=== PATIENT | female | born 1965 | race Caucasian/White ===

== ENCOUNTER 2017-07-22 23:43 | Emergency (ER) | payer SELFPAY ==
[~2017-07-22] VITALS: Ht 167.6 cm; Wt 122.7 kg
[~2017-07-22 23:43] MED LIST: ADVIN25/60 INH; APIX1TAB3 PO; EPP3/2 IM; FURO20TA PO; GLC/500 PO; GLIP5TAB3 PO; LISI-729 PO; LORA-741 PO; MISC8TAB PO; POTA10CA28 PO; TRAM-10 PO
[2017-07-22 23:49] VITALS: TEMP 36.7; Ht 167.6 cm; Wt 122.7 kg
[2017-07-23] MEDS ORDERED: LIDOCAINE 1% BUFFERED INJ 20 ML VIAL INFIL ONE
[2017-07-23] MEDS ORDERED: CEPHALEXIN 500MG HOME PACK 1 EA BTL PO ONE
[2017-07-23] MEDS ORDERED: CEPH500C2 PO (00:57)
[2017-07-23] MEDS ORDERED: OXYCODONE IR HOME PACK PO ONE (01:00)
[2017-07-23 01:03] VITALS: BP 144/90; PULSE 90; O2SAT 96
--- NOTE | 2017-07-23 06:47 | EMERGENCY ROOM VISIT NOTE ---
ED Visit Note First contact with patient: 23:52 CHIEF COMPLAINT: Infection of the left bicep HISTORY OF PRESENT ILLNESS: This 51-year-old patient presents to the emergency department after they noticed a hard, red, tender area left bicep. It is slowly getting larger, more painful and tender. No fever, chills, or loss of appetite. There has been no drainage from the area. There was no injury to the area preceding the infection. They rate the pain as throbbing and 4/10. Tetanus shot is up to date. They have tried to cut it open themselves. The patient is pretty diabetic. The patient has history of subcutaneous abscesses. REVIEW OF SYSTEMS: A review of systems was performed with positives and pertinent negatives listed in the history of present illness. All other systems were reviewed and are negative. ALLERGIES: Iodine, reviewed MEDICATIONS: Reviewed PMH: Medical Problems: (1) Anxiety Status: Chronic (2) Obesity Status: Chronic Surgical Problems: (1) History of dental surgery Status: Chronic (2) Hx of appendectomy Status: Chronic SOCIAL HISTORY: No drug use PHYSICAL EXAM: Vital Signs: Reviewed Nurse's notes, vital signs mildly hypertensive. GENERAL: Pleasant female, no acute distress, non toxic in appearance, well-developed well-nourished. SKIN: There is an erythematous indurated area left bicep which measures about 3 cm cm in diameter. It is fluctuant but there is no pointing or drainage. There is a zone of inflammation around it but no lymphangitis. Capillary refill less than 2 seconds. MUSCULOSKELETAL: There is no limitation of the range of motion of the arm. EMERGENCY DEPARTMENT COURSE: I examined the patient. After saline and Betadine cleansing and 4 mL of 1% buffered lidocaine anesthesia, the abscess was incised with a number 11 scalpel blade. A large amount of purulent material was released with more expressed by pressure. A swab was obtained for culture. The abscess cavity was further probed with a needle six horse hitch driver and the deep pocket expressed. The abscess cavity was then copiously irrigated with sterile saline under pressure. The area was then packed with iodine soaked packing. The area was cleaned with sterile saline and dressed with bacitracin and a bulky bandage. The patient tolerated the procedure well. The patient was discharged home in stable condition. DIAGNOSIS: Abscess of the left bicep DISCHARGE INSTRUCTIONS & TREATMENT: As below Problem List Medical Problems: (1) Anxiety Status: Chronic (2) Obesity Status: Chronic Surgical Problems: (1) History of dental surgery Status: Chronic (2) Hx of appendectomy Status: Chronic Current/Historical Medications Scheduled Apixaban (Eliquis), 5 MG PO DAILY Cephalexin Monohydrate (Keflex), 500 MG PO QID Glipizide (Glucotrol), 5 MG PO BID Lisinopril (Zestril), 5 MG PO QAM Metformin Hcl (Glucophage), 500 MG PO BIDM Misc Natural Products (Christian), 10 TABS PO DAILY Scheduled PRN Epinephrine (Epipen), 0.3 MG IM UD PRN for ALLERGIC REACTION Fluticasone Prop/Salmeterol (Advair Diskus 250/50 60 Dose), 1 PUFF INH BID PRN for SOB/Wheezing Furosemide (Lasix), 20 MG PO DAILY PRN for Edema Lorazepam (Ativan), 0.5 MG PO TID PRN for Anxiety Potassium Chloride (Micro-K Ext Rel), 10 MEQ PO DAILY PRN for WHEN TAKING FUROSEMIDE Tramadol (Ultram), 50 MG PO Q8H PRN for Pain Allergies Coded Allergies: Shellfish (Verified Allergy, Severe, ANAPHYLACTIC, 07/17/16) CARRIES EPI PEN Bee Venom (Verified Allergy, Unknown, ANAPHYLAXIS, 07/17/16) CARRIES EPI PEN Iodine (Verified Allergy, Unknown, ., 07/17/16) Vital Signs Date Time Temp Pulse Resp B/P (MAP) Pulse Ox O2 Delivery O2 Flow Rate FiO2 07/23/17 01:03 90 18 144/90 96 07/22/17 23:49 36.7 98 18 158/95 95 Room Air Departure Information Impression Primary Impression: Abscess of left upper extremity Dispostion Home / Self-Care Condition GOOD Prescriptions Cephalexin Monohydrate (KEFLEX) 500 Mg Cap 500 MG PO QID for 9 Days, #36 CAP Prov: Davian Coelho ., LEX 07/23/17 Forms WORK / SCHOOL INSTRUCTIONS, HOME CARE DOCUMENTATION FORM, IMPORTANT VISIT INFORMATION Patient Instructions [facility], ED Abscess IandD Additional Instructions Frequently change outer dressing. Leave inber dressing in place. Cephalexin(Keflex) 500mg: Take one pill four times daily for 10 days for your skin infection. All antibiotics can cause diarrhea. If this occurs and you feel worse or it does not resolve in 1-2 days follow up with your doctor or return to the Emergency Department as this could be signs of serious underlying problems. Any medication can cause an allergic reaction, stop the pills immediately and return to the ER for rash, hives, breathing difficulties, or swelling. Ibuprofen(Motrin, Advil) may be used for fever or pain. Use 600mg every six hours as needed. Take with food. Avoid using more than 2400mg in a 24 hour period. Do not use 2400mg per day for more than three consecutive days without physician direction. Prolonged inappropriate use can lead to stomach upset or ulcers. (AND/OR) Acetaminophen(Tylenol) may be used for fever or pain. Use 1000mg every six hours as needed. Avoid using more than 3000mg in a 24 hour period. Warm compresses to the affected area 4 times daily for 15-20 minutes. Rest and drink plenty of fluids. Continue current medications. Return to the ER for severe pain, persistent fevers, spreading redness, or any worsening of your condition. Follow up with your primary physician within 2-3 days for a recheck of the current condition and for wound repacking.
--- NOTE | 2017-07-25 18:45 | Pharmacy Progress Note ---
ED Pharmacist Culture FollowUp Date of Service: Jul 25, 2017. Called patient regarding MSSA wound culture. She was originally discharged on keflex, but patient reported the wound was not improving and the keflex was making her sick. Prescription for bactrim 1 DS tab BID X 10 days called to [facility] at the patient's request. Case discussed with Dr. Bradshaw, who is the prescribing provider.
== END 2017-07-23 01:03 | disposition home or self-care (01) ==
LOC: C.EDB 23:44 → C.EDC 07-23 01:03
DX: L02.414 Cutaneous abscess of left upper limb (principal); E66.9 Obesity, unspecified; Z98.818 Other dental procedure status; Z90.89 Acquired absence of other organs

== ENCOUNTER 2018-09-10 11:46 | Inpatient (IN) ==
[2018-09-10] MEDS ORDERED: ALBUT/IPRATROP 3MG/0.5MG NEB 3 ML VIAL NEB STA (12:14)
--- NOTE | 2018-09-10 12:19 | Emergency Department Note ---
Entered by Silvia Pichardo acting as a scribe for Jay Bradshaw DO History of Present Illness General Chief complaint: Shortness of Breath/Dyspnea Stated complaint: SOB,CONGESTION Time Seen by Provider: 09/10/18 12:07 Source: patient History of Present Illness Provider complaint: chest congestion Onset (ago): week(s) 1 Location: chest Maximum Pain Intensity: 8 Quality: + other (congestion) Associated symptoms: + cough, + fever/chills (fever) and + other (swelling in legs) The patient is a 52 year old female who presents to the Emergency Room with complaints of chest congestion beginning 1 week ago. She rates her pain at an 8/ 10. The patient states that 1 week ago she developed flu-like symptoms as well. She states that she was febrile at 101.9 over the weekend and also noticed swelling in her legs. The patient states that she has had a dry cough. She reports a history of pneumonia, a PE, and pulmonary edema. She states that she takes Lasix as needed but otherwise does not take any medications daily including blood thinners. She states that she does not smoke. Home Medications Home Medications Medication Instructions Recorded Confirmed Type No Known Home Medications 09/10/18 09/10/18 History Allergies Allergy/AdvReac Type Severity Reaction Status Date / Time shellfish derived Allergy Severe ANAPHYLACTI Verified 09/10/18 12:10 C bee venom protein (honey bee) Allergy Unknown ANAPHYLAXIS Verified 09/10/18 12: 10 iodine Allergy Unknown . Verified 09/10/18 12:10 Past Med/Surg History Medical History Diabetes mellitus, type II (Chronic) HTN (hypertension) (Chronic) Chronic back pain (Chronic) Obesity (Chronic) Anxiety (Chronic) Diabetes Surgical History Hx of appendectomy (Resolved) History of dental surgery (Resolved) Family History Other Breast cancer CAD (coronary artery disease) COPD (chronic obstructive pulmonary disease) Diabetes HTN (hypertension) Sudden cardiac arrest Social History Current Living Situation: Family Other Information That Helps Us Care for You: No Feels Safe at Home: Yes Smoking Status: Never smoker Second Hand Exposure: No Hx Alcohol Use: Yes Alcohol Intake Frequency: holidays/special occasions only Hx Substance Use: No Beliefs That Will Affect Care: None Preferred Language: Danish Communication Ability: Effective Review of Systems See HPI for pertinent positives & negatives. and A total of 10 systems reviewed and were otherwise negative Physical Exam Vital Signs Vital Signs - 24 hr 09/10/18 11:49 09/10/18 12:56 09/10/18 13:02 Temperature 36.7 C Temperature Source Oral Sepsis Recent Fever Within 48 Hours Yes Sepsis Action Taken by Nursing No Action Required Pulse Rate 95 H 93 H Pulse Rate [Finger] Pulse Rate from SpO2 Sensor 95 H Respiratory Rate 20 14 Respiratory Effort / Characteristics Non-Labored Spontaneous Respiratory Depth Normal Respiratory Pattern Regular Blood Pressure 178/83 H 135/86 Blood Pressure [Right Arm] Blood Pressure Mean 114 102 Blood Pressure Mean [Right Arm] Blood Pressure Position Sitting Blood Pressure Position [Right Arm] Pulse Oximetry 88 L 92 Oxygen Delivery Method Room Air Room Air Oxygen Flow Rate 09/10/18 13:04 09/10/18 13:10 09/10/18 13:20 Temperature Temperature Source Sepsis Recent Fever Within 48 Hours Sepsis Action Taken by Nursing Pulse Rate 91 H 89 90 Pulse Rate [Finger] 92 H Pulse Rate from SpO2 Sensor 92 H 91 H 92 H Respiratory Rate 17 17 15 Respiratory Effort / Characteristics Respiratory Depth Respiratory Pattern Blood Pressure Blood Pressure [Right Arm] 135/86 Blood Pressure Mean Blood Pressure Mean [Right Arm] 102 Blood Pressure Position Blood Pressure Position [Right Arm] Pulse Oximetry 91 91 93 Oxygen Delivery Method Nasal Cannula Oxygen Flow Rate 2 09/10/18 13:30 09/10/18 13:31 09/10/18 13:40 Temperature Temperature Source Sepsis Recent Fever Within 48 Hours Sepsis Action Taken by Nursing Pulse Rate 95 H 99 H 96 H Pulse Rate [Finger] Pulse Rate from SpO2 Sensor 94 H 100 H 93 H Respiratory Rate 22 20 21 Respiratory Effort / Characteristics Respiratory Depth Respiratory Pattern Blood Pressure 107/87 Blood Pressure [Right Arm] Blood Pressure Mean 93 Blood Pressure Mean [Right Arm] Blood Pressure Position Blood Pressure Position [Right Arm] Pulse Oximetry 91 94 90 Oxygen Delivery Method Oxygen Flow Rate 09/10/18 13:50 09/10/18 13:58 09/10/18 14:00 Temperature Temperature Source Sepsis Recent Fever Within 48 Hours Sepsis Action Taken by Nursing Pulse Rate 92 H 87 Pulse Rate [Finger] 92 H Pulse Rate from SpO2 Sensor 92 H 87 Respiratory Rate 24 19 24 Respiratory Effort / Characteristics Respiratory Depth Respiratory Pattern Blood Pressure Blood Pressure [Right Arm] 107/87 Blood Pressure Mean Blood Pressure Mean [Right Arm] 93 Blood Pressure Position Blood Pressure Position [Right Arm] Pulse Oximetry 89 L 93 92 Oxygen Delivery Method Nasal Cannula Oxygen Flow Rate 3 09/10/18 14:01 09/10/18 14:10 09/10/18 14:20 Temperature Temperature Source Sepsis Recent Fever Within 48 Hours Sepsis Action Taken by Nursing Pulse Rate 88 86 87 Pulse Rate [Finger] Pulse Rate from SpO2 Sensor 87 87 87 Respiratory Rate 18 23 18 Respiratory Effort / Characteristics Respiratory Depth Respiratory Pattern Blood Pressure 159/78 H Blood Pressure [Right Arm] Blood Pressure Mean 105 Blood Pressure Mean [Right Arm] Blood Pressure Position Blood Pressure Position [Right Arm] Pulse Oximetry 93 95 94 Oxygen Delivery Method Oxygen Flow Rate 09/10/18 14:30 09/10/18 14:31 09/10/18 14:40 Temperature Temperature Source Sepsis Recent Fever Within 48 Hours Sepsis Action Taken by Nursing Pulse Rate 86 88 101 H Pulse Rate [Finger] Pulse Rate from SpO2 Sensor 86 88 99 H Respiratory Rate 21 19 16 Respiratory Effort / Characteristics Respiratory Depth Respiratory Pattern Blood Pressure 153/88 H Blood Pressure [Right Arm] Blood Pressure Mean 109 Blood Pressure Mean [Right Arm] Blood Pressure Position Blood Pressure Position [Right Arm] Pulse Oximetry 96 94 94 Oxygen Delivery Method Oxygen Flow Rate 09/10/18 14:50 09/10/18 14:56 09/10/18 15:01 Temperature Temperature Source Sepsis Recent Fever Within 48 Hours Sepsis Action Taken by Nursing Pulse Rate 84 Pulse Rate [Finger] 88 Pulse Rate from SpO2 Sensor 84 91 H Respiratory Rate 19 23 Respiratory Effort / Characteristics Respiratory Depth Respiratory Pattern Blood Pressure Blood Pressure [Right Arm] 153/88 H Blood Pressure Mean Blood Pressure Mean [Right Arm] 109 Blood Pressure Position Blood Pressure Position [Right Arm] Pulse Oximetry 94 95 93 Oxygen Delivery Method Nasal Cannula Oxygen Flow Rate 3 09/10/18 15:10 09/10/18 15:20 09/10/18 15:30 Temperature Temperature Source Sepsis Recent Fever Within 48 Hours Sepsis Action Taken by Nursing Pulse Rate 92 H Pulse Rate [Finger] Pulse Rate from SpO2 Sensor 94 H 90 92 H Respiratory Rate Respiratory Effort / Characteristics Respiratory Depth Respiratory Pattern Blood Pressure Blood Pressure [Right Arm] Blood Pressure Mean Blood Pressure Mean [Right Arm] Blood Pressure Position Blood Pressure Position [Right Arm] Pulse Oximetry 91 94 94 Oxygen Delivery Method Oxygen Flow Rate 09/10/18 15:46 09/10/18 15:50 09/10/18 16:00 Temperature Temperature Source Sepsis Recent Fever Within 48 Hours Sepsis Action Taken by Nursing Pulse Rate Pulse Rate [Finger] Pulse Rate from SpO2 Sensor 95 H 92 H 102 H Respiratory Rate Respiratory Effort / Characteristics Respiratory Depth Respiratory Pattern Blood Pressure Blood Pressure [Right Arm] Blood Pressure Mean Blood Pressure Mean [Right Arm] Blood Pressure Position Blood Pressure Position [Right Arm] Pulse Oximetry 95 95 90 Oxygen Delivery Method Oxygen Flow Rate 09/10/18 16:10 09/10/18 16:23 09/10/18 16:30 Temperature Temperature Source Sepsis Recent Fever Within 48 Hours Sepsis Action Taken by Nursing Pulse Rate Pulse Rate [Finger] Pulse Rate from SpO2 Sensor 90 90 92 H Respiratory Rate Respiratory Effort / Characteristics Respiratory Depth Respiratory Pattern Blood Pressure Blood Pressure [Right Arm] Blood Pressure Mean Blood Pressure Mean [Right Arm] Blood Pressure Position Blood Pressure Position [Right Arm] Pulse Oximetry 95 92 95 Oxygen Delivery Method Oxygen Flow Rate 09/10/18 16:40 09/10/18 18:00 09/10/18 18:18 Temperature Temperature Source Sepsis Recent Fever Within 48 Hours Sepsis Action Taken by Nursing Pulse Rate Pulse Rate [Finger] 97 H Pulse Rate from SpO2 Sensor 90 Respiratory Rate 20 20 Respiratory Effort / Characteristics Respiratory Depth Respiratory Pattern Blood Pressure Blood Pressure [Right Arm] 122/82 Blood Pressure Mean Blood Pressure Mean [Right Arm] 95 Blood Pressure Position Blood Pressure Position [Right Arm] Pulse Oximetry 97 95 95 Oxygen Delivery Method Nasal Cannula Nasal Cannula Oxygen Flow Rate 3 3 09/10/18 19:16 09/10/18 19:27 09/10/18 19:57 Temperature 36.4 C L Temperature Source Oral Sepsis Recent Fever Within 48 Hours Sepsis Action Taken by Nursing Pulse Rate 90 Pulse Rate [Finger] 85 Pulse Rate from SpO2 Sensor Respiratory Rate 18 Respiratory Effort / Characteristics Non-Labored Spontaneous SOB on Exertion SOB on Exertion Respiratory Depth Normal Respiratory Pattern Blood Pressure Blood Pressure [Right Arm] 115/59 L Blood Pressure Mean Blood Pressure Mean [Right Arm] 77 Blood Pressure Position Blood Pressure Position [Right Arm] Sitting Pulse Oximetry 89 L 92 Oxygen Delivery Method Room Air Nasal Cannula Nasal Cannula Nasal Cannula Oxygen Flow Rate 0 1 1 09/10/18 21:35 Temperature Temperature Source Sepsis Recent Fever Within 48 Hours Sepsis Action Taken by Nursing Pulse Rate Pulse Rate [Finger] 87 Pulse Rate from SpO2 Sensor Respiratory Rate 18 Respiratory Effort / Characteristics Non-Labored Spontaneous Respiratory Depth Respiratory Pattern Blood Pressure Blood Pressure [Right Arm] Blood Pressure Mean Blood Pressure Mean [Right Arm] Blood Pressure Position Blood Pressure Position [Right Arm] Pulse Oximetry 97 Oxygen Delivery Method Room Air Oxygen Flow Rate GENERAL: Patient is awake alert in no acute distress patient is resting comfortably and showing no signs of anxiety EYES: The conjunctivae are clear. The pupils are round and reactive. EARS, NOSE, MOUTH AND THROAT: The nose is without any evidence of any deformity. Mucous membranes are moist tongue is midline NECK: The neck is nontender and supple. RESPIRATORY: Shallow respirations were noted throughout. There were diminished breath sounds in all lung cee. Fine expiratory wheezing was noted in both upper lung cee. There is no tachypnea or conversational dyspnea. CARDIOVASCULAR: Regular rate and rhythm noted there no murmurs rubs or gallops normal S1 normal S2 GASTROINTESTINAL: The abdomen is soft. Bowel sounds are present in all quadrants. Abdomen is nontender MUSCULOSKELETAL/EXTREMITIES: There is no evidence of gross deformity full range of motion is noted in the hips and shoulders SKIN: There is no obvious evidence of any rash. There are no petechiae, pallor or cyanosis noted. NEUROLOGIC: Patient is awake alert and oriented x3. Course 1210: Past medical records reviewed. The patient was evaluated in room C2B, and a complete history and physical examination were performed. 1543: I discussed the patient's case with Shakira Chua who will evaluate the patient for further management. 1550: I updated the patient who verbalized agreement and understanding of the treatment plan. Consultations Consultation #1: Shakira Chua Time: 15:43 Administered Medications Acetaminophen (Tylenol) 650 mg PO Q4H PRN PRN Reason: Pain or Fever Stop: 10/10/18 18:37 Last Admin: 09/10/18 21:01 Dose: 650 mg Enoxaparin Sodium (Lovenox) 40 mg SQ Q24H BHAVIN Stop: 10/10/18 20:59 Last Admin: 09/10/18 21:26 Dose: 40 mg Insulin Aspart (Novolog Flexpen) 0 units SC ACHS BHAVIN Stop: 10/10/18 20:59 Last Admin: 09/10/18 21:27 Dose: 10 units Insulin Glargine (Lantus Solostar Pen) 0 units SC Q12H BHAVIN; Protocol Stop: 10/10/18 20:59 Last Admin: 09/10/18 21:26 Dose: 14 units Ipratropium Keyes (Atrovent 0.02% 0.5mg/2.5ml) 0.5 mg INH Q6R PRN PRN Reason: Shortness Of Breath Stop: 10/10/18 18:37 Last Admin: 09/10/18 21:34 Dose: 0.5 mg Levalbuterol HCl (Xopenex 1.25mg/0.5ml Neb) 1.25 mg INH Q6R PRN PRN Reason: Shortness Of Breath Or Wheezing Stop: 10/10/18 18:37 Last Admin: 09/10/18 21:34 Dose: 1.25 mg Discontinued Medications Albuterol (Duoneb) 3 ml NEB NOW STA Stop: 09/10/18 12:15 Last Admin: 09/10/18 12:49 Dose: 3 ml Furosemide (Lasix) 40 mg IV NOW STA Stop: 09/10/18 15:04 Last Admin: 09/10/18 15:24 Dose: 40 mg Medical Decision Making Differential Diagnosis Differential diagnosis: Etiologies such as infections, reactive airway disease, COPD, pneumonia, pleural effusion, pulmonary edema, ARDS, pneumothorax, CHF, cardiac ischemia, cardiac tamponade, dysrhythmia, anemia, pulmonary embolism, musculoskeletal, gastrointestinal process, as well as others were entertained. Medical Records Attestation: I reviewed the patient's medical records. Home Medications Current Medication List: was personally reviewed by me Laboratory Data Attestation: I reviewed the patient's lab results. Result diagrams: 09/10/18 12:39 09/10/18 12:39 Lab Results 09/10/18 09/10/18 09/10/18 Range/Units 12:39 12:39 12:39 WBC 12.08 H (4.8-10.8) K/uL RBC 5.04 (4.2-5.4) M/uL Hgb 14.3 (12.0-16.0) g/dL Hct 43.3 (37-47) % MCV 85.9 (80-100) fL MCH 28.4 (25-34) pg MCHC 33.0 (32-36) g/dL RDW Std Deviation 45.0 (36.4-46.3) fL RDW Coeff of Damian 14.4 (11.5-14.5) % Plt Count 222 (130-400) K/uL MPV 9.5 (7.4-10.4) fL Immature Gran % (Auto) 0.3 % Neut % (Auto) 67.9 % Lymph % (Auto) 23.3 % Buchanan % (Auto) 6.3 % Eos % (Auto) 2.0 % Baso % (Auto) 0.2 % Immature Gran # (Auto) 0.04 H (0.00-0.02) K/uL Neut # (Auto) 8.20 H (1.4-6.5) K/uL Lymph # (Auto) 2.81 (1.2-3.4) K/uL Buchanan # (Auto) 0.76 H (0.11-0.59) K/uL Eos # (Auto) 0.24 (0-0.5) K/uL Baso # (Auto) 0.03 (0-0.2) K/uL PT 10.5 (9.0-12.0) Seconds INR 1.0 (0.9-1.1) APTT 23.9 (21.0-31.0) Seconds PTT Ratio 0.9 D-Dimer (0-500) ug/L FEU Sodium 135 L (136-145) mmol/L Potassium 3.9 (3.5-5.1) mmol/L Chloride 98 (98-107) mmol/L Carbon Dioxide 32 (21-32) mmol/L Anion Gap 4.0 (3-11) BUN 7 (7-18) mg/dl Creatinine 0.64 (0.6-1.2) mg/dl Est Cr Clr Drug Dosing 156.5 ml/min Est GFR ( Amer) 119.7 Est GFR (Non-Af Amer) 103.3 BUN/Creatinine Ratio 10.2 (10-20) Glucose 203 H (70-99) mg/dl POC Glucose (70-99) Calcium 8.6 (8.5-10.1) mg/dl Magnesium 2.0 (1.8-2.4) mg/dl Total Bilirubin 0.5 (0.2-1) mg/dl AST 8 L (15-37) U/L ALT 15 (12-78) U/L Alkaline Phosphatase 125 H (45-117) U/L Troponin I 0.020 (0-0.045) ng/ml NT-Pro-B Natriuret Pep 82 (0-900) pg/ml Total Protein 8.3 H (6.4-8.2) gm/dl Albumin 3.3 L (3.4-5.0) gm/dl Globulin 5.0 H (2.5-4.0) gm/dl Albumin/Globulin Ratio 0.7 L (0.9-2) Digoxin (0.8-2.0) ng/ml Influenza Type A (PCR) (Neg) Influenza Type B (PCR) (Neg) 09/10/18 09/10/18 09/10/18 Range/Units 12:39 12:39 13:00 WBC (4.8-10.8) K/uL RBC (4.2-5.4) M/uL Hgb (12.0-16.0) g/dL Hct (37-47) % MCV (80-100) fL MCH (25-34) pg MCHC (32-36) g/dL RDW Std Deviation (36.4-46.3) fL RDW Coeff of Damian (11.5-14.5) % Plt Count (130-400) K/uL MPV (7.4-10.4) fL Immature Gran % (Auto) % Neut % (Auto) % Lymph % (Auto) % Buchanan % (Auto) % Eos % (Auto) % Baso % (Auto) % Immature Gran # (Auto) (0.00-0.02) K/uL Neut # (Auto) (1.4-6.5) K/uL Lymph # (Auto) (1.2-3.4) K/uL Buchanan # (Auto) (0.11-0.59) K/uL Eos # (Auto) (0-0.5) K/uL Baso # (Auto) (0-0.2) K/uL PT (9.0-12.0) Seconds INR (0.9-1.1) APTT (21.0-31.0) Seconds PTT Ratio D-Dimer 260 (0-500) ug/L FEU Sodium (136-145) mmol/L Potassium (3.5-5.1) mmol/L Chloride (98-107) mmol/L Carbon Dioxide (21-32) mmol/L Anion Gap (3-11) BUN (7-18) mg/dl Creatinine (0.6-1.2) mg/dl Est Cr Clr Drug Dosing ml/min Est GFR ( Amer) Est GFR (Non-Af Amer) BUN/Creatinine Ratio (10-20) Glucose (70-99) mg/dl POC Glucose (70-99) Calcium (8.5-10.1) mg/dl Magnesium (1.8-2.4) mg/dl Total Bilirubin (0.2-1) mg/dl AST (15-37) U/L ALT (12-78) U/L Alkaline Phosphatase (45-117) U/L Troponin I (0-0.045) ng/ml NT-Pro-B Natriuret Pep (0-900) pg/ml Total Protein (6.4-8.2) gm/dl Albumin (3.4-5.0) gm/dl Globulin (2.5-4.0) gm/dl Albumin/Globulin Ratio (0.9-2) Digoxin 0.1 L (0.8-2.0) ng/ml Influenza Type A (PCR) Neg for Influ A (Neg) Influenza Type B (PCR) Neg for Influ B (Neg) 09/10/18 09/10/18 Range/Units 19:17 20:59 WBC (4.8-10.8) K/uL RBC (4.2-5.4) M/uL Hgb (12.0-16.0) g/dL Hct (37-47) % MCV (80-100) fL MCH (25-34) pg MCHC (32-36) g/dL RDW Std Deviation (36.4-46.3) fL RDW Coeff of Damian (11.5-14.5) % Plt Count (130-400) K/uL MPV (7.4-10.4) fL Immature Gran % (Auto) % Neut % (Auto) % Lymph % (Auto) % Buchanan % (Auto) % Eos % (Auto) % Baso % (Auto) % Immature Gran # (Auto) (0.00-0.02) K/uL Neut # (Auto) (1.4-6.5) K/uL Lymph # (Auto) (1.2-3.4) K/uL Buchanan # (Auto) (0.11-0.59) K/uL Eos # (Auto) (0-0.5) K/uL Baso # (Auto) (0-0.2) K/uL PT (9.0-12.0) Seconds INR (0.9-1.1) APTT (21.0-31.0) Seconds PTT Ratio D-Dimer (0-500) ug/L FEU Sodium (136-145) mmol/L Potassium (3.5-5.1) mmol/L Chloride (98-107) mmol/L Carbon Dioxide (21-32) mmol/L Anion Gap (3-11) BUN (7-18) mg/dl Creatinine (0.6-1.2) mg/dl Est Cr Clr Drug Dosing ml/min Est GFR ( Amer) Est GFR (Non-Af Amer) BUN/Creatinine Ratio (10-20) Glucose (70-99) mg/dl POC Glucose 300 H (70-99) Calcium (8.5-10.1) mg/dl Magnesium (1.8-2.4) mg/dl Total Bilirubin (0.2-1) mg/dl AST (15-37) U/L ALT (12-78) U/L Alkaline Phosphatase (45-117) U/L Troponin I 0.019 (0-0.045) ng/ml NT-Pro-B Natriuret Pep (0-900) pg/ml Total Protein (6.4-8.2) gm/dl Albumin (3.4-5.0) gm/dl Globulin (2.5-4.0) gm/dl Albumin/Globulin Ratio (0.9-2) Digoxin (0.8-2.0) ng/ml Influenza Type A (PCR) (Neg) Influenza Type B (PCR) (Neg) Imaging Data Radiologist's Impression: Radiology results as stated below per my review and the radiologist's interpretation: XR chest 1V portable HISTORY: 52 years-old Female Dyspnea acute shortness of breath COMPARISON: Chest radiograph 07/17/2016, CTA chest 05/08/2016 TECHNIQUE: Portable AP view of the chest FINDINGS: Cardiac silhouette is enlarged, unchanged. Mild pulmonary vascular congestion without pneumothorax, pleural effusion or overt pulmonary edema. Unchanged left basilar opacities are suggestive of atelectasis/scarring. Degenerative changes of the shoulders and spine. IMPRESSION: Cardiomegaly with pulmonary vascular congestion. The above report was generated using voice recognition software. It may contain grammatical, syntax or spelling errors. Electronically signed by: Duane Santiago M.D. 09/10/2018 12:37 PM ECG Data Attestation: I personally reviewed and interpreted this ECG as follows: Indication: SOB/dyspnea Rate (beats per minute): 90 Rhythm: normal sinus Findings: no PAC, no PVC, no ST depression, no ST elevation, no acute ischemic change and no ectopy Comparison ECG Date: from (05/28/16) Change: no significant change Blood Pressure Blood Pressure Findings: Elevated blood pressure Blood Pressure Disposition: further management by hospitalist MAURO Narrative The patient is a 52-year-old female who presented to the emergency department for an evaluation of difficulty breathing. The patient had wheezing. She also has a history of pulmonary edema. The patient's history and physical exam ultimately appear to be more consistent with pulmonary edema. She was treated with Lasix. Her symptoms somewhat improved. She was placed on supplemental oxygen. I discussed the patient's laboratory and radiographic studies with her. Because of her ongoing symptoms I also discussed her case with the on- call [facility] hospitalist group. They have agreed to evaluate the patient in the emergency department for further management and disposition. Impression & Plan Pulmonary edema, Hypoxia Discharge Plan Visit Data *Final* Discharge Date/Time: 09/10/18 18:18 Chief Complaint: Shortness of Breath/Dyspnea Stated Complaint: SOB,CONGESTION ED Provider: Jay Bradshaw Discharge Problem: Pulmonary edema, Hypoxia Patient Disposition: Admitted As Inpatient Discharge Instructions Interventions: ED Discharge Assessment Last Done: 09/10/18 18:18 The scribe's documentation has been prepared under my direction and personally reviewed by me in its entirety. I confirm that the note above accurately reflects all work, treatment, procedures, and medical decision making performed by me.
--- NOTE | 2018-09-10 12:38 | XRay Report ---
XR chest 1V portable HISTORY: 52 years-old Female Dyspnea acute shortness of breath COMPARISON: Chest radiograph 07/17/2016, CTA chest 05/08/2016 TECHNIQUE: Portable AP view of the chest FINDINGS: Cardiac silhouette is enlarged, unchanged. Mild pulmonary vascular congestion without pneumothorax, p leural effusion or overt pulmonary edema. Unchanged left basilar opacities are suggestive of atelecta sis/scarring. Degenerative changes of the shoulders and spine. IMPRESSION: Cardiomegaly with pulmonary vascular congestion. The above report was generated using voice recognition software. It may contain grammatical, syntax o r spelling errors. Electronically signed by: Duane Santiago M.D. 09/10/2018 12:37 PM
[2018-09-10 12:47] LABS: Basophils # (auto) 0.03 K/uL (0-0.2); Basophils % (auto) 0.2 %; Eosinophils # (auto) 0.24 K/uL (0-0.5); Hematocrit (blood only) 43.3 % (37-47); Hemoglobin 14.3 g/dL (12.0-16.0); Immature Granulocytes # (auto) 0.04 K/uL (0.00-0.02); Immature Granulocytes % (auto) 0.3 %; Lymphocytes # (auto) 2.81 K/uL (1.2-3.4); Lymphocytes % (auto) 23.3 %; Mean Corpuscular Volume 85.9 fL (80-100); Mean Platelet Volume 9.5 fL (7.4-10.4); Monocytes # (auto) 0.76 K/uL (0.11-0.59); Monocytes % (auto) 6.3 %; Neutrophils % (auto) 67.9 %; Platelet Count 222 K/uL (130-400); RDW Coefficient of Variation 14.4 % (11.5-14.5); Red Blood Count 5.04 M/uL (4.2-5.4); White Blood Count 12.08 K/uL (4.8-10.8)
[2018-09-10 12:58] LABS: Partial Thromboplastin Ratio 0.9; Partial Thromboplastin Time 23.9 Seconds (21.0-31.0); Prothrombin Time 10.5 Seconds (9.0-12.0)
[2018-09-10 13:07] LABS: Albumin Level 3.3 gm/dl (3.4-5.0); BUN Creatinine Ratio 10.2 (10-20); Calcium 8.6 mg/dl (8.5-10.1); Creatinine Clr Calc Pharmacy 156.5 ml/min; Est GFR (African American) 119.7; Est GFR (Non-African American) 103.3; Potassium 3.9 mmol/L (3.5-5.1)
[2018-09-10 13:11] LABS: Albumin Globulin Ratio 0.7 (0.9-2); Bilirubin,Total 0.5 mg/dl (0.2-1); Total Protein 8.3 gm/dl (6.4-8.2); Troponin I 0.02 ng/ml (0-0.045)
[2018-09-10 13:42] LABS: Influenza A virus by PCR Neg for Influ A (Neg); Influenza B virus by PCR Neg for Influ B (Neg)
[2018-09-10 14:40] LABS: D Dimer 260 ug/L FEU (0-500)
[2018-09-10] MEDS ORDERED: FUROSEMIDE 40 MG/4 ML VIAL IV STA (15:03)
--- NOTE | 2018-09-10 16:46 | History & Physical Report ---
Date of Service September 10, 2018 Assessment & Plan (1) Hypoxia: (2) Pulmonary edema: Report URI symptoms one week ago with non-productive cough. Reported fever 101.9F 2 days ago. Increased SOB over past 4 days and orthopnea. Reports chronic LE edema after sitting all day that improves by morning after elevating legs. Was on lasix 20mg prn in past, hasn't used for years. In ER pt afebrile, P: 95, R: 20, BP: 178/83, 88% on RA up to 95% on 3L oxygen NC. WBC: 12. Negative D-dimer. Troponin: 0.02, BNP: 82. Negative influenza swab CXR: Cardiomegaly with pulmonary vascular congestion. Hx echo 2013: EF: 60-65%, grade II diastolic dysfunction, no significant valvular pathology. -In ER was given albuterol neb, lasix 40mg IV -supplemental oxygen -xopenex/atrovent nebs -monitor I&O's, low sodium diet -resting echo -reassess fluid status in AM -CBC, BMP in am (3) Diabetes mellitus, type II: Hx DM II. Previously on metformin 500mg BID, [id number] daily, (4) HTN (hypertension): Previously on lisinopril. Hasn't taken for couple of years In ER BP: 178/83 down to 135/86 -monitor BP (5) Chronic back pain: -Tylenol prn pain (6) Obesity: BMI: 53. -discussed lifestyle modifications (7) Anxiety: Not currently on medications DVT Prophylaxis -Lovenox SQ Full code Follows with Dr Muñoz for routine care, however has not been seen for years Pt was seen with Dr Garcia. See addendum History of Present Illness Chief Complaint: SOB Primary Care Provider: Theo Muñoz Pt is 52 y/o F with PMH chronic back pain, obesity, anxiety, DM II, HTN, h/o PE in 2016 presented to ER with c/o SOB. Pt states one week ago started with nasal congestion and non-productive cough. Had fever 101.9F 2 days ago. Feels increased SOB over past 4 days and c/o orthopnea. Taking Mucinex, Robitussin without much relief. Reports chronic LE edema after sitting all day that improves by morning after elevating legs. Doesn't feel has had increased LE edema. Pt has not followed with PCP for couple of years and has not been on medications for several years. Previously was on lisinopril 5mg, [id number] daily, metformin 500mg BID and lasix prn LE edema. Denies ill contacts, recent travel. Did not receive influenza vaccine. Denies N/V/D/C, BETHEA, dizziness, syncope, vision changes, neck pain, CP, palpitations, hemoptysis, abdominal pain , paresthesias, rashes, dysuria, hematuria, urinary frequency. Hx echo 2014: EF: 60-65%, grade II diastolic dysfunction, no significant valvular pathology. Allergies Allergy/AdvReac Type Severity Reaction Status Date / Time shellfish derived Allergy Severe ANAPHYLACTI Verified 09/10/18 12:10 C bee venom protein (honey bee) Allergy Unknown ANAPHYLAXIS Verified 09/10/18 12: 10 iodine Allergy Unknown . Verified 09/10/18 12:10 Home Medications Home Medications Medication Instructions Recorded Confirmed Type No Known Home Medications 09/10/18 09/10/18 History Past Med/Surg History Medical History Diabetes mellitus, type II (Chronic) HTN (hypertension) (Chronic) Chronic back pain (Chronic) Obesity (Chronic) Anxiety (Chronic) Diabetes Surgical History Hx of appendectomy (Resolved) History of dental surgery (Resolved) Family History Other Breast cancer CAD (coronary artery disease) COPD (chronic obstructive pulmonary disease) Diabetes HTN (hypertension) Sudden cardiac arrest Social History Current Living Situation: Family Other Information That Helps Us Care for You: No Feels Safe at Home: Yes Smoking Status: Never smoker Second Hand Exposure: No Hx Alcohol Use: Yes Alcohol Intake Frequency: holidays/special occasions only Hx Substance Use: No Beliefs That Will Affect Care: None Preferred Language: Norwegian Communication Ability: Effective Review of Systems All systems reviewed & are unremarkable except as noted in HPI & below Physical Exam 2 Vital Signs (Past 24 Hours): Last Vital Signs Temp 36.7 C 09/10/18 11:49 Pulse 88 09/10/18 14:56 Resp 23 09/10/18 14:56 BP 153/88 H 09/10/18 14:56 Pulse Ox 95 09/10/18 14:56 Physical Exam: General: non-toxic appearance, obese Head: normocephalic, atraumatic Eyes: PERRL, EOM's intact, conjunctiva non-injected, anicteric ENT: normal inspection external ears, nose, mucous membranes moist Neck: supple, trachea midline Lungs: diminished, faint wheeze, R:20 without retractions, on 3L O2 NC with sat: 95% CV: RRR, distant heart sounds, no murmur, mild pretibial edema Abd: normal BS, soft, non-tender Ext: no cyanosis, no calf tenderness Neuro: A&O x 3, no focal deficits noted, normal affect Skin: warm, dry Results & Data Laboratory Results Short CBC 09/10/18 Range/Units 12:39 WBC 12.08 H (4.8-10.8) K/uL Hgb 14.3 (12.0-16.0) g/dL Hct 43.3 (37-47) % Plt Count 222 (130-400) K/uL BMP 09/10/18 12:39 Sodium 135 L Potassium 3.9 Chloride 98 Carbon Dioxide 32 BUN 7 Creatinine 0.64 Glucose 203 H Calcium 8.6 Cardiac Enzymes 09/10/18 Range/Units 12:39 Troponin I 0.020 (0-0.045) ng/ml Liver Function 09/10/18 Range/Units 12:39 Total Bilirubin 0.5 (0.2-1) mg/dl AST 8 L (15-37) U/L ALT 15 (12-78) U/L Alkaline Phosphatase 125 H (45-117) U/L Albumin 3.3 L (3.4-5.0) gm/dl Diagnostic Findings CXR: IMPRESSION: Cardiomegaly with pulmonary vascular congestion. ECG Rate (beats per minute): 90 Rhythm: sinus rhythm Supervising Physician Co-Signing Physician Notes Pt was seen and examined. Agreed with Shakira exam, assessment and plan. Pt is 52 y/o F with PMH chronic back pain, obesity, anxiety, DM II, HTN, h/o PE in 2016 presented to ER with c/o SOB. Pt said that she has been having SOB associated with nasal congestion. She said that she developed SOB with mild to moderate exertion. She tried mucinex with no significant relief. CXR done in the ER showed cardiomegaly with pulmonary vascular congestion. Influenza PCR negative and proBNP normal. Received lasix in the ER. Will continue neb treatment and continue oxygen supplement. Add prednisone 20mg daily x5 days. Will continue monitor. Radha, MD _ (1) Pulmonary edema Chronicity: acute Qualified Code(s): J81.0 - Acute pulmonary edema
[2018-09-10] MEDS ORDERED: GLUCAGON FOR INJ 1 MG VIAL SQ PRN (18:38)
[2018-09-10] MEDS ORDERED: CARBOHYDRATES FOR HYPOGLYCEMIA PO PRN (18:38)
[2018-09-10] MEDS ORDERED: XOPENEX/ATROVENT 1.25mg/0.5MG NEB COMBO NEB PRN (18:38)
[2018-09-10] MEDS ORDERED: DEXTROSE 50% 50 ML SYRINGE IV PRN (18:38)
[2018-09-10] MEDS ORDERED: LEVALBUTEROL 1.25MG/0.5ML NEB INH PRN (18:38)
[2018-09-10] MEDS ORDERED: GLUCOSE 10 TABS/TUBE PO PRN (18:38)
[2018-09-10] MEDS ORDERED: IPRATROPIUM BROMIDE NEB SOLN 0.02% 2.5 ML VIAL INH PRN (18:38)
[2018-09-10] MEDS ORDERED: GLUCOSE 40% GEL 15 GM TUBE PO PRN (18:38)
[2018-09-10] MEDS: ACETAMINOPHEN 325 MG TAB PO PRN (21:01)
[2018-09-10] MEDS: ENOXAPARIN INJ 40 MG/0.4 ML SYR SQ SCH (21:26)
[2018-09-10] MEDS: INSULIN GLARGINE SOLOSTAR 100 UNITS/ML 3 ML PEN SC SCH (21:26)
[2018-09-10] MEDS: INSULIN ASPART 100 UNITS/ML 3 ML PEN SC SCH (21:27)
[2018-09-10] MEDS ORDERED: LORazepam 0.5 MG TAB PO STA (21:48)
[2018-09-10] MEDS: guaiFENesin 600 MG TABCR PO SCH (22:26)
[2018-09-10] MEDS: predniSONE 20 MG TAB PO SCH (23:16)
[2018-09-11] MEDS ORDERED: PERFLUTREN LIPID MICROSPHERE (DEFINITY) IV ONE (07:30)
[2018-09-11 07:51] LABS: Basophils # (auto) 0.02 K/uL (0-0.2); Basophils % (auto) 0.2 %; Eosinophils # (auto) 0.03 K/uL (0-0.5); Eosinophils % (auto) 0.3 %; Hemoglobin 14.1 g/dL (12.0-16.0); Immature Granulocytes # (auto) 0.03 K/uL (0.00-0.02); Immature Granulocytes % (auto) 0.3 %; Lymphocytes # (auto) 1.26 K/uL (1.2-3.4); Lymphocytes % (auto) 12.8 %; Mean Platelet Volume 9.6 fL (7.4-10.4); Monocytes # (auto) 0.25 K/uL (0.11-0.59); Monocytes % (auto) 2.5 %; Neutrophils # (auto) 8.28 K/uL (1.4-6.5); Neutrophils % (auto) 83.9 %; Platelet Count 229 K/uL (130-400); RDW Coefficient of Variation 14.4 % (11.5-14.5); RDW Standard Deviation 45.3 fL (36.4-46.3); Red Blood Count 5.06 M/uL (4.2-5.4); White Blood Count 9.87 K/uL (4.8-10.8)
[2018-09-11 08:28] LABS: Albumin Globulin Ratio 0.6 (0.9-2); Albumin Level 3.1 gm/dl (3.4-5.0); BUN Creatinine Ratio 18.2 (10-20); Bilirubin,Total 0.6 mg/dl (0.2-1); Calcium 8.7 mg/dl (8.5-10.1); Creatinine Clr Calc Pharmacy 127.7 ml/min; Globulin 5.2 gm/dl (2.5-4.0); Potassium 4.5 mmol/L (3.5-5.1); Total Protein 8.3 gm/dl (6.4-8.2)
[2018-09-11] MEDS: guaiFENesin 600 MG TABCR PO SCH ×2 (08:31→21:32)
[2018-09-11] MEDS: predniSONE 20 MG TAB PO SCH (08:31)
[2018-09-11 08:33] LABS: Estimated Average Glucose 214 mg/dl; Hemoglobin A1C 9.1 % (4.5-5.6)
[2018-09-11] MEDS: INSULIN ASPART 100 UNITS/ML 3 ML PEN SC SCH ×4 (08:34→21:31)
[2018-09-11] MEDS: INSULIN GLARGINE SOLOSTAR 100 UNITS/ML 3 ML PEN SC SCH ×2 (08:35→21:30)
[2018-09-11] MEDS: ACETAMINOPHEN 325 MG TAB PO PRN ×2 (10:15→21:48)
--- NOTE | 2018-09-11 16:03 | Hospitalist Progress Note ---
Date of Service September 11, 2018 Assessment & Plan (1) Congestive heart failure with left ventricular diastolic dysfunction, NYHA class 1: Presented with increased shortness of breath, orthopnea for the past few days Worsening of bilateral lower extremity edema Chest x-ray shows cardiomegaly with pulmonary vascular congestion Acute decompensation of CHF with diastolic heart failure -Echo: Left ventricle is grossly normal Ejection fraction 60-65% Right ventricular systolic function is normal Grossly normal heart -In ER was given albuterol neb, lasix 40mg IV We will continue patient on scheduled dose of Lasix 20 mg daily, add CLEMENTINA inhibitor lisinopril 5 mg daily Present on Admission?: Yes (2) Hypoxia: Secondary to decompensated CHF Respite status improved, Presented in room air Present on Admission?: Yes (3) Diabetes mellitus, type II: Hx DM II. Previously on metformin 500mg BID, [id number] daily, Has not been taking for almost a year Hemoglobin A1c more than 9 Appreciate input from tobacco prevention health educator Patient does not have medical insurance which has been limiting her physician follow-ups, medication compliance Patient will be discharged on oral metformin 500 twice daily, glipizide 10 mg daily both of them are on [facility] $4 prescription plan Patient is instructed to buy Splash Prime glucometer and strips : [email or web address] brand , it is the cheapest glucometer to buy over the counter, Repeat hemoglobin A1c in 3 months Nutrition consulted for diabetic diet Present on Admission?: Yes (4) HTN (hypertension): Previously was on lisinopril has not been taking for years-does not have medical insurance Ordered for lisinopril Present on Admission?: Yes (5) Chronic back pain: -Tylenol prn Present on Admission?: Yes (6) Obesity: BMI: 53. -discussed lifestyle modifications (7) Anxiety: Not currently on medications DVT Prophylaxis -Lovenox SQ Full code Disposition: Plan to discharge home tomorrow Medicine follow-up with Dr. Muñoz Subjective Patient remains afebrile, cough is markedly improved, Reports of orthopnea Lower extremity swelling has improved Patient reports after starting with prednisone heart shortness of breath, has improved Denies of any Physical Exam 2 Vital Signs (Past 24 Hours): Last Vital Signs Temp 36.7 C 09/11/18 15:34 Pulse 90 09/11/18 15:34 Resp 18 09/11/18 15:34 BP 119/56 L 09/11/18 15:34 Pulse Ox 90 09/11/18 15:34 Constitutional: WD/WN, vitals as above + obese; no acute distress Eyes: PERRL, conjunctivae normal, anicteric sclerae ENMT: external ear and nose normal, oropharynx normal Neck: trachea midline, no thyromegaly Respiratory: normal respiratory effort; no respiratory distress and no cough Auscultation: + diminished lung sounds; no crackles, no rales and no wheezes Cardiovascular: Rate/Rhythm: regular rate and regular rhythm Musculoskeletal: no cyanosis or clubbing, extremities motor strength 5/5 Skin: no rashes, warm and dry Neurologic: PERRL, EOMI, accommodation nl, no face palsy, no dysarthria Psychiatric: A+Ox3, euthymic affect _ (1) Diabetes mellitus, type II Diabetes mellitus fpc insulin use: without fpc use Diabetes mellitus complication status: without complication Qualified Code(s): E11.9 - Type 2 diabetes mellitus without complications (2) Chronic back pain Back pain location: back pain in unspecified location Back pain laterality: unspecified Qualified Code(s): M54.9 - Dorsalgia, unspecified; G89.29 - Other chronic pain (3) HTN (hypertension) Hypertension type: unspecified Qualified Code(s): I10 - Essential (primary) hypertension (4) Obesity Obesity type: unspecified obesity type Obesity classification: adult class 3 (BMI >= 40) Serious obesity comorbidity presence: unspecified whether serious comorbidity present Body mass index: BMI 50.0-59.9 Qualified Code(s): E66.01 - Morbid (severe) obesity due to excess calories; Z68.43 - Body mass index (BMI ) 50-59.9, adult
[2018-09-11] MEDS: FUROSEMIDE 20 MG TAB PO SCH (18:07)
[2018-09-11] MEDS: DOXYCYCLINE HYCLATE 100 MG CAP PO SCH ×2 (18:08→21:32)
[2018-09-11] MEDS ORDERED: PHARMACY GLYCEMIC MGMT CONSULT PRN (18:17)
[2018-09-11] MEDS ORDERED: INSULIN GLARGINE SOLOSTAR 100 UNITS/ML 3 ML PEN SC SCH (21:00)
[2018-09-11] MEDS: ENOXAPARIN INJ 40 MG/0.4 ML SYR SQ SCH (21:31)
[2018-09-12] MEDS ORDERED: BENZONATATE 100 MG CAPSULE PO PRN (00:52)
[2018-09-12] MEDS: INSULIN ASPART 100 UNITS/ML 3 ML PEN SC SCH ×2 (08:29→13:04)
[2018-09-12] MEDS: INSULIN GLARGINE SOLOSTAR 100 UNITS/ML 3 ML PEN SC SCH ×2 (08:30→11:45)
[2018-09-12] MEDS: FUROSEMIDE 20 MG TAB PO SCH (08:31)
[2018-09-12] MEDS: guaiFENesin 600 MG TABCR PO SCH (08:31)
[2018-09-12] MEDS: DOXYCYCLINE HYCLATE 100 MG CAP PO SCH (08:32)
[2018-09-12] MEDS: predniSONE 20 MG TAB PO SCH (08:32)
[2018-09-12] MEDS ORDERED: LISINOPRIL 5 MG TAB PO SCH (09:00)
--- NOTE | 2018-09-12 11:57 | Pharmacy Report ---
Glycemic Control Consultation - Date of Service September 12, 2018 - Scope Scope: Glycemic Pharmacist consulted by Dr Miller on 09/11/18 for glycemic control and to write orders per [facility] inpatient glycemic control protocol - Objective Weight: 148 kg Accuchecks BSG (last 24hrs): 09/11/18 09/11/18 09/11/18 11:36 17:15 20:48 POC Glucose 270 H 296 H 176 H 09/12/18 09/12/18 07:11 10:59 POC Glucose 164 H 205 H HbA1c: Hemoglobin A1c 9.1 % (4.5-5.6) H 09/11/18 07:31 - Recent Pertinent Medications Outpatient Anti-diabetic Regimen: * Pt has not been taking for over a year * A1c = 9.1 % 09/11/18 The patient is currently receiving: * Basal insulin: Lantus 14 units every 12 hours * Correctional Insulin: Novolog Correction per scale ACHS Goal Range: Low 110 mg/dL - High 140 mg/dL Correction Factor: 8 mg/dL/unit * Prandial insulin: Per carb ratio of 1 unit per 5 grams CHO consumed Risk Factors for Insulin Resistance: * Steroids: Prednisone 20mg PO Daily * Infection: Doxycycline PO * Diet: Type 2 DM - Assessment & Plan Assessment & Plan: ASSESSMENT: * 52 year old female, type 2 diabetic, has not been taking outpatient oral medications in over a year. * Patient agrees to restart medications on discharge, see recommendations below. * Will increase Lantus at this time and adjust CF and CR. * Patient's blood sugar elevated prior to lunch today, RN only gave 12 units of Lantus this morning instead of 25 units ordered, because she saw the "Q12" frequency and mis-read it and gave 12 units. I noticed this wrong dose, and she will give additional 13 units of Lantus now at lunch to = 25 units total. PLAN FOR INPATIENT GLYCEMIC CONTROL: * Basal insulin * Lantus 25 units SQ BID * Bolus insulin * NovoLog per scale ACHS or Q6hrs while NPO * Goal Range: Low 110 mg/dL - High 140 mg/dL * Correction Factor: 10 mg/dL/unit * Nutritional / Prandial insulin per carb ratio of 1 unit per 4 grams CHO consumed RECOMMENDATIONS FOR DISCHARGE: * Patient does not have medical insurance which has been limiting her physician follow-ups, medication compliance * metformin 500mg PO BID, glipizide 10 mg PO daily - both are [facility] $4 prescription plan * Patient is instructed to buy Relion glucometer and strips : [employer], it is the cheapest glucometer to buy over the counter * Please note that the plan above was derived based on current level of insulin resistance and hospital stress. These recommendations are appropriate for inpatient admission only. Plan of care upon discharge will need to be reassessed to avoid potential outpatient hypo/hyperglycemia. Thank you.
--- NOTE | 2018-09-12 13:45 | Discharge Summary ---
Date of Service September 12, 2018 Admission HPI Per Admitting Provider Pt is 52 y/o F with PMH chronic back pain, obesity, anxiety, DM II, HTN, h/o PE in 2016 presented to ER with c/o SOB. Pt states one week ago started with nasal congestion and non-productive cough. Had fever 101.9F 2 days ago. Feels increased SOB over past 4 days and c/o orthopnea. Taking Mucinex, Robitussin without much relief. Reports chronic LE edema after sitting all day that improves by morning after elevating legs. Doesn't feel has had increased LE edema. Pt has not followed with PCP for couple of years and has not been on medications for several years. Previously was on lisinopril 5mg, [id number] daily, metformin 500mg BID and lasix prn LE edema. Denies ill contacts, recent travel. Did not receive influenza vaccine. Denies N/V/D/C, BETHEA, dizziness, syncope, vision changes, neck pain, CP, palpitations, hemoptysis, abdominal pain , paresthesias, rashes, dysuria, hematuria, urinary frequency. Hx echo 2013: EF: 60-65%, grade II diastolic dysfunction, no significant valvular pathology. Principal Diagnosis CHF with diastolic dysfunction, type 2 diabetes poorly controlled Discharge Exam Constitutional WD/WN, vitals as above + obese; no acute distress Eyes PERRL, conjunctivae normal, anicteric sclerae ENMT external ear and nose normal, oropharynx normal Neck trachea midline, no thyromegaly Respiratory normal respiratory effort; no respiratory distress and no cough Auscultation: + diminished lung sounds; no crackles, no rales and no wheezes Cardiovascular Rate/Rhythm: regular rate and regular rhythm Musculoskeletal no cyanosis or clubbing, extremities motor strength 5/5 Skin no rashes, warm and dry Neurologic PERRL, EOMI, accommodation nl, no face palsy, no dysarthria Psychiatric A+Ox3, euthymic affect Discharge Data Allergies Allergy/AdvReac Type Severity Reaction Status Date / Time shellfish derived Allergy Severe ANAPHYLACTI Verified 09/10/18 12:10 C bee venom protein (honey bee) Allergy Unknown ANAPHYLAXIS Verified 09/10/18 12: 10 iodine Allergy Unknown . Verified 09/10/18 12:10 Consultations 09/10/18 15:43 ED Decision to Admit Stat Hospital Course (1) Congestive heart failure with left ventricular diastolic dysfunction, NYHA class 1: Presented with increased shortness of breath, orthopnea for the past few days Worsening of bilateral lower extremity edema Chest x-ray shows cardiomegaly with pulmonary vascular congestion Acute decompensation of CHF with diastolic heart failure -Echo: Left ventricle is grossly normal Ejection fraction 60-65% Right ventricular systolic function is normal Grossly normal heart -In ER was given albuterol neb, lasix 40mg IV pt is discharged on Lasix 20 mg daily, added CLEMENTINA inhibitor lisinopril 5 mg daily new script given (2) Hypoxia: Secondary to decompensated CHF Hypoxia resolved, in room air, no complaint of respiratory distress No cough (3) Diabetes mellitus, type II: Hx DM II. Previously on metformin 500mg BID, [id number] daily, Has not been taking for almost a year Hemoglobin A1c more than 9 Appreciate input from adaptive physical educator Patient does not have medical insurance which has been limiting her physician follow-ups, medication compliance Patient is discharged on oral metformin 500 twice daily, glipizide 10 mg daily both of them are on [facility] $4 prescription plan Patient is instructed to buy Clear Vascular glucometer and strips : [employer] , it is the cheapest glucometer to buy over the counter, Repeat hemoglobin A1c in 3 months Nutrition consulted for diabetic diet (4) HTN (hypertension): Previously was on lisinopril has not been taking for years-does not have medical insurance Ordered for lisinopril New prescription for lisinopril sent to [facility] (5) Chronic back pain: -Tylenol prn (6) Obesity: BMI: 53. -discussed lifestyle modifications (7) Anxiety: Not currently on medications DVT Prophylaxis -Lovenox SQ Full code Disposition: Stable to be discharged home today Medicine follow-up with Dr. Muñoz Total Time Total Time Spent Total Time Spent (In Minutes): Approximate 35 minutes Discharge Plan Discharge Items Patient Disposition: Home - Self-Care Reason For Visit: HYPOXIA Discharge Diagnosis: CHF WITH DIASTOLIC HEART FAILURE /TYPE 2 DM Discharge Goals: Decrease discomfort, Diagnostic testing and Therapeutic intervention Activity: Resume your previous activity Non-emergency contact: Primary Care Provider Call non-emergency contact if: you have any medication questions Follow-up/Referrals: Theo Muñoz [Primary Care Provider] - 09/16/18 10:45 am Diet: Carb Consistent or DM2, Heart Healthy and Low Sodium (2gm) Addtl Provider Instructions: PLEASE FOLLOW UP WITH FAMILY PHYSICIAN IN CLINIC WILL BENEFIT WITH DIABATIC CLINIC REFERAL FOR BLOOD SUGAR MANAGEMENT IT IS VERY IMPORTANT TO CHECK BLOOD SUGAR KEEP LOG AND HAVE GOOD CONTROL OF YOU DIABETES TO PREVENT FUTURE COMPLICATIONS: KIDNEY FAILURE /VISION LOSS/HEART ATTACK /STROKE Call your Primary Care doctor if any of the following symptoms or problems start or get worse: * Shortness of breath or difficulty breathing * Wake up at night short of breath * Chest pain * Cough * Swelling of your hands, feet, or legs * More fatigued or tired with your normal activity * Palpitations - sudden fast heart beats WEIGHT * Weigh yourself every morning after using the bathroom. * Use the same scale. * Wear the same amount of clothing. * Write your weight down on a chart. * Call your Primary Care doctor if you gain more than 2-3 pounds in 1-2 days. MEDICATIONS * Use this discharge instruction sheet for medication instructions. * Take your medications at the time your doctor ordered. * Do not skip a dose of your medicines. * If you miss a dose of medicine, take it as soon as possible, but DO NOT DOUBLE A DOSE. * Read your medicine information when you get home. * Know all of the side effects of your medicine. If in doubt, ask your pharmacist * Call your Primary Care doctor's office if you have any side effects. * Be sure all of your doctors know what medicine and herbs you take (including cold, flu, and herbal medicine). Take the following with you to your follow-up doctor appointments: * Weight Chart * Medication List * List of questions Do not drink excessive alcohol, beer or wine. PLEASE RECORD FASTING BLOOD SUGAR /BEFORE BREAKFAST -KEEP LOG AND BRING IT TO YOUR CLINIC VISIT PLEASE GET RELION GLUCOMETER ( [employer] ) AND TESTING STRIPS OVER THE COUNTER Prescriptions: New lisinopril [Zestril] 5 mg Tablet 5 mg PO QAM 30 Days Qty: 30 RF: 0 furosemide 20 mg Tablet 20 mg PO QAM 90 Days Qty: 90 RF: 3 metformin 500 mg tablet 500 mg PO BID 90 Days Qty: 180 RF: 3 glipizide 10 mg tablet 10 mg PO DAILY 90 Days Qty: 90 RF: 3 benzonatate 100 mg capsule 100 mg PO TID PRN (Reason: cough) Qty: 30 RF: 3 prednisone 10 mg tablet See Label Instructions .ROUTE .COMPLEX Qty: 10 RF: 0 albuterol sulfate 90 mcg/actuation HFA aerosol inhaler 1 inha INH Q6H PRN (Reason: shortness of breath or wheezing) Qty: 18 RF: 3 Stand-Alone Forms: My [facility] [employer]/Other Patient Handouts: Diabetes Carbs, Diabetes Exercise Get Started Discharge Orders: Discharge Order (Routine); Ordered 09/12/18 Ordered By: Zoë Miller Admission Data Admit Date/Time: 09/10/18 16:39 Attending Provider: Zoë Miller Admit Provider: Cedrick Garcia Primary Care Provider: Theo Muñoz Other Providers: Cedrick Garcia ; Shakira Jane Service: Telemetry Other Interventions: Discharge Summary Assessment (RN) Last Done: 09/12/18 14:00 DC Date/Time DO NOT enter until pt leaves facility: 09/12/18 14:30
== END 2018-09-12 14:30 | disposition home or self-care (01) | DRG 291 ==
LOC: ED 11:46 → 2N 16:39 → SUATTDRO 16:39 → 2N 18:18
DX: I50.31 Acute diastolic (congestive) heart failure; G89.29 Other chronic pain; I11.0 Hypertensive heart disease with heart failure; Z82.5 Family history of asthma and other chronic lower respiratory diseases; Z86.711 Personal history of pulmonary embolism; F41.9 Anxiety disorder, unspecified; E11.9 Type 2 diabetes mellitus without complications; Z83.3 Family history of diabetes mellitus; Z68.43 Body mass index [BMI] 50.0-59.9, adult; M54.9 Dorsalgia, unspecified; Z82.49 Family history of ischemic heart disease and other diseases of the circulatory system; E66.01 Morbid (severe) obesity due to excess calories; R09.02 Hypoxemia; Z91.120 Patient's intentional underdosing of medication regimen due to financial hardship

== ENCOUNTER 2019-11-28 15:32 | Inpatient (IN) ==
[2019-11-28] MEDS ORDERED: ALBUT/IPRATROP 3MG/0.5MG NEB 3 ML VIAL INH STA (16:11)
[2019-11-28] MEDS ORDERED: methylPREDNISolone 125 MG/2 ML VIAL IV STA (16:11)
[2019-11-28 16:20] LABS: Basophils # (auto) 0.03 K/uL (0-0.2); Basophils % (auto) 0.2 %; Eosinophils # (auto) 0.25 K/uL (0-0.5); Eosinophils % (auto) 1.7 %; Hematocrit (blood only) 45.1 % (37-47); Hemoglobin 14.5 g/dL (12.0-16.0); Immature Granulocytes # (auto) 0.04 K/uL (0.00-0.02); Immature Granulocytes % (auto) 0.3 %; Lymphocytes # (auto) 2.33 K/uL (1.2-3.4); Lymphocytes % (auto) 16.1 %; Mean Corpuscular Hemoglobin 27.2 pg (25-34); Mean Corpuscular Hgb Conc 32.2 g/dL (32-36); Mean Corpuscular Volume 84.5 fL (80-100); Mean Platelet Volume 9.3 fL (7.4-10.4); Monocytes # (auto) 0.66 K/uL (0.11-0.59); Monocytes % (auto) 4.6 %; Neutrophils # (auto) 11.17 K/uL (1.4-6.5); Neutrophils % (auto) 77.1 %; Platelet Count 236 K/uL (130-400); RDW Coefficient of Variation 15.8 % (11.5-14.5); Red Blood Count 5.34 M/uL (4.2-5.4); White Blood Count 14.48 K/uL (4.8-10.8)
--- NOTE | 2019-11-28 16:26 | Emergency Department Note ---
Impression & Plan Asthma with exacerbation, Hypoxia, Elevated troponin I level ED Provider Note NAME: WILFRID WASHINGTON AGE: 54 SEX: F : 1965 ARRIVES VIA: Walk-In INFORMANT: Patient, ED PROVIDER(S): Jay Bradshaw DO CHIEF COMPLAINT: Shortness of breath HPI: The patient is a 54-year-old female who has a history of asthma who presented to the emergency department for an evaluation of difficulty breathing. The patient states that she has had about 2 to 3 days of difficulty breathing. She is noticed some orthopnea as well as lower extremity swelling. She states that she felt this was related to her asthma. She thought it was because of pollen. She has been taking all of her usual asthma medications and last took a breathing treatment around noon. She states that she was at work when she became acutely more short of breath. She became very short of breath with any ambulation. She was able to check her pulse ox at work and states that it was 86%. The patient has not been on steroids recently. She denies having any fevers. She denies having any cough. She describes chest tightness. She denies having any recent traveling. She has had no exposures to COVID-19 as far she knows. ROS: See above HPI for pertinent positives & negatives. A total of 10 systems reviewed and were otherwise negative. PAST MEDICAL HISTORY: See Below PAST SURGICAL HISTORY: See Below FAMILY HISTORY: See Below SOCIAL HISTORY: See Below HOME MEDICATIONS: See Below ALLERGIES: See Below VITALS: See Below PHYSICAL EXAMINATION: GENERAL: Patient is awake alert in no acute distress patient is resting comfortably and showing no signs of anxiety EYES: The conjunctivae are clear. The pupils are round and reactive. EARS, NOSE, MOUTH AND THROAT: The nose is without any evidence of any deformity. Mucous membranes are moist. Tongue is midline. NECK: The neck is nontender and supple. RESPIRATORY: Shallow respirations were noted. There is no conversational dyspnea. Faint wheezing was noted in both upper lung cee. CARDIOVASCULAR: Regular rate and rhythm noted there no murmurs rubs or gallops normal S1 normal S2. GASTROINTESTINAL: The abdomen is soft. Abdomen is nontender. MUSCULOSKELETAL/EXTREMITIES: There is no evidence of gross deformity full range of motion is noted in the hips and shoulders. SKIN: Stasis dermatitis was noted in both lower extremities. Pedal edema was noted. Skin was warm and dry. NEUROLOGIC: Patient is awake alert and oriented x3. MEDICAL DECISION MAKING: The patient is a 54-year-old female who has a history of asthma who presented to the emergency department for an evaluation of chest pain and difficulty breathing. The patient has been treated with bronchodilators in the emergency department in the past with good relief. She was treated with IV steroids and bronchodilators in the emergency department. She was reevaluated multiple times. She received multiple bronchodilator treatments. Her oxygen saturation was found to be low with any exertion. I discussed the patient's laboratory and radiographic studies with her. She has no signs of pneumonia and no productive cough but her white blood cell count was elevated. Because of the degree of hypoxia I did order a CT of the chest to rule out venous thromboembolic disease. The chest CT did not show any signs of pulmonary embolism. I discussed the patient's condition with the on-call [facility] hospitalist. They have agreed to evaluate the patient in the emergency department for further management and disposition. Triage Nursing notes reviewed. Prior medical records reviewed Vital Signs: reviewed and remarkable for elevated blood pressure and hypoxia. Differential diagnosis: Reactive airway disease, pneumonia, pneumothorax, COPD, CHF, infections, cardiac ischemia, pulmonary embolism, musculoskeletal, gastrointestinal, as well as other pathologies. ER treatment provided: See below Diagnostics interpreted by me: ECG: EKG was obtained in the emergency department. My interpretation is normal sinus rhythm at 77 bpm. There is no ectopy. There were lateral T wave inversions noted. This was compared to a tracing from January 28, 2019. No significant change was noted. Cardiac Monitoring: An order was placed for continuous cardiac monitoring. The monitor shows a rate of 95 with sinus rhythm. Laboratory studies: As stated above and show below. Imaging studies: See below Consultation(s): 1945: I discussed this case with Dr. Ferrari [facility] She is agreed to evaluate the patient in the emergency department for further management and disposition. Past Med/Surg History Medical History Anxiety (Chronic) Chronic back pain (Chronic) Congestive heart failure with left ventricular diastolic dysfunction, NYHA class 1 (Acute) Diabetes Diabetes mellitus, type II (Chronic) History of pulmonary embolism (Chronic) HTN (hypertension) (Chronic) Obesity (Chronic) Surgical History History of dental surgery (Resolved) Hx of appendectomy (Resolved) Family History Other Breast cancer COPD (chronic obstructive pulmonary disease) Coronary heart disease Diabetes Hypertension Sudden cardiac arrest Social History Preferred Language: Azerbaijani Communication Ability: Effective Beliefs That Will Affect Care: None Current Living Situation: Family Feels Safe at Home: Yes Smoking Status: Never smoker Second Hand Exposure: No ; Hx Alcohol Use: Yes Hx Substance Use: No Allergies Allergies Allergy/AdvReac Type Severity Reaction Status Date / Time bee venom protein (honey bee) Allergy Severe ANAPHYLAXIS Verified 11/28/19 16:51 shellfish derived Allergy Severe ANAPHYLACTI Verified 11/28/19 16:51 C iodine Allergy Intermediate SWELLING Verified 11/28/19 16:51 AND IRRITATION AT SITE Home Meds Home Medications Medication Instructions Recorded Confirmed acetaminophen [Tylenol Extra 500 - 1,000 mg PO Q6H PRN 01/28/19 11/28/19 Strength] Lasix 10 mg PO Q OTHER DAY 11/28/19 11/28/19 lisinopril 10 mg PO DAILY 11/28/19 11/28/19 Results & Data (ED) Vital Signs Vital Signs - 24 hr 11/28/19 15:38 11/28/19 16:14 11/28/19 16:29 Temperature 36.8 C Temperature Source Oral Pulse Rate 84 Pulse Rate [Right Finger] 88 Pulse Rate from SpO2 Sensor Pulse Rhythm [Right Finger] Pulse Strength [Right Finger] Respiratory Rate 26 H 18 Respiratory Effort / Characteristics Non-Labored Spontaneous Respiratory Depth Respiratory Pattern Blood Pressure 161/93 H Blood Pressure [Right Arm] Blood Pressure Mean 115 Blood Pressure Mean [Right Arm] Blood Pressure Position [Right Arm] Pulse Oximetry 92 98 Oxygen Delivery Method Room Air Room Air Room Air Oxygen Flow Rate Sepsis Recent Fever Within 48 Hours No Sepsis New/Unexplained Change in Mental Status No Sepsis Action Taken by Nursing No Action Required 11/28/19 17:00 11/28/19 17:54 11/28/19 18:00 Temperature Temperature Source Pulse Rate 83 Pulse Rate [Right Finger] Pulse Rate from SpO2 Sensor 85 95 H 92 H Pulse Rhythm [Right Finger] Pulse Strength [Right Finger] Respiratory Rate 21 36 H 30 H Respiratory Effort / Characteristics Respiratory Depth Respiratory Pattern Blood Pressure 188/86 H Blood Pressure [Right Arm] Blood Pressure Mean 96 Blood Pressure Mean [Right Arm] Blood Pressure Position [Right Arm] Pulse Oximetry 92 93 92 Oxygen Delivery Method Room Air Room Air Room Air Oxygen Flow Rate Sepsis Recent Fever Within 48 Hours Sepsis New/Unexplained Change in Mental Status Sepsis Action Taken by Nursing 11/28/19 18:53 11/28/19 18:54 11/28/19 19:13 Temperature Temperature Source Pulse Rate Pulse Rate [Right Finger] 91 H 86 Pulse Rate from SpO2 Sensor Pulse Rhythm [Right Finger] Regular Pulse Strength [Right Finger] Normal Respiratory Rate 24 20 Respiratory Effort / Characteristics Non-Labored Spontaneous Non-Labored Respiratory Depth Normal Respiratory Pattern Regular Blood Pressure Blood Pressure [Right Arm] 180/86 H Blood Pressure Mean Blood Pressure Mean [Right Arm] 117 Blood Pressure Position [Right Arm] Sitting Pulse Oximetry 88 L 94 95 Oxygen Delivery Method Room Air Nasal Cannula Nasal Cannula Oxygen Flow Rate 2 2 Sepsis Recent Fever Within 48 Hours Sepsis New/Unexplained Change in Mental Status Sepsis Action Taken by Correction Medications Current Medication List: was personally reviewed by me Laboratory Data Attestation: I reviewed the patient's lab results. Result diagrams: 11/28/19 16:15 11/28/19 16:15 Lab Results 11/28/19 11/28/19 11/28/19 Range/Units 16:15 16:15 16:15 WBC 14.48 H (4.8-10.8) K/uL RBC 5.34 (4.2-5.4) M/uL Hgb 14.5 (12.0-16.0) g/dL Hct 45.1 (37-47) % MCV 84.5 (80-100) fL MCH 27.2 (25-34) pg MCHC 32.2 (32-36) g/dL RDW Std Deviation 48.0 H (36.4-46.3) fL RDW Coeff of Damian 15.8 H (11.5-14.5) % Plt Count 236 (130-400) K/uL MPV 9.3 (7.4-10.4) fL Immature Gran % (Auto) 0.3 % Neut % (Auto) 77.1 % Lymph % (Auto) 16.1 % [place] % (Auto) 4.6 % Eos % (Auto) 1.7 % Baso % (Auto) 0.2 % Immature Gran # (Auto) 0.04 H (0.00-0.02) K/uL Neut # (Auto) 11.17 H (1.4-6.5) K/uL Lymph # (Auto) 2.33 (1.2-3.4) K/uL [place] # (Auto) 0.66 H (0.11-0.59) K/uL Eos # (Auto) 0.25 (0-0.5) K/uL Baso # (Auto) 0.03 (0-0.2) K/uL PT 10.9 (9.0-12.0) Seconds INR 1.0 (0.9-1.1) APTT 26.3 (21.0-31.0) Seconds PTT Ratio 0.9 Sodium 137 (136-145) mmol/L Potassium 3.9 (3.5-5.1) mmol/L Chloride 101 (98-107) mmol/L Carbon Dioxide 32 (21-32) mmol/L Anion Gap 3.0 (3-11) BUN 15 (7-18) mg/dl Creatinine 0.81 (0.6-1.2) mg/dl Est Cr Clr Drug Dosing 122.6 ml/min Est GFR ( Amer) 96.1 Est GFR (Non-Af Amer) 82.9 BUN/Creatinine Ratio 18.6 (10-20) Glucose 186 H (70-99) mg/dl Calcium 8.9 (8.5-10.1) mg/dl Magnesium 2.2 (1.8-2.4) mg/dl Total Bilirubin 0.4 (0.2-1) mg/dl AST 8 L (15-37) U/L ALT 19 (12-78) U/L Alkaline Phosphatase 114 (45-117) U/L Troponin I 0.066 H* (0-0.045) ng/ml NT-Pro-B Natriuret Pep 150 (0-900) pg/ml Total Protein 8.6 H (6.4-8.2) gm/dl Albumin 3.6 (3.4-5.0) gm/dl Globulin 5.0 H (2.5-4.0) gm/dl Albumin/Globulin Ratio 0.7 L (0.9-2) Administered Medications Ioversol (Optiray 320 125ml) 119 ml IV ONCE PRN PRN Reason: Interaction Checking Stop: 12/02/19 17:51 Last Admin: 11/28/19 17:53 Dose: 119 ml Documented by: [id number] Discontinued Medications Albuterol (Duoneb) 3 ml INH NOW STA Stop: 11/28/19 16:12 Last Admin: 11/28/19 16:29 Dose: 3 ml Documented by: [id number] Albuterol (Duoneb) 3 ml NEB NOW STA Stop: 11/28/19 18:49 Last Admin: 11/28/19 19:11 Dose: 3 ml Documented by: [id number] Diphenhydramine HCl (Benadryl) 25 mg IV NOW STA Stop: 11/28/19 17:27 Last Admin: 11/28/19 17:36 Dose: 25 mg Documented by: [id number] Methylprednisolone (Solumedrol) 125 mg IV NOW STA Stop: 11/28/19 16:12 Last Admin: 11/28/19 16:37 Dose: 125 mg Documented by: [id number] Imaging Data Radiologist's Impression: CT angio chest PE protocol CT DOSE: 1131.00 mGy.cm HISTORY: Chest pain. Dyspnea. PE TECHNIQUE: Multiaxial CT images of the chest were performed following the intravenous administration of contrast to evaluate the pulmonary arteries. Maximal intensity projection images were also obtained. A dose lowering tech nique was utilized adhering to the principles of ALARA. COMPARISON STUDY: 05/08/2016 FINDINGS: Somewhat compromised exam due to patient body habitus. Unremarkable thoracic aorta. Pulmonary vasculature enhances appropriately. There are no significant filling defects. There are several small reactive nodes in the mediastinum and hilar or axillary regions. These are unchanged from the prior exam. Minimal scattered atelectasis of the chest. No focal infiltrate. IMPRESSION: 1. No evidence for pulmonary embolus. 2. Lungs are grossly clear. 3. Minimal scattered atelectatic change. ACT 112: Negative or not required by law. The above report was generated using voice recognition software. It may contain grammatical, syntax or spelling errors. Electronically signed by: Shine Alfaro M.D. 11/28/2019 5:57 PM Dictated: [id number] Transcribed: 05/08/20 1755 XR chest 1V portable CLINICAL HISTORY: Dyspnea dyspnea COMPARISON STUDY: 12/13/2018 FINDINGS: Stable mediastinal fullness. This is considered chronic. Moderate prominence of the pulmonary vasculature. Moderate stable cardiomegaly. IMPRESSION: 1. Mild congestive heart failure. 2. Stable to slightly improved mediastinal fullness. ACT 112: Negative or not required by law. The above report was generated using voice recognition software. It may contain grammatical, syntax or spelling errors. Electronically signed by: Shine Alfaro M.D. 11/28/2019 4:36 PM Dictated: 11/28/19 1635 Transcribed: 11/28/19 1635 Blood Pressure Blood Pressure Findings: Elevated blood pressure Blood Pressure Disposition: further management by hospitalist Discharge Plan Visit Data Chief Complaint: Shortness of Breath/Dyspnea Stated Complaint: sob ED Provider: Jay Bradshaw Discharge Problem: Asthma with exacerbation, Hypoxia, Elevated troponin I level Patient Disposition: Being Evaluated by Hospitalist Condition: Good Forms Stand Alone Forms: Home Leasing Prescriptions Prescriptions: No Action lisinopril 10 mg Tablet 10 mg PO DAILY RF: 0 Lasix 10 mg PO Q OTHER DAY RF: 0 acetaminophen [Tylenol Extra Strength] 500 mg Tablet 500 - 1,000 mg PO Q6H PRN (Reason: Pain) RF: 0 Referrals Referrals: Theo Muñoz MD [Primary Care Provider] -
[2019-11-28 16:33] LABS: Partial Thromboplastin Ratio 0.9; Partial Thromboplastin Time 26.3 Seconds (21.0-31.0); Prothrombin Time 10.9 Seconds (9.0-12.0)
[2019-11-28 16:36] LABS: Albumin Level 3.6 gm/dl (3.4-5.0); BUN Creatinine Ratio 18.6 (10-20); Calcium 8.9 mg/dl (8.5-10.1); Creatinine Clr Calc Pharmacy 122.6 ml/min; Est GFR (African American) 96.1; Est GFR (Non-African American) 82.9; Magnesium 2.2 mg/dl (1.8-2.4); Potassium 3.9 mmol/L (3.5-5.1)
--- NOTE | 2019-11-28 16:37 | XRay Report ---
XR chest 1V portable CLINICAL HISTORY: Dyspnea dyspnea COMPARISON STUDY: 12/13/2018 FINDINGS: Stable mediastinal fullness. This is considered chronic. Moderate prominence of the pulmonary vasculature. Moderate stable cardiomegaly. IMPRESSION: 1. Mild congestive heart failure. 2. Stable to slightly improved mediastinal fullness. ACT 112: Negative or not required by law. The above report was generated using voice recognition software. It may contain grammatical, syntax or spelling errors. Electronically signed by: Shine Alfaro M.D. 11/28/2019 4:36 PM
[2019-11-28 16:44] LABS: Albumin Globulin Ratio 0.7 (0.9-2); Bilirubin,Total 0.4 mg/dl (0.2-1); Total Protein 8.6 gm/dl (6.4-8.2); Troponin I 0.066 ng/ml (0-0.045)
[2019-11-28] MEDS ORDERED: DiphenhydrAMINE HCL 50 MG/ML VIAL IV STA (17:26)
[2019-11-28] MEDS ORDERED: OPTIRAY 320 125ml IV PRN (17:52)
--- NOTE | 2019-11-28 17:59 | CT Scan Report ---
CT angio chest PE protocol CT DOSE: 1131.00 mGy.cm HISTORY: Chest pain. Dyspnea. PE TECHNIQUE: Multiaxial CT images of the chest were performed following the intravenous administration of contrast to evaluate the pulmonary arteries. Maximal intensity projection images were also obtaine d. A dose lowering technique was utilized adhering to the principles of ALARA. COMPARISON STUDY: 05/08/2016 FINDINGS: Somewhat compromised exam due to patient body habitus. Unremarkable thoracic aorta. Pulmonary vasculature enhances appropriately. There are no significant filling defects. There are several small reactive nodes in the mediastinum and hilar or axillary regions. These are un changed from the prior exam. Minimal scattered atelectasis of the chest. No focal infiltrate. IMPRESSION: 1. No evidence for pulmonary embolus. 2. Lungs are grossly clear. 3. Minimal scattered atelectatic change. ACT 112: Negative or not required by law. The above report was generated using voice recognition software. It may contain grammatical, syntax or spelling errors. Electronically signed by: Shine Alfaro M.D. 11/28/2019 5:57 PM
[2019-11-28] MEDS ORDERED: ALBUT/IPRATROP 3MG/0.5MG NEB 3 ML VIAL NEB STA (18:48)
--- NOTE | 2019-11-28 19:58 | History & Physical Report ---
Date of Service November 28, 2019 Assessment & Plan (1) Shortness of breath: Suspect pulmonary edema contributing to SOB. Patient endorses weight gain, edema, orthopnea as well. Presently with no respiratory distress, adequate oxygenation on 2L NC -Lasix 20mg IV x 1 -Monitor UOP, daily weights, electrolytes and renal function -Supplemental O2 as needed Present on Admission?: Yes (2) HTN (hypertension): Elevated in ER, may be contributing to pulmonary edema and SOB -Continue Lisinopril 10mg po daily -Continue to monitor, if remains elevated will adjust medication regimen Present on Admission?: Yes (3) Diabetes mellitus, type II: Blood sugar = 186 -ISS Present on Admission?: Yes (4) Congestive heart failure with left ventricular diastolic dysfunction, NYHA class 1: Suspect pulmonary edema -Lasix as above -Continue to monitor Present on Admission?: Yes (5) Elevated troponin I level: Chest heaviness, patient with elevated troponin in the past. No EKG evidence of acute ischemia -Trend q 8 hours x 3 -ASA 81mg po daily -Cardiac monitoring Present on Admission?: Yes (6) Asthma: NO wheezing -Albuterol PRN Present on Admission?: Yes Admission and Anticipated Discharge Date Admission Date: 11/28/19 Anticipated date of discharge: 11/30/19 History of Present Illness Chief Complaint: SOB Primary Care Provider: Theo Muñoz MD Linda Alexander is a pleasant 54yo C female with history of mild, persistent asthma, prior episodes of pulmonary edema in the past presenting with 2-3 days of progressive SOB, SMALL, wheeze and chest tightness. Also endorses increased LE edema, orhtopnea and a 6-7 pound weight gain. She has a home pulse oximeter and reports saturations in the mid 80's with ambulation. She has been taking her albuterol q 4 hours PRN with minimal relief. She denies cough, fever, chills, sweats or body aches. No change in taste or smell. No nausea/vomiting/diarrhea or constipation Patient has no recent travel, no sick contacts, no close contact with Covid-19 positive individuals. She has been practicing social distancing in her home. No concern for Covid-19 infection at this time. Allergies Allergy/AdvReac Type Severity Reaction Status Date / Time bee venom protein (honey bee) Allergy Severe ANAPHYLAXIS Verified 11/28/19 16:51 shellfish derived Allergy Severe ANAPHYLACTI Verified 11/28/19 16:51 C iodine Allergy Intermediate SWELLING Verified 11/28/19 16:51 AND IRRITATION AT SITE Home Medications Home Medications Medication Instructions Recorded Confirmed Type acetaminophen [Tylenol Extra 500 - 1,000 mg PO Q6H PRN 01/28/19 11/28/19 History Strength] Lasix 10 mg PO Q OTHER DAY 11/28/19 11/28/19 History albuterol sulfate 11/28/19 History ipratropium-albuterol [Combivent 1 puff INHALATION QID 11/28/19 11/28/19 History Respimat] lisinopril 10 mg PO DAILY 11/28/19 11/28/19 History Past Med/Surg History Medical History Anxiety (Chronic) Chronic back pain (Chronic) Congestive heart failure with left ventricular diastolic dysfunction, NYHA class 1 (Acute) Diabetes Diabetes mellitus, type II (Chronic) History of pulmonary embolism (Chronic) HTN (hypertension) (Chronic) Obesity (Chronic) Surgical History History of dental surgery (Resolved) Hx of appendectomy (Resolved) Family History Other Breast cancer COPD (chronic obstructive pulmonary disease) Coronary heart disease Diabetes Hypertension Sudden cardiac arrest Social History Preferred Language: Divehi Communication Ability: Effective Beliefs That Will Affect Care: None Current Living Situation: Family Feels Safe at Home: Yes Smoking Status: Never smoker Second Hand Exposure: No ; Hx Alcohol Use: Yes Hx Substance Use: No Review of Systems Review of Systems: All systems reviewed & are unremarkable except as noted in HPI & below Physical Exam Physical Exam: General: patient resting comfortably, NAD, non-toxic in appearance, AA&O x 4, cloth face mask in place Skin: warm, dry, intact, redness of bilateral LE skin, no streaking or active appearing cellulitis HEENT: NC/AT, PERRL, EOMI, anicteric sclera, conjunctiva without injection, external ear normal to inspection and nontender, nares patent, moist mucus membranes, dentition intact, no oropharyngeal lesions, neck supple, trachea midline, no LAD, no thyromegaly, no JVD Heart: +S1/S2, regular, no m/r/g Lungs: diminished breath sounds bilaterally, bibasilar crackles with crackles left mid-lung, no rhonchi/wheezes Abd: +BS, soft, NT/ND, no masses/organomegaly/ascites Ext: warm, 2+ pulses in UE/LE bilaterally, no clubbing/cyanosis, 2+ pitting edema to knees bilaterally Neuro: nonfocal, patient AA&O x 4, speech intact, no facial droop, moving all extremities on command with equal strength 5/5 Results & Data Results & Data ([facility]) Vital Signs (Past 12 Hours) Vital Signs Temp Pulse Pulse Resp BP BP Pulse Ox 11/28/19 19:13 86 20 95 11/28/19 18:54 94 11/28/19 18:53 91 H 24 180/86 H 88 L 11/28/19 18:00 30 H 92 11/28/19 17:54 36 H 93 11/28/19 17:00 83 21 188/86 H 92 11/28/19 16:29 88 18 98 11/28/19 15:38 36.8 C 84 26 H 161/93 H 92 Laboratory Results Lab Results 11/28/19 11/28/19 11/28/19 Range/Units 16:15 16:15 16:15 WBC 14.48 H (4.8-10.8) K/uL RBC 5.34 (4.2-5.4) M/uL Hgb 14.5 (12.0-16.0) g/dL Hct 45.1 (37-47) % MCV 84.5 (80-100) fL MCH 27.2 (25-34) pg MCHC 32.2 (32-36) g/dL RDW Std Deviation 48.0 H (36.4-46.3) fL RDW Coeff of Damian 15.8 H (11.5-14.5) % Plt Count 236 (130-400) K/uL MPV 9.3 (7.4-10.4) fL Immature Gran % (Auto) 0.3 % Neut % (Auto) 77.1 % Lymph % (Auto) 16.1 % [place] % (Auto) 4.6 % Eos % (Auto) 1.7 % Baso % (Auto) 0.2 % Immature Gran # (Auto) 0.04 H (0.00-0.02) K/uL Neut # (Auto) 11.17 H (1.4-6.5) K/uL Lymph # (Auto) 2.33 (1.2-3.4) K/uL [place] # (Auto) 0.66 H (0.11-0.59) K/uL Eos # (Auto) 0.25 (0-0.5) K/uL Baso # (Auto) 0.03 (0-0.2) K/uL PT 10.9 (9.0-12.0) Seconds INR 1.0 (0.9-1.1) APTT 26.3 (21.0-31.0) Seconds PTT Ratio 0.9 Sodium 137 (136-145) mmol/L Potassium 3.9 (3.5-5.1) mmol/L Chloride 101 (98-107) mmol/L Carbon Dioxide 32 (21-32) mmol/L Anion Gap 3.0 (3-11) BUN 15 (7-18) mg/dl Creatinine 0.81 (0.6-1.2) mg/dl Est Cr Clr Drug Dosing 122.6 ml/min Est GFR ( Amer) 96.1 Est GFR (Non-Af Amer) 82.9 BUN/Creatinine Ratio 18.6 (10-20) Glucose 186 H (70-99) mg/dl Calcium 8.9 (8.5-10.1) mg/dl Magnesium 2.2 (1.8-2.4) mg/dl Total Bilirubin 0.4 (0.2-1) mg/dl AST 8 L (15-37) U/L ALT 19 (12-78) U/L Alkaline Phosphatase 114 (45-117) U/L Troponin I 0.066 H* (0-0.045) ng/ml NT-Pro-B Natriuret Pep 150 (0-900) pg/ml Total Protein 8.6 H (6.4-8.2) gm/dl Albumin 3.6 (3.4-5.0) gm/dl Globulin 5.0 H (2.5-4.0) gm/dl Albumin/Globulin Ratio 0.7 L (0.9-2) Diagnostic Findings XR chest 1V portable CLINICAL HISTORY: Dyspnea dyspnea COMPARISON STUDY: 12/13/2018 FINDINGS: Stable mediastinal fullness. This is considered chronic. Moderate prominence of the pulmonary vasculature. Moderate stable cardiomegaly. IMPRESSION: 1. Mild congestive heart failure. 2. Stable to slightly improved mediastinal fullness. ACT 112: Negative or not required by law. The above report was generated using voice recognition software. It may contain grammatical, syntax or spelling errors. Electronically signed by: Shine Alfaro M.D. 11/28/2019 4:36 PM Dictated: 11/28/19 1635 Transcribed: 11/28/[address] angio chest PE protocol CT DOSE: 1131.00 mGy.cm HISTORY: Chest pain. Dyspnea. PE TECHNIQUE: Multiaxial CT images of the chest were performed following the intravenous administration of contrast to evaluate the pulmonary arteries. Maximal intensity projection images were also obtained. A dose lowering technique was utilized adhering to the principles of ALARA. COMPARISON STUDY: 05/08/2016 FINDINGS: Somewhat compromised exam due to patient body habitus. Unremarkable thoracic aorta. Pulmonary vasculature enhances appropriately. There are no significant filling defects. There are several small reactive nodes in the mediastinum and hilar or axillary regions. These are unchanged from the prior exam. Minimal scattered atelectasis of the chest. No focal infiltrate. IMPRESSION: 1. No evidence for pulmonary embolus. 2. Lungs are grossly clear. 3. Minimal scattered atelectatic change. ACT 112: Negative or not required by law. The above report was generated using voice recognition software. It may contain grammatical, syntax or spelling errors. Electronically signed by: Shine Alfaro M.D. 11/28/2019 5:57 PM Dictated: 11/28/19 175 Transcribed: 11/28/191754 ECG Additional Comments: NSR at 77, no acute ischemic changes Code Status & VTE Plan Code Status Full VTE Prophylaxis Plan VTE Prophylaxis will be ordered: Yes PG Care Time/CCT Total # of Minutes Spent Total Time Spent with Patient: Total time spent is greater than 50% in coordination of care (as documented) at patient's floor/unit and/or counseling patient: Coding Level of Care Code 58207 Initial Inpt Care Lvl 3 Diagnoses Shortness of breath R06.02 HTN (hypertension) I10 Hypertension type: unspecified Diabetes mellitus, type II E11.9 Diabetes mellitus complication status: without complication Diabetes mellitus custodial insulin use: without custodial use Congestive heart failure with left ventricular diastolic dysfunction, NYHA class 1 I50.30 Elevated troponin I level R79.89 Asthma J45.909 (1) Diabetes mellitus, type II Diabetes mellitus complication status: without complication Diabetes mellitus terminal worker insulin use: without custodial use Qualified Code(s): E11.9 - Type 2 diabetes mellitus without complications (2) HTN (hypertension) Hypertension type: unspecified Qualified Code(s): I10 - Essential (primary) hypertension
[2019-11-28] MEDS ORDERED: ALBUTEROL 0.5% NEB SOLN 2.5 MG/0.5 ML VIAL NEB PRN (20:39)
[2019-11-28] MEDS ORDERED: CARBOHYDRATES FOR HYPOGLYCEMIA PO PRN ×2 (20:39→21:29)
[2019-11-28] MEDS ORDERED: GLUCOSE 10 TABS/TUBE PO PRN ×2 (20:39→21:29)
[2019-11-28] MEDS ORDERED: DEXTROSE 50% 50 ML SYRINGE IV PRN ×2 (20:39→21:29)
[2019-11-28] MEDS ORDERED: ACETAMINOPHEN 325 MG TAB PO PRN (20:39)
[2019-11-28] MEDS ORDERED: GLUCOSE 40% GEL 15 GM TUBE PO PRN ×2 (20:39→21:29)
[2019-11-28] MEDS ORDERED: GLUCAGON FOR INJ 1 MG VIAL SQ PRN ×2 (20:39→21:29)
--- NOTE | 2019-11-28 20:52 | Communication Note ---
Date of Service: November 28, 2019 [facility] H[facility]ITAL[facility] follow-up : Patient seen and examined. History obtained from patient and records. Signout obtained from Dr. Ferrari ([facility] hospitalist) who had admitted patient earlier not being aware of patient having [facility] PCP. FINAL ASSESSMENT AND PLAN as follows : Acute hypoxemic respiratory failure Multifactorial : Asthma exacerbation Acute CHF (?RSHF from possible CAROLYN given fluid retention in the setting of normal BNP) HTN, elevated Rule out CAROLYN Troponin elevation secondary to illness hx probable PE status post anticoagulation DM2, insulin requiring, suboptimal control as of recent hemoglobin A1c of 9.23 August 2018 PCU Supplemental O2 Baseline ABG Short course prednisone, nebs RTC Diuretic Rx, strict I/Os, daily weights, fluid restriction Initiate low-dose beta-guillermo for now Continue lisinopril, may need dose titration TTE, Cardiology consult RE CHF Follow troponin Outpatient sleep study Basal insulin, ISS BG goal [id number], update hemoglobin A1c DVT prophylaxis. Lovenox subcu Full code Text document was generated using [employer] voice recognition software. It may contain grammatical or spelling errors. Kindly contact undersigned for clarification of any documentation item in question.
[2019-11-28] MEDS ORDERED: IPRATROPIUM BROMIDE/ALBUTEROL respimat INH INH SCH (21:00)
[2019-11-28] MEDS ORDERED: INSULIN ASPART 100 UNITS/ML 3 ML PEN SC SCH (21:00)
[2019-11-28] MEDS ORDERED: FUROSEMIDE 20 MG in SYRINGE 0 ML IV ONE ×2 (21:00→21:45)
[2019-11-28] MEDS ORDERED: INSULIN GLARGINE SOLOSTAR 100 UNITS/ML 3 ML PEN SC SCH ×2 (21:00→21:29)
[2019-11-28 21:15] LABS: Base Excess ABG 2.8 mEq/L (-9-1.8); HCO3 ABG 28 mmol/L (19-24); Oxygen Saturation ABG 95.2 % (90-95); PCO2 ABG 47 mmHg (35-46); PO2 ABG 74 mmHg (80-95)
[2019-11-28 21:16] LABS: Allen Test POS (Pos)
[2019-11-28] MEDS ORDERED: METOPROLOL TARTRATE 25 MG TAB PO SCH (21:29)
[2019-11-28] MEDS ORDERED: NITROGLYCERIN SL 0.4 MG/TAB TAB SL PRN (21:29)
[2019-11-28] MEDS ORDERED: MoRPHine SULFATE 4 MG/ML 1 ML CARP\\VIAL IV PRN (21:29)
[2019-11-28] MEDS ORDERED: PROMETHAZINE HCL 12.5 MG in SODIUM CHLORIDE 0.9% 50 ML IV PRN (21:29)
[2019-11-28] MEDS ORDERED: TRAMADOL HCL 50 MG TABLET PO PRN (21:29)
[2019-11-28 21:40] LABS: Thyroid Stimulating Hormone 0.883 uIu/ml (0.300-4.500); Troponin I 0.06 ng/ml (0-0.045)
[2019-11-28] MEDS: ENOXAPARIN INJ 40 MG/0.4 ML SYR SQ SCH (22:07)
[2019-11-28] MEDS: POTASSIUM CHLORIDE 20 MEQ TABCR PO SCH (22:08)
[2019-11-28] MEDS: INSULIN ASPART 100 UNITS/ML 3 ML PEN SC SCH (22:10)
[2019-11-28] MEDS ORDERED: INSULIN GLARGINE SOLOSTAR 100 UNITS/ML 3 ML PEN SC STA (22:26)
[2019-11-29] MEDS: lisinopriL 20 MG TAB PO SCH (00:20)
[2019-11-29] MEDS: IPRATROPIUM BROMIDE NEB SOLN 0.02% 2.5 ML VIAL INH SCH ×4 (00:46→18:56)
[2019-11-29] MEDS: LEVALBUTEROL 1.25MG/0.5ML NEB INH SCH ×4 (00:46→18:56)
[2019-11-29] MEDS ORDERED: XOPENEX/ATROVENT 1.25mg/0.5MG NEB COMBO NEB SCH (01:00)
[2019-11-29] MEDS ORDERED: METOPROLOL TARTRATE 25 MG TAB PO SCH (04:00)
[2019-11-29 05:57] LABS: Basophils # (auto) 0.01 K/uL (0-0.2); Basophils % (auto) 0.1 %; Hematocrit (blood only) 42.7 % (37-47); Hemoglobin 13.6 g/dL (12.0-16.0); Immature Granulocytes # (auto) 0.03 K/uL (0.00-0.02); Immature Granulocytes % (auto) 0.2 %; Lymphocytes # (auto) 0.95 K/uL (1.2-3.4); Lymphocytes % (auto) 6.9 %; Mean Corpuscular Hemoglobin 26.7 pg (25-34); Mean Corpuscular Hgb Conc 31.9 g/dL (32-36); Mean Corpuscular Volume 83.9 fL (80-100); Mean Platelet Volume 9.7 fL (7.4-10.4); Monocytes % (auto) 1.5 %; Neutrophils # (auto) 12.48 K/uL (1.4-6.5); Neutrophils % (auto) 91.3 %; Platelet Count 243 K/uL (130-400); RDW Coefficient of Variation 15.6 % (11.5-14.5); RDW Standard Deviation 47.3 fL (36.4-46.3); Red Blood Count 5.09 M/uL (4.2-5.4); White Blood Count 13.67 K/uL (4.8-10.8)
[2019-11-29 05:59] LABS: Estimated Average Glucose 166 mg/dl; Hemoglobin A1C 7.4 % (4.5-5.6)
[2019-11-29 06:27] LABS: BUN Creatinine Ratio 20.9 (10-20); Calcium 8.9 mg/dl (8.5-10.1); Creatinine Clr Calc Pharmacy 129.4 ml/min; Est GFR (African American) 103.8; Est GFR (Non-African American) 89.6; Potassium 4.3 mmol/L (3.5-5.1)
[2019-11-29] MEDS: INSULIN ASPART 100 UNITS/ML 3 ML PEN SC SCH ×4 (07:51→21:58)
[2019-11-29] MEDS: POTASSIUM CHLORIDE 20 MEQ TABCR PO SCH ×2 (07:51→21:54)
[2019-11-29] MEDS: predniSONE 20 MG TAB PO SCH (07:51)
[2019-11-29] MEDS ORDERED: INSULIN GLARGINE SOLOSTAR 100 UNITS/ML 3 ML PEN SC SCH ×2 (09:00)
[2019-11-29] MEDS ORDERED: lisinopriL 10 MG TAB PO SCH (09:00)
--- NOTE | 2019-11-29 13:03 | Hospitalist Progress Note ---
Date of Service November 29, 2019 Assessment & Plan (1) Acute diastolic CHF (congestive heart failure), NYHA class 3: (2) Shortness of breath: Present on admission with worsening SOB, orthopnea associated with LE edema CXR showed mild congestive heart failure. CTA chest showed no evidence for pulmonary embolus. Received IV lasix in the ER Continue IV lasix 40mg BID Cardiology on board ECHO pending Only take Lasix 10mg prn PO outpatient Continue Diuresis Spironolactone added Continue oxygen supplement Monitor BMP while on diuresis (3) Elevated troponin I level: Demand ischemia due to CHF exacerbation EKG showed no ischemic changes Troponin peaked at 0.066, then 0.060 Continue aspirin and metoprolol Currently denies any chest pain (4) HTN (hypertension): BP elevated Lisinopril increased to 20mg and spironolactone and metoprolol added Continue monitor BP (5) Diabetes mellitus, type II: Most recent Hba1c 7.4 She has not been taking Metformin and glipizide for about 6 months Continue Lantus and Novolog sliding scale while inpatient Continue monitor BP (6) Asthma: NO wheezing currently Received IV steroid in the ER Will consider to discontinue prednisone Continue oxygen supplement DVT px on Lovenox CODE STATUS FULL CODE Admission and Anticipated Discharge Date Admission Date: November 28, 2019 Anticipated date of discharge: 11/30/19 Subjective Pt was seen and examined Sitting in chair with no distress Pt said that he feels much better compared to when she came She said that she was having orthopnea prior admission She does have some SOB while walking without the oxygen Denies any chest pain, palpitation, dizziness, cough and fever Physical Exam Physical Exam: General- No acute distress Head- atraumatic Eyes- PERRL, EOMI, ENT- oropharynx clear Neck- supple, no JVD Lungs- Diminished BS Heart- regular rhythm; no murmur Abdomen- normal bowel sounds, soft, nontender Extremities- no calf tenderness, trace edema Neuro- alert, oriented x 3; PERRL, EOMI; no facial palsy; no dysarthria Skin- warm & dry Results & Data Results & Data ([facility]) Vital Signs (Past 12 Hours) Vital Signs Temp Pulse Resp BP Pulse Ox 11/29/19 11:49 36.4 C L 77 17 161/72 H 91 11/29/19 07:34 36.3 C L 80 18 164/72 H 93 11/29/19 07:00 76 18 96 11/29/19 02:57 36.4 C L 95 H 16 171/74 H 93 (1) Diabetes mellitus, type II Diabetes mellitus complication status: without complication Diabetes mellitus remote computer terminal operator insulin use: without remote computer terminal operator use Qualified Code(s): E11.9 - Type 2 diabetes mellitus without complications (2) HTN (hypertension) Hypertension type: unspecified Qualified Code(s): I10 - Essential (primary) hypertension
--- NOTE | 2019-11-29 13:56 | Cardiology Consultation ---
Date of Consultation November 29, 2019 Assessment & Plan (1) Acute diastolic CHF (congestive heart failure), NYHA class 3: Patient does examine his volume overloaded. We will continue with IV diuresis at this time. The pathophysiology and treatment options for diastolic dysfunction were discussed with her at great length today. At this time we will perform a nocturnal pulse ox because I have no doubt that obstructive sleep apnea is played a significant component. We will also initiate her on guideline directed medical therapy for diastolic dysfunction. I will start her on spironolactone 25 mg daily today. She will be continued on lisinopril and dose may be adjusted as needed for further blood pressure control. I will change her metoprolol tartrate to succinate in the a.m. as well. CHF teaching was reviewed. Patient states that she is now very concerned about her health and will comply with medical recommendations going forward and follow-up. (2) Asthma: (3) Diabetes mellitus, type II: (4) HTN (hypertension): Elevated but not taking home medications. Spironolactone added today and will continue lisinopril. Should she remain hypertensive would increase lisinopril dose (5) Noncompliance: Need for medical compliance reviewed, patient states that she understands and will follow further recommendations (6) Obstructive sleep apnea: Very high likelihood. We will perform nocturnal pulse ox this evening and believe she will definitely benefit from CPAP therapy. We will need sleep medicine evaluation after discharge. (7) Obesity hypoventilation syndrome: Also likely component to her decompensation. Healthy lifestyle changes reviewed Would also consider nutrition consultation (8) Elevated troponin I level: I do not believe this represents an acute ischemic event. We will continue treatment as above and complete an ischemic evaluation as an outpatient with 2-day Lexiscan nuclear stress test. History of Present Illness Reason for Consultation: Acute diastolic heart failure Requesting Physician: Dr. Ferrari Attending Physician: Jessica Ferrari, DO History of Present Illness It was my pleasure to see Ms. Alexander in consultation today. She is a very pleasant 54-year-old woman who is been a refugee from medical care for some time now. She presented to [facility] emergency department on 11/28/2019 with complaints of worsening shortness of breath and chest tightness. She states that approximately 3 weeks prior to presentation she started noticing that her chest seemed tight when she tried to take a deep breath and she was getting winded a little more easily. At that time she wrote it off to allergies and possible asthma. Over the next 3 weeks her dyspnea then progressively worsened. She also developed lower extremity edema and orthopnea, she states that she is not been able to lay flat for 3 days now. She is gained approximately 6 to 7 pounds during this time as well. She did take some Lasix orally at home that she had on hand without any significant improvement. Upon presentation she was found to be volume overloaded clinically and started on IV diuretics. She states that she is feeling much better since admission but not yet back to baseline. She was dyspneic walking to the restroom this morning. But denies any further chest pain. She states that she is not taking any of her outpatient medications. She is been a refugee from medical care ever since her previous primary care physician Dr. Méndez left. Past medical history: 1. Diastolic dysfunction with normal LV systolic function 2. Hypertension 3. asthma 4. Elevated BMI 5. Medical noncompliance Allergies Allergy/AdvReac Type Severity Reaction Status Date / Time bee venom protein (honey bee) Allergy Severe ANAPHYLAXIS Verified 11/28/19 16:51 shellfish derived Allergy Severe ANAPHYLACTI Verified 11/28/19 16:51 C iodine Allergy Intermediate SWELLING Verified 11/28/19 16:51 AND IRRITATION AT SITE Home Medications Home Medications Medication Instructions Recorded Confirmed Type acetaminophen [Tylenol Extra 500 - 1,000 mg PO Q6H PRN 01/28/19 11/28/19 History Strength] Lasix 10 mg PO Q OTHER DAY 11/28/19 11/28/19 History albuterol sulfate 11/28/19 History ipratropium-albuterol [Combivent 1 puff INHALATION QID 11/28/19 11/28/19 History Respimat] lisinopril 10 mg PO DAILY 11/28/19 11/28/19 History Patient History Medical History Anxiety (Chronic) Chronic back pain (Chronic) Congestive heart failure with left ventricular diastolic dysfunction, NYHA class 1 (Acute) Diabetes Diabetes mellitus, type II (Chronic) History of pulmonary embolism (Chronic) HTN (hypertension) (Chronic) Obesity (Chronic) Surgical History History of dental surgery (Resolved) Hx of appendectomy (Resolved) Family History Other Breast cancer COPD (chronic obstructive pulmonary disease) Coronary heart disease Diabetes Hypertension Sudden cardiac arrest Social History Preferred Language: [place] Communication Ability: Effective Grain Picker Required: No Beliefs That Will Affect Care: None Current Living Situation: Significant Other Feels Safe at Home: Yes Smoking Status: Never smoker Second Hand Exposure: No ; Hx Alcohol Use: No Hx Substance Use: No Review of Systems Review of Systems: All systems reviewed & are unremarkable except as noted in HPI & below Physical Exam Physical Exam: General: Awake, alert and oriented x 3. No acute distress. HEENT: Normocephalic, atraumatic. Pupils equal, round and reactive to light and accommodation. Extraocular muscles are intact. Anicteric sclera. Moist mucous membranes. Neck: No JVD. No bruit. Cardiovascular: Regular. Positive S-4. Normal S-1 and S-2. No S-3. No murmurs or rubs. Pulmonary: Clear to auscultation B/L. No rales, rhonchi or wheezing Abdomen: Bowel sounds x 4, soft. No rebound, guarding or tenderness. No organomegaly. Extremities: No clubbing, cyanosis. +2 bilateral lower extremity pitting edema. +2 pedal pulses bilaterally. Skin: Warm and dry. Results & Data ([facility]) Vital Signs (Past 12 Hours) Vital Signs Temp Pulse Resp BP Pulse Ox 11/29/19 13:22 79 18 92 11/29/19 11:49 36.4 C L 77 17 161/72 H 91 11/29/19 07:34 36.3 C L 80 18 164/72 H 93 11/29/19 07:00 76 18 96 11/29/19 02:57 36.4 C L 95 H 16 171/74 H 93 Laboratory Results Laboratory Results - last 48 hr 11/28/19 11/28/19 11/28/19 03:22 16:15 16:15 WBC 14.48 H RBC 5.34 Hgb 14.5 Hct 45.1 MCV 84.5 MCH 27.2 MCHC 32.2 RDW Std Deviation 48.0 H RDW Coeff of Damian 15.8 H Plt Count 236 MPV 9.3 Immature Gran % (Auto) 0.3 Neut % (Auto) 77.1 Lymph % (Auto) 16.1 [place] % (Auto) 4.6 Eos % (Auto) 1.7 Baso % (Auto) 0.2 Immature Gran # (Auto) 0.04 H Neut # (Auto) 11.17 H Lymph # (Auto) 2.33 [place] # (Auto) 0.66 H Eos # (Auto) 0.25 Baso # (Auto) 0.03 PT 10.9 INR 1.0 APTT 26.3 PTT Ratio 0.9 ABG pH 7.40 ABG pCO2 47 H ABG pO2 74 L ABG HCO3 28 H ABG O2 Saturation 95.2 H ABG Base Excess 2.8 H Grupo Test POS Barometric Pressure 726.4 Oxygen Given O2 FLOW RATE 2 Sodium Potassium Chloride Carbon Dioxide Anion Gap BUN Creatinine Est Cr Clr Drug Dosing Est GFR ( Amer) Est GFR (Non-Af Amer) BUN/Creatinine Ratio Glucose POC Glucose Estimat Average Glucose Hemoglobin A1c Calcium Magnesium Total Bilirubin AST ALT Alkaline Phosphatase Troponin I NT-Pro-B Natriuret Pep Total Protein Albumin Globulin Albumin/Globulin Ratio TSH 11/28/19 11/28/19 11/28/19 16:15 16:15 21:00 WBC RBC Hgb Hct MCV MCH MCHC RDW Std Deviation RDW Coeff of Damian Plt Count MPV Immature Gran % (Auto) Neut % (Auto) Lymph % (Auto) [place] % (Auto) Eos % (Auto) Baso % (Auto) Immature Gran # (Auto) Neut # (Auto) Lymph # (Auto) [place] # (Auto) Eos # (Auto) Baso # (Auto) PT INR APTT PTT Ratio ABG pH ABG pCO2 ABG pO2 ABG HCO3 ABG O2 Saturation ABG Base Excess Grupo Test Barometric Pressure Oxygen Given Sodium 137 Potassium 3.9 Chloride 101 Carbon Dioxide 32 Anion Gap 3.0 BUN 15 Creatinine 0.81 Est Cr Clr Drug Dosing 122.6 Est GFR ( Amer) 96.1 Est GFR (Non-Af Amer) 82.9 BUN/Creatinine Ratio 18.6 Glucose 186 H POC Glucose Estimat Average Glucose 166 Hemoglobin A1c 7.4 H Calcium 8.9 Magnesium 2.2 Total Bilirubin 0.4 AST 8 L ALT 19 Alkaline Phosphatase 114 Troponin I 0.066 H* 0.060 H* NT-Pro-B Natriuret Pep 150 Total Protein 8.6 H Albumin 3.6 Globulin 5.0 H Albumin/Globulin Ratio 0.7 L TSH 0.883 11/28/19 11/29/19 11/29/19 22:05 05:24 05:24 WBC 13.67 H RBC 5.09 Hgb 13.6 Hct 42.7 MCV 83.9 MCH 26.7 MCHC 31.9 L RDW Std Deviation 47.3 H RDW Coeff of Damian 15.6 H Plt Count 243 MPV 9.7 Immature Gran % (Auto) 0.2 Neut % (Auto) 91.3 Lymph % (Auto) 6.9 [place] % (Auto) 1.5 Eos % (Auto) 0.0 Baso % (Auto) 0.1 Immature Gran # (Auto) 0.03 H Neut # (Auto) 12.48 H Lymph # (Auto) 0.95 L [place] # (Auto) 0.20 Eos # (Auto) 0.00 Baso # (Auto) 0.01 PT INR APTT PTT Ratio ABG pH ABG pCO2 ABG pO2 ABG HCO3 ABG O2 Saturation ABG Base Excess Grupo Test Barometric Pressure Oxygen Given Sodium 136 Potassium 4.3 Chloride 102 Carbon Dioxide 28 Anion Gap 7.0 BUN 16 Creatinine 0.76 Est Cr Clr Drug Dosing 129.4 Est GFR ( Amer) 103.8 Est GFR (Non-Af Amer) 89.6 BUN/Creatinine Ratio 20.9 H Glucose 232 H POC Glucose 310 H* Estimat Average Glucose Hemoglobin A1c Calcium 8.9 Magnesium Total Bilirubin AST ALT Alkaline Phosphatase Troponin I NT-Pro-B Natriuret Pep Total Protein Albumin Globulin Albumin/Globulin Ratio TSH 11/29/19 11/29/19 07:30 11:00 WBC RBC Hgb Hct MCV MCH MCHC RDW Std Deviation RDW Coeff of Damian Plt Count MPV Immature Gran % (Auto) Neut % (Auto) Lymph % (Auto) [place] % (Auto) Eos % (Auto) Baso % (Auto) Immature Gran # (Auto) Neut # (Auto) Lymph # (Auto) [place] # (Auto) Eos # (Auto) Baso # (Auto) PT INR APTT PTT Ratio ABG pH ABG pCO2 ABG pO2 ABG HCO3 ABG O2 Saturation ABG Base Excess Grupo Test Barometric Pressure Oxygen Given Sodium Potassium Chloride Carbon Dioxide Anion Gap BUN Creatinine Est Cr Clr Drug Dosing Est GFR ( Amer) Est GFR (Non-Af Amer) BUN/Creatinine Ratio Glucose POC Glucose 187 H 246 H Estimat Average Glucose Hemoglobin A1c Calcium Magnesium Total Bilirubin AST ALT Alkaline Phosphatase Troponin I NT-Pro-B Natriuret Pep Total Protein Albumin Globulin Albumin/Globulin Ratio TSH Medications Administered Current Inpatient Medications Acetaminophen (Tylenol) 650 mg PO Q4H PRN PRN Reason: pain/fever Stop: 12/28/19 20:38 Dextrose (Dextrose 50%) 25 - 50 ml IV UD PRN; Protocol PRN Reason: Hypoglycemia Protocol Stop: 12/28/19 21:28 Enoxaparin Sodium (Lovenox) 40 mg SQ Q24H [facility] Stop: 12/28/19 20:59 Last Admin: 11/28/19 22:07 Dose: 40 mg Documented by: Furosemide (Lasix) 40 mg IV BID [facility] Stop: 11/30/19 09:01 Glucagon (Glucagen) 1 mg SQ UD PRN; Protocol PRN Reason: Hypoglycemia Protocol Stop: 12/28/19 21:28 Glucose (Dex4 Glucose) 4 - 8 tabs PO UD PRN; Protocol PRN Reason: Hypoglycemia Protocol Stop: 12/28/19 21:28 Glucose (Glucose 40%) 15 - 30 gm PO UD PRN; Protocol PRN Reason: Hypoglycemia Protocol Stop: 12/28/19 21:28 Promethazine HCl 12.5 mg/ (Sodium Chloride) 50.5 mls @ 202 mls/hr IV Q6H PRN PRN Reason: Nausea And Vomiting Stop: 12/28/19 21:28 Insulin Aspart (Novolog Flexpen) 0 units SC ACHS [facility] Stop: 12/28/19 21:28 Last Admin: 11/29/19 12:03 Dose: 5 units Documented by: Insulin Glargine (Lantus Solostar Pen) 15 units SC BID [facility] Stop: 12/29/19 08:59 Last Admin: 11/29/19 07:55 Dose: 15 units Documented by: Ipratropium [place] (Atrovent 0.02% 0.5mg/2.5ml) 0.5 mg INH Q6R [facility] Stop: 12/29/19 00:59 Last Admin: 11/29/19 13:22 Dose: 0.5 mg Documented by: Levalbuterol HCl (Xopenex 1.25mg/0.5ml Neb) 1.25 mg INH Q6R [facility] Stop: 12/29/19 00:59 Last Admin: 11/29/19 13:22 Dose: 1.25 mg Documented by: Lisinopril (Zestril) 20 mg PO DAILY BHAVIN Stop: 12/28/19 23:54 Last Admin: 11/29/19 00:20 Dose: 20 mg Documented by: Metoprolol Tartrate (Lopressor) 12.5 mg PO BID BHAVIN Stop: 12/29/19 03:59 Last Admin: 11/29/19 04:45 Dose: 12.5 mg Documented by: Miscellaneous (Carbohydrates For Hypoglycemia) 15 - 30 gm PO UD PRN PRN Reason: Hypoglycemia Protocol Stop: 12/28/19 21:28 Morphine Sulfate (Morphine Sulfate) 4 mg IV Q4H PRN PRN Reason: Pain Stop: 12/12/19 21:28 Nitroglycerin (Nitrostat) 0.4 mg SL UD PRN PRN Reason: Chest Pain Stop: 12/28/19 21:28 Potassium Chloride (Klor-Con M20) 20 meq PO BID BHAVIN Stop: 12/28/19 21:28 Last Admin: 11/29/19 07:51 Dose: 20 meq Documented by: Prednisone (Prednisone) 20 mg PO DAILY BHAVIN Stop: 12/03/19 08:59 Last Admin: 11/29/19 07:51 Dose: 20 mg Documented by: Spironolactone (Aldactone) 25 mg PO QAM BHAVIN Stop: 12/29/19 11:44 Tramadol HCl (Ultram) 25 - 50 mg PO Q4H PRN PRN Reason: Pain Stop: 12/28/19 21:28 (1) Diabetes mellitus, type II Diabetes mellitus electromechanic insulin use: without fci use Diabetes mellitus complication status: without complication Qualified Code(s): E11.9 - Type 2 diabetes mellitus without complications (2) HTN (hypertension) Hypertension type: unspecified Qualified Code(s): I10 - Essential (primary) hypertension
[2019-11-29] MEDS: SPIRONOLACTONE 25 MG TAB PO SCH (14:11)
[2019-11-29] MEDS: METOPROLOL SUCC 25MG EXT REL TAB PO SCH (16:21)
[2019-11-29] MEDS ORDERED: FUROSEMIDE 40 MG/4 ML VIAL IV SCH (21:00)
--- NOTE | 2019-11-29 21:46 | Electrocardiogram Report ---
Test Reason : Blood Pressure : / mmHG Vent. Rate : 077 BPM Atrial Rate : 077 BPM P-R Int : 154 ms QRS Dur : 072 ms QT Int : 370 ms P-R-T Axes : 063 010 061 degrees QTc Int : 418 ms Normal sinus rhythm with sinus arrhythmia Cannot rule out Anterior infarct , age undetermined Abnormal ECG When compared with ECG of 28-JAN-2019 17:22, No significant change was found Confirmed by Doroteo Khoury ([id number]) on 11/29/2019 9:46:20 PM Referred By: REFERRED SELF Confirmed By:Doroteo Khoury
[2019-11-29] MEDS: AMITRIPTYLINE HCL 25 MG TAB PO SCH ×2 (21:54→22:10)
[2019-11-29] MEDS: INSULIN GLARGINE SOLOSTAR 100 UNITS/ML 3 ML PEN SC SCH (21:55)
[2019-11-29] MEDS: ENOXAPARIN INJ 40 MG/0.4 ML SYR SQ SCH (21:57)
[2019-11-29] MEDS: FUROSEMIDE 40 MG in SYRINGE 0 ML IV SCH (22:01)
--- NOTE | 2019-11-29 22:09 | Electrocardiogram Report ---
Test Reason : Blood Pressure : / mmHG Vent. Rate : 072 BPM Atrial Rate : 072 BPM P-R Int : 168 ms QRS Dur : 070 ms QT Int : 398 ms P-R-T Axes : 059 036 068 degrees QTc Int : 435 ms Normal sinus rhythm Low voltage QRS Borderline ECG When compared with ECG of 28-NOV-2019 16:37, No significant change was found Confirmed by Doroteo Khoury ([id number]) on 11/29/2019 10:08:51 PM Referred By: REFERRED SELF Confirmed By:Doroteo Khoury
[2019-11-30] MEDS: IPRATROPIUM BROMIDE NEB SOLN 0.02% 2.5 ML VIAL INH SCH ×4 (00:57→18:41)
[2019-11-30] MEDS: LEVALBUTEROL 1.25MG/0.5ML NEB INH SCH ×4 (00:57→18:41)
[2019-11-30 06:41] LABS: BUN Creatinine Ratio 36.8 (10-20); Calcium 8.5 mg/dl (8.5-10.1); Creatinine Clr Calc Pharmacy 120.9 ml/min; Est GFR (African American) 96.1; Est GFR (Non-African American) 82.9; Potassium 3.7 mmol/L (3.5-5.1)
[2019-11-30] MEDS: INSULIN ASPART 100 UNITS/ML 3 ML PEN SC SCH ×4 (08:02→21:23)
[2019-11-30] MEDS: METOPROLOL SUCC 25MG EXT REL TAB PO SCH (08:03)
[2019-11-30] MEDS: predniSONE 20 MG TAB PO SCH (08:03)
[2019-11-30] MEDS: POTASSIUM CHLORIDE 20 MEQ TABCR PO SCH ×2 (08:03→21:25)
[2019-11-30] MEDS: SPIRONOLACTONE 25 MG TAB PO SCH (08:03)
[2019-11-30] MEDS: lisinopriL 20 MG TAB PO SCH (08:03)
[2019-11-30] MEDS: INSULIN GLARGINE SOLOSTAR 100 UNITS/ML 3 ML PEN SC SCH ×2 (08:04→21:24)
[2019-11-30] MEDS: FUROSEMIDE 40 MG in SYRINGE 0 ML IV SCH (08:04)
[2019-11-30] MEDS ORDERED: DULOXETINE HCL 30 MG CAP PO SCH (09:00)
[2019-11-30] MEDS ORDERED: METOPROLOL SUCC 50MG EXT REL TAB PO STA (09:25)
--- NOTE | 2019-11-30 14:00 | Cardiology Progress Note ---
Date of Service November 30, 2019 Assessment & Plan (1) Acute diastolic CHF (congestive heart failure), NYHA class 3: Diuresing very well. We will continue with IV diuretics for today and then hold for the a.m. Her metoprolol succinate has been increased to 75 mg daily and her blood pressure is now well controlled. She will also be continued on lisinopril and spironolactone. I suspect she will be discharged on these medications along with as needed Lasix. We will reexamine volume status in the a.m. and likely discharge at that time. The pathophysiology and treatment options for diastolic dysfunction were discussed with her at great length today. At this time we will perform a nocturnal pulse ox because I have no doubt that obstructive sleep apnea is played a significant component. We will also initiate her on guideline directed medical therapy for diastolic dysfunction. CHF teaching was reviewed. Patient states that she is now very concerned about her health and will comply with medical recommendations going forward and follow-up. (2) Asthma: (3) Diabetes mellitus, type II: (4) HTN (hypertension): Now controlled (5) Noncompliance: Need for medical compliance reviewed, patient states that she understands and will follow further recommendations (6) Obstructive sleep apnea: Very high likelihood. We will perform nocturnal pulse ox this evening and believe she will definitely benefit from CPAP therapy. We will need sleep medicine evaluation after discharge. (7) Obesity hypoventilation syndrome: Also likely component to her decompensation. Healthy lifestyle changes reviewed Would also consider nutrition consultation (8) Elevated troponin I level: I do not believe this represents an acute ischemic event. We will continue treatment as above and complete an ischemic evaluation as an outpatient with 2-day Lexiscan nuclear stress test. Subjective Patient seen and examined, medical records and chart reviewed. Currently seated out of bed in chair off oxygen. States that she is feeling much better today. Shortness of breath is significantly improved as has her lower extremity edema. She denies any complaints of chest pain, palpitations, lightheadedness, dizziness or syncope. She is been tolerating her medication adjustments without issue. Unfortunately, she received her evening Lasix dose late which caused her to urinate frequently throughout the night and nocturnal pulse ox was not able to be completed. Telemetry reviewed: Normal sinus rhythm without arrhythmia or significant ectopy. Review of Systems Review of Systems: All systems reviewed & are unremarkable except as noted in HPI & below Physical Exam Physical Exam: General: Awake, alert and oriented x 3. No acute distress. HEENT: Normocephalic, atraumatic. Pupils equal, round and reactive to light and accommodation. Extraocular muscles are intact. Anicteric sclera. Moist mucous membranes. Neck: No JVD. No bruit. Cardiovascular: Regular. Positive S-4. Normal S-1 and S-2. No S-3. No murmurs or rubs. Pulmonary: Clear to auscultation B/L. No rales, rhonchi or wheezing Abdomen: Bowel sounds x 4, soft. No rebound, guarding or tenderness. No organomegaly. Extremities: No clubbing, cyanosis or edema. +2 pedal pulses bilaterally. Skin: Warm and dry. Results & Data Vital Signs (Past 12 Hours) Vital Signs Temp Pulse Pulse Resp BP Pulse Ox 11/30/19 13:33 78 16 91 11/30/19 11:15 82 11/30/19 11:04 36.7 C 73 20 117/67 92 11/30/19 10:04 79 141/65 H 11/30/19 08:00 81 11/30/19 07:19 36.5 C 79 20 154/62 H 96 11/30/19 07:03 84 18 97 11/30/19 04:00 37.0 C 93 H 18 152/65 H 91 (1) Diabetes mellitus, type II Diabetes mellitus lobsterman insulin use: without lobsterman use Diabetes mellitus complication status: without complication Qualified Code(s): E11.9 - Type 2 diabetes mellitus without complications (2) HTN (hypertension) Hypertension type: unspecified Qualified Code(s): I10 - Essential (primary) hypertension
[2019-11-30] MEDS ORDERED: POTASSIUM CHLORIDE 20 MEQ TABCR PO STA (14:01)
--- NOTE | 2019-11-30 14:40 | Hospitalist Progress Note ---
Date of Service November 30, 2019 Assessment & Plan (1) Acute diastolic CHF (congestive heart failure), NYHA class 3: (2) Shortness of breath: Present on admission with worsening SOB, orthopnea associated with LE edema CXR showed mild congestive heart failure. CTA chest showed no evidence for pulmonary embolus. Received IV lasix in the ER Continue IV lasix 40mg BID Cardiology on board ECHO showed no LV wall motion abnormalities, small and loculated anterior pericardial effusion. Hyperdynamic LV systolic function with EF>70 Only take Lasix 10mg prn PO outpatient Diuresis very well with Lasix IV BID and spironolactone 25mg daily Plan to transition to oral lasix in am Continue monitor BMP while on IV lasix Saturated well on RA Clinically improves (3) Elevated troponin I level: Demand ischemia due to CHF exacerbation EKG showed no ischemic changes Troponin peaked at 0.066, then 0.060 Continue aspirin and metoprolol Currently denies any chest pain (4) HTN (hypertension): BP improved Continue Lisinopril 20mg and spironolactone 25mg Metoprolol increased to 75mg Continue monitor BP (5) Diabetes mellitus, type II: Most recent Hba1c 7.4 on 11/28/19) She has not been taking Metformin and glipizide for about 6 months Continue Lantus and Novolog sliding scale while inpatient Agreed to resume Metformin on discharge Continue monitor BP (6) Asthma: NO wheezing currently Received IV steroid in the ER Will consider to discontinue prednisone Will try to do an Overnight pulse oximetry Saturated well on RA Morbid Obesity Counseling on diet and exercise DVT px on Lovenox CODE STATUS FULL CODE Admission and Anticipated Discharge Date Admission Date: November 28, 2019 Anticipated date of discharge: 11/30/19 Subjective Pt was seen and examined Sitting in bed with no distress Pt said that she feels much better She said that her breathing is much better She said that she walked around with no discomfort Pt said that she was up all night because of the lasix Denies any chest pain, palpitation, dizziness and SOB Physical Exam Physical Exam: General- No acute distress Head- atraumatic Eyes- PERRL, EOMI, ENT- oropharynx clear Neck- supple, no JVD Lungs- Diminished BS Heart- regular rhythm; no murmur Abdomen- normal bowel sounds, soft, nontender Extremities- no calf tenderness, No edema Neuro- alert, oriented x 3; PERRL, EOMI; no facial palsy; no dysarthria Skin- warm & dry Results & Data Results & Data ([facility]) Vital Signs (Past 12 Hours) Vital Signs Temp Pulse Pulse Resp BP Pulse Ox 11/30/19 13:33 78 16 91 11/30/19 11:15 82 11/30/19 11:04 36.7 C 73 20 117/67 92 11/30/19 10:04 79 141/65 H 11/30/19 08:00 81 11/30/19 07:19 36.5 C 79 20 154/62 H 96 11/30/19 07:03 84 18 97 11/30/19 04:00 37.0 C 93 H 18 152/65 H 91 (1) Diabetes mellitus, type II Diabetes mellitus complication status: without complication Diabetes mellitus intermediate accountant insulin use: without intermediate accountant use Qualified Code(s): E11.9 - Type 2 diabetes mellitus without complications (2) HTN (hypertension) Hypertension type: unspecified Qualified Code(s): I10 - Essential (primary) hypertension
[2019-11-30] MEDS ORDERED: FUROSEMIDE 40 MG in SYRINGE 0 ML IV ONE (17:00)
[2019-11-30] MEDS: ENOXAPARIN INJ 40 MG/0.4 ML SYR SQ SCH (21:26)
[2019-12-01] MEDS: IPRATROPIUM BROMIDE NEB SOLN 0.02% 2.5 ML VIAL INH SCH ×3 (00:06→12:56)
[2019-12-01] MEDS: LEVALBUTEROL 1.25MG/0.5ML NEB INH SCH ×3 (00:06→12:56)
[2019-12-01] MEDS: TRAMADOL HCL 50 MG TABLET PO PRN ×2 (00:08→08:47)
[2019-12-01] MEDS: SPIRONOLACTONE 25 MG TAB PO SCH (08:39)
[2019-12-01] MEDS: lisinopriL 20 MG TAB PO SCH (08:40)
[2019-12-01] MEDS: POTASSIUM CHLORIDE 20 MEQ TABCR PO SCH (08:40)
[2019-12-01] MEDS: predniSONE 20 MG TAB PO SCH (08:40)
[2019-12-01] MEDS: INSULIN GLARGINE SOLOSTAR 100 UNITS/ML 3 ML PEN SC SCH (08:41)
[2019-12-01] MEDS: INSULIN ASPART 100 UNITS/ML 3 ML PEN SC SCH ×2 (08:42→12:18)
[2019-12-01] MEDS ORDERED: METOPROLOL SUCC 25MG EXT REL TAB PO SCH (09:00)
[2019-12-01 09:56] LABS: BUN Creatinine Ratio 38.1 (10-20); Calcium 8.5 mg/dl (8.5-10.1); Est GFR (African American) 86.9; Potassium 4.2 mmol/L (3.5-5.1)
[2019-12-01] MEDS ORDERED: DULOXETINE HCL 30 MG CAP PO SCH (12:30)
--- NOTE | 2019-12-01 13:15 | Cardiology Progress Note ---
Date of Service December 01, 2019 Assessment & Plan (1) Acute diastolic CHF (congestive heart failure), NYHA class 3: Patient now back to baseline clinically. No need for further IV diuresis. Would DC home on metoprolol succinate 75 mg daily, lisinopril 20 mg daily, spironolactone 25 mg daily and Lasix 20 mg p.o. every morning with a as needed p.m. dose if necessary. My office will call to arrange follow-up with me in the next 1 to 2 weeks as well as a sleep medicine evaluation. The patient would like to establish with a new PCP preferably Dr. Asia Mendes. We will try to arrange. Okay to DC to home from a cardiac standpoint. The pathophysiology and treatment options for diastolic dysfunction were discussed with her at great length today. At this time we will perform a nocturnal pulse ox because I have no doubt that obstructive sleep apnea is played a significant component. We will also initiate her on guideline directed medical therapy for diastolic dysfunction. CHF teaching was reviewed. Patient states that she is now very concerned about her health and will comply with medical recommendations going forward and follow-up. (2) Asthma: (3) Diabetes mellitus, type II: (4) HTN (hypertension): Now controlled (5) Noncompliance: Need for medical compliance reviewed, patient states that she understands and will follow further recommendations (6) Obstructive sleep apnea: Nocturnal pulse ox remarkably abnormal suggestive of significant obstructive sleep apnea. (7) Obesity hypoventilation syndrome: Also likely component to her decompensation. Healthy lifestyle changes reviewed Would also consider nutrition consultation (8) Elevated troponin I level: I do not believe this represents an acute ischemic event. We will continue treatment as above and complete an ischemic evaluation as an outpatient with 2-day Lexiscan nuclear stress test. Subjective Patient seen and examined out of bed in chair, medical records and medications reviewed. She states that she feels great. She states that she actually has not felt this well in a long time. Her breathing is back to baseline and her lower extremity edema has significantly improved. No other complaints of chest pain, palpitations, lightheadedness, dizziness or syncope overnight. Nocturnal pulse ox performed last evening which came back remarkably abnormal. Telemetry reviewed: Normal sinus rhythm without arrhythmia or significant ectopy. Review of Systems Review of Systems: All systems reviewed & are unremarkable except as noted in HPI & below Physical Exam Physical Exam: General: Awake, alert and oriented x 3. No acute distress. HEENT: Normocephalic, atraumatic. Pupils equal, round and reactive to light and accommodation. Extraocular muscles are intact. Anicteric sclera. Moist mucous membranes. Neck: No JVD. No bruit. Cardiovascular: Regular. Positive S-4. Normal S-1 and S-2. No S-3. No murmurs or rubs. Pulmonary: Clear to auscultation B/L. No rales, rhonchi or wheezing Abdomen: Bowel sounds x 4, soft. No rebound, guarding or tenderness. No org anomegaly. Extremities: No clubbing, cyanosis or edema. +2 pedal pulses bilaterally. Skin: Warm and dry. Results & Data Vital Signs (Past 12 Hours) Vital Signs Temp Pulse Pulse Pulse Pulse Pulse Pulse 12/01/19 12:50 82 80 81 74 12/01/19 11:15 36.4 C L 61 12/01/19 08:00 74 12/01/19 07:51 36.5 C 77 12/01/19 07:21 71 12/01/19 03:42 36.4 C L 78 12/01/19 03:04 86 Resp Resp Resp Resp Resp BP BP 12/01/19 12:50 18 18 18 18 12/01/19 11:15 18 110/68 12/01/19 08:00 12/01/19 07:51 18 134/89 12/01/19 07:21 18 12/01/19 03:42 18 121/65 12/01/19 03:04 Pulse Ox Pulse Ox Pulse Ox Pulse Ox Pulse Ox 12/01/19 12:50 92 86 L 92 94 12/01/19 11:15 91 12/01/19 08:00 12/01/19 07:51 91 12/01/19 07:21 90 12/01/19 03:42 92 12/01/19 03:04 89 L (1) Diabetes mellitus, type II Diabetes mellitus complication status: without complication Diabetes mellitus long-term insulin use: without long-term use Qualified Code(s): E11.9 - Type 2 diabetes mellitus without complications (2) HTN (hypertension) Hypertension type: unspecified Qualified Code(s): I10 - Essential (primary) hypertension
--- NOTE | 2019-12-01 14:43 | Hospitalist Progress Note ---
Date of Service December 01, 2019 Assessment & Plan (1) Acute diastolic CHF (congestive heart failure), NYHA class 3: (2) Shortness of breath: Present on admission with worsening SOB, orthopnea associated with LE edema CXR showed mild congestive heart failure. CTA chest showed no evidence for pulmonary embolus. Received IV lasix in the ER Received IV lasix 40mg BID during the hospital course Cardiology on board ECHO showed no LV wall motion abnormalities, small and loculated anterior per icardial effusion. Hyperdynamic LV systolic function with EF>70 Only take Lasix 10mg prn PO outpatient Diuresis very well with Lasix IV BID and spironolactone 25mg daily Case discussed with cardiology Recommended to discharge on metoprolol succinate 75 mg daily, lisinopril 20 mg daily, Spironolactone 25 mg daily and Lasix 20 mg in am with as needed p.m. dose if necessary. OK from cardiology standpoint to discharge home today Will check BMP in 1 week Saturated well on RA Nocturnal pulse oximetry indicated pt required oxygen at night 2 step exercise done indicated 2L NC with ambulation Clinically stable Follow up with cardiology in 2 weeks (3) Elevated troponin I level: Demand ischemia due to CHF exacerbation EKG showed no ischemic changes Troponin peaked at 0.066, then 0.060 Continue aspirin and metoprolol Currently denies any chest pain (4) HTN (hypertension): BP stable Continue Lisinopril 20mg and spironolactone 25mg Metoprolol increased to 75mg Continue monitor BP (5) Diabetes mellitus, type II: Most recent Hba1c 7.4 on 11/28/19) She has not been taking Metformin and glipizide for about 6 months Continue Lantus and Novolog sliding scale while inpatient Agreed to resume Metformin on discharge Continue monitor BS (6) Obesity hypoventilation syndrome: (7) Asthma: NO wheezing currently Received IV steroid in the ER On PO prednisone 20mg, Will discontinue on discharge Nocturnal pulse oximetry indicated pt required oxygen at night 2 step exercise done indicated 2L NC with ambulation Pt will need to arrange for sleep study (mostly has underlying CAROLYN) Saturated well on RA Morbid Obesity Counseling on diet and exercise Peripheral neuropathy Continue Cymbalta DVT px on Lovenox CODE STATUS FULL CODE Disposition Discharge home today Follow up with cardiology in 2 weeks Admission and Anticipated Discharge Date Admission Date: November 28, 2019 Anticipated date of discharge: 11/30/19 Subjective Pt was seen and examined Siting in chair with no distress Pt said that she feels much better Pt said that the cymbalta helped with the pain in her lower extremities She had 2 step done today that required oxygen with ambulation as well She said that her legs looks much better since the swelling improves Denies any chest pain, palpitation and SOB Physical Exam Physical Exam: General- No acute distress Head- atraumatic Eyes- PERRL, EOMI, ENT- oropharynx clear Neck- supple, no JVD Lungs- Diminished BS Heart- regular rhythm; no murmur Abdomen- normal bowel sounds, soft, nontender Extremities- no calf tenderness, No edema Neuro- alert, oriented x 3; PERRL, EOMI; no facial palsy; no dysarthria Skin- warm & dry Results & Data Results & Data ([facility]) Vital Signs (Past 12 Hours) Vital Signs Temp Pulse Pulse Pulse Pulse Pulse Pulse 12/01/19 12:56 81 12/01/19 12:50 82 80 81 74 12/01/19 11:15 36.4 C L 61 12/01/19 08:00 74 12/01/19 07:51 36.5 C 77 12/01/19 07:21 71 12/01/19 03:42 36.4 C L 78 12/01/19 03:04 86 Resp Resp Resp Resp Resp BP BP 12/01/19 12:56 18 12/01/19 12:50 18 18 18 18 12/01/19 11:15 18 110/68 12/01/19 08:00 12/01/19 07:51 18 134/89 12/01/19 07:21 18 12/01/19 03:42 18 121/65 12/01/19 03:04 Pulse Ox Pulse Ox Pulse Ox Pulse Ox Pulse Ox 12/01/19 12:56 92 12/01/19 12:50 92 86 L 92 94 12/01/19 11:15 91 12/01/19 08:00 12/01/19 07:51 91 12/01/19 07:21 90 12/01/19 03:42 92 12/01/19 03:04 89 L (1) Diabetes mellitus, type II Diabetes mellitus complication status: without complication Diabetes mellitus terminal press operator insulin use: without terminal press operator use Qualified Code(s): E11.9 - Type 2 diabetes mellitus without complications (2) HTN (hypertension) Hypertension type: unspecified Qualified Code(s): I10 - Essential (primary) hypertension
--- NOTE | 2019-12-04 13:35 | Discharge Summary ---
Date of Service December 01, 2019 Admission HPI Per Admitting Provider Linda Alexander is a pleasant 54yo C female with history of mild, persistent asthma, prior episodes of pulmonary edema in the past presenting with 2-3 days of progressive SOB, SMALL, wheeze and chest tightness. Also endorses increased LE edema, orhtopnea and a 6-7 pound weight gain. She has a home pulse oximeter and reports saturations in the mid 80's with ambulation. She has been taking her albuterol q 4 hours PRN with minimal relief. She denies cough, fever, chills, sweats or body aches. No change in taste or smell. No nausea/vomiting/diarrhea or constipation Patient has no recent travel, no sick contacts, no close contact with Covid-19 positive individuals. She has been practicing social distancing in her home. No concern for Covid-19 infection at this time. Admission Exam Per Admitting Provider General: patient resting comfortably, NAD, non-toxic in appearance, AA&O x 4, cloth face mask in place Skin: warm, dry, intact, redness of bilateral LE skin, no streaking or active appearing cellulitis HEENT: NC/AT, PERRL, EOMI, anicteric sclera, conjunctiva without injection, external ear normal to inspection and nontender, nares patent, moist mucus membranes, dentition intact, no oropharyngeal lesions, neck supple, trachea midline, no LAD, no thyromegaly, no JVD Heart: +S1/S2, regular, no m/r/g Lungs: diminished breath sounds bilaterally, bibasilar crackles with crackles left mid-lung, no rhonchi/wheezes Abd: +BS, soft, NT/ND, no masses/organomegaly/ascites Ext: warm, 2+ pulses in UE/LE bilaterally, no clubbing/cyanosis, 2+ pitting edema to knees bilaterally Neuro: nonfocal, patient AA&O x 4, speech intact, no facial droop, moving all extremities on command with equal strength 5/5 Principal Diagnosis (1) Acute diastolic CHF (congestive heart failure), NYHA class 3: (2) Shortness of breath: (3) Elevated troponin I level: (4) HTN (hypertension): (5) Diabetes mellitus, type II: (6) Obesity hypoventilation syndrome: (7) Asthma: (8)Peripheral neuropathy Discharge Exam General- No acute distress Head- atraumatic Eyes- PERRL, EOMI, ENT- oropharynx clear Neck- supple, no JVD Lungs- Diminished BS Heart- regular rhythm; no murmur Abdomen- normal bowel sounds, soft, nontender Extremities- no calf tenderness, No edema Neuro- alert, oriented x 3; PERRL, EOMI; no facial palsy; no dysarthria Skin- warm & dry Discharge Data Allergies Allergy/AdvReac Type Severity Reaction Status Date / Time bee venom protein (honey bee) Allergy Severe ANAPHYLAXIS Verified 11/28/19 16:51 shellfish derived Allergy Severe ANAPHYLACTI Verified 11/28/19 16:51 C iodine Allergy Intermediate SWELLING Verified 11/28/19 16:51 AND IRRITATION AT SITE Consultations 11/28/19 20:01 ED Decision to Admit Stat 11/28/19 21:29 Consult Cardiology Routine Ordered Studies 11/28/19 17:13 CT angio chest PE protocol Stat XR chest 1V portable CLINICAL HISTORY: Dyspnea dyspnea COMPARISON STUDY: 12/13/2018 FINDINGS: Stable mediastinal fullness. This is considered chronic. Moderate prominence of the pulmonary vasculature. Moderate stable cardiomegaly. IMPRESSION: 1. Mild congestive heart failure. 2. Stable to slightly improved mediastinal fullness. ACT 112: Negative or not required by law. The above report was generated using voice recognition software. It may contain grammatical, syntax or spelling errors. Electronically signed by: Shine Alfaro M.D. 11/28/2019 4:36 PM Dictated: 11/28/19 1635 Transcribed: 11/28/[address] angio chest PE protocol CT DOSE: 1131.00 mGy.cm HISTORY: Chest pain. Dyspnea. PE TECHNIQUE: Multiaxial CT images of the chest were performed following the intravenous administration of contrast to evaluate the pulmonary arteries. Maximal intensity projection images were also obtained. A dose lowering technique was utilized adhering to the principles of ALARA. COMPARISON STUDY: 05/08/2016 FINDINGS: Somewhat compromised exam due to patient body habitus. Unremarkable thoracic aorta. Pulmonary vasculature enhances appropriately. There are no significant filling defects. There are several small reactive nodes in the mediastinum and hilar or axillary regions. These are unchanged from the prior exam. Minimal scattered atelectasis of the chest. No focal infiltrate. IMPRESSION: 1. No evidence for pulmonary embolus. 2. Lungs are grossly clear. 3. Minimal scattered atelectatic change. ACT 112: Negative or not required by law. The above report was generated using voice recognition software. It may contain grammatical, syntax or spelling errors. Electronically signed by: Shine Alfaro M.D. 11/28/2019 5:57 PM Dictated: 11/28/191754 Transcribed: 11/28/191754 Hospital Course (1) Acute diastolic CHF (congestive heart failure), NYHA class 3: (2) Shortness of breath: Present on admission with worsening SOB, orthopnea associated with LE edema CXR showed mild congestive heart failure. CTA chest showed no evidence for pulmonary embolus. Received IV lasix in the ER Received IV lasix 40mg BID during the hospital course Cardiology on board ECHO showed no LV wall motion abnormalities, small and loculated anterior pericardial effusion. Hyperdynamic LV systolic function with EF>70 Only take Lasix 10mg prn PO outpatient Diuresis very well with Lasix IV BID and spironolactone 25mg daily Case discussed with cardiology Recommended to discharge on metoprolol succinate 75 mg daily, lisinopril 20 mg daily, Spironolactone 25 mg daily and Lasix 20 mg in am with as needed p.m. dose if necessary. OK from cardiology standpoint to discharge home today Will check BMP in 1 week Saturated well on RA Nocturnal pulse oximetry indicated pt required oxygen at night 2 step exercise done indicated 2L NC with ambulation Clinically stable Follow up with cardiology in 2 weeks (3) Elevated troponin I level: Demand ischemia due to CHF exacerbation EKG showed no ischemic changes Troponin peaked at 0.066, then 0.060 Continue aspirin and metoprolol Currently denies any chest pain (4) HTN (hypertension): BP stable Continue Lisinopril 20mg and spironolactone 25mg Metoprolol increased to 75mg Continue monitor BP (5) Diabetes mellitus, type II: Most recent Hba1c 7.4 on 11/28/19) She has not been taking Metformin and glipizide for about 6 months Continue Lantus and Novolog sliding scale while inpatient Agreed to resume Metformin on discharge Continue monitor BS (6) Obesity hypoventilation syndrome: (7) Asthma: NO wheezing currently Received IV steroid in the ER On PO prednisone 20mg, Will discontinue on discharge Nocturnal pulse oximetry indicated pt required oxygen at night 2 step exercise done indicated 2L NC with ambulation Pt will need to arrange for sleep study (mostly has underlying CAROLYN) Saturated well on RA Morbid Obesity Counseling on diet and exercise Peripheral neuropathy Continue Cymbalta DVT px on Lovenox CODE STATUS FULL CODE Disposition Discharge home today Follow up with cardiology in 2 weeks Total Time Total Time Spent Total Time Spent (In Minutes): 35 minutes Total Time Includes: Examination of the Patient, Discharge Planning, Medication Reconciliation, Communication With Other Providers and Other Discharge Plan Discharge Items Patient Disposition: Home - Self-Care Reason For Visit: SOB,ELEVATED TROPONIN Discharge Diagnosis: (1) Acute diastolic CHF (congestive heart failure), NYHA class 3: (2) Shortness of breath: (3) Elevated troponin I level: (4) HTN (hypertension): (5) Diabetes mellitus, type II: (6) Obesity hypoventilation syndrome: (7) Asthma: (8)Peripheral neuropathy Condition on Discharge: Good Activity: Resume your previous activity Non-emergency contact: 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 Le (Dr. Marti's colleague) on 12/11 @ 11:20am Follow up with cardiology Dr. Silverman in 1 to 2 weeks Your physician will arrange for referral with sleep study to evaluate for sleep apnea Continue 2 Liter Nasal cannula oxygen supplement with ambulation and at night Follow a healthy diet diet and limited concentrated sweet intake Counseling on weight loss Check BMP in 1 week to monitor electrolytes and renal function Check Hba1c in 3 to 4 months Continue Lasix 20 mg daily every morning (Additional Lasix dose as needed at night if necessary for worsening shortness of breath or if weight increases by more than 2-3 pound daily) CHF Discharge Instructions Call your Primary Care doctor if any of the following symptoms or problems start or get worse: Shortness of breath or difficulty breathing Wake up at night short of breath Chest pain Cough Swelling of your hands, feet, or legs More fatigued or tired with your normal activity Palpitations - sudden fast heart beats WEIGHT Weigh yourself every morning after using the bathroom. Use the same scale. Wear the same amount of clothing. Write your weight down on a chart. Call your Primary Care doctor if you gain more than 2-3 pounds in 1-2 days. MEDICATIONS Use this discharge instruction sheet for medication instructions. Take your medications at the time your doctor ordered. Do not skip a dose of your medicines. If you miss a dose of medicine, take it as soon as possible, but DO NOT DOUBLE A DOSE. Read your medicine information when you get home. Know all of the side effects of your medicine. If in doubt, ask your pharmacist Call your Primary Care doctor's office if you have any side effects. Be sure all of your doctors know what medicine and herbs you take (including cold, flu, and herbal medicine). Take the following with you to your follow-up doctor appointments: Weight Chart Medication List List of questions Do not drink excessive alcohol, beer or wine. Pending Studies at Discharge: No Stand-Alone Forms: My [facility] Ogone, Smoking Cessation Medications and DC Order Prescriptions: New lisinopril 20 mg Tablet 20 mg PO DAILY 30 Days Qty: 30 RF: 0 spironolactone 25 mg Tablet 25 mg PO QAM 30 Days Qty: 30 RF: 0 metoprolol succinate 25 mg Tablet Extended Release 24 Hr 75 mg PO QAM 30 Days Qty: 90 RF: 0 duloxetine 30 mg Capsule,Delayed Release(Dr/Ec) 30 mg PO QAM 30 Days Qty: 30 RF: 0 metformin 500 mg tablet 500 mg PO BID 30 Days Qty: 60 RF: 0 furosemide [Lasix] 20 mg tablet 20 mg PO DAILY Qty: 30 RF: 0 tramadol 50 mg tablet 50 mg PO HS PRN (Reason: pain) Qty: 7 RF: 0 Continued Combivent Respimat 20-100 mcg/actuation Mist 1 puff INHALATION QID RF: 0 albuterol sulfate RF: 0 acetaminophen [Tylenol Extra Strength] 500 mg Tablet 500 - 1,000 mg PO Q6H PRN (Reason: Pain) RF: 0 Discontinued lisinopril 10 mg Tablet 10 mg PO DAILY RF: 0 Lasix 10 mg PO Q OTHER DAY RF: 0 Discharge Orders: Discharge Order (Routine); Ordered 12/01/19 Ordered By: Cedrick Srivastava/Other Patient Handouts: Diabetes [place] Complications, Hyperglycemia, Diabetes Healthy Meals, Diabetes Exercise Benefits, Diabetes Manage A1C Test Admission Data Admit Date/Time: 11/28/19 19:55 Attending Provider: Cedrick Garcia Admit Provider: Jessica Ferrari Primary Care Provider: Theo Muñoz Other Providers: Gonzalez Silverman Other Interventions: Discharge Summary Assessment (RN) Last Done: 12/01/19 14:54 DC Date/Time DO NOT enter until pt leaves facility: 12/01/19 17:45
== END 2019-12-01 17:45 | disposition home or self-care (01) | DRG 291 ==
LOC: ED 15:32 → SUATTDRO 19:55 → 2W 19:55 → 2S 20:52

== ENCOUNTER 2021-09-01 16:46 | Inpatient (IN) ==
--- NOTE | 2021-09-01 17:05 | Emergency Department Note ---
Impression & Plan Pulmonary edema, Hypoxia, Edema, peripheral, Hypokalemia ED Provider Note NAME: WILFRID WASHINGTON AGE: 55 SEX: F : 1965 ARRIVES VIA: Walk-In INFORMANT: Patient, ED PROVIDER(S): Jay Bradshaw DO CHIEF COMPLAINT: Shortness of breath HPI: The patient is a 55-year-old female who has a history of CHF who presented to the emergency department for an evaluation of shortness of breath. The patient states that she has had shortness of breath over the last 2 to 3 days. She had a telehealth conference with her primary care physician and was sent to the emergency department immediately for further evaluation. She is noticed l ower extremity swelling. She was seen in our facility recently for bilateral lower extremity cellulitis. She was started on antibiotics. The patient states that she has noticed some lower extremity swelling and weight gain. She is noticed orthopnea. She uses oxygen only at night. She is noticed that she is become very short of breath with any exertion. She denies having any nausea or vomiting. She denies having any chest pain. She does note some upper back pain. She denies having any dysuria or frequency. She notices no decreased urine output. The patient states that she has been compliant with her usual outpatient medications. ROS: See above HPI for pertinent positives & negatives. A total of 10 systems reviewed and were otherwise negative. PAST MEDICAL HISTORY: See Below PAST SURGICAL HISTORY: See Below FAMILY HISTORY: See Below SOCIAL HISTORY: See Below HOME MEDICATIONS: See Below ALLERGIES: See Below VITALS: See Below PHYSICAL EXAMINATION: GENERAL: Patient is awake alert in no acute distress patient is resting comfortably and showing no signs of anxiety EYES: The conjunctivae are clear. The pupils are round and reactive. EARS, NOSE, MOUTH AND THROAT: The nose is without any evidence of any deformity. NECK: The neck is nontender and supple. RESPIRATORY: Diminished breath sounds are noted throughout. Poor air movement was noted. Rales were noted at both bases. CARDIOVASCULAR: Tachycardic rate with regular rhythm was noted. No definite murmur was noted. GASTROINTESTINAL: The abdomen is soft. Abdomen is nontender. MUSCULOSKELETAL/EXTREMITIES: There is no evidence of gross deformity full range of motion is noted in the hips and shoulders. SKIN: Bilateral lower extremity edema was noted. Venous stasis changes were appreciated with significant erythema and warmth. NEUROLOGIC: Patient is awake alert and oriented x3. MEDICAL DECISION MAKING: The patient is a 55-year-old female who has a history of pulmonary edema who presented to emergency department for evaluation of difficulty breathing. The patient's history and physical exam appear to be consistent with pulmonary edema. She was treated with IV Lasix in the emergency department. She appears to have hypoxia as well as significant dyspnea with any exertion. I discussed the patient's laboratory and radiographic studies with her. I discussed her case with the on-call [facility] hospitalist. They have agreed to evaluate the patient in the emergency department for further management and disposition. Triage Nursing notes reviewed. Prior medical records reviewed Vital Signs: reviewed and remarkable for hypoxia. Differential diagnosis: Reactive airway disease, pneumonia, pneumothorax, COPD, CHF, infections, cardiac ischemia, pulmonary embolism, musculoskeletal, gastrointestinal, as well as other pathologies. ER treatment provided: See below Diagnostics interpreted by me: ECG: EKG was obtained in the emergency department. My interpretation is normal sinus rhythm at 81 bpm. There is no ectopy. There is no acute ST segment abnormalities noted. This was compared to a tracing from November 282019. No changes were noted. Cardiac Monitoring: An order was placed for continuous cardiac monitoring. The monitor shows a rate of 78 bpm with sinus rhythm. Laboratory studies: As stated above and show below. Imaging studies: See below Consultation(s): I discussed this case with Dr. Betts who is on-call for the [facility]. Past Med/Surg History Medical History (Updated 09/01/21 @ 23:23 by Jay Bradshaw DO) Anxiety Chronic back pain Congestive heart failure with left ventricular diastolic dysfunction, NYHA class 1 Diabetes Diabetes mellitus, type II History of pulmonary embolism HTN (hypertension) Obesity Surgical History History of dental surgery Hx of appendectomy Family History Other Breast cancer COPD (chronic obstructive pulmonary disease) Coronary heart disease Diabetes Hypertension Sudden cardiac arrest Social History Smoking Status: Never smoker Second Hand Exposure: No; Hx Alcohol Use: No Hx Substance Use: No Preferred Language: Kosovan Communication Ability: Effective Leader Tier Required: No Beliefs That Will Affect Care: None Current Living Situation: Significant Other Feels Safe at Home: Yes Assistive Devices: None Allergies Allergies Allergy/AdvReac Type Severity Reaction Status Date / Time bee venom protein (honey bee) Allergy Severe ANAPHYLAXIS Verified 09/01/21 18:10 shellfish derived Allergy Severe ANAPHYLACTI Verified 09/01/21 18:10 C iodine Allergy Intermediate SWELLING Verified 09/01/21 18:10 AND IRRITATION AT SITE Home Meds Home Medications Medication Instructions Recorded Confirmed acetaminophen 500 mg tablet 500 - 1,000 mg PO Q6H PRN 01/28/19 09/01/21 (Tylenol Extra Strength) ipratropium 20 mcg-albuterol 100 1 puff INHALATION QID PRN 11/28/19 09/01/21 mcg/actuation mist for inhalation (Combivent Respimat) albuterol sulfate 90 mcg/actuation 2 puff INHALATION QID PRN 08/22/21 09/01/21 aerosol inhaler duloxetine 60 mg capsule,delayed 60 mg PO DAILY 08/22/21 09/01/21 release apixaban 2.5 mg tablet (Eliquis) 2.5 mg PO BID 09/01/21 09/01/21 Previous Rx's Medication Instructions Recorded furosemide 20 mg tablet (Lasix) 20 mg PO DAILY #30 tab 12/01/19 tramadol 50 mg tablet (Ultram) 50 mg PO Q6H PRN #30 tab 08/22/21 Results & Data (ED) Vital Signs Vital Signs - 24 hr 09/01/21 16:51 09/01/21 16:55 09/01/21 17:05 Temperature 37.0 C Temperature Source Temporal Artery Scan Pulse Rate 86 Pulse Rate [Apical] Pulse Rate from SpO2 Sensor Pulse Rhythm [Apical] Pulse Strength [Apical] Respiratory Rate 26 H 20 Respiratory Effort / Characteristics Short of Breath Respiratory Depth Respiratory Pattern Regular Blood Pressure 225/78 H Blood Pressure [Left Arm] Blood Pressure Mean 127 Blood Pressure Mean [Left Arm] Blood Pressure Position [Left Arm] Pulse Oximetry 85 L 94 96 Oxygen Delivery Method Room Air Oxymask Oxymask Oxygen Flow Rate 4 5 Sepsis Recent Fever Within 48 Hours No Sepsis New/Unexplained Change in Mental Status No Sepsis Action Taken by Nursing No Action Required Oxygen Flow Rate - Titration 5 Pulse Oximetry Post Tiitration 96 09/01/21 17:48 09/01/21 17:52 09/01/21 18:00 Temperature Temperature Source Pulse Rate 75 65 Pulse Rate [Apical] 74 Pulse Rate from SpO2 Sensor 74 67 Pulse Rhythm [Apical] Regular Pulse Strength [Apical] Respiratory Rate 21 16 16 Respiratory Effort / Characteristics Non-Labored Respiratory Depth Normal Respiratory Pattern Regular Blood Pressure Blood Pressure [Left Arm] 160/79 H Blood Pressure Mean Blood Pressure Mean [Left Arm] 106 Blood Pressure Position [Left Arm] Lying Pulse Oximetry 99 99 98 Oxygen Delivery Method Oxymask Oxygen Flow Rate 5 Sepsis Recent Fever Within 48 Hours Sepsis New/Unexplained Change in Mental Status Sepsis Action Taken by Nursing Oxygen Flow Rate - Titration Pulse Oximetry Post Tiitration 09/01/21 18:01 09/01/21 19:00 09/01/21 19:18 Temperature Temperature Source Pulse Rate 69 71 74 Pulse Rate [Apical] 75 73 Pulse Rate from SpO2 Sensor 70 70 73 Pulse Rhythm [Apical] Regular Pulse Strength [Apical] Normal Respiratory Rate 17 16 17 Respiratory Effort / Characteristics Non-Labored Non-Labored Spontaneous Respiratory Depth Normal Normal Respiratory Pattern Regular Regular Blood Pressure 153/97 H Blood Pressure [Left Arm] 153/97 H Blood Pressure Mean 115 Blood Pressure Mean [Left Arm] 115 Blood Pressure Position [Left Arm] Pulse Oximetry 100 99 98 Oxygen Delivery Method Oxymask Oxymask Oxygen Flow Rate 5 5 Sepsis Recent Fever Within 48 Hours Sepsis New/Unexplained Change in Mental Status Sepsis Action Taken by Nursing Oxygen Flow Rate - Titration Pulse Oximetry Post Tiitration 09/01/21 21:12 Temperature Temperature Source Pulse Rate Pulse Rate [Apical] 78 Pulse Rate from SpO2 Sensor Pulse Rhythm [Apical] Pulse Strength [Apical] Respiratory Rate 18 Respiratory Effort / Characteristics Respiratory Depth Respiratory Pattern Blood Pressure Blood Pressure [Left Arm] 138/68 Blood Pressure Mean Blood Pressure Mean [Left Arm] 91 Blood Pressure Position [Left Arm] Pulse Oximetry 98 Oxygen Delivery Method Oxymask Oxygen Flow Rate Sepsis Recent Fever Within 48 Hours Sepsis New/Unexplained Change in Mental Status Sepsis Action Taken by Nursing Oxygen Flow Rate - Titration Pulse Oximetry Post Tiitration Home Medications Current Medication List: was personally reviewed by me Laboratory Data Attestation: I reviewed the patient's lab results. Result diagrams: 09/01/21 17:15 09/01/21 17:15 Lab Results 09/01/21 09/01/21 09/01/21 Range/Units 17:15 17:15 17:15 WBC 13.15 H (4.8-10.8) K/uL RBC 4.97 (4.2-5.4) M/uL Hgb 13.5 (12.0-16.0) g/dL Hct 43.3 (37-47) % MCV 87.1 (80-100) fL MCH 27.2 (25-34) pg MCHC 31.2 L (32-36) g/dL RDW Std Deviation 49.1 H (36.4-46.3) fL RDW Coeff of Damian 15.4 H (11.5-14.5) % Plt Count 240 (130-400) K/uL MPV 9.8 (7.4-10.4) fL Immature Gran % (Auto) 0.2 % Neut % (Auto) 77.4 % Lymph % (Auto) 14.7 % [place] % (Auto) 5.9 % Eos % (Auto) 1.6 % Baso % (Auto) 0.2 % Neut # (Auto) 10.18 H (1.4-6.5) K/uL Lymph # (Auto) 1.93 (1.2-3.4) K/uL [place] # (Auto) 0.77 H (0.11-0.59) K/uL Eos # (Auto) 0.21 (0-0.5) K/uL Baso # (Auto) 0.03 (0-0.2) K/uL Immature Gran # (Auto) 0.03 H (0.00-0.02) K/uL PT 10.8 (9.0-12.0) Seconds INR 1.1 (0.9-1.1) APTT 26.2 (21.0-31.0) Seconds PTT Ratio 1.0 D-Dimer 450 (0-500) ug/L FEU VBG pH (7.36-7.41) VBG pCO2 (38-50) mmHg VBG pO2 mmHg VBG HCO3 mmol/L VBG O2 Saturation % VBG Base Excess mEq/L Barometric Pressure mm/Hg Sodium 138 (136-145) mmol/L Potassium 3.3 L (3.5-5.1) mmol/L Chloride 100 (98-107) mmol/L Carbon Dioxide 33 H (21-32) mmol/L Anion Gap 5 (3-11) BUN 11 (6-23) mg/dl Creatinine 0.64 (0.6-1.2) mg/dl Est Cr Clr Drug Dosing 148.4 ml/min Est GFR ( Amer) 117.3 ml/min Est GFR (Non-Af Amer) 101.2 ml/min BUN/Creatinine Ratio 17.2 (10-20) Glucose 174 H (70-99(Fasting)) mg/dl Calcium 8.8 (8.5-10.1) mg/dl Magnesium 2.0 (1.7-2.4) mg/dl Total Bilirubin 0.8 (0.2-1.0) mg/dl AST 12 L (13-39) U/L ALT 9 (7-52) U/L Alkaline Phosphatase 96 (34-104) U/L Troponin I 0.03 (0-0.04) ng/ml B-Natriuretic Peptide (0-100) pg/ml Total Protein 7.8 (6.0-8.3) gm/dl Albumin 3.8 (3.4-5.0) gm/dl Globulin 4.0 (2.5-4.0) gm/dl Albumin/Globulin Ratio 1.0 (0.9-2) SARS-CoV-2, RNA, NAAT (NEGATIVE) 09/01/21 09/01/21 09/01/21 Range/Units 17:15 17:25 20:59 WBC (4.8-10.8) K/uL RBC (4.2-5.4) M/uL Hgb (12.0-16.0) g/dL Hct (37-47) % MCV (80-100) fL MCH (25-34) pg MCHC (32-36) g/dL RDW Std Deviation (36.4-46.3) fL RDW Coeff of Damian (11.5-14.5) % Plt Count (130-400) K/uL MPV (7.4-10.4) fL Immature Gran % (Auto) % Neut % (Auto) % Lymph % (Auto) % [place] % (Auto) % Eos % (Auto) % Baso % (Auto) % Neut # (Auto) (1.4-6.5) K/uL Lymph # (Auto) (1.2-3.4) K/uL [place] # (Auto) (0.11-0.59) K/uL Eos # (Auto) (0-0.5) K/uL Baso # (Auto) (0-0.2) K/uL Immature Gran # (Auto) (0.00-0.02) K/uL PT (9.0-12.0) Seconds INR (0.9-1.1) APTT (21.0-31.0) Seconds PTT Ratio D-Dimer (0-500) ug/L FEU VBG pH 7.36 (7.36-7.41) VBG pCO2 58 H (38-50) mmHg VBG pO2 42 mmHg VBG HCO3 32 mmol/L VBG O2 Saturation 71.6 % VBG Base Excess 5.1 mEq/L Barometric Pressure 728.7 mm/Hg Sodium (136-145) mmol/L Potassium (3.5-5.1) mmol/L Chloride (98-107) mmol/L Carbon Dioxide (21-32) mmol/L Anion Gap (3-11) BUN (6-23) mg/dl Creatinine (0.6-1.2) mg/dl Est Cr Clr Drug Dosing ml/min Est GFR ( Amer) ml/min Est GFR (Non-Af Amer) ml/min BUN/Creatinine Ratio (10-20) Glucose (70-99(Fasting)) mg/dl Calcium (8.5-10.1) mg/dl Magnesium (1.7-2.4) mg/dl Total Bilirubin (0.2-1.0) mg/dl AST (13-39) U/L ALT (7-52) U/L Alkaline Phosphatase (34-104) U/L Troponin I (0-0.04) ng/ml B-Natriuretic Peptide 117 H (0-100) pg/ml Total Protein (6.0-8.3) gm/dl Albumin (3.4-5.0) gm/dl Globulin (2.5-4.0) gm/dl Albumin/Globulin Ratio (0.9-2) SARS-CoV-2, RNA, NAAT NEGATIVE (NEGATIVE) Administered Medications Discontinued Medications Furosemide (Furosemide 40 Mg/4 Ml Vial) 80 mg IV ONE ONE Stop: 09/01/21 18:32 Last Admin: 09/01/21 19:12 Dose: 80 mg Documented by: [id number] Oxycodone HCl (Oxycodone Hcl Ir 5 Mg Tab (Immediate Release)) 5 mg PO NOW STA Stop: 09/01/21 21:40 Last Admin: 09/01/21 21:51 Dose: 5 mg Documented by: [id number] Potassium Chloride (Potassium Chloride Crtab 20 Meq Tabcr) 20 meq PO NOW STA Stop: 09/01/21 18:32 Last Admin: 09/01/21 19:13 Dose: 20 meq Documented by: [id number] Potassium Chloride (Potassium Chloride Crtab 20 Meq Tabcr) 40 meq PO NOW STA Stop: 09/01/21 20:27 Last Admin: 09/01/21 21:10 Dose: 40 meq Documented by: [id number] Tramadol HCl (Tramadol Hcl 50 Mg Tablet) 50 mg PO NOW STA Stop: 09/01/21 19:06 Last Admin: 09/01/21 19:13 Dose: 50 mg Documented by: [id number] Imaging Data Radiologist's Impression: Chest X-Ray 09/01/21 17:01 XR chest 1V portable CLINICAL HISTORY: Dyspnea. COMPARISON STUDY: 11/28/2019 TECHNIQUE: 1 view of the chest FINDINGS: Single frontal view of the chest demonstrates the heart size to be enlarged. There is a decreased inspiratory effort with elevation of the hemidiaphragms and crowding of the bronchovascular markings at the lung bases and centrally. The lungs are clear of alveolar opacities. There is no evidence for pleural effusion. There is no evidence for vascular congestion. There is no acute osseous pathology. IMPRESSION: There is a decreased inspiratory effort with crowding the bronchovascular markings bilaterally. No definite acute chest disease is identi fied. ACT 112: Negative or not required by law. Electronically signed by: Alexey Manley M.D. 09/01/2021 6:24 PM Discharge Plan Visit Data Chief Complaint: Shortness of Breath/Dyspnea Stated Complaint: SOB, PULSE OX 81 ED Provider: Jay Bradshaw Discharge Problem: Pulmonary edema, Hypoxia, Edema, peripheral, Hypokalemia Patient Disposition: Being Evaluated by Hospitalist Forms Stand Alone Forms: [facility] Prescriptions Prescriptions: No Action Combivent Respimat 20-100 mcg/actuation Mist 1 puff INHALATION QID PRN (Reason: Shortness Of Breath Or Wheezing) RF: 0 furosemide [Lasix] 20 mg tablet 20 mg PO DAILY Qty: 30 RF: 0 acetaminophen [Tylenol Extra Strength] 500 mg Tablet 500 - 1,000 mg PO Q6H PRN (Reason: Pain) RF: 0 tramadol [Ultram] 50 mg tablet 50 mg PO Q6H PRN (Reason: pain) Qty: 30 RF: 0 albuterol sulfate 90 mcg/actuation Hfa Aerosol Inhaler 2 puff INHALATION QID PRN (Reason: Shortness Of Breath) RF: 0 duloxetine 60 mg capsule,delayed release(DR/EC) 60 mg PO DAILY RF: 0 Eliquis 2.5 mg Tablet 2.5 mg PO BID RF: 0 Referrals Referrals: Latricia Le DO [Primary Care Provider] -
[2021-09-01 17:28] LABS: Basophils # (auto) 0.03 K/uL (0-0.2); Basophils % (auto) 0.2 %; Eosinophils # (auto) 0.21 K/uL (0-0.5); Eosinophils % (auto) 1.6 %; Hematocrit (blood only) 43.3 % (37-47); Hemoglobin 13.5 g/dL (12.0-16.0); Immature Granulocytes # (auto) 0.03 K/uL (0.00-0.02); Immature Granulocytes % (auto) 0.2 %; Lymphocytes # (auto) 1.93 K/uL (1.2-3.4); Lymphocytes % (auto) 14.7 %; Mean Corpuscular Hemoglobin 27.2 pg (25-34); Mean Corpuscular Hgb Conc 31.2 g/dL (32-36); Mean Corpuscular Volume 87.1 fL (80-100); Mean Platelet Volume 9.8 fL (7.4-10.4); Monocytes # (auto) 0.77 K/uL (0.11-0.59); Monocytes % (auto) 5.9 %; Neutrophils # (auto) 10.18 K/uL (1.4-6.5); Neutrophils % (auto) 77.4 %; Platelet Count 240 K/uL (130-400); RDW Coefficient of Variation 15.4 % (11.5-14.5); RDW Standard Deviation 49.1 fL (36.4-46.3); Red Blood Count 4.97 M/uL (4.2-5.4); White Blood Count 13.15 K/uL (4.8-10.8)
[2021-09-01 17:31] LABS: Base Excess VBG 5.1 mEq/L; Oxygen Saturation VBG 71.6 %; pH VBG 7.36 (7.36-7.41)
[2021-09-01 17:42] LABS: D Dimer 450 ug/L FEU (0-500); INR 1.1 (0.9-1.1); Partial Thromboplastin Time 26.2 Seconds (21.0-31.0); Prothrombin Time 10.8 Seconds (9.0-12.0)
[2021-09-01 17:50] LABS: Albumin Level 3.8 gm/dl (3.4-5.0); BUN Creatinine Ratio 17.2 (10-20); Bilirubin,Total 0.8 mg/dl (0.2-1.0); Calcium 8.8 mg/dl (8.5-10.1); Creatinine Clr Calc Pharmacy 148.4 ml/min; Est GFR (African American) 117.3 ml/min; Est GFR (Non-African American) 101.2 ml/min; Potassium 3.3 mmol/L (3.5-5.1); Total Protein 7.8 gm/dl (6.0-8.3)
[2021-09-01 17:51] LABS: Troponin I 0.03 ng/ml (0-0.04)
--- NOTE | 2021-09-01 18:25 | XRay Report ---
XR chest 1V portable CLINICAL HISTORY: Dyspnea. COMPARISON STUDY: 11/28/2019 TECHNIQUE: 1 view of the chest FINDINGS: Single frontal view of the chest demonstrates the heart size to be enlarged. There is a decreased ins piratory effort with elevation of the hemidiaphragms and crowding of the bronchovascular markings at the lung bases and centrally. The lungs are clear of alveolar opacities. There is no evidence for ple ural effusion. There is no evidence for vascular congestion. There is no acute osseous pathology. IMPRESSION: There is a decreased inspiratory effort with crowding the bronchovascular markings bilate rally. No definite acute chest disease is identified. ACT 112: Negative or not required by law. Electronically signed by: Alexey Manley M.D. 09/01/2021 6:24 PM
[2021-09-01] MEDS ORDERED: POTASSIUM CHLORIDE CRTAB 20 MEQ TABCR PO STA ×2 (18:31→20:26)
[2021-09-01] MEDS ORDERED: FUROSEMIDE 40 MG/4 ML VIAL IV ONE (18:31)
[2021-09-01] MEDS ORDERED: traMADol HCL 50 MG TABLET PO STA (19:05)
[2021-09-01] MEDS ORDERED: oxyCODONE HCL IR 5 MG TAB (IMMEDIATE RELEASE) PO STA (21:39)
[2021-09-01] MEDS ORDERED: DOXYCYCLINE HYCLATE 100 MG in DEXTROSE 5% 100 ML IV STA (22:39)
--- NOTE | 2021-09-01 22:39 | History & Physical Report ---
Date of Service September 01, 2021 Assessment & Plan (1) Acute hypoxemic respiratory failure: Plan: Acute hypoxemic respiratory failure Secondary to decompensated HF (EF 70%, TTE 2019) ? Medication compliance (patient giving conflicting information regarding home medications) ? Underlying pulmonary hypertension secondary untreated OHS HTN, slightly elevated Secondary LE cellulitis from CHF, failed outpatient treatment, no sepsis for now, rule out DVT (hx probable PE status post Eliquis Rx) DM2, on oral medications, reasonable control as of recent hemoglobin A1c of 7.24 Nov 2019 Hypokalemia secondary to glipizide and diuretic Rx PCU Supplemental O2 Diuretic Rx Strict I/Os, daily weights, CHF location, fluid restriction Update TTE, cardiology consult Re: Decompensated heart failure Outpatient sleep study Doxycycline for LE cellulitis LE Dopplers rule out DVT Basal insulin, ISS BG goal 1 10-1 40, carb count coverage, update hemoglobin A1c Replace potassium DVT prophylaxis. Lovenox Full code Text document was generated using VSporto voice recognition software. It may contain grammatical or spelling errors. Kindly contact undersigned for clarification of any documentation item in question. History of Present Illness Chief Complaint: Shortness of breath, worsening leg infection Primary Care Provider: Latricia Le, DO History obtained from patient and records. Medical history significant for chronic diastolic HF (EF 70%, TTE 2019), hypertension, history of probable PE status post Eliquis, DM2 on oral agents, OHS. Last confinement November 2019 for acute CHF. Patient discharged on metoprolol, lisinopril, spironolactone, and Lasix as per cardiology recommendations. Patient seen at the ER 2 weeks ago for worsening painful bilateral leg swelling with shortness of breath. Patient discharged on Keflex course. Patient claims to be compliant with home medications. At home, worsening swelling of both legs with fluid seepage. Worsening shortness of breath usually on exertion without unusual chest pain or cough symptoms. O2 sats noted to be 80s at home. At the ER, patient given Lasix. 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 Allergies Allergy/AdvReac Type Severity Reaction Status Date / Time bee venom protein (honey bee) Allergy Severe ANAPHYLAXIS Verified 09/01/21 18:10 shellfish derived Allergy Severe ANAPHYLACTI Verified 09/01/21 18:10 C iodine Allergy Intermediate SWELLING Verified 09/01/21 18:10 AND IRRITATION AT SITE Home Medications Medication Instructions Recorded Confirmed Type acetaminophen 500 mg tablet 500 - 1,000 mg PO Q6H PRN 01/28/19 09/01/21 History (Tylenol Extra Strength) ipratropium 20 mcg-albuterol 100 1 puff INHALATION QID PRN 11/28/19 09/01/21 History mcg/actuation mist for inhalation (Combivent Respimat) albuterol sulfate 90 mcg/actuation 2 puff INHALATION QID PRN 08/22/21 09/01/21 History aerosol inhaler duloxetine 60 mg capsule,delayed 60 mg PO DAILY 08/22/21 09/01/21 History release furosemide 20 mg tablet (Lasix) 20 - 40 mg PO DAILY PRN 09/02/21 09/02/21 History glipizide 5 mg tablet, extended 5 mg PO DAILY 09/02/21 09/02/21 History release 24 hr lisinopril 20 mg tablet 20 mg PO DAILY 09/02/21 09/02/21 History metoprolol succinate 25 mg 75 mg PO QAM 09/02/21 09/02/21 History tablet,extended release 24 hr tramadol 50 mg tablet (Ultram) 50 mg PO HS PRN 09/02/21 09/02/21 History Past Med/Surg History Medical History (Updated 09/02/21 @ 14:04 by Errol Mercado MD) Anxiety Chronic back pain Congestive heart failure with left ventricular diastolic dysfunction, NYHA class 1 Diabetes Diabetes mellitus, type II History of pulmonary embolism HTN (hypertension) Obesity Surgical History History of dental surgery Hx of appendectomy Family History Other Breast cancer COPD (chronic obstructive pulmonary disease) Coronary heart disease Diabetes Hypertension Sudden cardiac arrest Social History Smoking Status: Never smoker Second Hand Exposure: No; Hx Alcohol Use: No Hx Substance Use: No Preferred Language: Lithuanian Communication Ability: Effective Line Fixer Required: No Beliefs That Will Affect Care: None Current Living Situation: Significant Other Feels Safe at Home: Yes Safety Concerns: Feels Safe At This Time Assistive Devices: None Review of Systems Review of Systems: As per HPI, all 10 systems reviewed, all other ROS negative Physical Exam Physical Exam: GENERAL: Comfortable, pleasant, morbidly obese, no respiratory distress SKIN: Normal color, warm HEENT: Sadler palpebral conjunctivae, no ptosis, dry buccal mucosa, nasal cannula in place NECK : Supple, short neck, no tenderness CHEST : Decreased breath sounds, no tenderness HEART : RRR, no obvious murmurs ABDOMEN: distention, nontender EXTREMITIES : Bilateral LE erythematous swelling/tenderness, no other conspicuous deformities noted NEUROLOGIC : Coherent, no facial asymmetry, no other gross focality Results & Data Results & Data ([facility]) Vital Signs (Past 12 Hours) Vital Signs Temp Pulse Pulse Resp BP BP Pulse Ox 09/01/21 21:12 78 18 138/68 98 09/01/21 19:18 74 73 17 153/97 H 153/97 H 98 09/01/21 19:00 71 75 16 99 09/01/21 18:01 69 17 100 09/01/21 18:00 65 16 98 09/01/21 17:52 74 16 160/79 H 99 09/01/21 17:48 75 21 99 09/01/21 17:05 20 96 09/01/21 16:55 94 09/01/21 16:51 37.0 C 86 26 H 225/78 H 85 L Laboratory Results Laboratory Results WBC 13.15 K/uL (4.8-10.8) H 09/01/21 17:15 RBC 4.97 M/uL (4.2-5.4) 09/01/21 17:15 Hgb 13.5 g/dL (12.0-16.0) 09/01/21 17:15 Hct 43.3 % (37-47) 09/01/21 17:15 MCV 87.1 fL (80-100) 09/01/21 17:15 MCH 27.2 pg (25-34) 09/01/21 17:15 MCHC 31.2 g/dL (32-36) L 09/01/21 17:15 RDW Std Deviation 49.1 fL (36.4-46.3) H 09/01/21 17:15 RDW Coeff of Damian 15.4 % (11.5-14.5) H 09/01/21 17:15 Plt Count 240 K/uL (130-400) 09/01/21 17:15 MPV 9.8 fL (7.4-10.4) 09/01/21 17:15 Immature Gran % (Auto) 0.2 % 09/01/21 17:15 Neut % (Auto) 77.4 % 09/01/21 17:15 Lymph % (Auto) 14.7 % 09/01/21 17:15 [place] % (Auto) 5.9 % 09/01/21 17:15 Eos % (Auto) 1.6 % 09/01/21 17:15 Baso % (Auto) 0.2 % 09/01/21 17:15 Neut # (Auto) 10.18 K/uL (1.4-6.5) H 09/01/21 17:15 Lymph # (Auto) 1.93 K/uL (1.2-3.4) 09/01/21 17:15 [place] # (Auto) 0.77 K/uL (0.11-0.59) H 09/01/21 17:15 Eos # (Auto) 0.21 K/uL (0-0.5) 09/01/21 17:15 Baso # (Auto) 0.03 K/uL (0-0.2) 09/01/21 17:15 Immature Gran # (Auto) 0.03 K/uL (0.00-0.02) H 09/01/21 17:15 PT 10.8 Seconds (9.0-12.0) 09/01/21 17:15 INR 1.1 (0.9-1.1) 09/01/21 17:15 APTT 26.2 Seconds (21.0-31.0) 09/01/21 17:15 PTT Ratio 1.0 09/01/21 17:15 D-Dimer 450 ug/L FEU (0-500) 09/01/21 17:15 VBG pH 7.36 (7.36-7.41) 09/01/21 17:15 VBG pCO2 58 mmHg (38-50) H 09/01/21 17:15 VBG pO2 42 mmHg 09/01/21 17:15 VBG HCO3 32 mmol/L 09/01/21 17:15 VBG O2 Saturation 71.6 % 09/01/21 17:15 VBG Base Excess 5.1 mEq/L 09/01/21 17:15 Barometric Pressure 728.7 mm/Hg 09/01/21 17:15 Sodium 138 mmol/L (136-145) 09/01/21 17:15 Potassium 3.3 mmol/L (3.5-5.1) L 09/01/21 17:15 Chloride 100 mmol/L (98-107) 09/01/21 17:15 Carbon Dioxide 33 mmol/L (21-32) H 09/01/21 17:15 Anion Gap 5 (3-11) 09/01/21 17:15 BUN 11 mg/dl (6-23) 09/01/21 17:15 Creatinine 0.64 mg/dl (0.6-1.2) 09/01/21 17:15 Est Cr Clr Drug Dosing 148.4 ml/min 09/01/21 17:15 Est GFR ( Amer) 117.3 ml/min 09/01/21 17:15 Est GFR (Non-Af Amer) 101.2 ml/min 09/01/21 17:15 BUN/Creatinine Ratio 17.2 (10-20) 09/01/21 17:15 Glucose 174 mg/dl (70-99(Fasting)) H 09/01/21 17:15 Calcium 8.8 mg/dl (8.5-10.1) 09/01/21 17:15 Magnesium 2.0 mg/dl (1.7-2.4) 09/01/21 17:15 Total Bilirubin 0.8 mg/dl (0.2-1.0) 09/01/21 17:15 AST 12 U/L (13-39) L 09/01/21 17:15 ALT 9 U/L (7-52) 09/01/21 17:15 Alkaline Phosphatase 96 U/L (34-104) 09/01/21 17:15 Troponin I 0.03 ng/ml (0-0.04) 09/01/21 17:15 B-Natriuretic Peptide 117 pg/ml (0-100) H 09/01/21 20:59 Total Protein 7.8 gm/dl (6.0-8.3) 09/01/21 17:15 Albumin 3.8 gm/dl (3.4-5.0) 09/01/21 17:15 Globulin 4.0 gm/dl (2.5-4.0) 09/01/21 17:15 Albumin/Globulin Ratio 1.0 (0.9-2) 09/01/21 17:15 SARS-CoV-2, RNA, NAAT NEGATIVE (NEGATIVE) 09/01/21 17:25 Impressions Chest X-Ray 09/01/21 17:01 XR chest 1V portable CLINICAL HISTORY: Dyspnea. COMPARISON STUDY: 11/28/2019 TECHNIQUE: 1 view of the chest FINDINGS: Single frontal view of the chest demonstrates the heart size to be enlarged. There is a decreased inspiratory effort with elevation of the hemidiaphragms and crowding of the bronchovascular markings at the lung bases and centrally. The lungs are clear of alveolar opacities. There is no evidence for pleural eff usion. There is no evidence for vascular congestion. There is no acute osseous pathology. IMPRESSION: There is a decreased inspiratory effort with crowding the bronchovascular markings bilaterally. No definite acute chest disease is identified. ACT 112: Negative or not required by law. Electronically signed by: Alexey Manley M.D. 09/01/2021 6:24 PM Diagnostic Findings EKG as per my rotation rate 80, NSR, normal axis, T wave abnormalities lateral leads, low voltage
[2021-09-01] MEDS ORDERED: INSULIN GLARGINE SOLOSTAR 100 UNITS/ML 3 ML PEN SC STA (22:56)
[2021-09-02] MEDS ORDERED: GLUCOSE 40% GEL 15 GM TUBE PO PRN (00:13)
[2021-09-02] MEDS ORDERED: GLUCAGON FOR INJ 1 MG VIAL SQ PRN (00:13)
[2021-09-02] MEDS ORDERED: CARBOHYDRATES FOR HYPOGLYCEMIA PO PRN (00:13)
[2021-09-02] MEDS ORDERED: IPRATROPIUM BROMIDE/ALBUTEROL respimat INH INH PRN (00:13)
[2021-09-02] MEDS ORDERED: PROMETHAZINE HCL 12.5 MG in SODIUM CHLORIDE 0.9% 50 ML IV PRN (00:13)
[2021-09-02] MEDS ORDERED: DEXTROSE 50% 50 ML SYRINGE IV PRN (00:13)
[2021-09-02] MEDS ORDERED: GLUCOSE 10 TABS/TUBE PO PRN (00:13)
[2021-09-02] MEDS ORDERED: NITROGLYCERIN SL 0.4 MG/TAB TAB SL PRN (00:13)
[2021-09-02] MEDS ORDERED: ALBUTEROL HFA 8 GM INHALER INH PRN (00:39)
[2021-09-02] MEDS ORDERED: IPRATROPIUM BROMIDE HFA INHALER INH PRN (00:39)
[2021-09-02] MEDS: INSULIN ASPART PER UNIT SC SCH ×5 (00:51→21:44)
[2021-09-02] MEDS: oxyCODONE HCL IR 5 MG TAB (IMMEDIATE RELEASE) PO PRN ×2 (05:29→20:26)
[2021-09-02 05:39] LABS: Basophils # (auto) 0.03 K/uL (0-0.2); Basophils % (auto) 0.2 %; Eosinophils # (auto) 0.21 K/uL (0-0.5); Eosinophils % (auto) 1.4 %; Hematocrit (blood only) 42.1 % (37-47); Hemoglobin 12.7 g/dL (12.0-16.0); Immature Granulocytes # (auto) 0.05 K/uL (0.00-0.02); Immature Granulocytes % (auto) 0.3 %; Lymphocytes # (auto) 1.66 K/uL (1.2-3.4); Lymphocytes % (auto) 11.1 %; Mean Corpuscular Hemoglobin 26.8 pg (25-34); Mean Corpuscular Hgb Conc 30.2 g/dL (32-36); Mean Platelet Volume 9.4 fL (7.4-10.4); Monocytes # (auto) 1.05 K/uL (0.11-0.59); Neutrophils # (auto) 12.01 K/uL (1.4-6.5); Platelet Count 215 K/uL (130-400); RDW Coefficient of Variation 15.5 % (11.5-14.5); RDW Standard Deviation 49.6 fL (36.4-46.3); Red Blood Count 4.73 M/uL (4.2-5.4); White Blood Count 15.01 K/uL (4.8-10.8)
[2021-09-02 05:51] LABS: BUN Creatinine Ratio 15.6 (10-20); Calcium 8.4 mg/dl (8.5-10.1); Creatinine Clr Calc Pharmacy 148.4 ml/min; Est GFR (African American) 117.3 ml/min; Est GFR (Non-African American) 101.2 ml/min; Potassium 3.9 mmol/L (3.5-5.1)
[2021-09-02 07:52] LABS: Estimated Average Glucose 183 mg/dl
[2021-09-02] MEDS ORDERED: FUROSEMIDE 40 MG/4 ML VIAL IV ONE (08:00)
--- NOTE | 2021-09-02 08:27 | Cardiology Consultation ---
Date of Consultation September 02, 2021 Assessment & Plan (1) Acute on chronic diastolic HF (heart failure): (2) Hypertensive heart disease: Quick onset of worsening dyspnea and lower extremity edema. +Orthopnea. Symptoms now improved since receiving IV lasix. CXR unremarkable and BNP mildly elevated- Patient does not exam volume overloaded. operations technician limited. 1. 2 g sodium diet, 1500 cc fluid restriction 2. Daily standing weights. 3. Stop IV Lasix- Resume home dose of Lasix 40 mg daily (3) Hypoxia: (4) Obesity hypoventilation syndrome: (5) Asthma: Hx of asmtha, SOB likely multifactorial. Hypoxia noted on RA- O2 requirements are lessening per nursing. Patient refuses to switch from Mask to NC. Lungs sound diminished but clear. 1. Recommend OOB with meals 2. Defer to primary team regarding O2 requirements (6) Cellulitis of anterior lower leg: Worsening lower extremity cellulitis- not responding to inital abx- currently on doxy. WBCs elevated at 15 Will defer to hospitalist team regarding treatment. Agree with wound care consult Case discussed with Dr. Savage. Supervising Physician Co-Signing Physician Notes I have seen and examined the patient. I discussed the case with the GREEN CHAIN MARKER and reviewed the medical record. I agree with the plan as outlined above. The benjamin singer does have a history of sleep apnea but has not been very compliant. I believe she would benefit greatly from follow-up with sleep medicine. History of Present Illness Reason for Consultation: CHF SOB Requesting Physician: Toma Mari Attending Physician: Cedrick Garcia MD History of Present Illness 55 year old female with increased shortness of breath x2-3 days. Patient retaining fluid, noted swelling in her lower extremities. Upon presentation to the ED patient was found to be hypoxic in the 80s. Patient was never evaluated by our cardiology team as an outpatient, but she was admitted in October of 2019 for similar concerns and was seen by Dr. Silverman, patient failed to follow up as an outpatient. at that time of dc patietn was to remain on metoprolol succinate 75 mg daily, lisinopril 20 mg daily, Spironolactone 25 mg daily and Lasix 20 mg in am with as needed p.m. dose if necessary. Patient was to have a nuclear stress done, but was never completed. Patient was diuresed with lasix 40 mg IV x1 in the ED and electrolytes were repleted. WBCs elevated, renal function stable. Sodium mildly low. BNP only mildly elevated at 117. CXR: Single frontal view of the chest demonstrates the heart size to be enlarged. There is a decreased inspiratory effort with elevation of the hemidiaphragms and crowding of the bronchovascular markings at the lung bases and centrally. The lungs are clear of alveolar opacities. There is no evidence for pleural effusion. There is no evidence for vascular congestion. There is no acute osseous pathology. EKG: NSR 81 bpm, no acute ST changes. Upon entrance into the room patient was laying supine in bed. She did not offer up much information. Per nursing she has not been motivated to get up and move unless she has to use the bathroom. She noted that she developed worsening shortness of breath and lower extremity edema over the last 2 days. She was unable to lay flat and sleeping in a recliner/propped up. She does not weigh herself daily. Denies any missed doses of her medication. Eats a diet high in sodium, normally drinks a lot of diet soda, but recently switched to water 2 weeks ago. She is currently wearing 3L O2 via mask (spo2 93%)- does not normally use O2 during the day at home, does wear o2 at night. She has been dealing with cellulitis since 08/22, notes that the antibiotics were not working and her legs recently got worse- she is now on Doxy. Echo was completed this am, results pending. Overall, patient states she is feeling much better since receiving IV Lasix. TELE: SR 70s Weight: 144.9kg (318 lbs) I&O: +110mL PMH: Asthma Chronic diastolic CHF DM2 Obesity Hypertensive heart disease Allergies Allergy/AdvReac Type Severity Reaction Status Date / Time bee venom protein (honey bee) Allergy Severe ANAPHYLAXIS Verified 09/01/21 18:10 shellfish derived Allergy Severe ANAPHYLACTI Verified 09/01/21 18:10 C iodine Allergy Intermediate SWELLING Verified 09/01/21 18:10 AND IRRITATION AT SITE Home Medications Medication Instructions Recorded Confirmed Type acetaminophen 500 mg tablet 500 - 1,000 mg PO Q6H PRN 01/28/19 09/01/21 History (Tylenol Extra Strength) ipratropium 20 mcg-albuterol 100 1 puff INHALATION QID PRN 11/28/19 09/01/21 History mcg/actuation mist for inhalation (Combivent Respimat) albuterol sulfate 90 mcg/actuation 2 puff INHALATION QID PRN 08/22/21 09/01/21 History aerosol inhaler duloxetine 60 mg capsule,delayed 60 mg PO DAILY 08/22/21 09/01/21 History release furosemide 20 mg tablet (Lasix) 20 - 40 mg PO DAILY PRN 09/02/21 09/02/21 History glipizide 5 mg tablet, extended 5 mg PO DAILY 09/02/21 09/02/21 History release 24 hr lisinopril 20 mg tablet 20 mg PO DAILY 09/02/21 09/02/21 History metoprolol succinate 25 mg 75 mg PO QAM 09/02/21 09/02/21 History tablet,extended release 24 hr tramadol 50 mg tablet (Ultram) 50 mg PO HS PRN 09/02/21 09/02/21 History Patient History Medical History (Updated 09/02/21 @ 10:01 by DINA Ling) Anxiety Chronic back pain Congestive heart failure with left ventricular diastolic dysfunction, NYHA class 1 Diabetes Diabetes mellitus, type II History of pulmonary embolism HTN (hypertension) Obesity Surgical History History of dental surgery Hx of appendectomy Family History Other Breast cancer COPD (chronic obstructive pulmonary disease) Coronary heart disease Diabetes Hypertension Sudden cardiac arrest Social History Smoking Status: Never smoker Second Hand Exposure: No; Hx Alcohol Use: No Hx Substance Use: No Preferred Language: Mauritian Communication Ability: Effective Drywall Contractor Required: No Beliefs That Will Affect Care: None Current Living Situation: Significant Other Feels Safe at Home: Yes Safety Concerns: Feels Safe At This Time Assistive Devices: None Review of Systems Review of Systems: All systems reviewed & are unremarkable except as noted in HPI & below Physical Exam Physical Exam: General: No acute distress. A+Ox3. HEENT: Normocephalic. Atraumatic. Conjunctiva and sclera clear. NECK: unable to assess neck veins due to body habitus Heart: distant heart sounds Lungs: diminished Abdomen: obese Extremities: +1 BLLE nonpitting, ulcerations on BLLE with erythemia Pulses: radial=2/4, posterior tibial=2/4, dorsalis pedis = 2/4. NEURO: No focal deficits. PSYCH: Normal. Results & Data ([facility]) Vital Signs (Past 12 Hours) Vital Signs Pulse Resp BP Pulse Ox 09/02/21 02:15 81 16 136/66 93 09/02/21 00:18 78 18 118/60 94 09/01/21 21:12 78 18 138/68 98 Diagnostic Findings Echo 09/02/2021 Technically limited LV grossly normal No comment on valvular structure or function Echo 11/2019 at [facility] Tech limited study LVEF >70% ? Mild
[2021-09-02] MEDS ORDERED: ENOXAPARIN INJ 40 MG/0.4 ML SYR SQ SCH (09:00)
[2021-09-02] MEDS: DULoxetine HCL 60 MG CAP PO SCH (09:53)
[2021-09-02] MEDS: METOPROLOL SUCC 25MG EXT REL TAB PO SCH (09:53)
[2021-09-02] MEDS: DOXYCYCLINE HYCLATE 100 MG CAP PO SCH ×2 (09:53→21:06)
[2021-09-02] MEDS: POTASSIUM CHLORIDE CRTAB 20 MEQ TABCR PO SCH ×2 (09:53→17:47)
[2021-09-02] MEDS: lisinopril 20 MG TAB PO SCH (09:53)
[2021-09-02] MEDS: ACETAMINOPHEN 325 MG TAB PO PRN (17:07)
[2021-09-02] MEDS: INSULIN GLARGINE SOLOSTAR 100 UNITS/ML 3 ML PEN SC SCH (21:45)
--- NOTE | 2021-09-02 23:54 | Hospitalist Progress Note ---
Date of Service September 02, 2021 Assessment & Plan (1) Acute hypoxemic respiratory failure: Plan: Obesity hypoventilation syndrome: Asthma Present on admission with sob and b/l LE swelling and edema CXR showed decreased inspiratory effort with crowding the bronchovascular markings bilaterally. BNP was 117 on admission She was starting on Lasix 40mg IV cardiology on board ECHO was done but the study was technically limited due to poor acoustic windows Transition to Lasix 40mg PO Continue fluid restriction 1.5L Continue oxygen supplement Will monitor BMP while on lasix Will need outpatient sleep study B/L LE edema Failed outpatient antibiotic therapy with Keflex Elevated WBC at 15K Continue IV Cefepime and Doxycycline Wound cx pending Wound care nurse on board Continue monitor closely HTN (hypertension): Continue Lisinopril 20mg and Metoprolol increased to 75mg Continue monitor BP Diabetes mellitus, type II: Most recent Hba1c 8 on 09/02/21 On Glipizide 5mg daily Continue Lantus and Novolog sliding scale while inpatient Will consider to increase Glipizide to 5mg BID on discharge Morbid Obesity Counseling on diet and exercise Peripheral neuropathy Continue Cymbalta DVT px on Lovenox CODE STATUS FULL CODE Admission and Anticipated Discharge Date Admission Date: September 01, 2021 Subjective Pt was seen and examined for follow up of SOB and b/l LE edema Lying in bed with with no acute distress Pt said that she is having tenderness in her leg She said that when she stands on her legs, they are very tender She said that her breathing is stable Denies any chest pain, palpitation, dizziness and SOB Review of Systems Review of Systems: All systems reviewed & are unremarkable except as noted in Subjective Physical Exam Physical Exam: General- No acute distress Head- atraumatic Eyes- PERRL, EOMI, ENT- oropharynx clear Neck- supple, no JVD Lungs- Decrease BS Heart- regular rhythm; no murmur Abdomen- normal bowel sounds, soft, nontender Extremities- no calf tenderness, Bilateral LE erythematous swelling/tenderness Neuro- alert, oriented x 3; PERRL, EOMI; no facial palsy; no dysarthria Skin- warm & dry Results & Data Results & Data ([facility]) Vital Signs (Past 12 Hours) Vital Signs Temp Pulse Resp BP Pulse Ox 09/02/21 22:54 36.5 C 69 18 123/76 90 09/02/21 21:46 67 21 116/51 L 96 09/02/21 17:11 68 15 113/57 L 98
--- NOTE | 2021-09-03 01:27 | Communication Note ---
Date of Service: September 03, 2021 Patient with blood clot passage in urine. No abdominal pain/dysuria symptoms. UA WBC esterase AP Hematuria, complicated UTI Urine CS, Cefepime
[2021-09-03 02:00] LABS: Basophils # (auto) 0.02 K/uL (0-0.2); Basophils % (auto) 0.1 %; Eosinophils # (auto) 0.18 K/uL (0-0.5); Eosinophils % (auto) 1.3 %; Hematocrit (blood only) 41.6 % (37-47); Hemoglobin 12.5 g/dL (12.0-16.0); Immature Granulocytes # (auto) 0.04 K/uL (0.00-0.02); Immature Granulocytes % (auto) 0.3 %; Lymphocytes # (auto) 2.04 K/uL (1.2-3.4); Lymphocytes % (auto) 14.7 %; Mean Corpuscular Hemoglobin 27.2 pg (25-34); Mean Corpuscular Volume 90.4 fL (80-100); Mean Platelet Volume 9.9 fL (7.4-10.4); Monocytes # (auto) 1.18 K/uL (0.11-0.59); Monocytes % (auto) 8.5 %; Neutrophils # (auto) 10.39 K/uL (1.4-6.5); Neutrophils % (auto) 75.1 %; Platelet Count 215 K/uL (130-400); RDW Standard Deviation 52.5 fL (36.4-46.3); White Blood Count 13.85 K/uL (4.8-10.8)
[2021-09-03 02:06] LABS: Appearance Urine Cloudy (Clear); Bacteria Urine Automated Negative (Negative); Bilirubin Urine Negative (Negative); Blood Urine 3+ (Negative); Color Urine Dark Yellow; Epithelial Cell Urine Auto >30 /lpf (0-5); Glucose Urine UA Negative (Negative); Ketones Urine Trace (Negative); Leukocyte Esterase Urine 1+ (Negative); Nitrite Urine Negative (Negative); Protein Urine 2+ (Negative); RBC Urine Automated >30 /hpf (0-4); Specific Gravity Urine 1.021 (1.000-1.030); Urobilinogen Urine Negative (Negative); WBC Urine Automated >30 /hpf (0-5)
[2021-09-03 02:35] LABS: Albumin Globulin Ratio 0.9 (0.9-2); Albumin Level 3.5 gm/dl (3.4-5.0); Bilirubin,Total 0.9 mg/dl (0.2-1.0); Calcium 8.4 mg/dl (8.5-10.1); Creatinine Clr Calc Pharmacy 98.9 ml/min; Est GFR (Non-African American) 63.8 ml/min; Globulin 3.7 gm/dl (2.5-4.0); Potassium 4.3 mmol/L (3.5-5.1); Total Protein 7.2 gm/dl (6.0-8.3)
[2021-09-03] MEDS: CEFEPIME 2,000 MG in SYRINGE 0 ML IV SCH ×2 (03:22→16:21)
[2021-09-03] MEDS: ACETAMINOPHEN 325 MG TAB PO PRN (05:24)
--- NOTE | 2021-09-03 06:24 | Electrocardiogram Report ---
Test Reason : Blood Pressure : / mmHG Vent. Rate : 081 BPM Atrial Rate : 081 BPM P-R Int : 172 ms QRS Dur : 082 ms QT Int : 376 ms P-R-T Axes : 059 001 066 degrees QTc Int : 436 ms Normal sinus rhythm Normal ECG When compared with ECG of 29-NOV-2019 07:02, No significant change was found Confirmed by Doroteo Khoury ([id number]) on 09/03/2021 6:24:33 AM Referred By: REFERRED SELF Confirmed By:Doroteo Khoury
[2021-09-03] MEDS: oxyCODONE HCL IR 5 MG TAB (IMMEDIATE RELEASE) PO PRN ×2 (08:25→16:19)
[2021-09-03] MEDS: INSULIN ASPART PER UNIT SC SCH ×4 (08:26→20:01)
[2021-09-03] MEDS: METOPROLOL SUCC 25MG EXT REL TAB PO SCH (08:29)
[2021-09-03] MEDS: POTASSIUM CHLORIDE CRTAB 20 MEQ TABCR PO SCH ×2 (08:29→16:21)
[2021-09-03] MEDS: FUROSEMIDE 40 MG TAB PO SCH (08:30)
[2021-09-03] MEDS: lisinopril 20 MG TAB PO SCH (08:30)
[2021-09-03] MEDS: DULoxetine HCL 60 MG CAP PO SCH (08:31)
[2021-09-03] MEDS: DOXYCYCLINE HYCLATE 100 MG CAP PO SCH ×2 (08:31→20:00)
[2021-09-03] MEDS: INSULIN GLARGINE SOLOSTAR 100 UNITS/ML 3 ML PEN SC SCH (20:00)
--- NOTE | 2021-09-03 23:52 | Hospitalist Progress Note ---
Date of Service September 03, 2021 Assessment & Plan (1) Acute hypoxemic respiratory failure: Plan: Obesity hypoventilation syndrome: Asthma Present on admission with sob and b/l LE swelling and edema CXR showed decreased inspiratory effort with crowding the bronchovascular markings bilaterally. BNP was 117 on admission She was starting on Lasix 40mg IV cardiology on board ECHO was done but the study was technically limited due to poor acoustic windows Continue Lasix 40mg PO Continue fluid restriction 1.5L Continue oxygen supplement Continue monitor BMP while on lasix Will need outpatient sleep study B/L LE edema Failed outpatient antibiotic therapy with Keflex Elevated WBC at 15K Wound cx grew serratia Marcescens Continue IV Cefepime and Doxycycline Wound cx pending Wound care nurse on board Continue monitor closely UTI Urine culture showed gram negative bacilli Continue IV Cefepime Folow up urine sensitivity HTN (hypertension) Continue Lisinopril 20mg and Metoprolol increased to 75mg Continue monitor BP Diabetes mellitus, type II: Most recent Hba1c 8 on 09/02/21 On Glipizide 5mg daily Continue Lantus and Novolog sliding scale while inpatient Will consider to increase Glipizide to 5mg BID on discharge Morbid Obesity Counseling on diet and exercise Peripheral neuropathy Continue Cymbalta DVT px on Lovenox CODE STATUS FULL CODE Admission and Anticipated Discharge Date Admission Date: September 01, 2021 Subjective Pt was seen and examined for follow up of SOB and b/l LE edema Lying in bed with with no acute distress She said that she continues to have pain in her legs She said that her legs were sipping She said that her breathing is stable Denies any chest pain, palpitation, dizziness and SOB Review of Systems Review of Systems: All systems reviewed & are unremarkable except as noted in Subjective Physical Exam Physical Exam: General- No acute distress Head- atraumatic Eyes- PERRL, EOMI, ENT- oropharynx clear Neck- supple, no JVD Lungs- Decrease BS Heart- regular rhythm; no murmur Abdomen- normal bowel sounds, soft, nontender Extremities- no calf tenderness, Bilateral LE erythematous swelling/tenderness/sipping Neuro- alert, oriented x 3; PERRL, EOMI; no facial palsy; no dysarthria Skin- warm & dry Results & Data Results & Data ([facility]) Vital Signs (Past 12 Hours) Vital Signs Temp Pulse Pulse Resp BP Pulse Ox Pulse Ox 09/03/21 22:54 37.0 C 71 18 123/71 95 09/03/21 19:35 37.1 C 72 17 127/71 93 09/03/21 16:00 95 09/03/21 15:07 75
[2021-09-04] MEDS: ACETAMINOPHEN 325 MG TAB PO PRN ×2 (03:41→23:30)
[2021-09-04] MEDS: oxyCODONE HCL IR 5 MG TAB (IMMEDIATE RELEASE) PO PRN ×3 (04:31→22:15)
[2021-09-04] MEDS: CEFEPIME 2,000 MG in SYRINGE 0 ML IV SCH ×2 (05:47→16:54)
[2021-09-04] MEDS: DOXYCYCLINE HYCLATE 100 MG CAP PO SCH ×2 (07:19→19:49)
[2021-09-04] MEDS: DULoxetine HCL 60 MG CAP PO SCH (07:20)
[2021-09-04] MEDS: METOPROLOL SUCC 25MG EXT REL TAB PO SCH (07:20)
[2021-09-04] MEDS: FUROSEMIDE 40 MG TAB PO SCH (07:21)
[2021-09-04] MEDS: lisinopril 20 MG TAB PO SCH (07:22)
[2021-09-04] MEDS: INSULIN ASPART PER UNIT SC SCH ×4 (07:24→19:57)
[2021-09-04] MEDS: POTASSIUM CHLORIDE CRTAB 20 MEQ TABCR PO SCH ×2 (09:24→16:53)
[2021-09-04 10:10] LABS: Hematocrit (blood only) 42.7 % (37-47); Hemoglobin 12.7 g/dL (12.0-16.0); Mean Corpuscular Hemoglobin 26.9 pg (25-34); Mean Corpuscular Hgb Conc 29.7 g/dL (32-36); Mean Corpuscular Volume 90.5 fL (80-100); Mean Platelet Volume 9.7 fL (7.4-10.4); Platelet Count 245 K/uL (130-400); RDW Coefficient of Variation 15.8 % (11.5-14.5); RDW Standard Deviation 51.7 fL (36.4-46.3); Red Blood Count 4.72 M/uL (4.2-5.4); White Blood Count 15.48 K/uL (4.8-10.8)
[2021-09-04 10:27] LABS: BUN Creatinine Ratio 31.6 (10-20); Calcium 8.8 mg/dl (8.5-10.1); Creatinine Clr Calc Pharmacy 130.6 ml/min; Est GFR (African American) 103.1 ml/min; Est GFR (Non-African American) 88.9 ml/min; Potassium 4.5 mmol/L (3.5-5.1)
--- NOTE | 2021-09-04 15:05 | Cardiology Progress Note ---
Date of Service September 04, 2021 Assessment & Plan (1) Acute on chronic diastolic HF (heart failure): Plan: Respiratory status compensated. Continue oral furosemide. Gram-negative bacilli in urine, continue antibiotics. Admission and Anticipated Discharge Date Admission Date: September 01, 2021 Subjective Patient seen in cardiology follow-up. Denies shortness of breath. Notes she has difficulty sleeping at night especially in the hospital. Denies fevers or chills. Physical Exam Physical Exam: Temp Pulse Resp BP Pulse Ox 36.4 C L 66 18 138/76 96 09/04/21 14:52 09/04/21 14:52 09/04/21 14:52 09/04/21 14:52 09/04/21 14:52 Constitutional: + morbidly obese Respiratory: no labored breathing and no cough Auscultation limited due to body habitus, no gross rales rhonchi or wheezing Cardiovascular: No murmurs Skin: Several ulcerations in the anterior lower legs, dressings are in place Results & Data ([facility]) Vital Signs (Past 12 Hours) Vital Signs Temp Pulse Pulse Resp BP Pulse Ox Pulse Ox 09/04/21 14:52 36.4 C L 66 18 138/76 96 09/04/21 11:26 36.6 C 65 19 133/74 98 09/04/21 09:16 65 09/04/21 08:00 95 09/04/21 07:57 36.6 C 58 L 18 119/55 L 95 09/04/21 04:09 36.5 C 70 14 109/71 90 Diagnostic Findings Echocardiogram performed 09/02/2021: Technically limited, grossly normal LV function. No comment can be made with regards to valvular structure and function.
[2021-09-04] MEDS: INSULIN GLARGINE SOLOSTAR 100 UNITS/ML 3 ML PEN SC SCH (19:50)
[2021-09-04] MEDS ORDERED: FLUCONAZOLE 50 MG TAB PO ONE (21:30)
--- NOTE | 2021-09-04 21:30 | Communication Note ---
Date of Service: September 04, 2021 Notified by RN of patient complaints of possible vaginal yeast infection. Fluconazole 1 dose now.
--- NOTE | 2021-09-04 23:05 | Hospitalist Progress Note ---
Date of Service September 04, 2021 Assessment & Plan (1) Acute hypoxemic respiratory failure: Plan: Obesity hypoventilation syndrome: Asthma Present on admission with sob and b/l LE swelling and edema CXR showed decreased inspiratory effort with crowding the bronchovascular markings bilaterally. BNP was 117 on admission She was starting on Lasix 40mg IV cardiology on board ECHO was done but the study was technically limited due to poor acoustic windows Continue Lasix 40mg PO Continue fluid restriction 1.5L Continue oxygen supplement Continue monitor BMP while on lasix Will need outpatient sleep study B/L LE edema Failed outpatient antibiotic therapy with Keflex Elevated WBC at 15K Wound cx grew serratia Marcescens Continue IV Cefepime and Doxycycline Wound cx grew Serratia marcescens Wound care nurse on board Continue monitor closely UTI Urine culture showed gram negative bacilli Continue IV Cefepime Folow up urine sensitivity HTN (hypertension) Continue Lisinopril 20mg and Metoprolol increased to 75mg Continue monitor BP Diabetes mellitus, type II: Most recent Hba1c 8 on 09/02/21 On Glipizide 5mg daily Continue Lantus and Novolog sliding scale while inpatient Will consider to increase Glipizide to 5mg BID on discharge Morbid Obesity Counseling on diet and exercise Peripheral neuropathy Continue Cymbalta DVT px on Lovenox CODE STATUS FULL CODE Admission and Anticipated Discharge Date Admission Date: September 01, 2021 Subjective Pt was seen and examined for follow up of SOB and b/l LE edema Lying in bed with with no acute distress She said that she continues to have pain in her legs She said that her breathing is getting better Denies any chest pain, palpitation, dizziness and SOB Review of Systems Review of Systems: All systems reviewed & are unremarkable except as noted in Subjective Physical Exam Physical Exam: General- No acute distress Head- atraumatic Eyes- PERRL, EOMI, ENT- oropharynx clear Neck- supple, no JVD Lungs- Decrease BS Heart- regular rhythm; no murmur Abdomen- normal bowel sounds, soft, nontender Extremities- no calf tenderness, Bilateral LE erythematous swelling/tenderness/sipping Neuro- alert, oriented x 3; PERRL, EOMI; no facial palsy; no dysarthria Skin- warm & dry Results & Data Results & Data ([facility]) Vital Signs (Past 12 Hours) Vital Signs Temp Pulse Pulse Resp BP Pulse Ox Pulse Ox 09/04/21 22:52 78 09/04/21 19:51 36.8 C 67 16 121/68 97 09/04/21 16:00 96 09/04/21 14:52 36.4 C L 66 18 138/76 96 09/04/21 11:26 36.6 C 65 19 133/74 98
[2021-09-05] MEDS: CEFEPIME 2,000 MG in SYRINGE 0 ML IV SCH ×2 (05:57→17:11)
[2021-09-05] MEDS: ACETAMINOPHEN 325 MG TAB PO PRN ×2 (05:58→12:05)
[2021-09-05] MEDS: INSULIN ASPART PER UNIT SC SCH ×4 (08:40→20:19)
[2021-09-05] MEDS: oxyCODONE HCL IR 5 MG TAB (IMMEDIATE RELEASE) PO PRN ×2 (08:44→17:19)
[2021-09-05] MEDS: FUROSEMIDE 40 MG TAB PO SCH (08:45)
[2021-09-05] MEDS: DOXYCYCLINE HYCLATE 100 MG CAP PO SCH ×2 (08:45→20:19)
[2021-09-05] MEDS: DULoxetine HCL 60 MG CAP PO SCH (08:45)
[2021-09-05] MEDS: METOPROLOL SUCC 25MG EXT REL TAB PO SCH (08:46)
[2021-09-05] MEDS: lisinopril 20 MG TAB PO SCH (08:46)
[2021-09-05] MEDS: POTASSIUM CHLORIDE CRTAB 20 MEQ TABCR PO SCH ×2 (08:48→17:19)
[2021-09-05 10:25] LABS: Hematocrit (blood only) 44.4 % (37-47); Hemoglobin 13.3 g/dL (12.0-16.0); Mean Corpuscular Volume 90.2 fL (80-100); Mean Platelet Volume 9.6 fL (7.4-10.4); Platelet Count 232 K/uL (130-400); RDW Coefficient of Variation 15.9 % (11.5-14.5); RDW Standard Deviation 51.2 fL (36.4-46.3); Red Blood Count 4.92 M/uL (4.2-5.4); White Blood Count 13.71 K/uL (4.8-10.8)
[2021-09-05 10:55] LABS: BUN Creatinine Ratio 29.3 (10-20); Calcium 9.1 mg/dl (8.5-10.1); Creatinine Clr Calc Pharmacy 132.7 ml/min; Est GFR (African American) 104.7 ml/min; Est GFR (Non-African American) 90.4 ml/min
[2021-09-05] MEDS: INSULIN GLARGINE SOLOSTAR 100 UNITS/ML 3 ML PEN SC SCH (20:19)
--- NOTE | 2021-09-05 23:35 | Hospitalist Progress Note ---
Date of Service September 05, 2021 Assessment & Plan (1) Acute hypoxemic respiratory failure: Plan: Obesity hypoventilation syndrome: Asthma Present on admission with sob and b/l LE swelling and edema CXR showed decreased inspiratory effort with crowding the bronchovascular markings bilaterally. BNP was 117 on admission She was starting on Lasix 40mg IV cardiology on board ECHO was done but the study was technically limited due to poor acoustic windows Continue Lasix 40mg PO Continue fluid restriction 1.5L Continue oxygen supplement Continue monitor BMP while on lasix Will need outpatient sleep study B/L LE edema Failed outpatient antibiotic therapy with Keflex Elevated WBC at 15K Wound cx grew serratia Marcescens Continue IV Cefepime and Doxycycline Wound care nurse on board Continue monitor closely UTI Urine culture showed gram negative bacilli - Morganella morganii Continue IV Cefepime HTN (hypertension) Continue Lisinopril 20mg and Metoprolol increased to 75mg Continue monitor BP Diabetes mellitus, type II: Most recent Hba1c 8 on 09/02/21 On Glipizide 5mg daily Continue Lantus and Novolog sliding scale while inpatient Will consider to increase Glipizide to 5mg BID on discharge Morbid Obesity Counseling on diet and exercise Peripheral neuropathy Continue Cymbalta DVT px on Lovenox CODE STATUS FULL CODE Admission and Anticipated Discharge Date Admission Date: September 01, 2021 Subjective Pt was seen and examined for follow up of SOB and b/l LE edema Sitting in chair with no acute distress She said that she continues to have pain in her legs Denies any chest pain, palpitation, dizziness and SOB Review of Systems Review of Systems: All systems reviewed & are unremarkable except as noted in Subjective Physical Exam Physical Exam: General- No acute distress Head- atraumatic Eyes- PERRL, EOMI, ENT- oropharynx clear Neck- supple, no JVD Lungs- Decrease BS Heart- regular rhythm; no murmur Abdomen- normal bowel sounds, soft, nontender Extremities- no calf tenderness, Bilateral LE erythematous swelling/tenderness/sipping Neuro- alert, oriented x 3; PERRL, EOMI; no facial palsy; no dysarthria Skin- warm & dry Results & Data Results & Data ([facility]) Vital Signs (Past 12 Hours) Vital Signs Temp Pulse Pulse Resp BP Pulse Ox 09/05/21 23:13 81 09/05/21 20:00 36.6 C 71 20 99/61 L 79 L 09/05/21 16:30 68 09/05/21 15:40 36.4 C L 75 17 125/73 91
[2021-09-05] MEDS ORDERED: FUROSEMIDE INJ 20 MG/2 ML VIAL IV ONE (23:38)
[2021-09-06] MEDS: oxyCODONE HCL IR 5 MG TAB (IMMEDIATE RELEASE) PO PRN ×3 (00:33→21:51)
[2021-09-06] MEDS: CEFEPIME 2,000 MG in SYRINGE 0 ML IV SCH (05:31)
[2021-09-06 06:43] LABS: Hematocrit (blood only) 43.5 % (37-47); Hemoglobin 12.9 g/dL (12.0-16.0); Mean Corpuscular Hemoglobin 26.9 pg (25-34); Mean Corpuscular Hgb Conc 29.7 g/dL (32-36); Mean Corpuscular Volume 90.8 fL (80-100); Platelet Count 262 K/uL (130-400); RDW Coefficient of Variation 15.9 % (11.5-14.5); RDW Standard Deviation 52.1 fL (36.4-46.3); Red Blood Count 4.79 M/uL (4.2-5.4); White Blood Count 13.07 K/uL (4.8-10.8)
[2021-09-06 06:58] LABS: BUN Creatinine Ratio 32.8 (10-20); Calcium 9.1 mg/dl (8.5-10.1); Creatinine Clr Calc Pharmacy 148.6 ml/min; Est GFR (African American) 115.5 ml/min; Est GFR (Non-African American) 99.7 ml/min; Potassium 4.9 mmol/L (3.5-5.1)
[2021-09-06] MEDS: ACETAMINOPHEN 325 MG TAB PO PRN (07:50)
[2021-09-06] MEDS: INSULIN ASPART PER UNIT SC SCH ×4 (08:11→21:10)
[2021-09-06] MEDS: METOPROLOL SUCC 25MG EXT REL TAB PO SCH (09:59)
[2021-09-06] MEDS: DOXYCYCLINE HYCLATE 100 MG CAP PO SCH ×2 (09:59→21:09)
[2021-09-06] MEDS: lisinopril 20 MG TAB PO SCH (09:59)
[2021-09-06] MEDS: DULoxetine HCL 60 MG CAP PO SCH (09:59)
[2021-09-06] MEDS: FUROSEMIDE 40 MG TAB PO SCH (09:59)
[2021-09-06] MEDS: POTASSIUM CHLORIDE CRTAB 20 MEQ TABCR PO SCH ×3 (10:03→16:43)
[2021-09-06] MEDS ORDERED: BUTALBITAL/ACETAMIN/CAFFEINE TAB PO STA (16:18)
[2021-09-06] MEDS: CEFDINIR 300 MG CAP PO SCH (21:09)
[2021-09-06] MEDS: INSULIN GLARGINE SOLOSTAR 100 UNITS/ML 3 ML PEN SC SCH (21:09)
--- NOTE | 2021-09-07 02:33 | Hospitalist Progress Note ---
Date of Service September 06, 2021 Assessment & Plan (1) Acute hypoxemic respiratory failure: Plan: Obesity hypoventilation syndrome: Asthma Present on admission with sob and b/l LE swelling and edema CXR showed decreased inspiratory effort with crowding the bronchovascular markings bilaterally. BNP was 117 on admission She was starting on Lasix 40mg IV cardiology on board ECHO was done but the study was technically limited due to poor acoustic windows Case discussed with cardiology that suggested Lasix 40mg PO Continue Lasix 40mg PO Continue fluid restriction 1.5L Continue oxygen supplement Continue monitor BMP while on lasix Will need outpatient sleep study B/L LE edema Failed outpatient antibiotic therapy with Keflex Elevated WBC at 15K Wound cx grew serratia Marcescens Currently on IV Cefepime and Doxycycline Will transition to po abx with Cefdinir and Doxycycline Wound care nurse on board Continue monitor closely UTI Urine culture showed gram negative bacilli - Morganella morganii IV Cefepime changed to cefdinir HTN (hypertension) Continue Lisinopril 20mg and Metoprolol increased to 75mg Continue monitor BP Diabetes mellitus, type II: Most recent Hba1c 8 on 09/02/21 On Glipizide 5mg daily Continue Lantus and Novolog sliding scale while inpatient Will consider to increase Glipizide to 5mg BID on discharge Morbid Obesity Counseling on diet and exercise Peripheral neuropathy Continue Cymbalta DVT px on Lovenox CODE STATUS FULL CODE Admission and Anticipated Discharge Date Admission Date: September 01, 2021 Subjective Pt was seen and examined for follow up of SOB and b/l LE edema Sitting in chair with no acute distress Pt said that she has been having headache She said that her legs pain are improved Denies any chest pain, palpitation, dizziness and SOB Review of Systems Review of Systems: All systems reviewed & are unremarkable except as noted in Subjective Physical Exam Physical Exam: General- No acute distress Head- atraumatic Eyes- PERRL, EOMI, ENT- oropharynx clear Neck- supple, no JVD Lungs- Decrease BS Heart- regular rhythm; no murmur Abdomen- normal bowel sounds, soft, nontender Extremities- no calf tenderness, Bilateral LE erythematous swelling/tenderness/sipping Neuro- alert, oriented x 3; PERRL, EOMI; no facial palsy; no dysarthria Skin- warm & dry Results & Data Results & Data ([facility]) Vital Signs (Past 12 Hours) Vital Signs Temp Pulse Pulse Resp BP BP Pulse Ox 09/06/21 22:57 36.7 C 70 18 128/70 92 09/06/21 22:52 64 09/06/21 19:54 36.8 C 69 20 153/76 H 95 09/06/21 16:00 36.8 C 70 22 112/70 99 09/06/21 15:05 62
[2021-09-07] MEDS ORDERED: FUROSEMIDE INJ 20 MG/2 ML VIAL IV ONE (02:52)
[2021-09-07 07:16] LABS: Hematocrit (blood only) 41.8 % (37-47); Hemoglobin 12.6 g/dL (12.0-16.0); Mean Corpuscular Hemoglobin 26.7 pg (25-34); Mean Corpuscular Hgb Conc 30.1 g/dL (32-36); Mean Corpuscular Volume 88.6 fL (80-100); Mean Platelet Volume 10.2 fL (7.4-10.4); Platelet Count 230 K/uL (130-400); RDW Coefficient of Variation 15.6 % (11.5-14.5); RDW Standard Deviation 49.7 fL (36.4-46.3); Red Blood Count 4.72 M/uL (4.2-5.4); White Blood Count 12.62 K/uL (4.8-10.8)
[2021-09-07 07:40] LABS: BUN Creatinine Ratio 32.2 (10-20); Calcium 9.2 mg/dl (8.5-10.1); Creatinine Clr Calc Pharmacy 165.2 ml/min; Est GFR (African American) 120.4 ml/min; Est GFR (Non-African American) 103.9 ml/min; Potassium 4.3 mmol/L (3.5-5.1)
[2021-09-07] MEDS: DULoxetine HCL 60 MG CAP PO SCH (08:04)
[2021-09-07] MEDS: METOPROLOL SUCC 25MG EXT REL TAB PO SCH (08:05)
[2021-09-07] MEDS: CEFDINIR 300 MG CAP PO SCH (08:05)
[2021-09-07] MEDS: DOXYCYCLINE HYCLATE 100 MG CAP PO SCH (08:05)
[2021-09-07] MEDS: FUROSEMIDE 40 MG TAB PO SCH (08:05)
[2021-09-07] MEDS: lisinopril 20 MG TAB PO SCH (08:05)
[2021-09-07] MEDS: INSULIN ASPART PER UNIT SC SCH ×2 (08:11→11:56)
[2021-09-07] MEDS: POTASSIUM CHLORIDE CRTAB 20 MEQ TABCR PO SCH (08:12)
--- NOTE | 2021-09-07 10:32 | Discharge Summary ---
Date of Service September 07, 2021 Admission HPI Per Admitting Provider History obtained from patient and records. Medical history significant for chronic diastolic HF (EF 70%, TTE 2019), hypertension, history of probable PE status post Eliquis, DM2 on oral agents, OHS. Last confinement November 2019 for acute CHF. Patient discharged on metoprolol, lisinopril, spironolactone, and Lasix as per cardiology recommendations. Patient seen at the ER 2 weeks ago for worsening painful bilateral leg swelling with shortness of breath. Patient discharged on Keflex course. Patient claims to be compliant with home medications. At home, worsening swelling of both legs with fluid seepage. Worsening shortness of breath usually on exertion without unusual chest pain or cough symptoms. O2 sats noted to be 80s at home. At the ER, patient given Lasix. 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 Admission Exam Per Admitting Provider GENERAL: Comfortable, pleasant, morbidly obese, no respiratory distress SKIN: Normal color, warm HEENT: [place] palpebral conjunctivae, no ptosis, dry buccal mucosa, nasal cannula in place NECK : Supple, short neck, no tenderness CHEST : Decreased breath sounds, no tenderness HEART : RRR, no obvious murmurs ABDOMEN: distention, nontender EXTREMITIES : Bilateral LE erythematous swelling/tenderness, no other conspicuous deformities noted NEUROLOGIC : Coherent, no facial asymmetry, no other gross focality Principal Diagnosis Acute respiratory failure with hypoxia Acute on chronic diastolic heart failure Lower extremity wound and cellulits Diabetes mellitus Discharge Exam Constitutional + well hydrated and + obese; no acute distress Eyes PERRL, conjunctivae normal, anicteric sclerae ENMT external ear and nose normal, oropharynx normal Respiratory normal respiratory effort; no respiratory distress Diminished breath sounds Cardiovascular Rate/Rhythm: regular rate and regular rhythm S1 S2 Gastrointestinal (Abdomen) normal bowel sounds, soft, nontender, no hepatosplenomegaly Musculoskeletal Ulcers on both legs with surrounding erythema Neurologic PERRL, EOMI, accommodation nl, no face palsy, no dysarthria Psychiatric A+Ox3, euthymic affect Discharge Data Allergies Allergy/AdvReac Type Severity Reaction Status Date / Time bee venom protein (honey bee) Allergy Severe ANAPHYLAXIS Verified 09/01/21 18:10 shellfish derived Allergy Severe ANAPHYLACTI Verified 09/01/21 18:10 C iodine Allergy Intermediate SWELLING Verified 09/01/21 18:10 AND IRRITATION AT SITE Consultations 09/01/21 19:34 ED Decision to Admit Stat 09/02/21 00:13 Consult Cardiology Routine Hospital Course (1) Acute hypoxemic respiratory failure: Acute on chronic diastolic heart failure Present on admission with Shortness of breath and b/l LE swelling and edema CXR showed decreased inspiratory effort with crowding the bronchovascular markings bilaterally. BNP was 117 on admission (patietrose is obese) She was started on Lasix 40mg IV Was evaluated by Cardiology ECHO was done but the study was technically limited due to poor acoustic windows Educated on fluid restriction 1.5L, diet management Discharged on lasix 40mg daily. Called to pharmacy PCP to monitor BMP outpatient 2 step showed patient required 2l/min at rest Follow up Cardiology outpatient Will need outpatient sleep study Bilateral leg ulcers with cellulitis and edema Failed outpatient antibiotic therapy with Keflex Elevated WBC at 15K on admission Wound cx grew serratia Marcescens Was initially on IV Cefepime and Doxycycline Discharged on Cefdinir and Doxycycline which will cover cellulitis/leg wounds as well as UTI Patient to follow up with wound clinic UTI Urine culture showed gram negative bacilli - Morganella morganii IV Cefepime changed to cefdinir to complete treatment HTN (hypertension) Continue Lisinopril 20mg Diabetes mellitus, type II: Most recent Hba1c 8 on 09/02/21 Patient reported she has been taking glipizide only when she remembers and has not been compliant with diabetic diet Educated patient on need to be adherent to medication and diet Will continue home Glipizide 5mg daily without adjustment at this time. Eprescribed to patient's pharm Morbid Obesity Counseling on diet and exercise Peripheral neuropathy Continue Cymbalta Total Time Total Time Spent Total Time Spent (In Minutes): 50 Total Time Includes: Examination of the Patient, Discharge Planning and Medication Reconciliation Discharge Plan Discharge Items Patient Disposition: Home - Self-Care Reason For Visit: CHF Discharge Diagnosis: Acute respiratory failure with hypoxia Acute on chronic diastolic heart failure Lower extremity wound and cellulits Diabetes mellitus Activity: Resume your previous activity Non-emergency contact: Primary Care Provider Call non-emergency contact if: you have any medication questions and your symptoms worsen Follow-up/Referrals: [facility] for Wound Care [Other] - 09/20/21 9:00 am ([address], [address] [place] [address] ) [facility] Cardiology [Other] (The cardiology office will call you for an appointment. ) Latricia Le DO [Primary Care Provider] - (Date & Time 09/08/2021 11:00 AM Provider Latricia Le DO Department [facility] ) Diet: Carb Consistent or DM2 and Heart Healthy Fluids: 1500ml (6 cups) Addtl Attending Provider Instructions: Ms Kline You came to the hospital complaining of shortness of breath and leg swelling. You were evaluated and found to have congestive heart failure and leg wounds with cellulitis. You also had a urinary tract infection You are being discharged on antibiotics to complete treatment. Your lasix was changed from as needed to daily. Please adhere to fluid restriction as we discussed. Your diabetes is poorly controlled. Please ensure you take your glipizide daily. Please monitor blood glucose as we discussed and adhere to dietary management. Please continue wound dressing and follow up with wound care clinic You are requiring oxygen at 2l/min at rest and with activity. Please ensure you keep all appointments. It was a pleasure taking care of you. Pending Studies at Discharge: No Stand-Alone Forms: My [facility], Smoking Cessation Medications and DC Order Prescriptions: New doxycycline hyclate 100 mg Capsule 100 mg PO BID 2 Days Qty: 4 RF: 0 potassium chloride 20 mEq Tablet,Er Particles/Crystals 20 meq PO DAILY 30 Days Qty: 30 RF: 0 cefdinir 300 mg Capsule 300 mg PO BID 2 Days Qty: 4 RF: 0 furosemide [Lasix] 40 mg tablet 40 mg PO DAILY Qty: 30 RF: 0 Continued Combivent Respimat 20-100 mcg/actuation Mist 1 puff INHALATION QID PRN (Reason: Shortness Of Breath Or Wheezing) RF: 0 acetaminophen [Tylenol Extra Strength] 500 mg Tablet 500 - 1,000 mg PO Q6H PRN (Reason: Pain) RF: 0 albuterol sulfate 90 mcg/actuation Hfa Aerosol Inhaler 2 puff INHALATION QID PRN (Reason: Shortness Of Breath) RF: 0 duloxetine 60 mg capsule,delayed release(DR/EC) 60 mg PO DAILY RF: 0 lisinopril 20 mg Tablet 20 mg PO DAILY RF: 0 metoprolol succinate 25 mg Tablet Extended Release 24 Hr 75 mg PO QAM RF: 0 tramadol [Ultram] 50 mg tablet 50 mg PO HS PRN (Reason: pain) RF: 0 glipizide 5 mg Tablet Extended Release 24 Hr 5 mg PO DAILY Qty: 30 RF: 0 Discontinued furosemide [Lasix] 20 mg tablet 20 - 40 mg PO DAILY PRN (Reason: leg swelling) RF: 0 Discharge Orders: Discharge Order (Routine); Ordered 09/07/21 Ordered By: Jo Srivastava/Other Patient Handouts: Managing Type 2 Diabetes Admission Data Admit Date/Time: 09/01/21 22:51 Attending Provider: Jo Ingram I. Admit Provider: Errol Mercado Primary Care Provider: Latricia Le Other Providers: Errol Mercado ; Gonzalez Silverman ; Julio Nunez ; Yung Arias ; Rodrigo Ryder ; Kennedy Savage ; Shine Smith ; Sweta Hamilton ; Grace Jha ; Pratibha Moore ; Kt Wright ; Cedrick Garcia Other Interventions: Discharge Summary Assessment (RN) Last Done: 09/07/21 15:05
== END 2021-09-07 15:06 | disposition home or self-care (01) | DRG 291 ==
LOC: ED 16:46 → EDINP 22:51 → SUATTDRO 22:51 → 2S 09-02 00:12

== ENCOUNTER 2021-11-08 13:57 | Inpatient (IN) ==
--- NOTE | 2021-11-08 14:18 | Emergency Department Note ---
Impression & Plan Shortness of breath, Leukocytosis, Anemia, Abdominal pain, D-dimer, elevated, Elevated troponin ED Provider Note NAME: WILFRID WASHINGTON AGE: 56 SEX: F : 1965 ARRIVES VIA: Walk-In INFORMANT: Patient ED PROVIDER(S): Nishant Herzog DO CHIEF COMPLAINT: weak, N/V and SOB HPI: Patient is a morbidly obese 56-year-old female with a past medical history of respiratory failure chronically on 3 L NC, CHF, asthma, and PE that presents to the ER for shortness of breath which started yesterday. She notes she has had shortness of breath which waxes and wanes for the past several months since she was admitted for heart failure. He got worse again yesterday. This morning she has been having nausea and vomiting. She denies any diarrhea. No focal belly pain but does have an upset stomach. She notes since then she feels very weak and cannot walk get around. Denies any dysuria, urgency, or frequency. There is no chest pain. The shortness of breath is worse with moving around and worse with lying flat. ROS: See above HPI for pertinent positives & negatives. A total of 10 systems reviewed and were otherwise negative. PAST MEDICAL HISTORY:See Below PAST SURGICAL HISTORY:See Below FAMILY HISTORY:See Below SOCIAL HISTORY:See Below HOME MEDICATIONS:See Below ALLERGIES:See Below VITALS:See Below PHYSICAL EXAMINATION: GENERAL: Sitting up in bed, alert, morbidly obese, chronically ill-appearing EYE EXAM: normal conjunctiva. PERRL and EOM's grossly intact. OROPHARYNX: mucous membranes are moist NECK: supple, no nuchal rigidity, no adenopathy, non-tender LUNGS: Clear to auscultation. Normal chest wall mechanics HEART: no murmurs, S1 normal and S2 normal ABDOMEN: abdomen soft, non-tender, normo-active bowel sounds, no masses, no rebound or guarding. UPPER EXTREMITIES: upper extremities are grossly normal. LOWER EXTREMITIES: +3 pitting edema bilateral lower extremities NEURO EXAM: Normal sensorium, cranial nerves II-XII grossly intact, normal spe ech, no gross weakness of arms, no gross weakness of legs. MEDICAL DECISION MAKING: Patient is a 56-year-old female who presents the ER for above-stated complaint. IV was established blood work was obtained. Labs show leukocytosis 12,000. Mild anemia 11.3. BMP with LFTs was unremarkable. T bili slightly up at 1.1. Troponin was elevated at 33 on repeat. Lipase was normal. UA was clean. CT abdomen pelvis showed some stranding in the right upper quadrant with an unremarkable gallbladder. They did recommend ultrasound of the gallbladder. Duplex of the lower extremities was obtained as there is a positive dimer when she was allergic to IV contrast. Will likely need V/Q study in the morning. Ultrasound of the legs were negative. EKG was nondiagnostic. Patient was updated at bedside. Discussed with the hospitalist for further evaluation pending ultrasound the right upper quadrant due to the high volume this was delayed. Favor that this is noncardiac with unchanged troponins. Triage Nursing notes reviewed. Limited review of prior medical records performed Vital Signs: reviewed and remarkable for HTN Differential diagnosis: Differential diagnoses includes but is not limited to pneumonia, bronchitis, COPD/Asthma exacerbation, pneumothorax, pulmonary embolism, congestive heart failure, acute coronary syndrome ER treatment provided: See below Diagnostics interpreted by me: ECG: Sinus rhythm rate 75 Normal axis No PVCs Poor R wave progression No significant change from previous Cardiac Monitoring: An order was placed for continuous cardiac monitoring. The monitor shows a rate of 82 with sinus rhythm. Laboratory studies: As stated above and show below. Imaging studies: Duplex of the lower extremities were negative CT abdomen pelvis shows some stranding in the right upper quadrant but an unremarkable gallbladder Consultation(s): Discussed with Viviana Tillman for further evaluation Procedures: none Critical Care: None Past Med/Surg History Medical History (Updated 11/08/21 @ 19:58 by Nishant Herzog DO) Anxiety Chronic back pain Congestive heart failure with left ventricular diastolic dysfunction, NYHA class 1 Diabetes Diabetes mellitus, type II History of pulmonary embolism HTN (hypertension) Obesity Surgical History History of dental surgery Hx of appendectomy Family History Other Breast cancer COPD (chronic obstructive pulmonary disease) Coronary heart disease Diabetes Hypertension Sudden cardiac arrest Social History (Updated 10/03/21 @ 14:02 by Crystal Dao RN) Smoking Status: Never smoker Second Hand Exposure: Yes; Hx Alcohol Use: No Hx Substance Use: No Preferred Language: Argentine Communication Ability: Effective Account Director Required: No Beliefs That Will Affect Care: None Current Living Situation: Significant Other Current Living Situation Comment: Fiance current occupational status: employed Feels Safe at Home: Yes Diet Comment: 80oz a day Fluid Restriction caffeine: No during the past year weight has: decreased > 10 lbs Assistive Devices: Oxygen - Continuous Allergies Allergies Allergy/AdvReac Type Severity Reaction Status Date / Time bee venom protein (honey bee) Allergy Severe ANAPHYLAXIS Verified 11/08/21 14:55 shellfish derived Allergy Severe ANAPHYLACTI Verified 11/08/21 14:55 C iodine Allergy Intermediate SWELLING Verified 11/08/21 14:55 AND IRRITATION AT SITE Home Meds Home Medications Medication Instructions Recorded Confirmed acetaminophen 500 mg tablet 500 - 1,000 mg PO Q6H PRN 01/28/19 11/08/21 (Tylenol Extra Strength) ipratropium 20 mcg-albuterol 100 1 puff INHALATION QID PRN 11/28/19 11/08/21 mcg/actuation mist for inhalation (Combivent Respimat) albuterol sulfate 90 mcg/actuation 2 puff INHALATION QID PRN 08/22/21 11/08/21 aerosol inhaler lisinopril 20 mg tablet 20 mg PO QAM 09/02/21 11/08/21 metoprolol succinate 25 mg 75 mg PO QAM 09/02/21 11/08/21 tablet,extended release 24 hr glipizide 5 mg tablet, extended 10 mg PO QAM tab 10/03/21 11/08/21 release 24 hr furosemide 40 mg tablet (Lasix) 40 mg PO QAM 11/08/21 11/08/21 potassium chloride 20 mEq 20 meq PO DAILY 11/08/21 11/08/21 tablet,extended release(part/cryst) (Klor-Con M) Previous Rx's Medication Instructions Recorded sulfamethoxazole 800 1 tab PO BID 10 Days #20 tab 11/02/21 mg-trimethoprim 160 mg tablet (Bactrim DS) Results & Data (ED) Vital Signs Vital Signs - 24 hr 11/08/21 14:01 11/08/21 14:14 11/08/21 15:15 Temperature 36.4 C L Temperature Source Temporal Artery Scan Pulse Rate 81 86 Respiratory Rate 14 17 Respiratory Effort / Characteristics Non-Labored Spontaneous Respiratory Depth Normal Respiratory Pattern Regular Blood Pressure 154/68 H Blood Pressure Mean 96 Blood Pressure Position Sitting Pulse Oximetry 94 99 99 Oxygen Delivery Method Room Air Nasal Cannula Nasal Cannula Oxygen Flow Rate 3 3 Sepsis Recent Fever Within 48 Hours No Sepsis New/Unexplained Change in Mental Status No Sepsis Action Taken by Nursing No Action Required Oxygen Flow Rate - Titration 3 Pulse Oximetry Post Tiitration 99 11/08/21 15:30 11/08/21 15:45 11/08/21 15:59 Temperature Temperature Source Pulse Rate 84 84 86 Respiratory Rate 24 22 17 Respiratory Effort / Characteristics Respiratory Depth Respiratory Pattern Blood Pressure 174/56 H Blood Pressure Mean 95 Blood Pressure Position Pulse Oximetry 99 100 99 Oxygen Delivery Method Nasal Cannula Nasal Cannula Nasal Cannula Oxygen Flow Rate 3 3 3 Sepsis Recent Fever Within 48 Hours Sepsis New/Unexplained Change in Mental Status Sepsis Action Taken by Nursing Oxygen Flow Rate - Titration Pulse Oximetry Post Tiitration 11/08/21 16:00 11/08/21 16:16 11/08/21 16:30 Temperature Temperature Source Pulse Rate 83 88 87 Respiratory Rate 18 19 17 Respiratory Effort / Characteristics Respiratory Depth Respiratory Pattern Blood Pressure Blood Pressure Mean Blood Pressure Position Pulse Oximetry 100 95 98 Oxygen Delivery Method Nasal Cannula Nasal Cannula Nasal Cannula Oxygen Flow Rate 3 3 3 Sepsis Recent Fever Within 48 Hours Sepsis New/Unexplained Change in Mental Status Sepsis Action Taken by Nursing Oxygen Flow Rate - Titration Pulse Oximetry Post Tiitration 11/08/21 16:45 11/08/21 17:00 11/08/21 17:15 Temperature Temperature Source Pulse Rate 84 85 87 Respiratory Rate 16 17 17 Respiratory Effort / Characteristics Respiratory Depth Respiratory Pattern Blood Pressure Blood Pressure Mean Blood Pressure Position Pulse Oximetry 97 98 97 Oxygen Delivery Method Nasal Cannula Nasal Cannula Nasal Cannula Oxygen Flow Rate 3 3 3 Sepsis Recent Fever Within 48 Hours Sepsis New/Unexplained Change in Mental Status Sepsis Action Taken by Nursing Oxygen Flow Rate - Titration Pulse Oximetry Post Tiitration 11/08/21 17:30 Temperature Temperature Source Pulse Rate 85 Respiratory Rate 23 Respiratory Effort / Characteristics Respiratory Depth Respiratory Pattern Blood Pressure Blood Pressure Mean Blood Pressure Position Pulse Oximetry 100 Oxygen Delivery Method Nasal Cannula Oxygen Flow Rate 3 Sepsis Recent Fever Within 48 Hours Sepsis New/Unexplained Change in Mental Status Sepsis Action Taken by Nursing Oxygen Flow Rate - Titration Pulse Oximetry Post Tiitration Laboratory Data Result diagrams: 11/08/21 14:23 11/08/21 14:23 Lab Results 11/08/21 11/08/21 11/08/21 Range/Units 14:23 14:23 14:23 WBC 12.56 H (4.8-10.8) K/uL RBC 3.95 L (4.2-5.4) M/uL Hgb 11.3 L (12.0-16.0) g/dL Hct 35.3 L (37-47) % MCV 89.4 (80-100) fL MCH 28.6 (25-34) pg MCHC 32.0 (32-36) g/dL RDW Std Deviation 60.1 H (36.4-46.3) fL RDW Coeff of Damian 18.4 H (11.5-14.5) % Plt Count 247 (130-400) K/uL MPV 9.4 (7.4-10.4) fL Immature Gran % (Auto) 0.3 % Neut % (Auto) 82.3 % Lymph % (Auto) 9.9 % [place] % (Auto) 7.1 % Eos % (Auto) 0.2 % Baso % (Auto) 0.2 % Neut # (Auto) 10.35 H (1.4-6.5) K/uL Lymph # (Auto) 1.24 (1.2-3.4) K/uL [place] # (Auto) 0.89 H (0.11-0.59) K/uL Eos # (Auto) 0.02 (0-0.5) K/uL Baso # (Auto) 0.02 (0-0.2) K/uL Immature Gran # (Auto) 0.04 H (0.00-0.02) K/uL PT 11.7 (9.0-12.0) Seconds INR 1.1 (0.9-1.1) D-Dimer 2000 H* (0-500) ug/L FEU Sodium (136-145) mmol/L Potassium (3.5-5.1) mmol/L Chloride (98-107) mmol/L Carbon Dioxide (21-32) mmol/L Anion Gap (3-11) BUN (6-23) mg/dl Creatinine (0.6-1.2) mg/dl Est Cr Clr Drug Dosing Est GFR ( Amer) ml/min Est GFR (Non-Af Amer) ml/min BUN/Creatinine Ratio (10-20) Glucose (70-99(Fasting)) mg/dl Calcium (8.5-10.1) mg/dl Total Bilirubin (0.2-1.0) mg/dl AST (13-39) U/L ALT (7-52) U/L Alkaline Phosphatase (34-104) U/L Troponin I High Sens 31.9 H (0-14) pg/ml Total Protein (6.0-8.3) gm/dl Albumin (3.4-5.0) gm/dl Globulin (2.5-4.0) gm/dl Albumin/Globulin Ratio (0.9-2) Lipase (11-82) U/L Urine Color Urine Appearance (Clear) Urine pH (4.5-7.5) Ur Specific [place] (1.000-1.030) Urine Protein (Negative) Urine Glucose (UA) (Negative) Urine Ketones (Negative) Urine Blood (Negative) Urine Nitrite (Negative) Urine Bilirubin (Negative) Urine Urobilinogen (Negative) Ur Leukocyte Esterase (Negative) Urine WBC (Auto) (0-5) /hpf Urine RBC (Auto) (0-4) /hpf U Hyaline Cast (Auto) (0-5) /lpf U Epithel Cells (Auto) (0-5) /lpf Urine Bacteria (Auto) (Negative) SARS-CoV-2, RNA, NAAT (NEGATIVE) 11/08/21 11/08/21 11/08/21 Range/Units 14:23 14:27 14:45 WBC (4.8-10.8) K/uL RBC (4.2-5.4) M/uL Hgb (12.0-16.0) g/dL Hct (37-47) % MCV (80-100) fL MCH (25-34) pg MCHC (32-36) g/dL RDW Std Deviation (36.4-46.3) fL RDW Coeff of Damian (11.5-14.5) % Plt Count (130-400) K/uL MPV (7.4-10.4) fL Immature Gran % (Auto) % Neut % (Auto) % Lymph % (Auto) % [place] % (Auto) % Eos % (Auto) % Baso % (Auto) % Neut # (Auto) (1.4-6.5) K/uL Lymph # (Auto) (1.2-3.4) K/uL [place] # (Auto) (0.11-0.59) K/uL Eos # (Auto) (0-0.5) K/uL Baso # (Auto) (0-0.2) K/uL Immature Gran # (Auto) (0.00-0.02) K/uL PT (9.0-12.0) Seconds INR (0.9-1.1) D-Dimer (0-500) ug/L FEU Sodium 136 (136-145) mmol/L Potassium 4.7 (3.5-5.1) mmol/L Chloride 100 (98-107) mmol/L Carbon Dioxide 29 (21-32) mmol/L Anion Gap 7 (3-11) BUN 19 (6-23) mg/dl Creatinine 0.75 (0.6-1.2) mg/dl Est Cr Clr Drug Dosing Not Reportable Est GFR ( Amer) 104.0 ml/min Est GFR (Non-Af Amer) 89.7 ml/min BUN/Creatinine Ratio 25.3 H (10-20) Glucose 108 H (70-99(Fasting)) mg/dl Calcium 9.3 (8.5-10.1) mg/dl Total Bilirubin 1.1 H (0.2-1.0) mg/dl AST 16 (13-39) U/L ALT 13 (7-52) U/L Alkaline Phosphatase 103 (34-104) U/L Troponin I High Sens (0-14) pg/ml Total Protein 8.0 (6.0-8.3) gm/dl Albumin 3.9 (3.4-5.0) gm/dl Globulin 4.1 H (2.5-4.0) gm/dl Albumin/Globulin Ratio 1.0 (0.9-2) Lipase 9 L (11-82) U/L Urine Color Yellow Urine Appearance Clear (Clear) Urine pH 7.5 (4.5-7.5) Ur Specific [place] 1.019 (1.000-1.030) Urine Protein Negative (Negative) Urine Glucose (UA) Negative (Negative) Urine Ketones Negative (Negative) Urine Blood Negative (Negative) Urine Nitrite Negative (Negative) Urine Bilirubin Negative (Negative) Urine Urobilinogen Negative (Negative) Ur Leukocyte Esterase Trace H (Negative) Urine WBC (Auto) 1-5 (0-5) /hpf Urine RBC (Auto) 0-4 (0-4) /hpf U Hyaline Cast (Auto) 1-5 (0-5) /lpf U Epithel Cells (Auto) >30 H (0-5) /lpf Urine Bacteria (Auto) Negative (Negative) SARS-CoV-2, RNA, NAAT NEGATIVE (NEGATIVE) 11/08/21 Range/Units 15:59 WBC (4.8-10.8) K/uL RBC (4.2-5.4) M/uL Hgb (12.0-16.0) g/dL Hct (37-47) % MCV (80-100) fL MCH (25-34) pg MCHC (32-36) g/dL RDW Std Deviation (36.4-46.3) fL RDW Coeff of Damian (11.5-14.5) % Plt Count (130-400) K/uL MPV (7.4-10.4) fL Immature Gran % (Auto) % Neut % (Auto) % Lymph % (Auto) % [place] % (Auto) % Eos % (Auto) % Baso % (Auto) % Neut # (Auto) (1.4-6.5) K/uL Lymph # (Auto) (1.2-3.4) K/uL [place] # (Auto) (0.11-0.59) K/uL Eos # (Auto) (0-0.5) K/uL Baso # (Auto) (0-0.2) K/uL Immature Gran # (Auto) (0.00-0.02) K/uL PT (9.0-12.0) Seconds INR (0.9-1.1) D-Dimer (0-500) ug/L FEU Sodium (136-145) mmol/L Potassium (3.5-5.1) mmol/L Chloride (98-107) mmol/L Carbon Dioxide (21-32) mmol/L Anion Gap (3-11) BUN (6-23) mg/dl Creatinine (0.6-1.2) mg/dl Est Cr Clr Drug Dosing Est GFR ( Amer) ml/min Est GFR (Non-Af Amer) ml/min BUN/Creatinine Ratio (10-20) Glucose (70-99(Fasting)) mg/dl Calcium (8.5-10.1) mg/dl Total Bilirubin (0.2-1.0) mg/dl AST (13-39) U/L ALT (7-52) U/L Alkaline Phosphatase (34-104) U/L Troponin I High Sens 33.3 H (0-14) pg/ml Total Protein (6.0-8.3) gm/dl Albumin (3.4-5.0) gm/dl Globulin (2.5-4.0) gm/dl Albumin/Globulin Ratio (0.9-2) Lipase (11-82) U/L Urine Color Urine Appearance (Clear) Urine pH (4.5-7.5) Ur Specific [place] (1.000-1.030) Urine Protein (Negative) Urine Glucose (UA) (Negative) Urine Ketones (Negative) Urine Blood (Negative) Urine Nitrite (Negative) Urine Bilirubin (Negative) Urine Urobilinogen (Negative) Ur Leukocyte Esterase (Negative) Urine WBC (Auto) (0-5) /hpf Urine RBC (Auto) (0-4) /hpf U Hyaline Cast (Auto) (0-5) /lpf U Epithel Cells (Auto) (0-5) /lpf Urine Bacteria (Auto) (Negative) SARS-CoV-2, RNA, NAAT (NEGATIVE) Administered Medications Discontinued Medications Ondansetron HCl (Ondansetron Inj 2 Mg/Ml 2 Ml Vial) Confirm Administered Dose 4 mg .ROUTE .[employer] ONE Stop: 11/08/21 17:52 Last Admin: 11/08/21 17:54 Dose: Not Given Documented by: [id number] Ondansetron HCl (Ondansetron Inj 2 Mg/Ml 2 Ml Vial) 4 mg IV NOW STA Stop: 11/08/21 17:52 Last Admin: 11/08/21 17:54 Dose: 4 mg Documented by: [id number] Imaging Data Radiologist's Impression: Chest X-Ray 11/08/21 14:14 XR chest 1V portable CLINICAL HISTORY: Atypical chest pain TECHNIQUE: Single frontal radiograph of the chest was obtained. Comparison: Comparison is made to chest one view 09/01/2021 FINDINGS: Exam is limited by underpenetration. Cardiomegaly is noted. Prominence and cephalization of the vasculature is seen. No evidence of pleural effusion or pneumothorax. IMPRESSION: Cardiomegaly and mild pulmonary edema. ACT 112: Negative or not required by law. Electronically signed by: Fausto Jasso M.D. 11/08/2021 2:37 PM Venous Doppler Study 11/08/21 17:21 BILATERAL LOWER EXTREMITY VENOUS DOPPLER CLINICAL HISTORY: +dd sob COMPARISON STUDY: Bilateral lower extremity venous Doppler ultrasound October 11, 2015. TECHNIQUE: Sonography of the deep venous system of the bilateral lower extr emities was performed. Compression and augmentation were evaluated. FINDINGS: The bilateral common femoral, superficial femoral and popliteal veins were compressible. Augmentation was normal. Flow was shown within the deep calf vessels although evaluation of the calf vessels was suboptimal due to lower extremity edema. IMPRESSION: Technically difficult exam but no evidence of deep venous thrombus within the bilateral lower extremities. ACT 112: Negative or not required by law. Electronically signed by: Fredrick Sadler M.D. 11/08/2021 6:56 PM Abdomen/Pelvis CT 11/08/21 17:28 CT OF THE ABDOMEN AND PELVIS WITHOUT CONTRAST CLINICAL HISTORY: Right-sided abdominal pain. Nausea, vomiting and weakness. COMPARISON STUDY: CT of the abdomen and pelvis March 27, 2018. TECHNIQUE: Axial images of the abdomen and pelvis were obtained without IV contrast. Images were reviewed in the axial, sagittal, and coronal planes. Automated exposure control was utilized for the study. A dose lowering technique was utilized adhering to the principles of ALARA. FINDINGS: A trace right pleural effusion is noted within the visualized lower chest. Evaluation of the abdomen and pelvis is compromised given lack of contrast as well as artifact from body wall contacting the gantry. No pneumatosis, free air or portal venous gas is present. 1.9 cm right adrenal nodule is noted. This measures above water attenuation. This was present on prior CT. Although indeterminate, an adenoma is favored. The liver is enlarged. There is mild splenomegaly. No biliary or pancreatic ductal dilatation is present. Unenhanced images of the left adrenal gland and kidneys are unremarkable. There is no hydronephrosis. There are multiple mildly enlarged retroperitoneal lymph nodes. Index left para-aortic lymph node measures 1.6 x 1.1 cm. There are prominent bilateral iliac and inguinal nodes. No evidence for a bowel obstruction. The appendix is not visualized. Note is made of nonspecific right upper quadrant stranding, adjacent to the hepatic flexure of the colon, the inferior right hepatic lobe and extending to the xochilt hepatis. The gallbladder is mildly distended. There is no definite pericholecystic infiltration. No acute fracture or suspicious lesion within the visualized skeletal structures. There is colonic diverticulosis without evidence for acute diverticulitis. There is a small amount of ascites within the right paracolic gutter. IMPRESSION: 1. Right upper quadrant stranding. This is adjacent to the hepatic flexure of the colon, the inferior right hepatic lobe and extending to the xochilt hepatis. This is nonspecific but suggests an inflammatory or infectious process. Although not centered on the gallbladder, acute cholecystitis cannot be excluded on this exam. Right upper quadrant ultrasound is recommended. Additional differential considerations include an omental infarct or nonspecific colitis. Nonvisualization of the appendix. If persistent unexplained symptoms, a contrast-enhanced CT of the abdomen and pelvis is recommended. 2. Multiple mildly enlarged retroperitoneal lymph nodes which are nonspecific. Follow-up CT in 6 months to ensure stability/resolution is recommended. 3. Trace right pleural effusion. 4. Mild hepatosplenomegaly. 5. No bowel obstruction. ACT 112: Negative or not required by law. Electronically signed by: Fredrick Sadler M.D. 11/08/2021 6:48 PM Discharge Plan Visit Data Chief Complaint: Shortness of Breath/Dyspnea Stated Complaint: SHORTNESS OF BREATH ED Provider: Nishant Herzog Discharge Problem: Shortness of breath, Leukocytosis, Anemia, Abdominal pain, D-dimer, elevated, Elevated troponin Forms Stand Alone Forms: [facility] Prescriptions Prescriptions: No Action glipizide 5 mg tablet extended release 24 hr 10 mg PO QAM RF: 0 sulfamethoxazole-trimethoprim [Bactrim DS] 800-160 mg tablet 1 tab PO BID 10 Days Qty: 20 RF: 0 Combivent Respimat 20-100 mcg/actuation Mist 1 puff INHALATION QID PRN (Reason: Shortness Of Breath Or Wheezing) RF: 0 acetaminophen [Tylenol Extra Strength] 500 mg Tablet 500 - 1,000 mg PO Q6H PRN (Reason: Pain) RF: 0 albuterol sulfate 90 mcg/actuation Hfa Aerosol Inhaler 2 puff INHALATION QID PRN (Reason: Shortness Of Breath) RF: 0 furosemide [Lasix] 40 mg tablet 40 mg PO QAM RF: 0 potassium chloride [Klor-Con M20] 20 mEq tablet,ER particles/crystals 20 meq PO DAILY RF: 0 lisinopril 20 mg Tablet 20 mg PO QAM RF: 0 metoprolol succinate 25 mg Tablet Extended Release 24 Hr 75 mg PO QAM RF: 0 Referrals Referrals: Latricia Le, [Primary Care Provider] -
--- NOTE | 2021-11-08 14:26 | Electrocardiogram Report ---
Test Reason : Blood Pressure : / mmHG Vent. Rate : 075 BPM Atrial Rate : 075 BPM P-R Int : 172 ms QRS Dur : 072 ms QT Int : 370 ms P-R-T Axes : 059 011 055 degrees QTc Int : 413 ms Normal sinus rhythm Poor R wave progression, consider anterior MO vs. lead placement vs. LVH Abnormal ECG When compared with ECG of 01-SEP-2021 17:08, No significant change was found Confirmed by Kiel Wiley ([id number]) on 11/08/2021 2:25:41 PM Referred By: Confirmed By:Zafar Wiley
--- NOTE | 2021-11-08 14:38 | XRay Report ---
XR chest 1V portable CLINICAL HISTORY: Atypical chest pain TECHNIQUE: Single frontal radiograph of the chest was obtained. Comparison: Comparison is made to chest one view 09/01/2021 FINDINGS: Exam is limited by underpenetration. Cardiomegaly is noted. Prominence and cephalization of the vascu lature is seen. No evidence of pleural effusion or pneumothorax. IMPRESSION: Cardiomegaly and mild pulmonary edema. ACT 112: Negative or not required by law. Electronically signed by: Fausto Jasso M.D. 11/08/2021 2:37 PM
[2021-11-08 14:42] LABS: Basophils # (auto) 0.02 K/uL (0-0.2); Basophils % (auto) 0.2 %; Eosinophils # (auto) 0.02 K/uL (0-0.5); Eosinophils % (auto) 0.2 %; Hematocrit (blood only) 35.3 % (37-47); Hemoglobin 11.3 g/dL (12.0-16.0); Immature Granulocytes # (auto) 0.04 K/uL (0.00-0.02); Immature Granulocytes % (auto) 0.3 %; Lymphocytes # (auto) 1.24 K/uL (1.2-3.4); Lymphocytes % (auto) 9.9 %; Mean Corpuscular Hemoglobin 28.6 pg (25-34); Mean Corpuscular Volume 89.4 fL (80-100); Mean Platelet Volume 9.4 fL (7.4-10.4); Monocytes # (auto) 0.89 K/uL (0.11-0.59); Monocytes % (auto) 7.1 %; Neutrophils # (auto) 10.35 K/uL (1.4-6.5); Neutrophils % (auto) 82.3 %; Platelet Count 247 K/uL (130-400); RDW Coefficient of Variation 18.4 % (11.5-14.5); RDW Standard Deviation 60.1 fL (36.4-46.3); Red Blood Count 3.95 M/uL (4.2-5.4); White Blood Count 12.56 K/uL (4.8-10.8)
[2021-11-08 15:03] LABS: Appearance Urine Clear (Clear); Bacteria Urine Automated Negative (Negative); Bilirubin Urine Negative (Negative); Blood Urine Negative (Negative); Color Urine Yellow; Epithelial Cell Urine Auto >30 /lpf (0-5); Glucose Urine UA Negative (Negative); Ketones Urine Negative (Negative); Leukocyte Esterase Urine Trace (Negative); Nitrite Urine Negative (Negative); Protein Urine Negative (Negative); RBC Urine Automated 0-4 /hpf (0-4); Specific Gravity Urine 1.019 (1.000-1.030); Urobilinogen Urine Negative (Negative); pH Urine 7.5 (4.5-7.5)
[2021-11-08 16:14] LABS: Alanine Aminotransferase 13 U/L (7-52); Albumin Level 3.9 gm/dl (3.4-5.0); Alkaline Phosphatase 103 U/L (34-104); Anion Gap 7 (3-11); Aspartate Aminotransferase 16 U/L (13-39); BUN Creatinine Ratio 25.3 (10-20); Bilirubin,Total 1.1 mg/dl (0.2-1.0); Blood Urea Nitrogen 19 mg/dl (6-23); Calcium 9.3 mg/dl (8.5-10.1); Carbon Dioxide 29 mmol/L (21-32); Chloride 100 mmol/L (98-107); Est GFR (Non-African American) 89.7 ml/min; Globulin 4.1 gm/dl (2.5-4.0); Glucose 108 mg/dl (70-99(Fasting)); Lipase 9 U/L (11-82); Potassium 4.7 mmol/L (3.5-5.1); Sodium 136 mmol/L (136-145)
[2021-11-08 16:51] LABS: INR 1.1 (0.9-1.1); Prothrombin Time 11.7 Seconds (9.0-12.0)
[2021-11-08 17:12] LABS: D Dimer 2000 ug/L FEU (0-500)
[2021-11-08] MEDS ORDERED: ONDANSETRON INJ 2 MG/ML 2 ML VIAL IV STA (17:51)
[2021-11-08] MEDS ORDERED: ONDANSETRON INJ 2 MG/ML 2 ML VIAL ONE (17:51)
--- NOTE | 2021-11-08 18:50 | CT Scan Report ---
CT OF THE ABDOMEN AND PELVIS WITHOUT CONTRAST CLINICAL HISTORY: Right-sided abdominal pain. Nausea, vomiting and weakness. COMPARISON STUDY: CT of the abdomen and pelvis March 27, 2018. TECHNIQUE: Axial images of the abdomen and pelvis were obtained without IV contrast. Images were revi ewed in the axial, sagittal, and coronal planes. Automated exposure control was utilized for the bridget dy. A dose lowering technique was utilized adhering to the principles of ALARA. FINDINGS: A trace right pleural effusion is noted within the visualized lower chest. Evaluation of th e abdomen and pelvis is compromised given lack of contrast as well as artifact from body wall contact ing the gantry. No pneumatosis, free air or portal venous gas is present. 1.9 cm right adrenal nodule is noted. This measures above water attenuation. This was present on prior CT. Although indeterminat e, an adenoma is favored. The liver is enlarged. There is mild splenomegaly. No biliary or pancreatic ductal dilatation is present. Unenhanced images of the left adrenal gland and kidneys are unremarkab le. There is no hydronephrosis. There are multiple mildly enlarged retroperitoneal lymph nodes. Index left para-aortic lymph node measures 1.6 x 1.1 cm. There are prominent bilateral iliac and inguinal nodes. No evidence for a bowel obstruction. The appendix is not visualized. Note is made of nonspecif ic right upper quadrant stranding, adjacent to the hepatic flexure of the colon, the inferior right h epatic lobe and extending to the xochilt hepatis. The gallbladder is mildly distended. There is no defi nite pericholecystic infiltration. No acute fracture or suspicious lesion within the visualized skele madelyn structures. There is colonic diverticulosis without evidence for acute diverticulitis. There is a small amount of ascites within the right paracolic gutter. IMPRESSION: 1. Right upper quadrant stranding. This is adjacent to the hepatic flexure of the colon, the inferior right hepatic lobe and extending to the xochilt hepatis. This is nonspecific but suggests an inflammat ory or infectious process. Although not centered on the gallbladder, acute cholecystitis cannot be ex cluded on this exam. Right upper quadrant ultrasound is recommended. Additional differential consider ations include an omental infarct or nonspecific colitis. Nonvisualization of the appendix. If persis tent unexplained symptoms, a contrast-enhanced CT of the abdomen and pelvis is recommended. 2. Multiple mildly enlarged retroperitoneal lymph nodes which are nonspecific. Follow-up CT in 6 trice hs to ensure stability/resolution is recommended. 3. Trace right pleural effusion. 4. Mild hepatosplenomegaly. 5. No bowel obstruction. ACT 112: Negative or not required by law. Electronically signed by: Fredrick Sadler M.D. 11/08/2021 6:48 PM
--- NOTE | 2021-11-08 18:57 | Ultrasound Report ---
BILATERAL LOWER EXTREMITY VENOUS DOPPLER CLINICAL HISTORY: +dd sob COMPARISON STUDY: Bilateral lower extremity venous Doppler ultrasound October 11, 2015. TECHNIQUE: Sonography of the deep venous system of the bilateral lower extremities was performed. Co mpression and augmentation were evaluated. FINDINGS: The bilateral common femoral, superficial femoral and popliteal veins were compressible. A ugmentation was normal. Flow was shown within the deep calf vessels although evaluation of the calf v essels was suboptimal due to lower extremity edema. IMPRESSION: Technically difficult exam but no evidence of deep venous thrombus within the bilateral l ower extremities. ACT 112: Negative or not required by law. Electronically signed by: Fredrick Sadler M.D. 11/08/2021 6:56 PM
[2021-11-08] MEDS ORDERED: PROMETHAZINE HCL 12.5 MG in SODIUM CHLORIDE 0.9% 50 ML IV STA (19:42)
[2021-11-08] MEDS ORDERED: ASPIRIN CHEW 324 MG PO STA (19:58)
--- NOTE | 2021-11-08 20:23 | History & Physical Report ---
Date of Service November 08, 2021 Assessment & Plan (1) Venous stasis ulcers of both lower extremities: Plan: chronic since Aug 2021, follows with wound care clinic after recent hospitalization in Sep 13 for bilateral LE cellulitis. She completed a course of cefdinir and doxycycline which she finished but reported pain didn't improve after this. She underwent bilateral wound cultures in September at wound clinic and was placed on another course of abx for MRSA and strep. She returned on 10/31 to the wound clinic and was placed on Bactrim which she is still taking for serratia in wound. Pain appears to be controlled with vicodin which we will start now. Will also hold Bactrim and start Vancomycin with whitish plaques on wound area and h/o MRSA. Cellulitic appearance surrounds wounds. Consult WOCN while inpatient. (2) Acute on chronic diastolic HF (heart failure): Plan: Pulmonary edema on CXR with CHF syndrome including progressive SOB with exertion and peripheral edema. She has a h/o CHF and is on Lasix. Will start with some IV Lasix now and continue with Lasix IV 40mg daily. Recent echo so will avoid this unless we need further evaluation for possible PE. Otherwise cont metopro lol, potassium and lisinopril per home regimen. Low salt diet and daily weights recommended. (3) Bilateral lower leg cellulitis: Plan: Vancomycin as above. Hold Bactrim (4) Abnormal CT of the abdomen: Plan: Some vomiting this morning and nausea that has persisted today--just started today. Concerned there may be a reaction to Bactrim recently started vs intra- abdominal infection. Mild leukocytosis and findings on CT that are nonspecific including RUQ stranding consistent with inflammation vs infection. There is no hyperbilirubinemia, jaundice or elevated liver transaminases. Obtain procalcitonin, blood cultures given generalized malaise, RUQ US pending, lactate to rule out ischemic gut. She has no abdominal pain or distension but isn't comfortable and has persistent nausea not improved with Zofran. Cover broadly with Zosyn. Trend CMP in am. Cont supportive care with antiemetics including phenergan as an alternative. Repeat abdominal CT in 6 months to monitor reactive LAD. (5) Diabetes mellitus, type II: Plan: Hold oral glipizide and cont with basal bolus insulin during hospital stay. Recent A1C in Sep 13 was 8 reflecting poor control. Uses duloxetine for neuropathic pain in her feet which we will continue. (6) History of pulmonary embolism: Plan: Currently not reporting pleurisy, active chest pain, tachycardia or increased respiratory distress is not present. She also has fluid on her lung and elevated BP, both of which may cause reported atypical chest pain. She declines CT contrast at this time. Initially there was concern for PE given the report of CP, progressive SOB with exertion and elevated D dimer. However, her lower extremity dopplers do not reveal VTE and she has other reasons for her symptoms including leg infection, nonspecific abdominal infection/inflammation and pulmonary edema with a CHF picture. Although hypoxic she is at her baseline oxygen needs. Will attempt treatment for these issues initially and continue to consider PE in the differential if she is not improved. (7) Obesity: Plan: Lifestyle changes recommended to increase lean muscle mass and improve percent body fat. (8) Chronic respiratory failure: Plan: h/o CAROLYN on chronic 3L NC. She is currently at her baseline with progressive subjective dyspnea with exertion along with swelling in lower extremities. Cont oxygen supplementation and treatment plan above. (9) DVT prophylaxis: Plan: Lovenox Full Code Dispo-to PCU Viviana Tillman DO [facility] Hospitalist History of Present Illness Chief Complaint: Lower leg pain, nausea and vomiting Primary Care Provider: Latricia Le DO 56 yo obese F with chronic hypoxic respiratory failure presents with worsening pain in her lower leg wounds. She reports having venous wounds since Aug 2021 and was hospitalized for bilateral cellulitis at this time. She reported feeling well after discharge for approximately two weeks into September and then her pain returned and gradually worsened. She has been on intermittent antibiotics, most recently being placed on Bactrim over the past week in response to a leg wound growing serratia marcens. She doesn't think she had any issues with Luz Marina trim, and denies additional symptoms until just this morning when she had vomiting x 2 and persistent nausea. She feels the pain is likely contributing to this nausea, however, isn't sure about the Bactrim as a cause. She reports feeling very confused about how she feels, and seems slightly overwhelmed with the questions. For example, when I asked how she treated her leg pain at home, initially she said Tylenol but then I asked if she used anything stronger to which she replied "vicodin every four hours." She reported having it left over, and said that it worked for her pain. She then stated that she didn't take it that much and didn't know what she was saying because she was confused. She does report some increased swelling and increased SOB with exertion. She does have pulmonary edema on her chest xray, and reports that she is not surprised by this. She denies any fevers, chills or abdominal pain. She reports eating and tolerating PO prior to today and normal BMs. She reports an iodine contrast allergy and refuses CT chest with contrast. She does have a h/o PE in the past but is not working to breathe, reporting any pleurisy and lower extremity us are clear of VTE. D-dimer is elevated which may be attributed to her leg wounds. CT abd/pelvis reveals nonspecific inflammatory/infection in the RUQ region and multiple enlarged retroperitoneal lymph nodes which are non specific. Trace right pleural effusion is seen. Gallbladder US is pending. Allergies Allergy/AdvReac Type Severity Reaction Status Date / Time bee venom protein (honey bee) Allergy Severe ANAPHYLAXIS Verified 11/08/21 14:55 shellfish derived Allergy Severe ANAPHYLACTI Verified 11/08/21 14:55 C iodine Allergy Intermediate SWELLING Verified 11/08/21 14:55 AND IRRITATION AT SITE Home Medications Medication Instructions Recorded Confirmed Type acetaminophen 500 mg tablet 500 - 1,000 mg PO Q6H PRN 01/28/19 11/08/21 History (Tylenol Extra Strength) ipratropium 20 mcg-albuterol 100 1 puff INHALATION QID PRN 11/28/19 11/08/21 History mcg/actuation mist for inhalation (Combivent Respimat) albuterol sulfate 90 mcg/actuation 2 puff INHALATION QID PRN 08/22/21 11/08/21 History aerosol inhaler lisinopril 20 mg tablet 20 mg PO QAM 09/02/21 11/08/21 History metoprolol succinate 25 mg 75 mg PO QAM 09/02/21 11/08/21 History tablet,extended release 24 hr glipizide 5 mg tablet, extended 10 mg PO QAM tab 10/03/21 11/08/21 History release 24 hr sulfamethoxazole 800 1 tab PO BID 10 Days #20 tab 11/02/21 11/08/21 Rx mg-trimethoprim 160 mg tablet (Bactrim DS) duloxetine 60 mg capsule,delayed 60 mg PO DAILY 11/08/21 11/08/21 History release furosemide 40 mg tablet (Lasix) 40 mg PO QAM 11/08/21 11/08/21 History potassium chloride 20 mEq 20 meq PO DAILY 11/08/21 11/08/21 History tablet,extended release(part/cryst) (Klor-Con M) Past Med/Surg History Medical History Anxiety Chronic back pain Congestive heart failure with left ventricular diastolic dysfunction, NYHA class 1 Diabetes Diabetes mellitus, type II History of pulmonary embolism HTN (hypertension) Obesity Venous stasis ulcers of both lower extremities Surgical History History of dental surgery Hx of appendectomy Family History Other Breast cancer COPD (chronic obstructive pulmonary disease) Coronary heart disease Diabetes Hypertension Sudden cardiac arrest Social History Smoking Status: Never smoker Second Hand Exposure: Yes; Hx Alcohol Use: No Hx Substance Use: No Preferred Language: Irish Communication Ability: Effective Bolter Helper Required: No Beliefs That Will Affect Care: None Current Living Situation: Significant Other Current Living Situation Comment: Fiance current occupational status: employed Feels Safe at Home: Yes Diet Comment: 80oz a day Fluid Restriction caffeine: No during the past year weight has: decreased > 10 lbs Assistive Devices: Oxygen - Continuous Review of Systems Review of Systems: All systems were reviewed and negative except as indicated above. Physical Exam Physical Exam: CONSTITUTIONAL: obese, vitals as above, generally ill- appearing, in mild distress. Lying on left side with pain/discomfort with any movement. EYES: PERRL, normal conjunctivae, no scleral icterus ENT: external ear and nose normal, MMM NECK: trachea midline, RESPIRATORY: clear to auscultation bilaterally, no crackles, rales or wheezes, poor respiratory effort, 3L NC in place. CARDIOVASCULAR: regular rate and rhythm, S1 and 2 heard without murmurs, gallops or rubs, no JVD, no peripheral edema, no carotid bruits CHEST: inspection of chest was normal GASTROINTESTINAL: soft, nontender, ND, no guarding MUSCULOSKELETAL: strength 5/5 throughout, head is normocephalic and atraumatic SKIN: warm and dry, large closed leg wounds on anterior lower legs bilaterally. Purplish hue to these with surrounding erythema and there are whitish plaques present, also. Very tender to palpation. Feet and toes also erythematous and swollen. NEUROLOGIC: CN 2-12 grossly intact, no sensory deficit, normal cognition, normal speech, no tremor PSYCHIATRIC: alert cooperative and oriented to person, place and time. Results & Data Results & Data ([facility]) Vital Signs (Past 12 Hours) Vital Signs Temp Pulse Resp BP Pulse Ox 11/08/21 17:30 85 23 100 11/08/21 17:15 87 17 97 11/08/21 17:00 85 17 98 11/08/21 16:45 84 16 97 11/08/21 16:30 87 17 98 11/08/21 16:16 88 19 95 11/08/21 16:00 83 18 100 11/08/21 15:59 86 17 174/56 H 99 11/08/21 15:45 84 22 100 11/08/21 15:30 84 24 99 11/08/21 15:15 86 17 99 11/08/21 14:14 99 11/08/21 14:01 36.4 C L 81 14 154/68 H 94 Laboratory Results Short CBC 11/08/21 Range/Units 14:23 WBC 12.56 H (4.8-10.8) K/uL Hgb 11.3 L (12.0-16.0) g/dL Hct 35.3 L (37-47) % Plt Count 247 (130-400) K/uL BMP 11/08/21 14:23 Sodium 136 Potassium 4.7 Chloride 100 Carbon Dioxide 29 BUN 19 Creatinine 0.75 Glucose 108 H Calcium 9.3 Liver Function 11/08/21 Range/Units 14:23 Total Bilirubin 1.1 H (0.2-1.0) mg/dl AST 16 (13-39) U/L ALT 13 (7-52) U/L Alkaline Phosphatase 103 (34-104) U/L Albumin 3.9 (3.4-5.0) gm/dl Urine 11/08/21 Range/Units 14:45 Urine Color Yellow Urine Appearance Clear (Clear) Urine pH 7.5 (4.5-7.5) Ur Specific [place] 1.019 (1.000-1.030) Urine Protein Negative (Negative) Urine Glucose (UA) Negative (Negative) Diagnostic Findings Chest X-Ray 11/08/21 14:14 XR chest 1V portable CLINICAL HISTORY: Atypical chest pain TECHNIQUE: Single frontal radiograph of the chest was obtained. Comparison: Comparison is made to chest one view 09/01/2021 FINDINGS: Exam is limited by underpenetration. Cardiomegaly is noted. Prominence and cephalization of the vasculature is seen. No evidence of pleural effusion or pneumothorax. IMPRESSION: Cardiomegaly and mild pulmonary edema. ACT 112: Negative or not required by law. Electronically signed by: Fausto Jasso M.D. 11/08/2021 2:37 PM Venous Doppler Study 11/08/21 17:21 BILATERAL LOWER EXTREMITY VENOUS DOPPLER CLINICAL HISTORY: +dd sob COMPARISON STUDY: Bilateral lower extremity venous Doppler ultrasound October 11, 2015. TECHNIQUE: Sonography of the deep venous system of the bilateral lower extremities was performed. Compression and augmentation were evaluated. FINDINGS: The bilateral common femoral, superficial femoral and popliteal veins were compressible. Augmentation was normal. Flow was shown within the deep calf vessels although evaluation of the calf vessels was suboptimal due to lower extremity edema. IMPRESSION: Technically difficult exam but no evidence of deep venous thrombus within the bilateral lower extremities. ACT 112: Negative or not required by law. Electronically signed by: Fredrick Sadler M.D. 11/08/2021 6:56 PM Abdomen/Pelvis CT 11/08/21 17:28 CT OF THE ABDOMEN AND PELVIS WITHOUT CONTRAST CLINICAL HISTORY: Right-sided abdominal pain. Nausea, vomiting and weakness. COMPARISON STUDY: CT of the abdomen and pelvis March 27, 2018. TECHNIQUE: Axial images of the abdomen and pelvis were obtained without IV contrast. Images were reviewed in the axial, sagittal, and coronal planes. Automated exposure control was utilized for the study. A dose lowering technique was utilized adhering to the principles of ALARA. FINDINGS: A trace right pleural effusion is noted within the visualized lower chest. Evaluation of the abdomen and pelvis is compromised given lack of contrast as well as artifact from body wall contacting the gantry. No pneumatosis, free air or portal venous gas is present. 1.9 cm right adrenal nodule is noted. This measures above water attenuation. This was present on prior CT. Although indeterminate, an adenoma is favored. The liver is enlarged. There is mild splenomegaly. No biliary or pancreatic ductal dilatation is present. Unenhanced images of the left adrenal gland and kidneys are unremarkable. There is no hydronephrosis. There are multiple mildly enlarged retroperitoneal lymph nodes. Index left para-aortic lymph node measures 1.6 x 1.1 cm. There are prominent bilateral iliac and inguinal nodes. No evidence for a bowel obstruction. The appendix is not visualized. Note is made of nonspecific right upper quadrant stranding, adjacent to the hepatic flexure of the colon, the inferior right hepatic lobe and extending to the xochilt hepatis. The gallbladder is mildly distended. There is no definite pericholecystic infiltration. No acute fracture or suspicious lesion within the visualized skeletal structures. There is colonic diverticulosis without evidence for acute diverticulitis. There is a small amount of ascites within the right paracolic gutter. IMPRESSION: 1. Right upper quadrant stranding. This is adjacent to the hepatic flexure of the colon, the inferior right hepatic lobe and extending to the xochilt hepatis. This is nonspecific but suggests an inflammatory or infectious process. Although not centered on the gallbladder, acute cholecystitis cannot be excluded on this exam. Right upper quadrant ultrasound is recommended. Additional differential considerations include an omental infarct or nonspecific colitis. Nonvisualization of the appendix. If persistent unexplained symptoms, a contrast-enhanced CT of the abdomen and pelvis is recommended. 2. Multiple mildly enlarged retroperitoneal lymph nodes which are nonspecific. Follow-up CT in 6 months to ensure stability/resolution is recommended. 3. Trace right pleural effusion. 4. Mild hepatosplenomegaly. 5. No bowel obstruction. ACT 112: Negative or not required by law. Electronically signed by: Fredrick Sadler M.D. 11/08/2021 6:48 PM Code Status & VTE Plan VTE Prophylaxis Plan VTE Prophylaxis will be ordered: Yes (1) Diabetes mellitus, type II Diabetes mellitus jail insulin use: without wood fence installer use Diabetes mellitus complication status: without complication Qualified Code(s): E11.9 - Type 2 diabetes mellitus without complications (2) Obesity Obesity type: unspecified obesity type Obesity classification: adult class 3 (BMI >= 40) Serious obesity comorbidity presence: unspecified whether serious comorbidity present Body mass index: BMI 50.0-59.9 Qualified Code(s): E66.01 - Morbid (severe) obesity due to excess calories; Z68.43 - Body mass index (BMI) 50-59.9, adult
[2021-11-08] MEDS ORDERED: ALBUTEROL HFA 8 GM INHALER INH PRN (20:30)
[2021-11-08] MEDS ORDERED: PIPERACILL/TAZOBAC CONSULT ACTIVE PRN (20:35)
[2021-11-08] MEDS ORDERED: PIPERACILLIN/TAZOBACTAM 4.5 GM/120 ML BAG IV ONE (21:00)
[2021-11-08] MEDS ORDERED: PATIENT'S WEIGHT NEEDED SCH (21:00)
[2021-11-08] MEDS ORDERED: VANCOMYCIN CONSULT ACTIVE PRN (21:01)
--- NOTE | 2021-11-08 21:01 | Ultrasound Report ---
US gallbladder CLINICAL HISTORY: Right upper quadrant abdominal pain. COMPARISON STUDY: Right upper quadrant ultrasound July 21, 2015. CT of the abdomen and pelvis pe rformed earlier today. FINDINGS: The liver is enlarged. Hepatic echogenicity is increased. No hepatic lesions are identified . There is no biliary ductal dilatation. Common bile duct measures 5 mm in caliber. Trace perihepatic ascites is present. No gallstones are identified. No sonographic Moreno sign was elicited. There is trace sludge within the gallbladder. No definite gallbladder wall thickening. Pancreatic body is norm al. Head and tail are obscured. There is no right hydronephrosis. IMPRESSION: 1. No gallstones or biliary ductal dilatation. 2. Trace sludge within the gallbladder. No sonographic evidence for acute cholecystitis. If persisten t clinical suspicion for acute cholecystitis, a nuclear medicine hepatobiliary scan could be obtained . 3. Hepatic steatosis and hepatomegaly. ACT 112: Negative or not required by law. Electronically signed by: Fredrick Sadler M.D. 11/08/2021 8:57 PM
[2021-11-08] MEDS ORDERED: VANCOMYCIN HCL 2,750 MG in SODIUM CHLORIDE 0.9% 500 ML IV ONE (21:30)
[2021-11-08] MEDS ORDERED: VANCOMYCIN HCL 1000MG/20ML VIAL IV SCH (21:45)
[2021-11-08] MEDS ORDERED: CARBOHYDRATES FOR HYPOGLYCEMIA PO PRN (21:48)
[2021-11-08] MEDS ORDERED: GLUCOSE 40% GEL 15 GM TUBE PO PRN (21:48)
[2021-11-08] MEDS ORDERED: DEXTROSE 50% 50 ML SYRINGE IV PRN (21:48)
[2021-11-08] MEDS ORDERED: LACTATED RINGER'S 1,000 ML IV SCH (21:48)
[2021-11-08] MEDS ORDERED: GLUCOSE 10 TABS/TUBE PO PRN (21:48)
[2021-11-08] MEDS ORDERED: GLUCAGON FOR INJ 1 MG VIAL SQ PRN (21:48)
[2021-11-08] MEDS: INSULIN ASPART PER UNIT SC SCH (21:59)
[2021-11-08] MEDS: HYDROCODONE/ACETAMOPHEN 5/325MG TAB PO PRN (22:12)
[2021-11-08] MEDS: ENOXAPARIN INJ 40 MG/0.4 ML SYR SQ SCH (22:12)
[2021-11-08] MEDS: INSULIN GLARGINE SOLOSTAR 100 UNITS/ML 3 ML PEN SC SCH (22:27)
[2021-11-08] MEDS ORDERED: PIPERACILLIN/TAZOBACTAM 4.5 GM in DEXTROSE 5% 100 ML IV ONE (22:30)
[2021-11-08] MEDS ORDERED: hydrALAZINE HCL 20 MG/ML VIAL IV STA (23:42)
[2021-11-08] MEDS ORDERED: hydrALAZINE HCL 20 MG/ML VIAL ONE (23:49)
[2021-11-09] MEDS: ACETAMINOPHEN 325 MG TAB PO PRN ×3 (01:51→22:49)
[2021-11-09] MEDS: HYDROCODONE/ACETAMOPHEN 5/325MG TAB PO PRN ×2 (04:14→15:47)
[2021-11-09] MEDS: PIPERACILLIN/TAZOBACTAM 4.5 GM in DEXTROSE 5% 100 ML IV SCH ×3 (05:27→22:34)
[2021-11-09] MEDS: ENOXAPARIN INJ 40 MG/0.4 ML SYR SQ SCH ×2 (07:43→22:35)
[2021-11-09] MEDS: METOPROLOL SUCC 25MG EXT REL TAB PO SCH (07:44)
[2021-11-09] MEDS: POTASSIUM CHLORIDE CRTAB 20 MEQ TABCR PO SCH (07:44)
[2021-11-09] MEDS: lisinopril 20 MG TAB PO SCH (07:44)
[2021-11-09] MEDS: DULoxetine HCL 60 MG CAP PO SCH (07:44)
[2021-11-09] MEDS: INSULIN ASPART PER UNIT SC SCH ×4 (08:32→22:35)
[2021-11-09] MEDS: INSULIN GLARGINE SOLOSTAR 100 UNITS/ML 3 ML PEN SC SCH ×2 (08:33→22:35)
[2021-11-09] MEDS: PROMETHAZINE HCL 12.5 MG in SODIUM CHLORIDE 0.9% 50 ML IV PRN ×3 (08:36→21:01)
[2021-11-09 09:30] LABS: Basophils # (auto) 0.04 K/uL (0-0.2); Basophils % (auto) 0.4 %; Eosinophils # (auto) 0.06 K/uL (0-0.5); Eosinophils % (auto) 0.5 %; Hemoglobin 10.3 g/dL (12.0-16.0); Immature Granulocytes # (auto) 0.03 K/uL (0.00-0.02); Immature Granulocytes % (auto) 0.3 %; Lymphocytes # (auto) 1.07 K/uL (1.2-3.4); Lymphocytes % (auto) 9.7 %; Mean Corpuscular Hemoglobin 28.3 pg (25-34); Mean Corpuscular Hgb Conc 31.2 g/dL (32-36); Mean Corpuscular Volume 90.7 fL (80-100); Mean Platelet Volume 9.3 fL (7.4-10.4); Monocytes # (auto) 0.78 K/uL (0.11-0.59); Monocytes % (auto) 7.1 %; Neutrophils # (auto) 9.03 K/uL (1.4-6.5); Platelet Count 221 K/uL (130-400); RDW Coefficient of Variation 18.5 % (11.5-14.5); RDW Standard Deviation 61.7 fL (36.4-46.3); Red Blood Count 3.64 M/uL (4.2-5.4); White Blood Count 11.01 K/uL (4.8-10.8)
[2021-11-09 09:57] LABS: Albumin Globulin Ratio 0.9 (0.9-2); Albumin Level 3.5 gm/dl (3.4-5.0); BUN Creatinine Ratio 16.2 (10-20); Bilirubin,Total 1.2 mg/dl (0.2-1.0); Creatinine Clr Calc Pharmacy 140.8 ml/min; Est GFR (African American) 114.1 ml/min; Est GFR (Non-African American) 98.5 ml/min; Globulin 3.7 gm/dl (2.5-4.0); Magnesium 2.1 mg/dl (1.7-2.4); Phosphorus 3.8 mg/dl (2.5-4.9); Potassium 4.4 mmol/L (3.5-5.1); Total Protein 7.2 gm/dl (6.0-8.3)
--- NOTE | 2021-11-09 11:14 | Pharmacy Report ---
Pharmacy Vanc AUC Short Note - Date of Service November 09, 2021 - Assessment & Plan Assessment 56 year old F who presented with worsening pain in her lower leg wounds. Recent hospital admission in August. She was treated with cefepime + doxycycline while admitted and she was discharged on 09/07/21 on doxycycline + cefdinir. Patient reported feeling well after discharge for approximately two weeks and then pain returned and worsened. Recently placed on Bactrim for Serratia marcescens. BC pending. Started on vancomcyin + pip-tazo on admission. Low threshold to transition vancomcyin to daptomycin based on dosing difficulty with BMI 54. h/o Serratia marcescens (10/2021 - R leg) MRSA & group B beta strep (09/2021 - R leg), Morganella morganii (08/2021 - urine) Plan Vancomycin * Loading dose: 2750 mg IV x 1 * Maintenance dose: 1250 mg IV every 12 hours * Above regimen predicted to achieve target AUC/JESI of 400-600 mg/L.hr * Trough level ordered for 11/10 @ 1030 Pip-tazo * 4.5 g IV every 8 hours (infuse over 4 hours) Pharmacy will continue to follow and will adjust dose/frequency as necessary. Thank you.
[2021-11-09] MEDS: VANCOMYCIN HCL 1,250 MG in SODIUM CHLORIDE 0.9% 250 ML IV SCH ×2 (11:50→22:34)
--- NOTE | 2021-11-09 16:27 | Hospitalist Progress Note ---
Date of Service November 09, 2021 Assessment & Plan (1) Bilateral lower leg cellulitis: Plan: #. Venous stasis ulcers of both lower extremities #. Recurrent Bilateral lower leg cellulitis Patient with chronic venous stasis ulcer since August 2021, follows up with wound care clinic after recent hospitalization in August 2021 for BLE cellulitis. Completed multiple courses of antibiotics since August, including cefdinir plus doxycycline followed by another course of antibiotic for MRSA and strep in September. Was recently on Bactrim. 10/31 wound culture: Serratia Admitting venous Doppler BLE: Negative for DVT. Admitting blood culture: Pending Cellulitic appearance of BLE. Appreciate WOCN input. Bactrim DC'd, continue with vancomycin 11/08 and Zosyn 11/08. Consider ID consult given recurrent cellulitis. #. Acute on chronic diastolic heart failure Patient presenting with complaint of shortness of breath with exertion and peripheral edema. Patient does have a history of CHF and is on Lasix. Patient does mention compliance with medication. Admitting CXR: Cardiomegaly with mild pulmonary edema. Had recent echo. Continue with IV Lasix, transition to p.o. per daily assessment. Currently on 3 L oxygen at bedside, has subjective dyspnea and BLE edema Continue with home meds. Low-salt diet and daily weights. #. Abnormal CT of the abdomen Admitting CT AP: Suggestive of inflammatory versus infectious process in right upper quadrant. Follow-up US gallbladder negative for cholecystitis. Admitting Pro-Gareth and lactate WNL. Patient did have vomiting on the day of her arrival and some nausea. Could be reaction to Bactrim started recently 10/31 versus intra-abdominal infection. Finding on CT nonspecific, see above. Patient denies any further nausea or vomiting or belly pain. Continue to monitor, continue with Zosyn. Antiemetics. Repeat abdominal CT in 6 months to monitor reactive LAD. #. Other chronic medical conditions: DM type II, history of PE, obesity, chronic respiratory failure Continue with/resume home medication when appropriate. Continue sliding scale insulin. Recent A1c 8 in August 2021. Continue with duloxetine for neuropathic pain. Lifestyle changes recommended to increase lean muscle mass and improve percent body fat. h/o CAROLYN on chronic 3L NC. #. DVT prophylaxis: Lovenox #. Full code #. Disposition: med/tele Admission and Anticipated Discharge Date Admission Date: November 08, 2021 Subjective Patient seen and examined at bedside for follow-up of acute on chronic diastolic heart failure, bilateral lower leg cellulitis, abnormal CT of the abdomen and venous stasis ulcers of both lower extremities. Patient was sitting up in bed, on 3 L nasal cannula oxygen, NAD, no new acute events overnight. Patient reports being short of breath with exertion, reports having no appetite, states he is moving bowels okay. Patient denies any nausea, vomiting, headache, dizziness, belly pain, chest pain, other review of symptoms. Physical Exam Physical Exam: GENERAL: Alert and oriented x3. NAD, on 3L NC O2. Morbid obesity. HEENT: No pallor, no icterus. Pupils equal, round and reactive to light. Oral mucosa moist. NECK: No JVD, no neck masses. HEART: S1 and S2 heard. Regular rate and rhythm. No murmur, no gallop. RESPIRATORY SYSTEM: Normal AP diameter. No accessory muscle use. No wheezing, no crackles. Decreased breath sounds (2/2 morbid obesity) ABDOMEN: Soft, bowel sounds present, nontender, no distention. CENTRAL NERVOUS SYSTEM: No facial droop. Speech is clear. Obeys simple commands. Moves extremities. EXTREMITIES: 1-2 + BLE edema, Chronic skin changes BLE noted, Clean dressing BLE w/o soakage noted. Results & Data Results & Data ([facility]) Vital Signs (Past 12 Hours) Vital Signs Temp Pulse Pulse Resp BP Pulse Ox 11/09/21 15:53 37 C 76 16 123/78 94 11/09/21 15:03 79 11/09/21 11:30 36.9 C 76 18 97/41 L 95 11/09/21 08:17 36.9 C 79 18 136/78 94 11/09/21 07:20 86
[2021-11-09] MEDS ORDERED: FUROSEMIDE 40 MG/4 ML VIAL IV ONE (16:28)
[2021-11-10] MEDS ORDERED: ONDANSETRON INJ 2 MG/ML 2 ML VIAL IV PRN (02:30)
[2021-11-10] MEDS ORDERED: ONDANSETRON INJ 2 MG/ML 2 ML VIAL ONE (02:43)
[2021-11-10] MEDS: PIPERACILLIN/TAZOBACTAM 4.5 GM in DEXTROSE 5% 100 ML IV SCH ×3 (04:51→21:40)
[2021-11-10] MEDS: PROMETHAZINE HCL 12.5 MG in SODIUM CHLORIDE 0.9% 50 ML IV PRN ×2 (04:51→21:38)
[2021-11-10 07:49] LABS: Hematocrit (blood only) 33.9 % (37-47); Hemoglobin 10.7 g/dL (12.0-16.0); Mean Corpuscular Hemoglobin 28.7 pg (25-34); Mean Corpuscular Hgb Conc 31.6 g/dL (32-36); Mean Corpuscular Volume 90.9 fL (80-100); Mean Platelet Volume 9.5 fL (7.4-10.4); Platelet Count 251 K/uL (130-400); RDW Coefficient of Variation 18.3 % (11.5-14.5); RDW Standard Deviation 61.2 fL (36.4-46.3); Red Blood Count 3.73 M/uL (4.2-5.4); White Blood Count 12.92 K/uL (4.8-10.8)
[2021-11-10 08:21] LABS: BUN Creatinine Ratio 12.5 (10-20); Calcium 9.1 mg/dl (8.5-10.1); Creatinine Clr Calc Pharmacy 119.7 ml/min; Est GFR (African American) 96.2 ml/min; Potassium 4.1 mmol/L (3.5-5.1)
[2021-11-10] MEDS: INSULIN ASPART PER UNIT SC SCH ×4 (08:30→21:32)
[2021-11-10] MEDS: ADVANCED PROBIOTIC 1250 MG CAPSULE PO SCH (09:01)
[2021-11-10] MEDS: METOPROLOL SUCC 25MG EXT REL TAB PO SCH (09:02)
[2021-11-10] MEDS: INSULIN GLARGINE SOLOSTAR 100 UNITS/ML 3 ML PEN SC SCH ×2 (09:02→21:48)
[2021-11-10] MEDS: lisinopril 20 MG TAB PO SCH (09:02)
[2021-11-10] MEDS: POTASSIUM CHLORIDE CRTAB 20 MEQ TABCR PO SCH (09:02)
[2021-11-10] MEDS: DULoxetine HCL 60 MG CAP PO SCH (09:02)
[2021-11-10] MEDS: ENOXAPARIN INJ 40 MG/0.4 ML SYR SQ SCH ×2 (09:03→21:44)
[2021-11-10] MEDS ORDERED: VANCOMYCIN TROUGH ONE (10:30)
[2021-11-10] MEDS: ACETAMINOPHEN 325 MG TAB PO PRN (11:11)
[2021-11-10] MEDS: VANCOMYCIN HCL 1,250 MG in SODIUM CHLORIDE 0.9% 250 ML IV SCH ×2 (12:44→21:51)
--- NOTE | 2021-11-10 12:44 | Pharmacy Report ---
Pharmacy Vanc AUC Short Note - Date of Service November 10, 2021 - Assessment & Plan Assessment -56 year old F who presented with worsening pain in her lower leg wounds. Recent hospital admission in August. She was treated with cefepime + doxycycline while admitted and she was discharged on 09/07/21 on doxycycline + cefdinir. Patient reported feeling well after discharge for approximately two weeks and then pain returned and worsened. Recently placed on Bactrim for Serratia marcescens. Blood cultures show no growth at 24 hours. -Started on vancomcyin + pip-tazo on admission. Low threshold to transition vancomcyin to daptomycin based on dosing difficulty with BMI 54. * so far, renal function stable and initial vanco level (described below) appropriate -h/o Serratia marcescens (10/2021 - R leg) MRSA & group B beta strep (09/2021 - R leg), Morganella morganii (08/2021 - urine) Plan Vancomycin * AUC/JESI is the preferred PK/PD target for vancomycin * AUC guided dosing is effective and associated with decreased risk of nephrotoxicity compared to traditional trough targets * Trough level of 12.8 mcg/mL is predicted to achieve target AUC/JESI of 400-600 mg/L.hr and may be associated with a 9 % risk of nephrotoxicity * Continue dose of 1250 mg IV every 12 hours * Recheck trough level 11/12/21 given risk of accumulation in patient with increased BMI Zosyn * 4.5 g IV q8h appropriate based on BMI and renal function Pharmacy will continue to follow and will adjust dose/frequency as necessary. Thank you.
[2021-11-10] MEDS ORDERED: FUROSEMIDE 40 MG/4 ML VIAL IV ONE (16:07)
--- NOTE | 2021-11-10 16:10 | Hospitalist Progress Note ---
Date of Service November 10, 2021 Assessment & Plan (1) Bilateral lower leg cellulitis: Plan: #. Venous stasis ulcers of both lower extremities #. Recurrent Bilateral lower leg cellulitis Patient with chronic venous stasis ulcer since August 2021, follows up with wound care clinic after recent hospitalization in August 2021 for BLE cellulitis. Completed multiple courses of antibiotics since August, including cefdinir plus doxycycline followed by another course of antibiotic for MRSA and strep in September. Was recently on Bactrim. 10/31 wound culture: Serratia Admitting venous Doppler BLE: Negative for DVT. Admitting blood culture: Pending, [id number] Cellulitic appearance of BLE improving. Appreciate WOCN input. Bactrim DC'd, continue with vancomycin 11/08 and Zosyn 11/08. ID consult, await recs. #. Acute on chronic diastolic heart failure Patient presenting with complaint of shortness of breath with exertion and peripheral edema. Patient does have a history of CHF and is on Lasix. Patient does mention compliance with medication. Admitting CXR: Cardiomegaly with mild pulmonary edema. Had recent echo. transition to home pO lasix from [facility]. Currently on 3 L oxygen at bedside (which is her baseline), BLE edema and subjective SOB improving. Continue with home meds. Low-salt diet and daily weights. #. Abnormal CT of the abdomen Admitting CT AP: Suggestive of inflammatory versus infectious process in right upper quadrant. Follow-up US gallbladder negative for cholecystitis. Admitting Pro-Gareth and lactate WNL. Patient did have vomiting on the day of her arrival and some nausea. Could be reaction to Bactrim started recently 10/31 versus intra-abdominal infection. Finding on CT nonspecific, see above. Patient denies any further vomiting or belly pain. She does complain of some nausea. Continue to monitor, continue with Zosyn. Antiemetics. Repeat abdominal CT in 6 months to monitor reactive LAD. c/w probiotic #. Other chronic medical conditions: DM type II, history of PE, obesity, chronic respiratory failure Continue with/resume home medication when appropriate. Continue sliding scale insulin. Recent A1c 8 in August 2021. Continue with duloxetine for neuropathic pain. Lifestyle changes recommended to increase lean muscle mass and improve percent body fat. Basal insulin minimal as pt not eating much, adjust as diet improves. h/o CAROLYN on chronic 3L NC. #. DVT prophylaxis: Lovenox #. Full code #. Disposition: med/tele, Will need PCP/Wound care/Cardio f/u as OP. Admission and Anticipated Discharge Date Admission Date: November 08, 2021 Subjective Patient seen and examined at bedside for follow-up of acute on chronic diastolic heart failure, bilateral lower leg cellulitis, abnormal CT of the abdomen and venous stasis ulcers of both lower extremities. Patient was lying in bed, on 3 L nasal cannula oxygen, NAD, no new acute events overnight. Patient reports having 2 diarrheal movements in the morning. Pt reports nausea and dry heaves. Patient reports improving subjective feeling of shortness of breath. Patient reports having very little appetite. Per RN patient is eating less, states she is moving bowels okay. Patient denies any nausea, vomiting, headache, dizziness, belly pain, chest pain, other review of s ymptoms. Physical Exam Physical Exam: GENERAL: Alert and oriented x3. NAD, on 3L NC O2. Morbid obesity. HEENT: No pallor, no icterus. Pupils equal, round and reactive to light. Oral mucosa moist. NECK: No JVD, no neck masses. HEART: S1 and S2 heard. Regular rate and rhythm. No murmur, no gallop. RESPIRATORY SYSTEM: Normal AP diameter. No accessory muscle use. No wheezing, no crackles. Decreased breath sounds (2/2 morbid obesity) ABDOMEN: Soft, bowel sounds present, nontender, no distention. CENTRAL NERVOUS SYSTEM: No facial droop. Speech is clear. Obeys simple commands. Moves extremities. EXTREMITIES: 1+ BLE edema, Chronic skin changes BLE noted, Ble erythema improving. Results & Data Results & Data ([facility]) Vital Signs (Past 12 Hours) Vital Signs Temp Pulse Resp BP BP Pulse Ox 11/10/21 15:20 36.9 C 74 19 137/88 94 11/10/21 11:11 36.9 C 73 16 95/51 L 98 11/10/21 07:13 36.7 C 75 16 121/62 95
[2021-11-10] MEDS: ONDANSETRON INJ 2 MG/ML 2 ML VIAL IV PRN (16:53)
[2021-11-10] MEDS: HYDROCODONE/ACETAMOPHEN 5/325MG TAB PO PRN (23:54)
[2021-11-11] MEDS: PIPERACILLIN/TAZOBACTAM 4.5 GM in DEXTROSE 5% 100 ML IV SCH (06:03)
[2021-11-11] MEDS: ONDANSETRON INJ 2 MG/ML 2 ML VIAL IV PRN ×2 (06:46→13:30)
[2021-11-11] MEDS ORDERED: LINEZOLID CONSULT ACTIVE PRN (07:24)
[2021-11-11 08:45] LABS: Hematocrit (blood only) 33.7 % (37-47); Hemoglobin 10.7 g/dL (12.0-16.0); Mean Corpuscular Hemoglobin 28.9 pg (25-34); Mean Corpuscular Hgb Conc 31.8 g/dL (32-36); Mean Corpuscular Volume 91.1 fL (80-100); Mean Platelet Volume 9.3 fL (7.4-10.4); Platelet Count 278 K/uL (130-400); RDW Coefficient of Variation 18.1 % (11.5-14.5); RDW Standard Deviation 60.5 fL (36.4-46.3); White Blood Count 12.54 K/uL (4.8-10.8)
[2021-11-11] MEDS: METOPROLOL SUCC 25MG EXT REL TAB PO SCH (09:12)
[2021-11-11] MEDS: DULoxetine HCL 60 MG CAP PO SCH (09:12)
[2021-11-11] MEDS: FUROSEMIDE 40 MG TAB PO SCH (09:12)
[2021-11-11] MEDS: ADVANCED PROBIOTIC 1250 MG CAPSULE PO SCH (09:13)
[2021-11-11] MEDS: lisinopril 20 MG TAB PO SCH (09:13)
[2021-11-11] MEDS: CIPROFLOXACIN 500 MG TAB PO SCH ×2 (09:13→21:16)
[2021-11-11] MEDS: INSULIN GLARGINE SOLOSTAR 100 UNITS/ML 3 ML PEN SC SCH ×2 (09:15→21:22)
[2021-11-11] MEDS: INSULIN ASPART PER UNIT SC SCH ×4 (09:17→21:22)
[2021-11-11 09:23] LABS: Creatinine Clr Calc Pharmacy 82.5 ml/min; Est GFR (African American) 61.4 ml/min
[2021-11-11] MEDS: ACETAMINOPHEN 325 MG TAB PO PRN (10:28)
[2021-11-11] MEDS: POTASSIUM CHLORIDE CRTAB 20 MEQ TABCR PO SCH (10:58)
[2021-11-11] MEDS: ENOXAPARIN INJ 40 MG/0.4 ML SYR SQ SCH ×2 (10:59→22:00)
[2021-11-11] MEDS: LINEZOLID 600 MG TAB PO SCH ×2 (10:59→21:15)
--- NOTE | 2021-11-11 15:54 | Hospitalist Progress Note ---
Date of Service November 11, 2021 Assessment & Plan (1) Bilateral lower leg cellulitis: Plan: #. Venous stasis ulcers of both lower extremities #. Recurrent Bilateral lower leg cellulitis Patient with chronic venous stasis ulcer since August 2021, follows up with wound care clinic after recent hospitalization in August 2021 for BLE cellulitis. Completed multiple courses of antibiotics since August, including cefdinir plus doxycycline followed by another course of antibiotic for MRSA and strep in September. Was recently on Bactrim. 10/31 wound culture: Serratia Admitting venous Doppler BLE: Negative for DVT. Admitting blood culture: Pending, [id number] Cellulitic appearance of BLE improving. Appreciate WOCN input. Bactrim DC'd, continue with vancomycin 11/08 and Zosyn 11/08 --> ID evaluated 11/10 --> 11/11 Linezolid 600 mg BID and cipro 500 mg BID for total of 7-14 days depending on clinical response. C/w Probiotic & Leg elevation. #. Acute on chronic diastolic heart failure Patient presenting with complaint of shortness of breath with exertion and peripheral edema. Patient does have a history of CHF and is on Lasix. Patient does mention compliance with medication. Admitting CXR: Cardiomegaly with mild pulmonary edema. Had recent echo. c/w home lasix Currently on 3 L oxygen at bedside (which is her baseline), BLE edema and subjective SOB improved. Continue with home meds. Low-salt diet and daily weights. #. Abnormal CT of the abdomen Admitting CT AP: Suggestive of inflammatory versus infectious process in right upper quadrant. Follow-up US gallbladder negative for cholecystitis. Admitting Pro-Gareth and lactate WNL. Patient did have vomiting on the day of her arrival and some nausea. Could be reaction to Bactrim started recently 10/31 versus intra-abdominal infection. Finding on CT nonspecific, see above. Patient denies any further vomiting or belly pain. She reports improving nausea. no belly pain. Continue to monitor, Pt on antibiotic (see above). Antiemetics. Repeat abdominal CT in 6 months to monitor reactive LAD. c/w probiotic #. Other chronic medical conditions: DM type II, history of PE, obesity, chronic respiratory failure Continue with/resume home medication when appropriate. Continue sliding scale insulin. Recent A1c 8 in August 2021. Pt agreed to hold duloxetin as long as she is on linezolid. Lifestyle changes recommended to increase lean muscle mass and improve percent body fat. Basal insulin minimal as pt not eating much, adjust as diet improves. h/o CAROLYN on chronic 3L NC. #. DVT prophylaxis: Lovenox #. Full code #. Disposition: med/tele, Will need PCP/Wound care/Cardio f/u as OP. Expect DC bernard if no new issues arise. Admission and Anticipated Discharge Date Admission Date: November 08, 2021 Subjective Patient seen and examined at bedside for follow-up of acute on chronic diastolic heart failure, bilateral lower leg cellulitis, abnormal CT of the abdomen and venous stasis ulcers of both lower extremities. Patient was sitting up in bed, on 3 L nasal cannula oxygen, NAD, no new acute events overnight. Patient reports feeling better, decreasing nausea, decreasing leg pain, diarrhea getting better. Patient denies shortness of breath. Patient reports tolerating diet better. Patient denies any nausea, vomiting, headache, dizziness, belly pain, chest pain, other review of symptoms. Physical Exam Physical Exam: GENERAL: Alert and oriented x3. NAD, on 3L NC O2. Morbid obesity. HEENT: No pallor, no icterus. Pupils equal, round and reactive to light. Oral mucosa moist. NECK: No JVD, no neck masses. HEART: S1 and S2 heard. Regular rate and rhythm. No murmur, no gallop. RESPIRATORY SYSTEM: Normal AP diameter. No accessory muscle use. No wheezing, no crackles. Decreased breath sounds (2/2 morbid obesity) ABDOMEN: Soft, bowel sounds present, nontender, no distention. CENTRAL NERVOUS SYSTEM: No facial droop. Speech is clear. Obeys simple commands. Moves extremities. EXTREMITIES: Trace BLE edema, Chronic skin changes BLE noted, Ble erythema improving. Results & Data Results & Data ([facility]) Vital Signs (Past 12 Hours) Vital Signs Temp Pulse Pulse Resp BP BP Pulse Ox 11/11/21 15:04 36.9 C 72 16 110/65 96 11/11/21 11:53 36.5 C 68 20 107/61 98 11/11/21 07:57 36.5 C 78 20 155/72 H 96 11/11/21 07:36 83 11/11/21 04:06 36.6 C 72 18 95/61 L 95
[2021-11-11] MEDS: HYDROCODONE/ACETAMOPHEN 5/325MG TAB PO PRN (19:26)
[2021-11-12] MEDS: ACETAMINOPHEN 325 MG TAB PO PRN ×2 (01:27→10:40)
[2021-11-12] MEDS: HYDROCODONE/ACETAMOPHEN 5/325MG TAB PO PRN (05:47)
[2021-11-12] MEDS: METOPROLOL SUCC 25MG EXT REL TAB PO SCH (08:33)
[2021-11-12] MEDS: lisinopril 20 MG TAB PO SCH (08:33)
[2021-11-12] MEDS: ADVANCED PROBIOTIC 1250 MG CAPSULE PO SCH (08:33)
[2021-11-12] MEDS: CIPROFLOXACIN 500 MG TAB PO SCH (08:34)
[2021-11-12] MEDS: LINEZOLID 600 MG TAB PO SCH (08:34)
[2021-11-12] MEDS: POTASSIUM CHLORIDE CRTAB 20 MEQ TABCR PO SCH (08:57)
[2021-11-12] MEDS: INSULIN ASPART PER UNIT SC SCH ×2 (08:57→13:10)
[2021-11-12] MEDS: INSULIN GLARGINE SOLOSTAR 100 UNITS/ML 3 ML PEN SC SCH (08:57)
[2021-11-12] MEDS: FUROSEMIDE 40 MG TAB PO SCH (09:55)
[2021-11-12] MEDS ORDERED: VANCOMYCIN TROUGH ONE (10:30)
[2021-11-12] MEDS: ENOXAPARIN INJ 40 MG/0.4 ML SYR SQ SCH (10:41)
--- NOTE | 2021-11-12 12:17 | Discharge Summary ---
Date of Service November 12, 2021 Admission HPI Per Admitting Provider 56 yo obese F with chronic hypoxic respiratory failure presents with worsening pain in her lower leg wounds. She reports having venous wounds since Aug 2021 and was hospitalized for bilateral cellulitis at this time. She reported feeling well after discharge for approximately two weeks into September and then her pain returned and gradually worsened. She has been on intermittent antibiotics, most recently being placed on Bactrim over the past week in response to a leg wound growing serratia marcens. She doesn't think she had any issues with Bactrim, and denies additional symptoms until just this morning when she had vomiting x 2 and persistent nausea. She feels the pain is likely contributing to this nausea, however, isn't sure about the Bactrim as a cause. She reports feeling very confused about how she feels, and seems slightly overwhelmed with the questions. For example, when I asked how she treated her leg pain at home, initially she said Tylenol but then I asked if she used anything stronger to w hich she replied "vicodin every four hours." She reported having it left over, and said that it worked for her pain. She then stated that she didn't take it that much and didn't know what she was saying because she was confused. She does report some increased swelling and increased SOB with exertion. She does have pulmonary edema on her chest xray, and reports that she is not surprised by this. She denies any fevers, chills or abdominal pain. She reports eating and tolerating PO prior to today and normal BMs. She reports an iodine contrast allergy and refuses CT chest with contrast. She does have a h/o PE in the past but is not working to breathe, reporting any pleurisy and lower extremity us are clear of VTE. D-dimer is elevated which may be attributed to her leg wounds. CT abd/pelvis reveals nonspecific inflammatory/infection in the RUQ region and multiple enlarged retroperitoneal lymph nodes which are non specific. Trace right pleural effusion is seen. Gallbladder US is pending. Admission Exam Per Admitting Provider CONSTITUTIONAL: obese, vitals as above, generally ill-appearing, in mild d istress. Lying on left side with pain/discomfort with any movement. EYES: PERRL, normal conjunctivae, no scleral icterus ENT: external ear and nose normal, MMM NECK: trachea midline, RESPIRATORY: clear to auscultation bilaterally, no crackles, rales or wheezes, poor respiratory effort, 3L NC in place. CARDIOVASCULAR: regular rate and rhythm, S1 and 2 heard without murmurs, gallops or rubs, no JVD, no peripheral edema, no carotid bruits CHEST: inspection of chest was normal GASTROINTESTINAL: soft, nontender, ND, no guarding MUSCULOSKELETAL: strength 5/5 throughout, head is normocephalic and atraumatic SKIN: warm and dry, large closed leg wounds on anterior lower legs bilaterally. Purplish hue to these with surrounding erythema and there are whitish plaques present, also. Very tender to palpation. Feet and toes also erythematous and swollen. NEUROLOGIC: CN 2-12 grossly intact, no sensory deficit, normal cognition, normal speech, no tremor PSYCHIATRIC: alert cooperative and oriented to person, place and time. Principal Diagnosis Acute on chronic diastolic heart failure Venous stasis ulcers of both lower extremities Recurrent BLE cellulitis Abnormal CT of the abdomen Discharge Exam GENERAL: Alert and oriented x3. NAD, on 3L NC O2. Morbid obesity. HEENT: No pallor, no icterus. Pupils equal, round and reactive to light. Oral mucosa moist. NECK: No JVD, no neck masses. HEART: S1 and S2 heard. Regular rate and rhythm. No murmur, no gallop. RESPIRATORY SYSTEM: Normal AP diameter. No accessory muscle use. No wheezing, no crackles. Decreased breath sounds (2/2 morbid obesity) ABDOMEN: Soft, bowel sounds present, nontender, no distention. CENTRAL NERVOUS SYSTEM: No facial droop. Speech is clear. Obeys simple commands. Moves extremities. EXTREMITIES: Trace BLE edema, Chronic skin changes BLE noted, Ble erythema improving. BLE clean dressings over the wound noted. Discharge Data Allergies Allergy/AdvReac Type Severity Reaction Status Date / Time bee venom protein (honey bee) Allergy Severe ANAPHYLAXIS Verified 11/08/21 14:55 shellfish derived Allergy Severe ANAPHYLACTI Verified 11/08/21 14:55 C iodine Allergy Intermediate SWELLING Verified 11/08/21 14:55 AND IRRITATION AT SITE Consultations 11/08/21 18:28 ED Decision to Admit Stat 11/09/21 16:17 Consult Infectious Diseases Routine Ordered Studies 11/08/21 17:21 US venous doppler LE BI Stat 11/08/21 17:28 CT abd pelvis wo con Stat 11/08/21 18:57 US gallbladder Stat Hospital Course (1) Bilateral lower leg cellulitis: 56 yo F was managed for the following: #. Venous stasis ulcers of both lower extremities #. Recurrent Bilateral lower leg cellulitis Patient with chronic venous stasis ulcer since August 2021, follows up with wound care clinic after recent hospitalization in August 2021 for BLE cellulitis. Completed multiple courses of antibiotics since August, including cefdinir plus doxycycline followed by another course of antibiotic for MRSA and strep in September. Was recently on Bactrim. 10/31 wound culture: Serratia Admitting venous Doppler BLE: Negative for DVT. Admitting blood culture:no growth upto the day of discharge. Cellulitic appearance of BLE improving. Appreciate WOCN input. Bactrim DC'd, was on vancomycin 11/08 and Zosyn 11/08 --> ID evaluated 11/10 --> 11/11 Linezolid 600 mg BID and cipro 500 mg BID for total of 7-14 days depending on clinical response. C/w Probiotic & Leg elevation. Pt is being DC'd on linezolid and cipro. Pt to f/u with PCP as OP. #. Acute on chronic diastolic heart failure Patient presenting with complaint of shortness of breath with exertion and peripheral edema. Patient does have a history of CHF and is on Lasix. Patient does mention compliance with medication. Admitting CXR: Cardiomegaly with mild pulmonary edema. Had recent echo. c/w home lasix Currently on 3 L oxygen at bedside (which is her baseline), BLE edema and subjective SOB improved. Continue with home meds. Low-salt diet and daily weights. Recommend OP cardio follow up. Pt aware. #. Abnormal CT of the abdomen Admitting CT AP: Suggestive of inflammatory versus infectious process in right upper quadrant. Follow-up US gallbladder negative for cholecystitis. Admitting Pro-Gareth and lactate WNL. Patient did have vomiting on the day of her arrival and some nausea. Could be reaction to Bactrim started recently 10/31 versus intra-abdominal infection. Finding on CT nonspecific, see above. Patient denies any further vomiting or belly pain. She reports improving nausea. no belly pain. Continue to monitor, Pt on antibiotic (see above). Antiemetics. Repeat abdominal CT in 6 months to monitor reactive LAD. c/w probiotic #. Other chronic medical conditions: DM type II, history of PE, obesity, chronic respiratory failure Continue with/resume home medication when appropriate. Continue sliding scale insulin. Recent A1c 8 in August 2021. Pt agreed to hold duloxetin as long as she is on linezolid. Lifestyle changes recommended to increase lean muscle mass and improve percent body fat. Pt refused insulin while in hospital, recommend f/u with PCP for further management of her DM. Resume home med upon DC. h/o CAROLYN on chronic 3L NC. #. Full code Patient is being discharged home with following instruction at the point of discharge: Follow-up with your primary care physician within a week time. Follow-up with wound care clinic as an outpatient. You will be discharged on linezolid and ciprofloxacin for 10 days, recommend to follow-up with PCP before the antibiotic completion to evaluate the wound and need to extend the antibiotic therapy. Your duloxetine has been held upon discharge, you can resume your duloxetine a day after completion of your linezolid. You will be discharged on probiotic. Get your blood work CBC and CMP done weekly for the duration of antibiotic. Maintain leg elevation and close follow-up with wound care clinic. You were also treated for acute on chronic diastolic heart failure, recommend to follow-up with cardiology as an outpatient in 3 to 4 weeks time. Maintain low salt diet, fluid restriction of 2 L per day, recommend weight loss. Since your A1c was elevated in recent past, recommend to follow-up with your primary care physician as an outpatient for further management/discussion on your diabetes. Your admitting CT scan of the abdomen/pelvis was suspicious for infectious/inflammatory process in right upper quadrant, repeat abdominal CT in 6 months to monitor is advised. Take medications as prescribed. Total Time Total Time Spent Total Time Spent (In Minutes): 35 Discharge Plan Discharge Items Patient Disposition: Home - Self-Care Reason For Visit: LEG PAIN, NAUSEA/VOMITING Discharge Diagnosis: Acute on chronic diastolic heart failure Venous stasis ulcers of both lower extremities Recurrent BLE cellulitis Abnormal CT of the abdomen Activity: Resume your previous activity Non-emergency contact: Primary Care Provider Call non-emergency contact if: you have any medication questions, your symptoms worsen and your temperature is above 101 Follow-up/Referrals: Latricia Le, DO [Primary Care Provider] - Diet: Carb Consistent or DM2 and Low Sodium (2gm) Addtl Attending Provider Instructions: Follow-up with your primary care physician within a week time. Follow-up with wound care clinic as an outpatient. You will be discharged on linezolid and ciprofloxacin for 10 days, recommend to follow-up with PCP before the antibiotic completion to evaluate the wound and need to extend the antibiotic therapy. Your duloxetine has been held upon discharge, you can resume your duloxetine a day after completion of your linezolid. You will be discharged on probiotic. Get your blood work CBC and CMP done weekly for the duration of antibiotic. Maintain leg elevation and close follow-up with wound care clinic. You were also treated for acute on chronic diastolic heart failure, recommend to follow-up with cardiology as an outpatient in 3 to 4 weeks time. Maintain low salt diet, fluid restriction of 2 L per day, recommend weight loss. Since your A1c was elevated in recent past, recommend to follow-up with your primary care physician as an outpatient for further management/discussion on your diabetes. Your admitting CT scan of the abdomen/pelvis was suspicious for infectious/inflammatory process in right upper quadrant, repeat abdominal CT in 6 months to monitor is advised. Take medications as prescribed. Pending Studies at Discharge: Yes (admitting final blood culture results. ) Stand-Alone Forms: [facility] [email or web address], Smoking Cessation Medications and DC Order Prescriptions: New ciprofloxacin HCl 500 mg Tablet 500 mg PO BID 10 Days Qty: 20 RF: 0 linezolid 600 mg Tablet 600 mg PO BID 10 Days Qty: 20 RF: 0 hydrocodone-acetaminophen 5-325 mg Tablet 1 tab PO Q8H PRN (Reason: pain (scale score 7-10)) 3 Days Qty: 9 RF: 0 Advanced Probiotic 625 mg (10 billion cell) Capsule 2 cap PO DAILY 14 Days Qty: 28 RF: 0 ondansetron HCl 4 mg tablet 4 mg PO Q12H 7 Days Qty: 14 RF: 0 Continued glipizide 5 mg tablet extended release 24 hr 10 mg PO QAM RF: 0 Combivent Respimat 20-100 mcg/actuation Mist 1 puff INHALATION QID PRN (Reason: Shortness Of Breath Or Wheezing) RF: 0 acetaminophen [Tylenol Extra Strength] 500 mg Tablet 500 - 1,000 mg PO Q6H PRN (Reason: Pain) RF: 0 albuterol sulfate 90 mcg/actuation Hfa Aerosol Inhaler 2 puff INHALATION QID PRN (Reason: Shortness Of Breath) RF: 0 furosemide [Lasix] 40 mg tablet 40 mg PO QAM RF: 0 potassium chloride [Klor-Con M20] 20 mEq tablet,ER particles/crystals 20 meq PO DAILY RF: 0 lisinopril 20 mg Tablet 20 mg PO QAM RF: 0 metoprolol succinate 25 mg Tablet Extended Release 24 Hr 75 mg PO QAM RF: 0 Discontinued sulfamethoxazole-trimethoprim [Bactrim DS] 800-160 mg tablet 1 tab PO BID 10 Days Qty: 20 RF: 0 duloxetine 60 mg capsule,delayed release(DR/EC) 60 mg PO DAILY RF: 0 Discharge Orders: Discharge Order (Routine); Ordered 11/12/21 Ordered By: Tej Wheeler Admission Data Admit Date/Time: 11/08/21 20:08 Attending Provider: Tej Wheeler Admit Provider: Viviana Tillman Primary Care Provider: Latricia Le Other Providers: Viviana Tillman ; Michel Walter ; Anette Austin ; Jono Ferrari I. ; Lavell Wilkerson II ; Swathi De Anda ; Shine Vallejo ; Tico Souza
== END 2021-11-12 15:25 | disposition home or self-care (01) | DRG 291 ==
LOC: ED 13:57 → SUATTDRO 20:08 → 2N 20:08

== ENCOUNTER 2024-04-11 19:06 | Inpatient (IN) ==
[2024-04-11 20:16] LABS: Albumin Level 3.9 gm/dl (3.4-5.0); BUN Creatinine Ratio 20.9 (10-20); Bilirubin,Total 0.6 mg/dl (0.2-1.0); Creatinine Clr Calc Pharmacy 109.9 ml/min; Est GFR (African American) 86.9 ml/min; Globulin 3.8 gm/dl (2.5-4.0); Magnesium 2.2 mg/dl (1.7-2.4); Potassium 3.9 mmol/L (3.5-5.1); Total Protein 7.7 gm/dl (6.0-8.3)
[2024-04-11 20:21] LABS: Basophils # (auto) 0.06 K/uL (0.00-0.20); Basophils % (auto) 0.6 %; Eosinophils # (auto) 0.28 K/uL (0.00-0.50); Eosinophils % (auto) 2.6 %; Hematocrit (blood only) 40.6 % (37.0-47.0); Hemoglobin 12.5 g/dl (12.0-16.0); Immature Granulocytes # (auto) 0.03 K/uL (0.01-0.20); Immature Granulocytes % (auto) 0.3 %; Lymphocytes % (auto) 18.8 %; Mean Corpuscular Hemoglobin 26.1 pg (25.0-34.0); Mean Corpuscular Hgb Conc 30.8 g/dL (32.0-36.0); Mean Corpuscular Volume 84.8 fL (80.0-100.0); Mean Platelet Volume 10.2 fL (9.4-12.4); Monocytes # (auto) 0.56 K/uL (0.11-0.59); Monocytes % (auto) 5.3 %; Neutrophils # (auto) 7.73 K/uL (1.40-6.50); Neutrophils % (auto) 72.4 %; Platelet Count 239 K/uL (130-400); RDW Coefficient of Variation 17.8 % (11.5-14.5); RDW Standard Deviation 54.4 fL (36.4-46.3); Red Blood Count 4.79 M/uL (4.20-5.40); White Blood Count 10.66 K/ul (4.8-10.8)
[2024-04-11 20:24] LABS: Troponin I High Sensitivity 18.3 pg/ml (0-14)
[2024-04-11] MEDS: diphenhydrAMINE 50 MG/ML VIAL IV STA (20:38)
[2024-04-11] MEDS: OPTIRAY 320 125ml IV ONE (20:48)
--- NOTE | 2024-04-11 21:18 | Emergency Department Note ---
Impression & Plan Hypoxia, Hypervolemia, Cellulitis of both lower extremities ED Provider Note NAME: WILFRID WASHINGTON AGE: 58 SEX: F : 1965 ARRIVES VIA: Walk-In INFORMANT: Patient ED PROVIDER(S): Misael Newberry MD CHIEF COMPLAINT: Shortness of breath, elevated D-dimer, bilateral lower extremity cellulitis/swelling, referred. PLAN: Disposition: Admit MEDICAL DECISION MAKING: The patient is a pleasant 58-year-old woman with a past medical history of chronic lower extremity edema, diastolic heart failure, obesity hypoventilation syndrome on O2 qhs, diabetes, anxiety, history of pulmonary embolism not on anticoagulation who presents to the emergency department via walk-in referred by her primary care doctor's office after she was seen in follow-up for cellulitis following ER visit on 03/17 which has not been improving with Keflex. Patient reports that her oxygen was noted to be in the mid 70s on room air when she arrived to the office but given she has oxygen at home was not sent to the emergency department immediately. She had blood work performed and D-dimer was elevated and then was referred to the emergency department. She also adds that her leg swelling and cellulitis is not improved with continued weeping and development of small isolated wounds. She reports she has an appointment scheduled with the wound clinic next week for the first time. Of note, the patient did arrive to emergency department during time of high volume, acuity and prolonged emergency department waiting times. Critical pathways initiated from triage. On evaluation the patient is fatigued appearing but no distress, afebrile with O2 saturation in the 80s on room air improving to the mid 90s on 4 L nasal cannula. Vital signs otherwise stable. She appears hypervolemic. EKG without overt acute ischemia. CXR negative for acute cardiopulmonary process per my personal preliminary review/interpretation. WBC, H/H and platelets within normal limits. Chemistry without metabolic acidosis. High-sensitivity troponin is 18.3, nonspecific and BNP within normal limits. ESR and CRP are elevated at 72 and 4.3, respectively. Procalcitonin is not elevated. Blood culture was drawn and patient was treated with empiric Zosyn and daptomycin given worsening severity of cellulitis. She is additionally ordered for 40 g of IV Lasix. Patient felt that she would be unable to tolerate ultrasound study at this time and so will defer bilateral lower extremity Dopplers to admitting team. Case was discussed with Dr. Brambila, [facility], who will evaluate the patient for admission. Further management per admitting team. Triage Nursing notes reviewed and agree them. Prior/external medical records reviewed Vital Signs: reviewed Differential diagnosis: Reactive airway disease, pneumonia, pneumothorax, COPD, CHF, infections, cardiac ischemia, pulmonary embolism, musculoskeletal, gastrointestinal, as well as other pathologies. ER treatment provided: See below. Diagnostics interpreted by me: ECG: Normal sinus rhythm, 75 bpm, LVH, no overt ST elevation or depression, QTc 413, QRS 72. Cardiac Monitoring: An order for continuous cardiac monitoring was placed and demonstrated Normal sinus rhythm, 75 bpm, ectopy. Laboratory studies: See below Imaging studies: See below Consultation(s): Case was discussed with Dr. Brambila, [facility], who will evaluate the patient for admission. HPI: The patient is a pleasant 58-year-old woman with a past medical history of chronic lower extremity edema, diastolic heart failure, obesity hypoventilation syndrome on O2 qhs, diabetes, anxiety, history of pulmonary embolism not on anticoagulation who presents to the emergency department via walk-in referred by her primary care doctor's office after she was seen in follow-up for cellulitis following ER visit on 03/17 which has not been improving with Keflex. Patient reports that her oxygen was noted to be in the mid 70s on room air when she arrived to the office but given she has oxygen at home was not sent to the emergency department immediately. She had blood work performed and D-dimer was elevated and then was referred to the emergency department. She also adds that her leg swelling and cellulitis is not improved with continued weeping and development of small isolated wounds. She reports she has an appointment scheduled with the wound clinic next week for the first time. ROS: See above HPI for pertinent positives & negatives. A total of 10 systems reviewed and were otherwise negative. VITALS:See Below PHYSICAL EXAMINATION: GENERAL: Awake, alert, in no distress, BMI 54.2. HENT: Normocephalic, atraumatic. Oropharynx unremarkable. EYES: Normal conjunctiva. Sclera non-icteric. NECK: Supple. No nuchal rigidity. FROM. No JVD. RESPIRATORY: Diminished at the bases and otherwise clear. CARDIAC: Regular rate, normal rhythm. Extremities warm and well perfused. Pulses equal. MUSCULOSKELETAL: Chest examination reveals no tenderness. The back is symmetrical on inspection without obvious abnormality. There is no CVA tenderness to palpation. No joint edema. LOWER EXTREMITIES: 3+ BLE pitting edema. Redness, warmth, ,tenderness, and serous weeping bilaterally with numerous subcentimeter superficial ulcerations. No crepitus. NEURO: Normal sensorium. No sensory or motor deficits noted. SKIN: No rash or jaundice noted. Misael Newberry MD Past Med/Surg History Problem List (Updated 04/12/24 @ 02:24 by Misael Newberry MD) Cellulitis of both lower extremities (Acute) Hypervolemia (Acute) Hypoxia (Acute) Chronic respiratory failure DVT prophylaxis Abnormal CT of the abdomen Bilateral lower leg cellulitis Venous stasis ulcers of both lower extremities (Acute) Leukocytosis (Acute) Anemia (Acute) Shortness of breath (Acute) Abdominal pain (Acute) D-dimer, elevated (Acute) Elevated troponin (Acute) Lower extremity edema (Acute) Acute hypoxemic respiratory failure Hypertensive heart disease Acute on chronic diastolic HF (heart failure) Pulmonary edema (Acute) Hypoxia (Acute) Edema, peripheral (Acute) Hypokalemia (Acute) Obesity hypoventilation syndrome Obstructive sleep apnea Noncompliance Acute diastolic CHF (congestive heart failure), NYHA class 3 Asthma Asthma with exacerbation (Acute) Elevated troponin I level (Acute) Congestive heart failure with left ventricular diastolic dysfunction, NYHA class 1 (Acute) Diabetes mellitus, type II (Chronic) HTN (hypertension) (Chronic) Chronic back pain (Chronic) Hypoxia (Acute) Obesity (Chronic) Anxiety (Chronic) History of pulmonary embolism (Chronic) Shortness of breath (Acute) Medical History Diabetes Family History Other Breast cancer COPD (chronic obstructive pulmonary disease) Coronary heart disease Diabetes Hypertension Sudden cardiac arrest Social History Smoking Status: Never smoker Second Hand Exposure: No; Do You Dip or Chew Tobacco: No; Hx Alcohol Use: No Hx Substance Use: No Preferred Language: Latvian Communication Ability: Effective Assisted Living Manager Required: No Beliefs That Will Affect Care: None Current Living Situation: Significant Other Current Living Situation Comment: Fiance current occupational status: employed Feels Safe at Home: Yes Diet: diabetic and low salt Diet Comment: 80oz a day Fluid Restriction caffeine: No during the past year weight has: decreased > 10 lbs Assistive Devices: Glasses and Oxygen - Continuous Allergies Allergies Allergy/AdvReac Type Severity Reaction Status Date / Time bee venom protein (honey bee) Allergy Severe ANAPHYLAXIS Verified 11/08/21 14:55 shellfish derived Allergy Severe ANAPHYLACTI Verified 11/08/21 14:55 C iodine Allergy Intermediate SWELLING Verified 11/08/21 14:55 AND IRRITATION AT SITE Home Meds Home Medications Medication Instructions Recorded Confirmed acetaminophen 500 mg tablet 500 - 1,000 mg PO Q6H PRN Pain 01/28/19 11/08/21 (Tylenol Extra Strength) ipratropium 20 mcg-albuterol 100 1 puff inhalation QID PRN 11/28/19 11/08/21 mcg/actuation mist for inhalation Shortness Of Breath Or Wheezing (Combivent Respimat) albuterol sulfate 90 mcg/actuation 2 puff inhalation QID PRN 08/22/21 11/08/21 aerosol inhaler Shortness Of Breath lisinopril 20 mg tablet 20 mg PO QAM 09/02/21 11/08/21 metoprolol succinate 25 mg 75 mg PO QAM 09/02/21 11/08/21 tablet,extended release 24 hr glipizide 5 mg tablet, extended 10 mg PO QAM 10/03/21 11/08/21 release 24 hr furosemide 40 mg tablet (Lasix) 40 mg PO QAM 11/08/21 11/08/21 potassium chloride 20 mEq 20 meq PO DAILY 11/08/21 11/08/21 tablet,extended release(part/cryst) (Klor-Con M) Results & Data (ED) Vital Signs Vital Signs - 24 hr 04/11/24 19:11 04/11/24 19:15 04/11/24 20:56 Temperature 36.5 C Temperature Source Temporal Artery Scan Pulse Rate 88 Pulse Rate [Apical] Pulse Rate from SpO2 Sensor Pulse Rhythm [Apical] Pulse Strength [Apical] Respiratory Rate 22 Respiratory Effort / Characteristics Respiratory Depth Respiratory Pattern Blood Pressure 171/79 H 165/76 H Blood Pressure [Right Arm] Blood Pressure Mean 109 107 Blood Pressure Mean [Right Arm] Blood Pressure Position [Right Arm] Pulse Oximetry 83 L 83 L Oxygen Delivery Method Room Air Room Air Nasal Cannula Oxygen Flow Rate Sepsis Recent Fever Within 48 Hours No Sepsis New/Unexplained Change in Mental Status No Sepsis Action Taken by Nursing No Action Required Oxygen Flow Rate - Titration 4 Pulse Oximetry Post Tiitration 94 04/11/24 20:57 04/11/24 21:12 04/11/24 21:13 Temperature Temperature Source Pulse Rate 79 78 Pulse Rate [Apical] 78 Pulse Rate from SpO2 Sensor 79 Pulse Rhythm [Apical] Pulse Strength [Apical] Respiratory Rate 18 20 Respiratory Effort / Characteristics Respiratory Depth Respiratory Pattern Blood Pressure 149/69 H Blood Pressure [Right Arm] 149/69 H Blood Pressure Mean 95 Blood Pressure Mean [Right Arm] 95 Blood Pressure Position [Right Arm] Pulse Oximetry 96 96 Oxygen Delivery Method Nasal Cannula Oxygen Flow Rate 4 Sepsis Recent Fever Within 48 Hours Sepsis New/Unexplained Change in Mental Status Sepsis Action Taken by Nursing Oxygen Flow Rate - Titration Pulse Oximetry Post Tiitration 04/11/24 21:30 04/11/24 22:24 04/11/24 22:41 Temperature Temperature Source Pulse Rate 75 Pulse Rate [Apical] Pulse Rate from SpO2 Sensor 75 Pulse Rhythm [Apical] Pulse Strength [Apical] Respiratory Rate 14 Respiratory Effort / Characteristics Respiratory Depth Respiratory Pattern Blood Pressure 157/58 H 129/49 L Blood Pressure [Right Arm] Blood Pressure Mean 88 75 Blood Pressure Mean [Right Arm] Blood Pressure Position [Right Arm] Pulse Oximetry 96 Oxygen Delivery Method Room Air Oxygen Flow Rate Sepsis Recent Fever Within 48 Hours Sepsis New/Unexplained Change in Mental Status Sepsis Action Taken by Nursing Oxygen Flow Rate - Titration Pulse Oximetry Post Tiitration 04/11/24 23:00 04/12/24 00:55 04/12/24 01:38 Temperature Temperature Source Pulse Rate 74 67 Pulse Rate [Apical] 70 Pulse Rate from SpO2 Sensor 73 Pulse Rhythm [Apical] Regular Pulse Strength [Apical] Normal Respiratory Rate 14 18 Respiratory Effort / Characteristics Non-Labored Spontaneous Respiratory Depth Normal Respiratory Pattern Regular Blood Pressure 127/59 L Blood Pressure [Right Arm] 132/55 L Blood Pressure Mean 81 Blood Pressure Mean [Right Arm] 80 Blood Pressure Position [Right Arm] Sitting Pulse Oximetry 94 98 Oxygen Delivery Method Nasal Cannula Oxygen Flow Rate 4 Sepsis Recent Fever Within 48 Hours Sepsis New/Unexplained Change in Mental Status Sepsis Action Taken by Nursing Oxygen Flow Rate - Titration Pulse Oximetry Post Tiitration Laboratory Data Attestation: I reviewed the patient's lab results. 04/11/24 19:38 04/11/24 19:38 Lab Results 04/11/24 04/11/24 04/12/24 Range/Units 19:38 21:19 00:55 WBC 10.66 (4.8-10.8) K/ul RBC 4.79 (4.20-5.40) M/uL Hgb 12.5 (12.0-16.0) g/dl Hct 40.6 (37.0-47.0) % MCV 84.8 (80.0-100.0) fL MCH 26.1 (25.0-34.0) pg MCHC 30.8 L (32.0-36.0) g/dL RDW Std Deviation 54.4 H (36.4-46.3) fL RDW Coeff of Damian 17.8 H (11.5-14.5) % Plt Count 239 (130-400) K/uL MPV 10.2 (9.4-12.4) fL Immature Gran % (Auto) 0.3 % Neut % (Auto) 72.4 % Lymph % (Auto) 18.8 % Swain % (Auto) 5.3 % Eos % (Auto) 2.6 % Baso % (Auto) 0.6 % Neut # (Auto) 7.73 H (1.40-6.50) K/uL Lymph # (Auto) 2.00 (1.20-3.40) K/uL Swain # (Auto) 0.56 (0.11-0.59) K/uL Eos # (Auto) 0.28 (0.00-0.50) K/uL Baso # (Auto) 0.06 (0.00-0.20) K/uL Immature Gran # (Auto) 0.03 (0.01-0.20) K/uL ESR 72 H (0-30) mm/hr PT Cancelled 10.8 INR Cancelled 1.0 APTT Cancelled 24 PTT Ratio Cancelled 0.9 Sodium 134 L (136-145) mmol/L Potassium 3.9 (3.5-5.1) mmol/L Chloride 99 (98-107) mmol/L Carbon Dioxide 31 (21-32) mmol/L Anion Gap 4 (3-11) BUN 18 (6-23) mg/dl Creatinine 0.86 (0.6-1.2) mg/dl Est Cr Clr Drug Dosing 109.9 ml/min Est GFR ( Amer) 86.9 ml/min Est GFR (Non-Af Amer) 75.0 ml/min BUN/Creatinine Ratio 20.9 H (10-20) Glucose 92 (70-99(Fasting)) mg/dl Calcium 9.0 (8.6-10.3) mg/dl Magnesium 2.2 (1.7-2.4) mg/dl Total Bilirubin 0.6 (0.2-1.0) mg/dl AST 13 (13-39) U/L ALT 7 (7-52) U/L Alkaline Phosphatase 82 (34-104) U/L Troponin I High Sens 18.3 H (0-14) pg/ml C-Reactive Protein 4.43 H (0-0.5) mg/dl B-Natriuretic Peptide 63 (0-100) pg/ml Total Protein 7.7 (6.0-8.3) gm/dl Albumin 3.9 (3.4-5.0) gm/dl Globulin 3.8 (2.5-4.0) gm/dl Albumin/Globulin Ratio 1.0 (0.9-2) Procalcitonin < 0.02 (0-0.5) ng/ml Administered Medications Daptomycin 575 mg/ Syringe 11.5 mls @ 5.75 mls/min IV Q24H [facility]; Protocol Stop: 04/13/24 23:29 Last Admin: 04/12/24 00:10 Dose: 5.75 mls/min Documented By: MALLIKA Discontinued Medications Diphenhydramine HCl (Diphenhydramine 50 Mg/Ml Vial) 25 mg IV NOW STA Stop: 04/11/24 20:35 Last Admin: 04/11/24 20:38 Dose: 25 mg Documented By: LAURE Piperacillin Sod/Tazobactam Sod (Zosyn) 4.5 gm in 100 mls @ 200 mls/hr IV NOW ONE Stop: 04/11/24 23:56 Last Infusion: 04/12/24 00:41 Dose: Infused Documented By: Admin: 04/12/24 00:10 Dose: 200 mls/hr Documented By: MALLIKA Ioversol (Optiray 320 125ml) 119 ml IV ONCE ONE Stop: 04/11/24 20:48 Last Admin: 04/11/24 20:48 Dose: 119 ml Documented By: Imaging Data Radiologist's Impression: Chest CTA 04/11/24 19:51 Exam(s): CTA CHEST IV Amt: 119 ML [id number] EXAM: CT Angiography Chest With Intravenous Contrast CLINICAL HISTORY: Reason for exam: sob, elevated d-dimer, r/o PE. TECHNIQUE: Axial computed tomographic angiography images of the chest with intravenous contrast. CTDI is 28.14 mGy and DLP is 928.12 mGy-cm. Automated exposure control was utilized for the study. A dose lowering technique was utilized adhering to the principles of ALARA. MIP reconstructed images were created and reviewed. COMPARISON: 11/28/2019 FINDINGS: Limitations: Exam limited secondary to patient respiratory motion. Pulmonary arteries: Unremarkable. No large central pulmonary embolus. Aorta: No acute findings. No thoracic aortic aneurysm. Lungs: Linear atelectasis left upper lobe. No mass. Pleural space: Unremarkable. No significant effusion. No pneumothorax. Heart: Unremarkable. No cardiomegaly. No significant pericardial effusion. No evidence of RV dysfunction. Bones/joints: No acute fracture. No dislocation. Soft tissues: Unremarkable. Lymph nodes: Unremarkable. No enlarged lymph nodes. IMPRESSION: Exam limited as described above No large central pulmonary embolus Linear atelectasis left upper lobe Electronically signed by: Nishant Clolado MD 04/11/24 22:27 PM Discharge Plan Visit Data Chief Complaint: Abnormal Labs/Diagnostic Testing Stated Complaint: ABNORMAL LABS ED Provider: Misael Newberry Discharge Problem: Hypoxia, Hypervolemia, Cellulitis of both lower extremities Forms Stand Alone Forms: [facility] [employer] Prescriptions Prescriptions: No Action glipizide 5 mg tablet extended release 24 hr 10 mg PO QAM Combivent Respimat 20-100 mcg/actuation Mist 1 puff INHALATION QID PRN (Reason: Shortness Of Breath Or Wheezing) acetaminophen [Tylenol Extra Strength] 500 mg Tablet 500 - 1,000 mg PO Q6H PRN (Reason: Pain) albuterol sulfate 90 mcg/actuation Hfa Aerosol Inhaler 2 puff INHALATION QID PRN (Reason: Shortness Of Breath) furosemide [Lasix] 40 mg tablet 40 mg PO QAM potassium chloride [Klor-Con M20] 20 mEq tablet,ER particles/crystals 20 meq PO DAILY lisinopril 20 mg Tablet 20 mg PO QAM metoprolol succinate 25 mg Tablet Extended Release 24 Hr 75 mg PO QAM Referrals Referrals: Latricia Le DO [Primary Care Provider] - Discharge Problem: Hypervolemia Qualifiers: Hypervolemia type: unspecified Qualified Code(s): E87.70 - Fluid overload, unspecified
[2024-04-11 22:15] LABS: Partial Thromboplastin Ratio 0.9; Partial Thromboplastin Time 24 Seconds (21-31); Prothrombin Time 10.8 Seconds (9.0-12.0)
--- NOTE | 2024-04-11 22:28 | CT Scan Report ---
Exam(s): CTA CHEST IV Amt: 119 ML [id number] EXAM: CT Angiography Chest With Intravenous Contrast CLINICAL HISTORY: Reason for exam: sob, elevated d-dimer, r/o PE. TECHNIQUE: Axial computed tomographic angiography images of the chest with intravenous contrast. CTDI is 28.14 mGy and DLP is 928.12 mGy-cm. Automated exposure control was utilized for the study. A dose lowering technique was utilized adhering to the principles of ALARA. MIP reconstructed images were created and reviewed. COMPARISON: 11/28/2019 FINDINGS: Limitations: Exam limited secondary to patient respiratory motion. Pulmonary arteries: Unremarkable. No large central pulmonary embolus. Aorta: No acute findings. No thoracic aortic aneurysm. Lungs: Linear atelectasis left upper lobe. No mass. Pleural space: Unremarkable. No significant effusion. No pneumothorax. Heart: Unremarkable. No cardiomegaly. No significant pericardial effusion. No evidence of RV dysfunction. Bones/joints: No acute fracture. No dislocation. Soft tissues: Unremarkable. Lymph nodes: Unremarkable. No enlarged lymph nodes. IMPRESSION: Exam limited as described above No large central pulmonary embolus Linear atelectasis left upper lobe Electronically signed by: Nishant Collado MD 04/11/24 22:27 PM
[2024-04-12 00:01] LABS: C Reactive Protein 4.43 mg/dl (0-0.5)
[2024-04-12] MEDS: DAPTOmycin 575 MG in SYRINGE 0 ML IV SCH (00:10)
[2024-04-12] MEDS: PIPERACILLIN/TAZOBACTAM 4.5 GM/100 ML BAG IV ONE (00:10)
[2024-04-12] MEDS: ACETAMINOPHEN 1,000 MG/100 ML VIAL IV STA (02:55)
[2024-04-12] MEDS: FUROSEMIDE 40 MG/4 ML VIAL IV ONE (02:55)
[2024-04-12] MEDS: traMADol HCL 50 MG TABLET PO STA (02:56)
--- NOTE | 2024-04-12 03:44 | History & Physical Report ---
Date of Service April 12, 2024 Assessment & Plan (1) Acute diastolic (congestive) heart failure: Plan: 58-year-old female with past medical history significant for type 2 diabetes, obstructive sleep apnea, diastolic CHF, morbid obesity, anxiety, insomnia, de pression, night terrors went to PCP office today because of lower extremity cellulitis and also shortness of breath and when checked her D-dimer was elevated and was referred to the ER. Patient is having ongoing lower extremity infection. She was in the hospital in October with bilateral lower extremities cellulitis and cultures grew serratia. She was discharged on Zyvox and Cipro. She was in the ER on March 17, 2024 with lower leg wounds and she was given a shot of Rocephin and discharged on Keflex. Today again PCP prescribed Keflex and given a shot of Rocephin in the office. Patient says she has a lot of pain in the lower extremity. Having difficulty ambulating because of the pain. She uses oxygen 2 L when sleeping and in the daytime as needed. Was feeling short of breath lately. Denies any chest pain. No fevers. No headache. No dizziness. No blurred visions. No runny nose or sore throat. No cough. Normal bowel and bladder movements. In the ER she is requiring currently 4 L and saturating okay Acute diastolic CHF Has lower extremity edema Requiring oxygen IV Lasix 40 mg twice daily Daily weights and I's and O's Will follow echo Telemetry Cardiac consult in a.m. for further recommendations Close monitor Bilateral lower extremity cellulitis Recurrent Er has started on IV Dapto and Zosyn which will be continued Follow cultures Will monitor the response Will also follow Doppler to rule out DVTs Obstructive sleep apnea Currently using 2 L oxygen while sleeping Patient states she does not have insurance for sleep study Follow-up with PCP Morbid obesity Counseling Nutrition follow-up Diabetes Hold glipizide Insulin sliding scale Will follow HbA1c levels Will follow blood sugars Hypertension On lisinopril Will monitor Depression and anxiety On duloxetine DVT prophylaxis Lovenox Disposition Telemetry Full code History of Present Illness Chief Complaint: Lower extremity cellulitis and CHF Primary Care Provider: Latricia Le DO 58-year-old female with past medical history significant for type 2 diabetes, obstructive sleep apnea, diastolic CHF, morbid obesity, anxiety, insomnia, depression, night terrors went to PCP office today because of lower extremity cellulitis and also shortness of breath and when checked her D-dimer was elevated and was referred to the ER. Patient is having ongoing lower extremity infection. She was in the hospital in October with bilateral lower extremities cellulitis and cultures grew serratia. She was discharged on Zyvox and Cipro. She was in the ER on March 17, 2024 with lower leg wounds and she was given a shot of Rocephin and discharged on Keflex. Today again PCP prescribed Keflex and given a shot of Rocephin in the office. Patient says she has a lot of pain in the lower extremity. Having difficulty ambulating because of the pain. She uses oxygen 2 L when sleeping and in the daytime as needed. Was feeling short of breath lately. Denies any chest pain. No fevers. No headache. No dizziness. No blurred visions. No runny nose or sore throat. No cough. Normal bowel and bladder movements. In the ER she is requiring currently 4 L and saturating okay Past medical history. As mentioned above Past surgical history. Dental surgery. Appendectomy Social history. No smoking. No alcohol use. No drug use. Family history. Sister had breast cancer. Mother has diabetes. COPD.. Lupus. Father has hypertension. Multiple MIs. Paternal grandfather had sudden cardiac at age of 65. Uncle had sudden cardiac . Maternal grandmother had diabetes. Allergies Allergy/AdvReac Type Severity Reaction Status Date / Time bee venom protein (honey bee) Allergy Severe ANAPHYLAXIS Verified 11/08/21 14:55 shellfish derived Allergy Severe ANAPHYLACTI Verified 11/08/21 14:55 C iodine Allergy Intermediate SWELLING Verified 11/08/21 14:55 AND IRRITATION AT SITE Home Medications Medication Instructions Recorded Confirmed Type cephalexin 500 mg capsule 500 mg PO QID 04/12/24 04/12/24 History duloxetine 60 mg capsule,delayed 60 mg PO DAILY 04/12/24 04/12/24 History release furosemide 40 mg tablet 40 mg PO DAILY 04/12/24 04/12/24 History glipizide 10 mg tablet, extended 10 mg PO DAILY 04/12/24 04/12/24 History release 24 hr lisinopril 20 mg tablet 20 mg PO DAILY 04/12/24 04/12/24 History potassium chloride 20 mEq 20 meq PO DAILY 04/12/24 04/12/24 History tablet,extended release Past Med/Surg History Problem List (Updated 04/12/24 @ 03:46 by Jean Pierre Brambila MD) Acute diastolic (congestive) heart failure Cellulitis of both lower extremities (Acute) Hypervolemia (Acute) Hypoxia (Acute) Chronic respiratory failure DVT prophylaxis Abnormal CT of the abdomen Bilateral lower leg cellulitis Venous stasis ulcers of both lower extremities (Acute) Leukocytosis (Acute) Anemia (Acute) Shortness of breath (Acute) Abdominal pain (Acute) D-dimer, elevated (Acute) Elevated troponin (Acute) Lower extremity edema (Acute) Acute hypoxemic respiratory failure Hypertensive heart disease Acute on chronic diastolic HF (heart failure) Pulmonary edema (Acute) Hypoxia (Acute) Edema, peripheral (Acute) Hypokalemia (Acute) Obesity hypoventilation syndrome Obstructive sleep apnea Noncompliance Acute diastolic CHF (congestive heart failure), NYHA class 3 Asthma Asthma with exacerbation (Acute) Elevated troponin I level (Acute) Congestive heart failure with left ventricular diastolic dysfunction, NYHA class 1 (Acute) Diabetes mellitus, type II (Chronic) HTN (hypertension) (Chronic) Chronic back pain (Chronic) Hypoxia (Acute) Obesity (Chronic) Anxiety (Chronic) History of pulmonary embolism (Chronic) Shortness of breath (Acute) Medical History Diabetes Family History Other Breast cancer COPD (chronic obstructive pulmonary disease) Coronary heart disease Diabetes Hypertension Sudden cardiac arrest Social History Smoking Status: Never smoker Second Hand Exposure: No; Do You Dip or Chew Tobacco: No; Hx Alcohol Use: No Hx Substance Use: No Preferred Language: Mongolian Communication Ability: Effective Drill Hand Required: No Beliefs That Will Affect Care: None Current Living Situation: Alone Current Living Situation Comment: Fiance current occupational status: employed Other Information That Helps Us Care for You: No Feels Safe at Home: Yes Safety Concerns: Feels Safe At This Time Diet: diabetic and low salt Diet Comment: 80oz a day Fluid Restriction caffeine: No during the past year weight has: decreased > 10 lbs Assistive Devices: None Review of Systems Review of Systems: All systems reviewed & are unremarkable except as noted in HPI & below Physical Exam Physical Exam: General- Not in acute distress Head- atraumatic Eyes- PERRL. ENT- oropharynx clear Neck- supple, no JVD. Lungs- clear to auscultation no wheezing or crackles. Heart- regular rate and rhythm; no murmur, no gallop. Abdomen- normal bowel sounds, soft, nontender, no distension Extremities- b/l lower extremities gross edema and erythema with blebs seen. superficial wounds seen. Tender to palpate Neuro- alert, oriented ; PERRL, no facial palsy; no dysarthria; moves extremities Results & Data Results & Data Vital Signs (Past 12 Hours) Vital Signs Temp Pulse Pulse Resp BP BP Pulse Ox 04/12/24 01:38 70 18 132/55 L 98 04/12/24 00:55 67 04/11/24 23:00 74 14 127/59 L 94 04/11/24 22:41 04/11/24 22:24 75 14 129/49 L 96 04/11/24 21:30 157/58 H 04/11/24 21:13 78 20 149/69 H 96 04/11/24 21:12 78 18 149/69 H 96 04/11/24 20:57 79 04/11/24 20:56 165/76 H 04/11/24 19:15 83 L 04/11/24 19:11 36.5 C 88 22 171/79 H 83 L O2 Del Method O2 Flow Rate 04/12/24 01:38 Nasal Cannula 4 04/12/24 00:55 04/11/24 23:00 04/11/24 22:41 Room Air 04/11/24 22:24 04/11/24 21:30 04/11/24 21:13 Nasal Cannula 4 04/11/24 21:12 04/11/24 20:57 04/11/24 20:56 04/11/24 19:15 Room Air, Nasal Cannula 04/11/24 19:11 Room Air Diagnostic Findings Laboratory Results WBC 10.66 K/ul (4.8-10.8) 04/11/24 19:38 RBC 4.79 M/uL (4.20-5.40) 04/11/24 19:38 Hgb 12.5 g/dl (12.0-16.0) 04/11/24 19:38 Hct 40.6 % (37.0-47.0) 04/11/24 19:38 MCV 84.8 fL (80.0-100.0) 04/11/24 19:38 MCH 26.1 pg (25.0-34.0) 04/11/24 19:38 MCHC 30.8 g/dL (32.0-36.0) L 04/11/24 19:38 RDW Std Deviation 54.4 fL (36.4-46.3) H 04/11/24 19:38 RDW Coeff of Damian 17.8 % (11.5-14.5) H 04/11/24 19:38 Plt Count 239 K/uL (130-400) 04/11/24 19:38 MPV 10.2 fL (9.4-12.4) 04/11/24 19:38 Immature Gran % (Auto) 0.3 % 04/11/24 19:38 Neut % (Auto) 72.4 % 04/11/24 19:38 Lymph % (Auto) 18.8 % 04/11/24 19:38 [place] % (Auto) 5.3 % 04/11/24 19:38 Eos % (Auto) 2.6 % 04/11/24 19:38 Baso % (Auto) 0.6 % 04/11/24 19:38 Neut # (Auto) 7.73 K/uL (1.40-6.50) H 04/11/24 19:38 Lymph # (Auto) 2.00 K/uL (1.20-3.40) 04/11/24 19:38 [place] # (Auto) 0.56 K/uL (0.11-0.59) 04/11/24 19:38 Eos # (Auto) 0.28 K/uL (0.00-0.50) 04/11/24 19:38 Baso # (Auto) 0.06 K/uL (0.00-0.20) 04/11/24 19:38 Immature Gran # (Auto) 0.03 K/uL (0.01-0.20) 04/11/24 19:38 ESR 72 mm/hr (0-30) H 04/12/24 00:55 PT 10.8 Seconds (9.0-12.0) 04/11/24 21:19 INR 1.0 (0.9-1.1) 04/11/24 21:19 APTT 24 Seconds (21-31) 04/11/24 21:19 PTT Ratio 0.9 04/11/24 21:19 Sodium 134 mmol/L (136-145) L 04/11/24 19:38 Potassium 3.9 mmol/L (3.5-5.1) 04/11/24 19:38 Chloride 99 mmol/L (98-107) 04/11/24 19:38 Carbon Dioxide 31 mmol/L (21-32) 04/11/24 19:38 Anion Gap 4 (3-11) 04/11/24 19:38 BUN 18 mg/dl (6-23) 04/11/24 19:38 Creatinine 0.86 mg/dl (0.6-1.2) 04/11/24 19:38 Est Cr Clr Drug Dosing 109.9 ml/min 04/11/24 19:38 Est GFR ( Amer) 86.9 ml/min 04/11/24 19:38 Est GFR (Non-Af Amer) 75.0 ml/min 04/11/24 19:38 BUN/Creatinine Ratio 20.9 (10-20) H 04/11/24 19:38 Glucose 92 mg/dl (70-99(Fasting)) 04/11/24 19:38 Calcium 9.0 mg/dl (8.6-10.3) 04/11/24 19:38 Magnesium 2.2 mg/dl (1.7-2.4) 04/11/24 19:38 Total Bilirubin 0.6 mg/dl (0.2-1.0) 04/11/24 19:38 AST 13 U/L (13-39) 04/11/24 19:38 ALT 7 U/L (7-52) 04/11/24 19:38 Alkaline Phosphatase 82 U/L (34-104) 04/11/24 19:38 Troponin I High Sens 18.3 pg/ml (0-14) H 04/11/24 19:38 C-Reactive Protein 4.43 mg/dl (0-0.5) H 04/11/24 19:38 B-Natriuretic Peptide 63 pg/ml (0-100) 04/11/24 19:38 Total Protein 7.7 gm/dl (6.0-8.3) 04/11/24 19:38 Albumin 3.9 gm/dl (3.4-5.0) 04/11/24 19:38 Globulin 3.8 gm/dl (2.5-4.0) 04/11/24 19:38 Albumin/Globulin Ratio 1.0 (0.9-2) 04/11/24 19:38 Procalcitonin < 0.02 ng/ml (0-0.5) 04/11/24 19:38 Impressions Chest CTA 04/11/24 19:51 Exam(s): CTA CHEST IV Amt: 119 ML [id number] EXAM: CT Angiography Chest With Intravenous Contrast CLINICAL HISTORY: Reason for exam: sob, elevated d-dimer, r/o PE. TECHNIQUE: Axial computed tomographic angiography images of the chest with intravenous contrast. CTDI is 28.14 mGy and DLP is 928.12 mGy-cm. Automated exposure control was utilized for the study. A dose lowering technique was utilized adhering to the principles of ALARA. MIP reconstructed images were created and reviewed. COMPARISON: 11/28/2019 FINDINGS: Limitations: Exam limited secondary to patient respiratory motion. Pulmonary arteries: Unremarkable. No large central pulmonary embolus. Aorta: No acute findings. No thoracic aortic aneurysm. Lungs: Linear atelectasis left upper lobe. No mass. Pleural space: Unremarkable. No significant effusion. No pneumothorax. Heart: Unremarkable. No cardiomegaly. No significant pericardial effusion. No evidence of RV dysfunction. Bones/joints: No acute fracture. No dislocation. Soft tissues: Unremarkable. Lymph nodes: Unremarkable. No enlarged lymph nodes. IMPRESSION: Exam limited as described above No large central pulmonary embolus Linear atelectasis left upper lobe Electronically signed by: Nishant Collado MD 04/11/24 22:27 PM Code Status & VTE Plan VTE Prophylaxis Plan VTE Prophylaxis will be ordered: Yes
[2024-04-12] MEDS ORDERED: GLUCAGON FOR INJ 1 MG VIAL SQ PRN (05:23)
[2024-04-12] MEDS ORDERED: GLUCOSE 40% GEL 15 GM TUBE PO PRN (05:23)
[2024-04-12] MEDS ORDERED: NITROGLYCERIN SL 0.4 MG/TAB TAB SL PRN (05:23)
[2024-04-12] MEDS ORDERED: CARBOHYDRATES FOR HYPOGLYCEMIA PO PRN (05:23)
[2024-04-12] MEDS ORDERED: DEXTROSE 50% 50 ML SYRINGE IV PRN (05:23)
[2024-04-12] MEDS ORDERED: GLUCOSE 10 TAB/TUBE PO PRN (05:23)
[2024-04-12] MEDS: ACETAMINOPHEN 325 MG TAB PO PRN (06:00)
[2024-04-12] MEDS: PIPERACILLIN/TAZOBACTAM 4.5 GM/100 ML BAG IV SCH (06:01)
[2024-04-12 06:06] LABS: Basophils # (auto) 0.05 K/uL (0.00-0.20); Basophils % (auto) 0.5 %; Eosinophils # (auto) 0.33 K/uL (0.00-0.50); Eosinophils % (auto) 3.4 %; Hematocrit (blood only) 41.7 % (37.0-47.0); Hemoglobin 12.4 g/dl (12.0-16.0); Immature Granulocytes # (auto) 0.03 K/uL (0.01-0.20); Immature Granulocytes % (auto) 0.3 %; Lymphocytes # (auto) 1.56 K/uL (1.20-3.40); Lymphocytes % (auto) 15.9 %; Mean Corpuscular Hemoglobin 25.6 pg (25.0-34.0); Mean Corpuscular Hgb Conc 29.7 g/dL (32.0-36.0); Mean Platelet Volume 9.4 fL (9.4-12.4); Monocytes # (auto) 0.65 K/uL (0.11-0.59); Monocytes % (auto) 6.6 %; Neutrophils # (auto) 7.22 K/uL (1.40-6.50); Neutrophils % (auto) 73.3 %; Platelet Count 250 K/uL (130-400); RDW Standard Deviation 55.8 fL (36.4-46.3); Red Blood Count 4.85 M/uL (4.20-5.40); White Blood Count 9.84 K/ul (4.8-10.8)
[2024-04-12 06:18] LABS: BUN Creatinine Ratio 19.3 (10-20); Calcium 8.7 mg/dl (8.6-10.3); Creatinine Clr Calc Pharmacy 107.5 ml/min; Est GFR (African American) 84.5 ml/min; Est GFR (Non-African American) 72.9 ml/min; Magnesium 2.2 mg/dl (1.7-2.4)
[2024-04-12 06:25] LABS: Troponin I High Sensitivity 17.9 pg/ml (0-14)
--- NOTE | 2024-04-12 07:01 | Ultrasound Report ---
BILATERAL LOWER EXTREMITY VENOUS DOPPLER HISTORY: Acute pain and swelling of the lower legs b/l lower ext edema and erythema. dvt? COMPARISON STUDY: 11/08/2021 FINDINGS: Patient body habitus and subcutaneous edema limits the study. There is normal compressibili ty, flow, and augmentation within the bilateral lower extremity deep venous systems. IMPRESSION: No DVT within the right or left lower extremity. ACT 112: Negative or not required by law. Electronically signed by: Shivam Santiago M.D. 04/12/2024 6:59 AM
--- NOTE | 2024-04-12 07:45 | XRay Report ---
XR chest 1V portable HISTORY: 58 years-old Female Chest pain, nonspecific COMPARISON: CTA chest of same day TECHNIQUE: AP view of the chest FINDINGS: Cardiac silhouette is enlarged. Minimal subsegmental bibasilar atelectasis. No pneumothorax, pleural effusion or airspace consolidation. The bones appear intact. IMPRESSION: Cardiomegaly without acute process. ACT 112: Negative or not required by law. The above report was generated using voice recognition software. It may contain grammatical, syntax o r spelling errors. Electronically signed by: Shivam Santiago M.D. 04/12/2024 7:43 AM
[2024-04-12 07:49] LABS: Estimated Average Glucose 126 mg/dl
[2024-04-12] MEDS: DULoxetine HCL 60 MG CAP PO SCH (08:02)
[2024-04-12] MEDS: FUROSEMIDE 40 MG/4 ML VIAL IV SCH (08:02)
[2024-04-12] MEDS: lisinopril 20 MG TAB PO SCH (08:03)
[2024-04-12] MEDS: ENOXAPARIN INJ 40 MG/0.4 ML SYR SQ SCH (08:03)
[2024-04-12] MEDS: INSULIN ASPART PER UNIT CHARGE SC SCH (08:04)
[2024-04-12] MEDS: traMADol HCL 50 MG TABLET PO PRN (08:08)
[2024-04-12] MEDS: POTASSIUM CHLORIDE CRTAB 20 MEQ TABCR PO SCH (08:08)
--- NOTE | 2024-04-12 09:24 | Cardiology Consultation ---
Date of Consultation April 12, 2024 Assessment & Plan (1) Acute diastolic (congestive) heart failure: (2) Chronic respiratory failure: (3) Obesity hypoventilation syndrome: (4) Obstructive sleep apnea: (5) Venous stasis ulcers of both lower extremities: (6) D-dimer, elevated: (7) Elevated troponin: Plan Assessment: 58 year-old medically complex female with recurrent cellulitis and non-healing venous stasis ulcers presents with acute HF symptoms. Plan: 1. Acute diastolic HF 2. Chronic Resp Failure 3. Obesity hypoventilation syndrome 4. CAROLYN -patient's dyspnea in multi-factorial for above stated reasons. -HF exacerbation likely in the setting of poor dietary compliance as patient admits to increased salt intake, non-compliance/refuses CPAP -2L fluid deficit -Maintain strict I&O and daily weights, please use a standing scale or chair scale for this patient. -Close monitoring of renal function. -goal serum K> 4.0 and Serum Mag > 2.0 -Continue Furosemide 40mg IV BID -Obtain echocardiogram to asses overall structure and function. -IV antibiotics for cellulitis as per primary team. -Continue Lisinopril as part of HF regimen. BP well controlled. -Will need OP sleep study work up as part of follow up. -Will reassess fluid status in the AM 5. Venous stasis ulcers -recurrent cellulitis -Recommend wound nurse consulted for further input on management. -Patient would benefit from compression and elevation for assistance in mobilizing fluid. legs need to be elevated even when out in the chair. -management of cellulitis per primary team.. 6. Elevated D-dimer -Negative CT chest and venous duplex. -Likely in the setting of heart failure. 7. Elevated Troponin: -flat in trend -No acute EKG changes. -likely demand ischemic from fluid overload -Obtain echo to assess overall structure/function/wall motion abnormality Case has been discussed with Dr. Hills. Further recommendations regarding plan of care as per his assessment. I spent a total of 40 minutes on the date of service in preparation, delivery, documentation of the care provided to the patient excluding any time spent in the performance of separately billed services. DINA Magana [facility] Card[facility] Supervising Physician Co-Signing Physician Notes I have reviewed the advanced practitioner's documentation on the date of service referenced in note, and I agree with, and take responsibility for the plan of care. I spent a total of [30] minutes coordinating, documenting, and providing care for this patient excluding time spent in the performance of separately billed services or time spent by another provider. 58-year-old with obstructive sleep apnea, obesity, chronic respiratory failure, chronic lower extremity edema presents with shortness of breath. Echocardiogram limited because of body habitus LV function is normal right heart is dilated with reduced function. And elevated pulmonary pressures heart failure with preserved ejection fraction right heart failure with pulmonary hypertension Continue with IV diuresis History of Present Illness Reason for Consultation: Acute CHF [facility]ing [facility] Attending Physician: Don Elliott MD History of Present Illness HPI: Patient is a 58 year old female with PMHx significant for Diastolic CHF, CAROLYN, obesity, DM type 2, anxiety/depression/night terrors that presented to the PCP office the day of admission due to lower extremity cellulitis, and shortness of breath. She had labs drawn which included a D-dimer which was positive and therefore referred to the emergency room. Patient has had ongoing lower extremity cellulitis which prior hospitalization dating back to October 2023 in which cultures grew serratia. patient was most recently seen in the ED February 2024 for leg wounds, was discharged after IM Rocephin and prescribed PO Keflex. EKG on admission: NSR, possible prior inferior/anterolateral infarct, previously cited Rate 80bpm High sensitivity troponin 18.3/17.3 Chest xray IMPRESSION: Cardiomegaly without acute process. CTA chest: IMPRESSION: Exam limited as described above No large central pulmonary embolus Linear atelectasis left upper lobe Venous Doppler: IMPRESSION: No DVT within the right or left lower extremity. Patient is resting OOB in chair time of visit in no distress. She had declined her echocardiogram this morning due to being tired, but is agreeable to have done. Denies any chest pain, pressure, palpitation, no shortness of breath or PND. Does endorse bilateral lower extremity edema. Allergies Allergy/AdvReac Type Severity Reaction Status Date / Time bee venom protein (honey bee) Allergy Severe ANAPHYLAXIS Verified 11/08/21 14:55 shellfish derived Allergy Severe ANAPHYLACTI Verified 11/08/21 14:55 C iodine Allergy Intermediate SWELLING Verified 11/08/21 14:55 AND IRRITATION AT SITE Home Medications Medication Instructions Recorded Confirmed Type cephalexin 500 mg capsule 500 mg PO QID 04/12/24 04/12/24 History duloxetine 60 mg capsule,delayed 60 mg PO DAILY 04/12/24 04/12/24 History release furosemide 40 mg tablet 40 mg PO DAILY 04/12/24 04/12/24 History glipizide 10 mg tablet, extended 10 mg PO DAILY 04/12/24 04/12/24 History release 24 hr lisinopril 20 mg tablet 20 mg PO DAILY 04/12/24 04/12/24 History potassium chloride 20 mEq 20 meq PO DAILY 04/12/24 04/12/24 History tablet,extended release Patient History Medical History Diabetes Family History Other Breast cancer COPD (chronic obstructive pulmonary disease) Coronary heart disease Diabetes Hypertension Sudden cardiac arrest Social History Smoking Status: Never smoker Second Hand Exposure: No; Do You Dip or Chew Tobacco: No; Hx Alcohol Use: No Hx Substance Use: No Preferred Language: Tamazight Communication Ability: Effective 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: No Beliefs That Will Affect Care: None Current Living Situation: Alone Current Living Situation Comment: Fiance current occupational status: employed Other Information That Helps Us Care for You: No Feels Safe at Home: Yes Safety Concerns: Feels Safe At This Time Diet: diabetic and low salt Diet Comment: 80oz a day Fluid Restriction caffeine: No during the past year weight has: decreased > 10 lbs Assistive Devices: None Review of Systems Review of Systems: All systems reviewed & are unremarkable except as noted in HPI & below Physical Exam Constitutional: + morbidly obese; no acute distress and not ill appearing Neck: normal visual inspection and trachea midline Respiratory: normal respiratory effort; no respiratory distress and no cough Auscultation: + diminished lung sounds (bilateral bases ) Cardiovascular: Rate/Rhythm: regular rate and regular rhythm Heart Sounds: normal S1 and normal S2; no murmur Vessels: dorsalis pedis pulses present; no JVD Extremities: + edema (+2 BLE) Skin: + wound (bilateral lower extremities ) Psychiatric: A+Ox3, euthymic affect Results & Data Vital Signs (Past 12 Hours) Vital Signs Temp Pulse Pulse Resp BP BP Pulse Ox 04/12/24 07:29 62 04/12/24 06:09 04/12/24 05:20 36.5 C 64 18 135/78 97 04/12/24 04:51 04/12/24 04:23 04/12/24 01:38 70 18 132/55 L 98 04/12/24 00:55 67 04/11/24 23:00 74 14 127/59 L 94 04/11/24 22:41 04/11/24 22:24 75 14 129/49 L 96 04/11/24 21:30 157/58 H 04/11/24 21:13 78 20 149/69 H 96 04/11/24 21:12 78 18 149/69 H 96 O2 Del Method O2 Flow Rate 04/12/24 07:29 04/12/24 06:09 Nasal Cannula 4 04/12/24 05:20 Nasal Cannula 4 04/12/24 04:51 Nasal Cannula 4 04/12/24 04:23 Nasal Cannula 4 04/12/24 01:38 Nasal Cannula 4 04/12/24 00:55 04/11/24 23:00 04/11/24 22:41 Room Air 04/11/24 22:24 04/11/24 21:30 04/11/24 21:13 Nasal Cannula 4 04/11/24 21:12 Laboratory Results Cardiac Enzymes 04/11/24 04/12/24 04/12/24 Range/Units 19:38 05:36 11:23 AST 13 (13-39) U/L Troponin I High Sens 18.3 H 17.9 H 16.2 H (0-14) pg/ml B-Natriuretic Peptide 63 (0-100) pg/ml Coagulation 04/11/24 04/11/24 Range/Units 19:38 21:19 PT Cancelled 10.8 APTT Cancelled 24 B-Natriuretic Peptide 63 (0-100) pg/ml CBC 04/11/24 04/12/24 Range/Units 19:38 05:36 WBC 10.66 9.84 (4.8-10.8) K/ul RBC 4.79 4.85 (4.20-5.40) M/uL Hgb 12.5 12.4 (12.0-16.0) g/dl Hct 40.6 41.7 (37.0-47.0) % Plt Count 239 250 (130-400) K/uL Neut # (Auto) 7.73 H 7.22 H (1.40-6.50) K/uL Lymph # (Auto) 2.00 1.56 (1.20-3.40) K/uL [place] # (Auto) 0.56 0.65 H (0.11-0.59) K/uL Eos # (Auto) 0.28 0.33 (0.00-0.50) K/uL Baso # (Auto) 0.06 0.05 (0.00-0.20) K/uL Comprehensive Metabolic Panel 04/11/24 04/12/24 Range/Units 19:38 05:36 Sodium 134 L 138 (136-145) mmol/L Potassium 3.9 4.0 (3.5-5.1) mmol/L Chloride 99 100 (98-107) mmol/L Carbon Dioxide 31 33 H (21-32) mmol/L BUN 18 17 (6-23) mg/dl Creatinine 0.86 0.88 (0.6-1.2) mg/dl Glucose 92 103 H (70-99(Fasting)) mg/dl Calcium 9.0 8.7 (8.6-10.3) mg/dl AST 13 (13-39) U/L ALT 7 (7-52) U/L Alkaline Phosphatase 82 (34-104) U/L Total Protein 7.7 (6.0-8.3) gm/dl Albumin 3.9 (3.4-5.0) gm/dl Intake and Output 04/12/24 04/12/24 04/12/24 06:59 14:59 22:59 Intake Total 300 / 300 100 / 100 Output Total 2099 Balance 300 / 300 -1999 / Intake: IV 200 / 200 100 / 100 Acetaminophen 1,000 mg In 100 100 / 100 ml @ 400 mls/hr IV NOW STA Rx#: [id number] Piperacillin/Tazobactam 4.5 gm 100 / 100 100 / 100 In 100 ml @ 25 mls/hr IV Q8H BHAVIN Rx#:[id number] Oral 100 / 100 Output: Urine 2099 Other: # Unmeasured Voids 2 Weight 153.3 kg Weight Measurement Method Built in [facility]
[2024-04-12] MEDS: ADVANCED PROBIOTIC 625 MG CAPSULE PO SCH (15:23)
--- NOTE | 2024-04-12 16:45 | Hospitalist Progress Note ---
Date of Service April 12, 2024 Assessment & Plan (1) Acute diastolic (congestive) heart failure: Plan: per admitting service notes with addendum: 58-year-old female with past medical history significant for type 2 diabetes, obstructive sleep apnea, diastolic CHF, morbid obesity, anxiety, insomnia, depression, night terrors went to PCP office today because of lower extremity cellulitis and also shortness of breath and when checked her D-dimer was elevate d and was referred to the ER. Patient is having ongoing lower extremity infection. She was in the hospital in October with bilateral lower extremities cellulitis and cultures grew serratia. She was discharged on Zyvox and Cipro. She was in the ER on March 17, 2024 with lower leg wounds and she was given a shot of Rocephin and discharged on Keflex. Today again PCP prescribed Keflex and given a shot of Rocephin in the office. Patient says she has a lot of pain in the lower extremity. Having difficulty ambulating because of the pain. She uses oxygen 2 L when sleeping and in the daytime as needed. Was feeling short of breath lately. Denies any chest pain. No fevers. No headache. No dizziness. No blurred visions. No runny nose or sore throat. No cough. Normal bowel and bladder movements. In the ER she is requiring currently 4 L and saturating okay Acute diastolic CHF Has lower extremity edema Requiring oxygen IV Lasix 40 mg twice daily Daily weights and I's and O's Will follow echo Telemetry Cardiac consult in a.m. for further recommendations Close monitor 04/12 echo pending continue Lasix 40mg IV BID Front Edger consulted Bilateral lower extremity cellulitis Recurrent Er has started on IV Dapto and Zosyn which will be continued Follow cultures Will monitor the response Will also follow Doppler to rule out DVTs 04/12 Lower extremity Doppler ultrasound: Negative for DVT Blood cultures pending Continue daptomycin plus Zosyn Obstructive sleep apnea Currently using 2 L oxygen while sleeping Patient states she does not have insurance for sleep study Follow-up with PCP Morbid obesity Counseling Nutrition follow-up Diabetes Hold glipizide Insulin sliding scale Will follow HbA1c levels: 6.0 Will follow blood sugars Hypertension On lisinopril Will monitor Depression and anxiety On duloxetine DVT prophylaxis Lovenox Disposition pending Full code Admission and Anticipated Discharge Date Admission Date: April 12, 2024 Subjective ff up for chf, cellulitis etc seen resting in bed, comfortable states she feels tired breathing improved, still having pain over Lower extremities no other new symptoms Review of Systems Review of Systems: all noted and negative except for above Physical Exam Physical Exam: General- oriented x 3, not in distress, speaks in sentences with no effort or accessory muscle use Eyes- anicteric Neck- no JVD Lungs- clear breath sounds bilaterally, no rales/wheezes Heart- normal rate, regular rhythm; no murmurs Abdomen- normal bowel sounds, nondistended, soft, nontender Extremities- gr 2 lower ext edema with moderate erythema, warmth, tenderness dressings in place over wounds Neuro- alert, oriented x 3; no gross focal neurologic deficits Skin- warm & dry Results & Data Results & Data Vital Signs (Past 12 Hours) Vital Signs Temp Pulse Pulse Resp BP BP Pulse Ox 04/12/24 16:08 36.3 C L 66 18 128/74 93 04/12/24 15:47 65 04/12/24 11:08 36.6 C 67 19 113/73 94 04/12/24 07:29 62 04/12/24 06:09 04/12/24 05:20 36.5 C 64 18 135/78 97 04/12/24 04:51 O2 Del Method O2 Flow Rate 04/12/24 16:08 Room Air 04/12/24 15:47 04/12/24 11:08 Room Air 04/12/24 07:29 04/12/24 06:09 Nasal Cannula 4 04/12/24 05:20 Nasal Cannula 4 04/12/24 04:51 Nasal Cannula 4 all noted and reviewed including below
--- NOTE | 2024-04-13 08:31 | Cardiology Progress Note ---
Date of Service April 13, 2024 Assessment & Plan (1) Acute diastolic (congestive) heart failure: (2) Chronic respiratory failure: (3) Obesity hypoventilation syndrome: (4) Obstructive sleep apnea: (5) Venous stasis ulcers of both lower extremities: (6) D-dimer, elevated: (7) Elevated troponin: Plan Assessment: 58 year-old medically complex female with recurrent cellulitis and non-healing venous stasis ulcers presents with acute HF symptoms. Plan: 1. Acute diastolic HF 2. Chronic Resp Failure 3. Obesity hypoventilation syndrome 4. CAROLYN -patient's dyspnea in multi-factorial for above stated reasons. -HF exacerbation likely in the setting of poor dietary compliance as patient admits to increased salt intake, non-compliance/refuses CPAP -2L fluid deficit -Maintain strict I&O and daily weights, please use a standing scale or chair scale for this patient. -Close monitoring of renal function. -goal serum K> 4.0 and Serum Mag > 2.0 -Continue Furosemide 40mg IV BID -Obtain echocardiogram to asses overall structure and function. -IV antibiotics for cellulitis as per primary team. -Continue Lisinopril as part of HF regimen. BP well controlled. -Will need OP sleep study work up as part of follow up. -Will reassess fluid status in the AM 5. Venous stasis ulcers -recurrent cellulitis -Recommend wound nurse consulted for further input on management. -Patient would benefit from compression and elevation for assistance in mobilizing fluid. legs need to be elevated even when out in the chair. -management of cellulitis per primary team.. 6. Elevated D-dimer -Negative CT chest and venous duplex. -Likely in the setting of heart failure. 7. Elevated Troponin: -flat in trend -No acute EKG changes. -likely demand ischemic from fluid overload -Obtain echo to assess overall structure/function/wall motion abnormality 04/13/2024: -Patient improving clinically from a cardiac perspective. - reports that she is diuresing well. Patient does struggle with urinary incontinence and therefore I&O's are not accurate. -Strict I&O needed. Daily weights, please use standing scale. -Echo as noted with evidence of Right heart failure, no wall motion abnormality and normal LVEF. ---discussed the importance of needing to utilize a CPAP. She will need to be established with sleep medicine OP and likely undergo repeat sleep study treatment and evaluation. patient is aware and agreeable. -goal serum K> 4.0 and Serum Mag > 2.0 -Continue Furosemide 40mg IV BID -borderline low blood pressures therefore have not started Toprol xl, will discuss with attending to help maximize medication therapy -Continue Furosemide 40mg IV BID. Renal function stable. -Reassess fluid status in the AM Case has been discussed with Dr. Hills. Further recommendations regarding plan of care as per her assessment. I spent a total of 30 minutes on the date of service in preparation, delivery, documentation of the care provided to the patient excluding any time spent in the performance of separately billed services. DINA Magana [facility] Cardiology [facility] Admission and Anticipated Discharge Date Admission Date: April 12, 2024 Supervising Physician Co-Signing Physician Notes I have reviewed the advanced practitioner's documentation on the date of service referenced in note, and I agree with, and take responsibility for the plan of care. I spent a total of [30] minutes coordinating, documenting, and providing care for this patient excluding time spent in the performance of separately billed services or time spent by another provider. 58-year-old with obstructive sleep apnea, obesity, chronic respiratory failure, chronic lower extremity edema presents with shortness of breath, cellulitis Heart failure with preserved ejection fraction right heart failure with pulmonary hypertension Continue with IV diuresis Subjective 04/13/2024: Patient seen and examined in follow up today. Feeling improvement in her overall symptoms. Noticing her leg swelling has decreased and she was able to sleep in bed last night. Labs, vitals, diagnostics, telemetry and documentation reviewed. Telemetry reviewed showing SR Rates 70-90's. no acute events overnight. Review of Systems Review of Systems: All systems reviewed & are unremarkable except as noted in HPI & below Physical Exam Constitutional: + morbidly obese; no acute distress and not ill appearing Neck: normal visual inspection and trachea midline Respiratory: normal respiratory effort; no respiratory distress and no cough Auscultation: + diminished lung sounds (bilateral bases ) Cardiovascular: Rate/Rhythm: regular rate and regular rhythm Heart Sounds: normal S1 and normal S2; no murmur Vessels: dorsalis pedis pulses present; no JVD Extremities: + edema (+2 BLE) Skin: + wound (bilateral lower extremities ) Psychiatric: A+Ox3, euthymic affect Results & Data Vital Signs (Past 12 Hours) Vital Signs Temp Pulse Pulse Resp BP BP Pulse Ox 04/13/24 07:29 36.7 C 85 18 124/64 95 04/13/24 03:15 36.6 C 80 16 148/70 H 94 04/13/24 00:18 36.6 C 70 14 129/50 L 96 04/12/24 23:32 65 O2 Del Method O2 Flow Rate 04/13/24 07:29 Room Air 04/13/24 03:15 Nasal Cannula 4.0 04/13/24 00:18 Nasal Cannula 4.0 04/12/24 23:32 Laboratory Results Cardiac Enzymes 04/12/24 Range/Units 17:09 Troponin I High Sens 16.1 H (0-14) pg/ml Comprehensive Metabolic Panel 04/13/24 04/13/24 Range/Units 08:45 09:29 Sodium 138 136 (136-145) mmol/L Potassium 4.6 4.4 (3.5-5.1) mmol/L Chloride 97 L 97 L (98-107) mmol/L Carbon Dioxide 36 H 33 H (21-32) mmol/L BUN 23 24 H (6-23) mg/dl Creatinine 1.19 D 1.17 (0.6-1.2) mg/dl Glucose 129 H 150 H (70-99(Fasting)) mg/dl Calcium 8.5 L 8.4 L (8.6-10.3) mg/dl Intake and Output 04/12/24 04/13/24 04/13/24 22:59 06:59 14:59 Intake Total 1150 / 1550 300 / 1550 100 / 100 Output Total 200 / 2300 Balance 950 / -750 300 / -750 100 / 100 Intake: IV 100 / 300 100 / 300 100 / 100 Piperacillin/Tazobactam 4.5 gm 100 / 300 100 / 300 100 / 100 In 100 ml @ 25 mls/hr IV Q8H BHAVIN Rx#:[id number] Oral 1050 / 1250 200 / 1250 Output: Urine 200 / 2300 Other: # Unmeasured Voids 2 Weight 154 kg Weight Measurement Method Built in [facility] Diagnostic Findings Echocardiogram 04/12/2024: Technically limited study (body habitus) LVEF 55-60% RV mild to moderately dilated RV systolic function mildly reduced PASP 50-60mmHg Valves not well visualized
[2024-04-13 09:32] LABS: BUN Creatinine Ratio 19.3 (10-20); Calcium 8.5 mg/dl (8.6-10.3); Est GFR (African American) 58.7 ml/min; Est GFR (Non-African American) 50.6 ml/min; Magnesium 2.1 mg/dl (1.7-2.4); Potassium 4.6 mmol/L (3.5-5.1)
[2024-04-13 10:14] LABS: BUN Creatinine Ratio 20.5 (10-20); Calcium 8.4 mg/dl (8.6-10.3); Creatinine Clr Calc Pharmacy 81.4 ml/min; Est GFR (African American) 59.9 ml/min; Est GFR (Non-African American) 51.7 ml/min; Potassium 4.4 mmol/L (3.5-5.1)
--- NOTE | 2024-04-13 12:09 | Electrocardiogram Report ---
Test Reason : Blood Pressure : */* mmHG Vent. Rate : 80 BPM Atrial Rate : 80 BPM P-R Int : 172 ms QRS Dur : 74 ms QT Int : 376 ms P-R-T Axes : 5 -9 -12 degrees QTcB Int : 433 ms Normal sinus rhythm Low voltage QRS Inferior infarct , age undetermined Poor R wave progression, consider anterior IL vs. lead placement vs. LVH Abnormal ECG When compared with ECG of 08-Nov-2021 14:16, Inferior infarct is now Present T wave inversion now evident in Inferior leads Confirmed by Jay Hampton ([id number]) on 04/13/2024 12:09:16 PM Referred By: Latricia Le Confirmed By: Jay Hampton
[2024-04-13] MEDS: POLYETHYLENE (MIRALAX) 17 GM PACK PO PRN (17:35)
--- NOTE | 2024-04-13 17:53 | Hospitalist Progress Note ---
Date of Service April 13, 2024 Assessment & Plan (1) Acute diastolic (congestive) heart failure: Plan: per admitting service notes with addendum: 58-year-old female with past medical history significant for type 2 diabetes, obstructive sleep apnea, diastolic CHF, morbid obesity, anxiety, insomnia, depression, night terrors went to PCP office today because of lower extremity cellulitis and also shortness of breath and when checked her D-dimer was elevate d and was referred to the ER. Patient is having ongoing lower extremity infection. She was in the hospital in October with bilateral lower extremities cellulitis and cultures grew serratia. She was discharged on Zyvox and Cipro. She was in the ER on March 17, 2024 with lower leg wounds and she was given a shot of Rocephin and discharged on Keflex. Today again PCP prescribed Keflex and given a shot of Rocephin in the office. Patient says she has a lot of pain in the lower extremity. Having difficulty ambulating because of the pain. She uses oxygen 2 L when sleeping and in the daytime as needed. Was feeling short of breath lately. Denies any chest pain. No fevers. No headache. No dizziness. No blurred visions. No runny nose or sore throat. No cough. Normal bowel and bladder movements. In the ER she is requiring currently 4 L and saturating okay Acute diastolic CHF Has lower extremity edema Requiring oxygen IV Lasix 40 mg twice daily Daily weights and I's and O's Will follow echo Telemetry Cardiac consult in a.m. for further recommendations Close monitor 04/12 echo pending continue Lasix 40mg IV BID Relay Man consulted Bilateral lower extremity cellulitis Recurrent Er has started on IV Dapto and Zosyn which will be continued Follow cultures Will monitor the response Will also follow Doppler to rule out DVTs 04/12 Lower extremity Doppler ultrasound: Negative for DVT Blood cultures pending Continue daptomycin plus Zosyn 04/13 Improving Diuresing well Continue Lasix IV Continue IV antibiotics Will order wound care consult Obstructive sleep apnea Currently using 2 L oxygen while sleeping Patient states she does not have insurance for sleep study Follow-up with PCP Morbid obesity Counseling Nutrition follow-up Diabetes Hold glipizide Insulin sliding scale Will follow HbA1c levels: 6.0 Will follow blood sugars Hypertension On lisinopril Will monitor Depression and anxiety On duloxetine DVT prophylaxis Lovenox Disposition pending Full code Admission and Anticipated Discharge Date Admission Date: April 12, 2024 Subjective Follow-up for diastolic CHF exacerbation, bilateral lower extremity cellulitis with wounds, etc. Seen resting in bedside chair comfortable, good spirits States she feels improved compared to yesterday Breathing continues to improve Bilateral lower leg pain improving No fever or chills No other new symptoms Review of Systems Review of Systems: all noted and negative except for above Physical Exam Physical Exam: General- oriented x 3, not in distress, speaks in sentences with no effort or accessory muscle use Eyes- anicteric Neck- no JVD Lungs- clear breath sounds bilaterally, no rales/wheezes Heart- normal rate, regular rhythm; no murmurs Abdomen- normal bowel sounds, nondistended, soft, nontender Extremities- no pretibial edema, no calf tenderness Neuro- alert, oriented x 3; no gross focal neurologic deficits Skin- warm & dry Results & Data Results & Data Vital Signs (Past 12 Hours) Vital Signs Temp Pulse Pulse Resp BP Pulse Ox O2 Del Method 04/13/24 15:31 36.7 C 79 18 99/60 L 95 Nasal Cannula 04/13/24 11:38 36.7 C 18 103/66 91 Nasal Cannula 04/13/24 08:00 86 04/13/24 07:29 36.7 C 85 18 124/64 95 Room Air O2 Flow Rate 04/13/24 15:31 3 04/13/24 11:38 3 04/13/24 08:00 04/13/24 07:29 all noted and reviewed including below
[2024-04-14 08:23] LABS: BUN Creatinine Ratio 22.2 (10-20); Calcium 8.7 mg/dl (8.6-10.3); Creatinine Clr Calc Pharmacy 94.4 ml/min; Est GFR (African American) 73.3 ml/min; Est GFR (Non-African American) 63.3 ml/min; Magnesium 2.1 mg/dl (1.7-2.4)
[2024-04-14] MEDS: ondansetron HCL 6 MG in DEXTROSE 5% 50 ML IV PRN (09:07)
--- NOTE | 2024-04-14 10:13 | Cardiology Progress Note ---
Date of Service April 14, 2024 Assessment & Plan (1) Acute diastolic (congestive) heart failure: (2) Chronic respiratory failure: (3) Obesity hypoventilation syndrome: (4) Obstructive sleep apnea: (5) Venous stasis ulcers of both lower extremities: (6) D-dimer, elevated: (7) Elevated troponin: Plan 58-year-old female admitted with recurrent lower extremity cellulitis, venous stasis ulcers, acute decompensated right heart failure, underlying obesity hypoventilation syndrome, untreated obstructive sleep apnea, medication noncompliance. Examination with ongoing volume overload. Recommendations: Cellulitis as per Hospitalist Nausea as per Hospitalist Restrict sodium to 1500 mg/day or less Restrict fluids to 2 L/day or less Continue IV furosemide another day Discontinue potassium chloride Add spironolactone 25 mg/day Outpatient Sleep Medicine referral; importance of treatment discussed Admission and Anticipated Discharge Date Admission Date: April 12, 2024 Supervising Physician Co-Signing Physician Notes I have personally performed a history and physical examination on the patient. I have reviewed the advance practitioner's documentation, and I agree with, and take responsibility for the plan of care. 58-year-old female with acute heart failure with preserved ejection fraction, acute right heart failure, and lower extremity cellulitis. Continue IV diuresis for additional 24 hours. Aldactone added. Likely transition to oral furosemide in AM. Continue sodium and fluid restriction. Rodrigo Ryder DO, [facility] Subjective Patient seen and examined. Chart, medications, telemetry reviewed. Nausea. No vomiting. No chest pain or palpitations. Fluid retention has improved. I's/O's: Not accurately recorded April 12, 2024 TTE (SONA RUEDA) technically difficult and limited. LVEF 55 to 60%. Mild to moderately dilated RV. Mildly reduced RV systolic function. Elevated RVSP at 50 to 60 mmHg. Telemetry: Sinus in the 80s. Review of Systems Review of Systems: Complete review of systems is otherwise as stated above, negative, or noncontributory. Physical Exam Physical Exam: General: A&Ox3. NAD. Elevated BMI. HENT: Normocephalic. Atraumatic. Eyes: PER. Conjunctiva pink, sclera clear. Neck: Neck veins not appreciated Heart: Regular at 80 bpm. No murmurs appreciated Lungs: Diminished. Decreased. Scattered Rales. No wheeze. Abdomen: +BS. Soft. Nontender. No masses or organomegaly. Extremities: 1+ chronic indurated edema. Mild erythema. No cyanosis. Limited neurological examination is without focal deficits. Results & Data Vital Signs (Past 12 Hours) Vital Signs Temp Pulse Resp BP Pulse Ox O2 Del Method O2 Flow Rate 04/14/24 08:25 36.8 C 80 18 129/77 92 Nasal Cannula 3 04/14/24 07:40 Room Air 04/14/24 03:19 37.0 C 83 14 127/68 93 Nasal Cannula 3.0 04/13/24 23:48 36.8 C 90 16 119/59 L 91 Nasal Cannula 3.0 Laboratory Results Comprehensive Metabolic Panel 04/14/24 Range/Units 07:09 Sodium 138 (136-145) mmol/L Potassium 4.0 (3.5-5.1) mmol/L Chloride 97 L (98-107) mmol/L Carbon Dioxide 36 H (21-32) mmol/L BUN 22 (6-23) mg/dl Creatinine 0.99 (0.6-1.2) mg/dl Glucose 97 (70-99(Fasting)) mg/dl Calcium 8.7 (8.6-10.3) mg/dl Intake and Output 04/13/24 04/14/24 04/14/24 22:59 06:59 14:59 Intake Total 950 / 1350 300 / 1350 53 / 53 Output Total 801 / 802 1 / 802 Balance 149 / 548 299 / 548 53 / 53 Intake: IV 100 / 300 100 / 300 53 / 53 Piperacillin/Tazobactam 4.5 gm 100 / 300 100 / 300 In 100 ml @ 25 mls/hr IV Q8H BHAVIN Rx#:[id number] ondansetron HCL 6 mg In 53 / 53 Dextrose 5% 50 ml @ 200 mls/hr IV Q6H PRN Rx#:[id number] Oral 850 / 1050 200 / 1050 Output: Urine Amount (Catheter) 800 / 800 External 800 / 800 # Bowel Movements 1 / 2 1 / 2 Other: # Unmeasured Voids 3 6 Weight 149.6 kg Weight Measurement Method Built in [facility]
[2024-04-14] MEDS: SPIRONOLACTONE 25 MG TAB PO ONE (11:44)
[2024-04-14] MEDS: ALUMINUM/MAGNESIUM SUSP 30 ML UDC PO PRN (14:49)
[2024-04-14] MEDS: SODIUM CHLORIDE 0.65% NA SOLN 45 ML (OCEAN) ONE (15:43)
[2024-04-14] MEDS: PANTOprazole 40 MG in SYRINGE 0 ML IV ONE (15:43)
--- NOTE | 2024-04-14 19:09 | Hospitalist Progress Note ---
Date of Service April 14, 2024 Assessment & Plan (1) Acute diastolic (congestive) heart failure: Plan: per admitting service notes with addendum: 58-year-old female with past medical history significant for type 2 diabetes, obstructive sleep apnea, diastolic CHF, morbid obesity, anxiety, insomnia, depression, night terrors went to PCP office today because of lower extremity cellulitis and also shortness of breath and when checked her D-dimer was elevate d and was referred to the ER. Patient is having ongoing lower extremity infection. She was in the hospital in October with bilateral lower extremities cellulitis and cultures grew serratia. She was discharged on Zyvox and Cipro. She was in the ER on March 17, 2024 with lower leg wounds and she was given a shot of Rocephin and discharged on Keflex. Today again PCP prescribed Keflex and given a shot of Rocephin in the office. Patient says she has a lot of pain in the lower extremity. Having difficulty ambulating because of the pain. She uses oxygen 2 L when sleeping and in the daytime as needed. Was feeling short of breath lately. Denies any chest pain. No fevers. No headache. No dizziness. No blurred visions. No runny nose or sore throat. No cough. Normal bowel and bladder movements. In the ER she is requiring currently 4 L and saturating okay Acute diastolic CHF Has lower extremity edema Requiring oxygen IV Lasix 40 mg twice daily Daily weights and I's and O's Will follow echo Telemetry Cardiac consult in a.m. for further recommendations Close monitor 04/12 echo pending continue Lasix 40mg IV BID Sales Research Analyst consulted Bilateral lower extremity cellulitis Recurrent Er has started on IV Dapto and Zosyn which will be continued Follow cultures Will monitor the response Will also follow Doppler to rule out DVTs 04/12 Lower extremity Doppler ultrasound: Negative for DVT Blood cultures pending Continue daptomycin plus Zosyn 04/13 Improving Diuresing well Continue Lasix IV Continue IV antibiotics Will order wound care consult 04/14 Continues to improve, diuresing well Continue IV Lasix, p.o. Aldactone ordered MRSA positive Continue daptomycin plus cefepime Hopefully can transition to oral diuretics tomorrow and oral antibiotics for discharge Will need two-step exercise test Already has a home oxygen concentrator at home for portable oxygen Nausea Positive BMs Protonix IV As needed Zofran Obstructive sleep apnea Currently using 2 L oxygen while sleeping Patient states she does not have insurance for sleep study Follow-up with PCP Morbid obesity Counseling Nutrition follow-up Diabetes Hold glipizide Insulin sliding scale Will follow HbA1c levels: 6.0 Will follow blood sugars Hypertension On lisinopril Will monitor Depression and anxiety On duloxetine DVT prophylaxis Lovenox Disposition Possible discharge tomorrow Full code Admission and Anticipated Discharge Date Admission Date: April 12, 2024 Subjective Seen resting in bedside chair, not in distress Having episodes of nausea, vomiting today No abdominal pain Not sleeping well since admission, could not get comfortable Otherwise feels she is improving daily Lower extremity swelling and pain improving as per patient Inquiring if she would be able to be discharged tomorrow Review of Systems Review of Systems: all noted and negative except for above Physical Exam Physical Exam: General- oriented x 3, not in distress, speaks in sentences with no effort or accessory muscle use Eyes- anicteric Neck- no JVD Lungs- clear breath sounds bilaterally, no crackles/wheezing Heart- normal rate, regular rhythm; no murmurs Abdomen- normal bowel sounds, nondistended, soft, no tenderness Extremities- Grade 1 lower extremity edema, mild erythema, no tenderness Neuro- alert, oriented x 3; no gross focal neurologic deficits Skin- warm & dry Results & Data Results & Data Vital Signs (Past 12 Hours) Vital Signs Temp Pulse Pulse Resp BP Pulse Ox O2 Del Method 04/14/24 15:38 82 04/14/24 15:00 36.5 C 90 20 121/72 95 Nasal Cannula 04/14/24 11:51 36.7 C 85 16 142/80 H 97 Nasal Cannula 04/14/24 09:23 90 04/14/24 08:25 36.8 C 80 18 129/77 92 Nasal Cannula 04/14/24 07:40 Room Air O2 Flow Rate 04/14/24 15:38 04/14/24 15:00 3 04/14/24 11:51 3 04/14/24 09:23 04/14/24 08:25 3 04/14/24 07:40
[2024-04-14 19:55] VITALS: RESP 18
[2024-04-14] MEDS: PROMETHAZINE 12.5 MG/50.5 ML BAG IV PRN (21:09)
[2024-04-15 07:56] LABS: BUN Creatinine Ratio 19.4 (10-20); Calcium 8.8 mg/dl (8.6-10.3); Creatinine Clr Calc Pharmacy 99.3 ml/min; Est GFR (African American) 79.1 ml/min; Est GFR (Non-African American) 68.2 ml/min; Magnesium 2.1 mg/dl (1.7-2.4); Potassium 4.1 mmol/L (3.5-5.1)
[2024-04-15] MEDS: SPIRONOLACTONE 25 MG TAB PO SCH (09:15)
[2024-04-15] MEDS: DOXYCYCLINE HYCLATE 100 MG CAP PO SCH (09:18)
[2024-04-15] MEDS: PANTOprazole 40 MG in SYRINGE 0 ML IV SCH (12:06)
--- NOTE | 2024-04-15 12:13 | Cardiology Progress Note ---
Date of Service April 15, 2024 Assessment & Plan (1) Acute diastolic (congestive) heart failure: (2) Chronic respiratory failure: (3) Obesity hypoventilation syndrome: (4) Obstructive sleep apnea: (5) Venous stasis ulcers of both lower extremities: (6) D-dimer, elevated: (7) Elevated troponin: Plan 58-year-old female admitted with recurrent lower extremity cellulitis, venous stasis ulcers, acute decompensated right heart failure, underlying obesity hypoventilation syndrome, untreated obstructive sleep apnea, medication noncompliance. Examination with improving volume overload. Recommendations: Restrict sodium to 1500 mg/day or less Restrict fluids to 2 L/day or less Transition to oral furosemide in AM of 04/16 Reduce spironolactone to 12.5 mg/day in AM of 04/16 Outpatient cardiology follow-up, close monitoring or renal function and potassium status. Outpatient Sleep Medicine referral; importance of treatment discussed Please contact with any questions or concerns. Admission and Anticipated Discharge Date Admission Date: April 12, 2024 Supervising Physician Co-Signing Physician Notes I have personally performed a history and physical examination on the patient. I have reviewed the advance practitioner's documentation, and I agree with, and take responsibility for the plan of care. 58-year-old female with acute heart failure with preserved ejection fraction, acute right heart failure, and lower extremity cellulitis. Continue IV diuresis for additional 24 hours. Aldactone added. Transition to oral furosemide in AM. Continue sodium and fluid restriction. No further inpatient cardiac testing or intervention at this time. Cardiology will sign off. Please call with additional concerns/questions. Rodrigo Ryder DO, [facility] Subjective Patient seen and examined. Chart, medications, telemetry reviewed. No chest pain or dyspnea. I's/O's: Not accurately recorded Telemetry: Sinus in the 80s and 90's. April 12, 2024 TTE ([facility]EDA) technically difficult and limited. LVEF 55 to 60%. Mild to moderately dilated RV. Mildly reduced RV systolic function. Elevated RVSP at 50 to 60 mmHg. Review of Systems Review of Systems: Complete review of systems is otherwise as stated above, negative, or noncontributory. Physical Exam Physical Exam: General: A&Ox3. NAD. Elevated BMI. HENT: Normocephalic. Atraumatic. Eyes: PER. Conjunctiva pink, sclera clear. Neck: Neck veins not appreciated Heart: Regular at 80 bpm. No murmurs appreciated Lungs: Diminished. Decreased. Left basilar rales. No wheeze. Abdomen: +BS. Soft. Nontender. No masses or organomegaly. Extremities: Trace to 1+ chronic indurated edema. Mild erythema. No cyanosis. Limited neurological examination is without focal deficits. Results & Data Vital Signs (Past 12 Hours) Vital Signs Temp Pulse Pulse Pulse Pulse Pulse Resp 04/15/24 11:20 36.4 C L 77 18 04/15/24 10:47 101 H 92 H 76 83 04/15/24 07:55 04/15/24 07:38 36.6 C 79 18 04/15/24 03:34 36.7 C 83 18 Resp Resp Resp Resp BP Pulse Ox Pulse Ox 04/15/24 11:20 128/74 94 04/15/24 10:47 20 20 18 18 86 L 04/15/24 07:55 04/15/24 07:38 130/76 94 04/15/24 03:34 144/79 H 94 Pulse Ox Pulse Ox Pulse Ox O2 Del Method O2 Flow Rate O2 Flow Rate O2 Flow Rate 04/15/24 11:20 Nasal Cannula 2 04/15/24 10:47 91 93 83 L 2 3 04/15/24 07:55 Room Air 04/15/24 07:38 Oxymask 04/15/24 03:34 Nasal Cannula O2 Flow Rate 04/15/24 11:20 04/15/24 10:47 2 04/15/24 07:55 04/15/24 07:38 04/15/24 03:34 Laboratory Results Comprehensive Metabolic Panel 04/15/24 Range/Units 06:47 Sodium 139 (136-145) mmol/L Potassium 4.1 (3.5-5.1) mmol/L Chloride 96 L (98-107) mmol/L Carbon Dioxide 36 H (21-32) mmol/L BUN 18 (6-23) mg/dl Creatinine 0.93 (0.6-1.2) mg/dl Glucose 88 (70-99(Fasting)) mg/dl Calcium 8.8 (8.6-10.3) mg/dl Intake and Output 04/14/24 04/15/24 04/15/24 22:59 06:59 14:59 Intake Total 150.5 / 603.5 300 / 603.5 100 / 100 Balance 150.5 / 603.5 300 / 603.5 100 / 100 Intake: IV 150.5 / 403.5 100 / 403.5 100 / 100 Piperacillin/Tazobactam 4.5 gm 100 / 300 100 / 300 100 / 100 In 100 ml @ 25 mls/hr IV Q8H BHAVIN Rx#:[id number] Promethazine 12.5 mg In 50.5 ml 50.5 / 50.5 @ 202 mls/hr IV Q6H PRN Rx#: [id number] Oral 200 / 200 Other: # Unmeasured Voids 2 Weight 146.7 kg Weight Measurement Method Built in [facility]
--- NOTE | 2024-04-15 13:55 | Discharge Summary ---
Discharge Summary Date of Service April 15, 2024 Principal Dx & Hospital Course #1 = Principal Diagnosis (1) Acute diastolic (congestive) heart failure: per admitting service notes with addendum: 58-year-old female with past medical history significant for type 2 diabetes, obstructive sleep apnea, diastolic CHF, morbid obesity, anxiety, insomnia, depression, night terrors went to PCP office today because of lower extremity cellulitis and also shortness of breath and when checked her D-dimer was elevated and was referred to the ER. Patient is having ongoing lower extremity infection. She was in the hospital in October with bilateral lower extremities cellulitis and cultures grew serratia. She was discharged on Zyvox and Cipro. She was in the ER on March 17, 2024 with lower leg wounds and she was given a shot of Rocephin and discharged on Keflex. Today again PCP prescribed Keflex and given a shot of Rocephin in the office. Patient says she has a lot of pain in the lower extremity. Having difficulty ambulating because of the pain. She uses oxygen 2 L when sleeping and in the daytime as needed. Was feeling short of breath lately. Denies any chest pain. No fevers. No headache. No dizziness. No blurred visions. No runny nose or sore throat. No cough. Normal bowel and bladder movements. In the ER she is requiring currently 4 L and saturating okay Acute diastolic CHF Has lower extremity edema Requiring oxygen IV Lasix 40 mg twice daily Daily weights and I's and O's Will follow echo Telemetry Cardiac consult in a.m. for further recommendations Close monitor 04/12 echo pending continue Lasix 40mg IV BID Systematic Theology Professor consulted Bilateral lower extremity cellulitis Recurrent Er has started on IV Dapto and Zosyn which will be continued Follow cultures Will monitor the response Will also follow Doppler to rule out DVTs 04/12 Lower extremity Doppler ultrasound: Negative for DVT Blood cultures pending Continue daptomycin plus Zosyn 04/13 Improving Diuresing well Continue Lasix IV Continue IV antibiotics Will order wound care consult 04/14 Continues to improve, diuresing well Continue IV Lasix, p.o. Aldactone ordered MRSA positive Continue daptomycin plus cefepime Hopefully can transition to oral diuretics tomorrow and oral antibiotics for discharge Will need two-step exercise test Already has a home oxygen concentrator at home for portable oxygen Nausea Positive BMs Protonix IV As needed Zofran Obstructive sleep apnea Currently using 2 L oxygen while sleeping Patient states she does not have insurance for sleep study Follow-up with PCP Morbid obesity Counseling Nutrition follow-up Diabetes Hold glipizide Insulin sliding scale Will follow HbA1c levels: 6.0 Will follow blood sugars Hypertension On lisinopril Will monitor Depression and anxiety On duloxetine DVT prophylaxis Lovenox Disposition Possible discharge tomorrow Full code Admission HPI Per Admitting Provider 58-year-old female with past medical history significant for type 2 diabetes, obstructive sleep apnea, diastolic CHF, morbid obesity, anxiety, insomnia, depression, night terrors went to PCP office today because of lower extremity cellulitis and also shortness of breath and when checked her D-dimer was elevated and was referred to the ER. Patient is having ongoing lower extremity infection. She was in the hospital in October with bilateral lower extremities cellulitis and cultures grew serratia. She was discharged on Zyvox and Cipro. She was in the ER on March 17, 2024 with lower leg wounds and she was given a shot of Rocephin and discharged on Keflex. Today again PCP prescribed Keflex and given a shot of Rocephin in the office. Patient says she has a lot of pain in the lower extremity. Having difficulty ambulating because of the pain. She uses oxygen 2 L when sleeping and in the daytime as needed. Was feeling short of breath lately. Denies any chest pain. No fevers. No headache. No dizziness. No blurred visions. No runny nose or sore throat. No cough. Normal bowel and bladder movements. In the ER she is requiring currently 4 L and saturating okay Past medical history. As mentioned above Past surgical history. Dental surgery. Appendectomy Social history. No smoking. No alcohol use. No drug use. Family history. Sister had breast cancer. Mother has diabetes. COPD.. Lupus. Father has hypertension. Multiple MIs. Paternal grandfather had sudden cardiac at age of 65. Uncle had sudden cardiac . Maternal grandmother had diabetes. Updated Medication List Medication Instructions Recorded Confirmed Type cephalexin 500 mg capsule 500 mg PO QID 04/12/24 04/12/24 History duloxetine 60 mg capsule,delayed 60 mg PO DAILY 04/12/24 04/12/24 History release furosemide 40 mg tablet 40 mg PO DAILY 04/12/24 04/12/24 History glipizide 10 mg tablet, extended 10 mg PO DAILY 04/12/24 04/12/24 History release 24 hr lisinopril 20 mg tablet 20 mg PO DAILY 04/12/24 04/12/24 History potassium chloride 20 mEq 20 meq PO DAILY 04/12/24 04/12/24 History tablet,extended release Hospital Stay Data Consultations 04/11/24 23:24 ED Decision to Admit Stat 04/12/24 08:00 Consult Cardiology Routine Diagnostic Imagining Performed 04/11/24 19:51 CT angio chest PE protocol Stat 04/12/24 02:37 US venous doppler LE BI Routine
--- NOTE | 2024-04-15 15:03 | Hospitalist Progress Note ---
Date of Service April 15, 2024 Assessment & Plan (1) Acute diastolic (congestive) heart failure: (2) Cellulitis of both lower extremities: (3) Chronic respiratory failure: (4) Hypoxia: Plan: (1) Acute diastolic (congestive) heart failure: Plan: per admitting service notes with addendum: 58-year-old female with past medical history significant for type 2 diabetes, obstructive sleep apnea, diastolic CHF, morbid obesity, anxiety, insomnia, depression, night terrors went to PCP office today because of lower extremity cellulitis and also shortness of breath and when checked her D-dimer was elevated and was referred to the ER. Patient is having ongoing lower extremity infection. She was in the hospital in October with bilateral lower extremities cellulitis and cultures grew serratia. She was discharged on Zyvox and Cipro. She was in the ER on March 17, 2024 with lower leg wounds and she was given a shot of Rocephin and discharged on Keflex. Today again PCP prescribed Keflex and given a shot of Rocephin in the office. Patient says she has a lot of pain in the lower extremity. Having difficulty ambulating because of the pain. She uses oxygen 2 L when sleeping and in the daytime as needed. Was feeling short of breath lately. Denies any chest pain. No fevers. No headache. No dizziness. No blurred visions. No runny nose or sore throat. No cough. Normal bowel and bladder movements. In the ER she is requiring currently 4 L and saturating okay Acute exacerbation of chronic diastolic congestive heart failure Echocardiogram: EF 55 to 60%, right ventricle is mild to moderately dilated, right ventricular systolic function is mildly reduced Right ventricular systolic pressure is elevated 50 to 60 mmHg Cardiology service consulted Placed on Lasix 40 mg IV twice daily and Aldactone daily Diuresing well Lower extremity edema significantly improving Plan to continue Lasix 40 mg IV twice daily until tomorrow, then transition to oral furosemide and Aldactone Will need weekly BMP at least 2 weeks 2 L fluid restriction, 1.5 g sodium restriction Acute hypoxic respiratory failure Secondary to acute CHF exacerbation At baseline, patient uses 3 L of O2 at bedtime Currently on 3 L of O2 Two-step exercise test: Recommend 3 L of O2 with ambulation and at rest Patient to be provided with oxygen concentrator by [employer] enc[facility] upon discharge Bilateral lower extremity cellulitis Recurrent Lower extremity Doppler ultrasound: Negative for DVT Blood cultures: Negative Nasal MRSA: Positive Given daptomycin plus cefepime Responding well to IV antibiotics, erythema, edema, warmth improving Transition to oral doxycycline and Augmentin upon discharge, x 7 more days to complete 10-day course Probiotics daily for 1 month Nausea Positive BMs Protonix IV As needed Zofran Resolving Obstructive sleep apnea Currently using 2 L oxygen while sleeping Patient states she does not have insurance for sleep study Follow-up with PCP Morbid obesity Counseling Nutrition follow-up Diabetes Hold glipizide Insulin sliding scale HbA1c levels: 6.0 Hypertension On lisinopril Will monitor Depression and anxiety On duloxetine DVT prophylaxis Lovenox Disposition Possible discharge to home tomorrow Due to absence of insurance coverage, patient not qualified to have home health services at this point per [facility] Full code Admission and Anticipated Discharge Date Admission Date: April 12, 2024 Subjective Follow-up for acute CHF exacerbation, lower extremity cellulitis, infected wounds, etc. Seen resting in bedside chair, on 3 L of O2 by nasal cannula Comfortable, not in distress States she was able to sleep better last night Feels more rested today Denies shortness of breath, chest pain, nausea Lower extremity pain also improving overall No other symptoms Review of Systems Review of Systems: all noted and negative except for above Physical Exam Physical Exam: General- oriented x 3, not in distress, speaks in sentences with no effort or accessory muscle use Eyes- anicteric Neck- no JVD Lungs- clear breath sounds bilaterally, no rales/wheezes Heart- normal rate, regular rhythm; no murmurs Abdomen- normal bowel sounds, nondistended, soft, nontender Extremities- Mild lower extremity edema, with mild erythema, wounds covered with dressing No bleeding or discharge No warmth, no tenderness Neuro- alert, oriented x 3; no gross focal neurologic deficits Skin- warm & dry Results & Data Results & Data Vital Signs (Past 12 Hours) Vital Signs Temp Pulse Pulse Pulse Pulse Pulse Pulse 04/15/24 14:42 86 04/15/24 11:20 36.4 C L 77 04/15/24 10:47 101 H 92 H 76 83 04/15/24 07:55 04/15/24 07:38 36.6 C 79 04/15/24 03:34 36.7 C 83 Resp Resp Resp Resp Resp BP Pulse Ox 04/15/24 14:42 04/15/24 11:20 18 128/74 94 04/15/24 10:47 20 20 18 18 04/15/24 07:55 04/15/24 07:38 18 130/76 94 04/15/24 03:34 18 144/79 H 94 Pulse Ox Pulse Ox Pulse Ox Pulse Ox O2 Del Method O2 Flow Rate O2 Flow Rate 04/15/24 14:42 04/15/24 11:20 Nasal Cannula 2 04/15/24 10:47 86 L 91 93 83 L 2 04/15/24 07:55 Room Air 04/15/24 07:38 Oxymask 04/15/24 03:34 Nasal Cannula O2 Flow Rate O2 Flow Rate 04/15/24 14:42 04/15/24 11:20 04/15/24 10:47 3 2 04/15/24 07:55 04/15/24 07:38 04/15/24 03:34 all noted and reviewed including below
[2024-04-16 08:10] LABS: BUN Creatinine Ratio 17.1 (10-20); Creatinine Clr Calc Pharmacy 83.6 ml/min; Est GFR (African American) 63.8 ml/min; Est GFR (Non-African American) 55.1 ml/min; Magnesium 2.1 mg/dl (1.7-2.4)
[2024-04-16] MEDS: FUROSEMIDE 40 MG TAB PO SCH (09:56)
[2024-04-16] MEDS: SPIRONOLACTONE 12.5 MG TAB PO SCH (10:56)
[2024-04-16 11:07] VITALS: TEMP 97.3; O2SAT 98
--- NOTE | 2024-04-16 12:26 | Discharge Summary ---
Date of Service April 16, 2024 Admission HPI Per Admitting Provider 58-year-old female with past medical history significant for type 2 diabetes, obstructive sleep apnea, diastolic CHF, morbid obesity, anxiety, insomnia, depression, night terrors went to PCP office today because of lower extremity cellulitis and also shortness of breath and when checked her D-dimer was elevated and was referred to the ER. Patient is having ongoing lower extremity infection. She was in the hospital in October with bilateral lower extremities cellulitis and cultures grew serratia. She was discharged on Zyvox and Cipro. She was in the ER on March 17, 2024 with lower leg wounds and she was given a shot of Rocephin and discharged on Keflex. Today again PCP prescribed Keflex and given a shot of Rocephin in the office. Patient says she has a lot of pain in the lower extremity. Having difficulty ambulating because of the pain. She uses oxygen 2 L when sleeping and in the daytime as needed. Was feeling short of breath lately. Denies any chest pain. No fevers. No headache. No dizz iness. No blurred visions. No runny nose or sore throat. No cough. Normal bowel and bladder movements. In the ER she is requiring currently 4 L and saturating okay Past medical history. As mentioned above Past surgical history. Dental surgery. Appendectomy Social history. No smoking. No alcohol use. No drug use. Family history. Sister had breast cancer. Mother has diabetes. COPD.. Lupus. Father has hypertension. Multiple MIs. Paternal grandfather had sudden cardiac at age of 65. Uncle had sudden cardiac . Maternal grandmother had diabetes. Admission Exam Per Admitting Provider General- Not in acute distress Head- atraumatic Eyes- PERRL. ENT- oropharynx clear Neck- supple, no JVD. Lungs- clear to auscultation no wheezing or crackles. Heart- regular rate and rhythm; no murmur, no gallop. Abdomen- normal bowel sounds, soft, nontender, no distension Extremities- b/l lower extremities gross edema and erythema with blebs seen. superficial wounds seen. Tender to palpate Neuro- alert, oriented ; PERRL, no facial palsy; no dysarthria; moves extremities Principal Diagnosis Acute congestive heart failure exacerbation Acute on chronic respiratory failure with hypoxia Bilateral lower extremity cellulitis Discharge Exam Constitutional + well hydrated and + morbidly obese; no acute distress Eyes PERRL, conjunctivae normal, anicteric sclerae ENMT external ear and nose normal, oropharynx normal Respiratory On nasal cannula, diminished breath sounds Cardiovascular Rate/Rhythm: regular rate and regular rhythm Gastrointestinal (Abdomen) normal bowel sounds, soft, nontender, no hepatosplenomegaly Musculoskeletal LE edema improved Erythema resolving No tenderness Neurologic PERRL, EOMI, accommodation nl, no face palsy, no dysarthria Psychiatric A+Ox3, euthymic affect Discharge Data Allergies Allergy/AdvReac Type Severity Reaction Status Date / Time bee venom protein (honey bee) Allergy Severe ANAPHYLAXIS Verified 11/08/21 14:55 shellfish derived Allergy Severe ANAPHYLACTI Verified 11/08/21 14:55 C iodine Allergy Intermediate SWELLING Verified 11/08/21 14:55 AND IRRITATION AT SITE Consultations 04/11/24 23:24 ED Decision to Admit Stat 04/12/24 08:00 Consult Cardiology Routine Ordered Studies 04/11/24 19:51 CT angio chest PE protocol Stat 04/12/24 02:37 US venous doppler LE Routine Hospital Course (1) Acute diastolic (congestive) heart failure: (2) Cellulitis of both lower extremities: (3) Chronic respiratory failure: (4) Hypoxia: 58-year-old female with past medical history significant for type 2 diabetes, obstructive sleep apnea, diastolic CHF, morbid obesity, anxiety, insomnia, depression, night terrors went to PCP office because of lower extremity cellulitis and also shortness of breath and when checked her D-dimer was elevated and was referred to the ER. Patient is having ongoing lower extremity infection. She was in the hospital in October with bilateral lower extremities cellulitis and cultures grew serratia. She was discharged on Zyvox and Cipro. She was in the ER on March 17, 2024 with lower leg wounds and she was given a shot of Rocephin and discharged on Keflex. Patient says she has a lot of pain in the lower extremity. Having difficulty ambulating because of the pain. She uses oxygen 2 L when sleeping and in the daytime as needed. In the ER she is requiring currently 4 L Acute exacerbation of chronic diastolic congestive heart failure Echocardiogram: EF 55 to 60%, right ventricle is mild to moderately dilated, right ventricular systolic function is mildly reduced Right ventricular systolic pressure is elevated 50 to 60 mmHg Was managed with IV lasix inpt Started on spironolactone daily Lower extremity edema significantly improved Was comanaged with [employer] Discharged on po Lasix 40mg daily and spironolactone 12.5mg daily Educated on dietary and fluid management 2 L fluid restriction, 1.5 g sodium restriction Needs to follow up with Cardiology outpt Acute on chronic hypoxic respiratory failure Secondary to acute CHF exacerbation At baseline, patient uses 2 L of O2 at bedtime Currently on 3 L of O2 Two-step exercise test: Recommend 3 L of O2 with ambulation and at rest Script provided to CM Bilateral lower extremity cellulitis Recurrent Lower extremity Doppler ultrasound: Negative for DVT Blood cultures: Negative Nasal MRSA: Positive Got IV antibiotics inpt Discharged on doxycycline to complete treatment Obstructive sleep apnea Currently using 2 L oxygen while sleeping prior to admission Discharge on 3L of oxygen at all times as above PCP needs to arrange sleep study Morbid obesity Lifestyle modification education provided Diabetes HbA1c levels: 6.0 Continue home antidiabetics Hypertension On lisinopril Depression and anxiety On duloxetine Total Time Total Time Spent Total Time Spent (In Minutes): 35 Total Time Includes: Examination of the Patient, Discharge Planning and Medication Reconciliation Discharge Plan Discharge Items Patient Disposition: Home - Self-Care Reason For Visit: ACUTE CHF, LOWER EXTREMITY CELLULITIS Discharge Diagnosis: Acute congestive heart failure exacerbation Acute on chronic respiratory failure with hypoxia Bilateral lower extremity cellulitis Activity: As commented below Activity Comment: Increase activity as tolerated, no heavy exertion Lifting: Wait until after follow-up appointment Exercise/Sports: Wait until after follow-up appointment Driving/Machine Use: No driving until reevaluated and allowed by primary care physician Non-emergency contact: Primary Care Provider Call non-emergency contact if: you have any medication questions, your symptoms worsen, your pain is not controlled, your pain is worsening, your pain is unusual for you, your pain is concerning for you and you have a fever Follow-up/Referrals: Latricia Le DO [Primary Care Provider] - (Date & Time 04/22/2024 3:00 PM Provider Latricia Le DO Department [facility] ) Shine Smith [Physician [employer]] - (The Cardiology office will contact you for a follow up appointment.) Diet: Heart Healthy and Low Sodium (2gm) Fluids: 1500ml (6 cups) Addtl Attending Provider Instructions: Mrs Alexander You came to the hospital for shortness of breath, leg swelling and pain. You were managed for the above listed diagnoses. Please continue to take your lasix. Spironolactone was added to your medications. Stop taking potassium tablets for now. You are being discharged on oxygen at 3L at all times. Please adhere to fluid restriction and dietary management of heart failure. Please ensure follow up with Cardiology. Please ensure follow up with your Primary Doctor who will also arrange referral to Sleep medicine for sleep study. It was a pleasure taking care of you. Pending Studies at Discharge: No Stand-Alone Forms: My [facility], Smoking Cessation Medications and DC Order Prescriptions: New doxycycline hyclate 100 mg Capsule 100 mg PO BID Qty: 5 0RF spironolactone 25 mg Tablet 12.5 mg PO QAM Qty: 30 0RF Continued furosemide 40 mg Tablet 40 mg PO DAILY glipizide 10 mg Tablet Extended Release 24hr 10 mg PO DAILY lisinopril 20 mg Tablet 20 mg PO DAILY duloxetine 60 mg Capsule,Delayed Release(Dr/Ec) 60 mg PO DAILY Discontinued cephalexin 500 mg capsule 500 mg PO QID Rx Instructions: for todays 04/11/24 to 04/21/24 potassium chloride 20 mEq Tablet Extended Release 20 meq PO DAILY Discharge Orders: Discharge Order- CHF (Routine); Ordered 04/16/24 Ordered By: Jo Srivastava/Other Patient Handouts: Managing Type 2 Diabetes Admission Data Admit Date/Time: 04/12/24 02:36 Attending Provider: Jo Ingram I. Admit Provider: Jean Pierre Brambila Primary Care Provider: Latricia Le Other Providers: Jean Pierre Brambila; Pratibha Alexandre; Julio Nunez; Yung Yeh; Rodrigo Ryder; Kennedy Savage; Shine Smith; Sweta Hamilton; Grace Jha; Dorcas Hills; Pratibha Moore; Luis Alfredo Romeo; Kt Wright; Shabana Moreno; Radha Nava; Talita Pryor; Fan Fan; Nato Hernandez; Kathy Truong; Don Elliott. Other Interventions: Discharge Summary Assessment (RN) Last Done: 04/16/24 14:05
[2024-04-16 14:07] VITALS: BP 120/65; PULSE 79
== END 2024-04-16 16:07 | disposition home or self-care (01) | DRG 291 ==
LOC: ED 19:06 → 2S 04-12 02:36 → SUATTDRO 04-12 02:36 → 2S 04-12 04:23